=== PATIENT | female | born 1980 ===

== ENCOUNTER 2021-02-12 21:54 | Emergency (ER) | payer MEDICAID, SELFPAY ==
--- NOTE | ~2021-02-12 | XR_ITS ---
EXAMINATION: XR CHEST CLINICAL INFORMATION: Upper respiratory symptoms COMPARISON: 04/05/2009 TECHNIQUE: Frontal view of the chest was obtained. FINDINGS: No significant abnormality is noted involving the heart, lungs, mediastinum, bony thorax or soft tissues. XR/XR chest 1V IMPRESSION: Unremarkable examination.
[2021-02-12 22:11] VITALS: BP 146/80; PULSE 74; PULSE 88; RESP 15; TEMP 36; O2SAT 100; O2SAT 99; BMI 32.9
[2021-02-12 22:47] VITALS: O2SAT 98
--- NOTE | 2021-02-12 23:14 | ED.URI ---
HPI - URI/Sore Throat General Chief Complaint: Upper Respiratory Symptoms Stated Complaint: nausea Time Seen by Provider: 02/12/21 23:08 Source: patient Mode of arrival: ambulatory Limitations: no limitations History of Present Illness HPI Narrative: This is a 40 years old female presented to the emergency department complaining of cough congestion runny nose. She states that she has been running a fever as well MD elicited complaint: fever and cough Onset (ago): day(s) (3 Days) Consistency: constant Severity: moderate Description of mucous: clear Exacerbating factors: nothing Relieving factors: nothing Associated symptoms: denies other symptoms Related Data Previous Rx's Medication Instructions Recorded amoxicillin 500 mg tablet 500 mg PO Q8H #30 tab 02/12/21 fluticasone propionate 50 1 spray INTRANASAL DAILY #16 g 02/12/21 mcg/actuation nasal spray,suspension (Flonase Allergy Relief) hydrocortisone 1 % topical cream 1 appl TOPICAL BID PRN #144 ea 02/12/21 packet Allergies Allergy/AdvReac Type Severity Reaction Status Date / Time No Known Allergies Allergy Unverified 02/18/20 15:26 Review of Systems Review of Systems: Yes all other systems are reviewed and are negative Constitutional: Constitutional: Reports no additional constitutional complaints ENT: Reports system reviewed and no additional complaints, except as documented Cardiovascular: Cardiovascular: Reports no additional cardiovascular complaints Respiratory: Respiratory: Reports chest congestion and Reports cough PMFSH Past Medical History Medical History No known health problems Surgical History No history of previous surgery Social History Social History Alcohol intake: never Patient Tobacco Use Status: Never used Tobacco Use of substances other than those prescribed or required for medical reasons: No Advance Directives: No Advance Directives Information Provided: Yes Patient : No Physical Exam Vital Signs: Vital Signs: Last Vital Signs Temp 96.8 F 02/12/21 22:11 Pulse 74 02/12/21 22:11 Resp 15 02/12/21 22:11 BP 146/80 H 02/12/21 22:11 Pulse Ox 98 02/12/21 22:47 Body Mass Index 32.9 Const: General: cooperative and comfortable Orientation/consciousness: oriented to person, oriented to place, oriented to time and patient oriented x3 HENMT: Head: Yes normal to inspection, Yes No palpable skull fracture present and Yes normocephalic General nose exam: Normal external nose present Mouth: Normal oral and palatal mucosa present Neck: Neck: Yes normal visual inspection, Yes full ROM and Yes no lymphadenopathy Chest: Chest palpation & inspection: normal inspection of the chest and normal palpation of entire chest wall Resp: Effort & Inspection: normal respiratory effort and able to speak in complete sentences Auscultation: rhonchi Cardio: Jugular venous distension: no JVD Rate: regular rate Rhythm: regular rhythm GI: Inspection: Yes normal to inspection Palpation (GI): Soft to palpation, not firm, nontender and no guarding Skin: General skin exam: no rashes or lesions noted, elasticity normal and turgor normal Rashes: no rashes Neuro: General: oriented to person, oriented to place, oriented to time, patient oriented x3, gait normal and tone normal Cranial nerves: Yes CN's II-XII intact bilaterally and Yes Bilaterally intact EOM present Cognition (Neuro): normal cognition Course Reevaluation(s) Reevaluation #1: Patient is not toxic appearing she is afebrile chest x-rays negative ago this negative okay to discharge home MDM - URI/Sore Throat Lab Data Labs: Lab Results 02/12/21 02/12/21 Range/Units 23:00 23:22 Urine Color STRAW Urine Appearance CLEAR Urine pH 6.0 (5.0-8.0) Ur Specific [place] <= 1.005 (1.005-1.025) Urine Protein NEG (NEG-TRACE) MG/DL Urine Glucose (UA) NEG (NEG) MG/DL Urine Ketones NEG (NEG) MG/DL Urine Blood 2+ H (NEG) Urine Nitrite NEG (NEG) Ur Leukocyte Esterase NEG (NEG) Urine RBC 1-4 (0) /HPF Urine WBC 0 (0-4) /HPF Ur Squamous Epith Cells 1+ /LPF Urine Bacteria NONE /LPF COVID-19 ([facility]ANY) Negative (Negative) COVID-19 Clin Com See Note Imaging Data Chest x-ray: Radiologist's impression: EXAMINATION: XR CHEST CLINICAL INFORMATION: Upper respiratory symptoms COMPARISON: 04/05/2009 TECHNIQUE: Frontal view of the chest was obtained. FINDINGS: No significant abnormality is noted involving the heart, lungs, mediastinum, bony thorax or soft tissues. XR/XR chest 1V IMPRESSION: Unremarkable examination. ? Dictated By: CORETTA SALAZAR MD Signed By: <Electronically signed by CORETTA SALAZAR MD in OV> 02/12/21 6044 Discharge Plan Discharge Clinical Impression: Sinusitis, Upper respiratory infection Patient Disposition: Home, Self-Care Instructions: Sinusitis (ED) Prescriptions: New amoxicillin 500 mg tablet 500 mg PO Q8H Qty: 30 RF: 0 fluticasone propionate [Flonase Allergy Relief] 50 mcg/actuation spray,suspension 1 spray intranasal DAILY Qty: 16 RF: 0 hydrocortisone 1 % cream in packet 1 appl topical BID PRN (Reason: rash) Qty: 144 RF: 0
[2021-02-12 23:25] LABS: COVID-19 Test Negative (Negative); IDNOW Serial# 9DD0AD1C
[2021-02-12 23:28] LABS: Appearance Urine CLEAR; Color Urine STRAW; Glucose Urine UA NEG (NEG); Leukocyte Esterase Urine NEG (NEG); Nitrite Urine NEG (NEG); Specific Gravity - Urine <= 1.005 (1.005-1.025); Urine Blood 2+ (NEG); Urine Ketones NEG (NEG); Urine Protein NEG (NEG-TRACE)
[2021-02-12 23:34] LABS: Squamous Epithelial Cell Urine 1+ /LPF; WBC Urine 0 /HPF (0-4)
[2021-02-13] MEDS: Amoxicillin 500 MG CAPSULE PO (00:11)
== END 2021-02-13 00:20 | disposition home or self-care (01) ==
PROVIDERS: Emergency Provider Emergency Medicine
DX: J32.9 Chronic sinusitis, unspecified (principal); J06.9 Acute upper respiratory infection, unspecified; R50.9 Fever, unspecified; R05 Cough; Z20.822 Contact with and (suspected) exposure to COVID-19; Z79.899 Other long term (current) drug therapy
CPT/HCPCS: 36415; 71045; 81001; 87635; 99284

== ENCOUNTER 2021-02-13 10:31 | Emergency (ER) | payer MEDICAID, SELFPAY ==
--- NOTE | ~2021-02-13 | CT_ITS ---
EXAMINATION: CT ABDOMEN AND PELVIS WITHOUT CONTRAST CLINICAL INFORMATION: Left flank pain COMPARISON: None TECHNIQUE: Multidetector volumetric imaging was performed from the superior aspect of the liver through the pubic symphysis. Sagittal and coronal reformatted images were obtained on the technologist's workstation. This CT examination was performed using dose optimization techniques as appropriate, variously including the following: *Automated exposure control *Adjustment of mA and/or kV according to patient size (this includes techniques or standardized protocols for targeted exams where dose is matched to indication/reason for exam; i.e. extremities or head) *Use of iterative reconstruction technique DLP: 682 mGy-cm FINDINGS: LUNG BASES: The lung bases are clear. Heart size is normal. LIVER, GALLBLADDER, AND BILIARY TREE: There is a 6 mm hypodensity in segment 4A on axial image 24/3. No additional lesions seen. No intrahepatic ductal dilatation. There is small radiopaque gallstones without wall thickening. PANCREAS: Unremarkable. SPLEEN: Unremarkable. ADRENAL GLANDS: Unremarkable. KIDNEYS AND URETERS: The kidneys are normal in size, shape, and attenuation. No hydronephrosis, hydroureter, or calculi seen. No perinephric stranding. BLADDER: Unremarkable. GASTROINTESTINAL TRACT: There is scattered stool and gas seen throughout the colon without distention. The small bowel loops are normal caliber. Appendix is not visualized well. ABDOMINAL WALL: No significant hernia is appreciated. LYMPH NODES: Normal. VASCULAR: Unremarkable. PELVIC VISCERA: Unremarkable. OSSEOUS STRUCTURES: There is no lytic or sclerotic process seen. CT/CT abdomen pelvis wo con IMPRESSION: Cholelithiasis without wall thickening. 6 mm hypodense lesion in segment 4A, too small to correctly characterize. Mild constipation. No radiopaque urolith or hydroureteronephrosis.
[2021-02-13 10:55] VITALS: BP 119/60; PULSE 75; RESP 16; TEMP 36.9; O2SAT 99; BMI 29.2
--- NOTE | 2021-02-13 11:00 | ED.ABDPAIN ---
HPI - Abdominal Pain General Chief Complaint: Nausea/Vomiting/Diarrhea Stated Complaint: ABD PAIN,DIZZINESS Time Seen by Provider: 02/13/21 10:59 Source: patient Mode of arrival: ambulatory Limitations: no limitations History of Present Illness MD elicited complaint: abdominal pain Pertinent past history: none Onset (ago): day(s) (2) Pain Consistency: constant Location: LUQ Severity: moderate Quality: stabbing Radiation: L flank Migration to: no migration Exacerbating factors: movement Relieving factors: nothing Context: other (just seen yesterday for sinusitis - amoxicillin Rx) Associated symptoms: dysuria and other (vaginal discharge, subj fever/chills vomiting) Treatments prior to arrival: other (amoxicillin) Related Data Previous Rx's Medication Instructions Recorded amoxicillin 500 mg tablet 500 mg PO Q8H #30 tab 02/12/21 fluticasone propionate 50 1 spray INTRANASAL DAILY #16 g 02/12/21 mcg/actuation nasal spray,suspension (Flonase Allergy Relief) hydrocortisone 1 % topical cream 1 appl TOPICAL BID PRN #144 ea 02/12/21 packet ondansetron 4 mg disintegrating 4 mg PO Q8H PRN #20 tab 02/13/21 tablet Allergies Allergy/AdvReac Type Severity Reaction Status Date / Time No Known Allergies Allergy Unverified 02/18/20 15:26 Review of Systems Review of Systems Constitutional : No Weight loss, pos Fever, posChills, No Fatigue, No Malaise ENT/Mouth : No sore throat, pos Rhinorrhea Eyes: No Eye Pain, No Swelling, No Redness Cardiovascular : No Chest Pain, No SOB, No Dyspnea on Exertion, No Orthopnea, No Edema, No Palpitations Respiratory : No Cough, No Sputum, No Wheezing Gastrointestinal : pos Nausea, posVomiting, No Diarrhea, No Constipation, pos abdominal Pain, No Hematochezia, No Melena Genitourinary : pos Dysuria, No Urinary Frequency, No Hematuria, pos vaginal discharge Musculoskeletal : No joint pain, No Myalgias, No Joint Swelling Skin : No Skin Lesions, No rash Neuro : No Weakness, No Numbness, No Dizziness, No Headache Psych : No Anxiety/Panic, No Depression Heme/Lymph: No Bruising, No Bleeding,No Lymphadenopathy Endocrine : No Polyuria, No Polydipsia All other systems reviewed and are negative Physical Exam Vital Signs: Vital Signs: Last Vital Signs Temp 97.9 F 02/13/21 12:00 Pulse 67 02/13/21 12:00 Resp 15 02/13/21 12:00 BP 130/70 02/13/21 12:00 Pulse Ox 100 02/13/21 12:00 Body Mass Index 29.2 Appearance: Alert. Oriented X3. No acute distress. Eyes: Pupils equal, round and reactive to light. ENT: Pharynx normal. Neck: Normal inspection. Neck supple. CVS: Normal heart rate and rhythm. Pulses normal. Respiratory: No respiratory distress. Breath sounds normal. Abdomen: Soft and nontender. no obvious response to pain on exam Back: mild L CVA ttp Skin: Skin warm and dry. Normal skin color. Normal skin turgor. Extremities: No lower extremity edema. No calf ttp Neuro: Oriented X 3. No motor deficit. No sensory deficit. Course Course Course Narrative: negative workup stable for DC will refer her to PCP MDM - Abdominal Pain MDM Narrative Medical decision making narrative: 40 yo female otherwise healthy here with multiple complaints - 1. L flank pain and dysuria ?vaginal discharge - will obtain UA, swabs for STI, CT scan for renal colic. Also c/o ?ulcer - abdominal pain ordered, her exam is very benign, possibly UTI with stone she does not appear as a clinical pyleonephritis. Dispo per results and workup. Lab Data Result diagrams: 02/13/21 11:51 02/13/21 11:51 Labs: Lab Results 02/13/21 02/13/21 02/13/21 Range/Units 11:51 11:51 12:25 WBC 12.5 H (4.8-10.8) X10*3/uL RBC 4.68 (4.20-5.50) X10*6/uL Hgb 12.5 (12.0-16.0) g/dl Hct 37.5 (37-47) % MCV 80.1 (80-98) fL MCH 26.7 L (27.0-33.0) pg MCHC 33.3 (31.0-35.0) g/dl RDW 12.8 (11.0-16.0) % Plt Count 298 (160-400) X10*3/uL MPV 10.6 (9.4-12.3) fL Immature Gran % (Auto) 0.3 (0.0-0.4) % Neut % (Auto) 70.1 (45-73) % Lymph % (Auto) 21.2 (20-40) % [place] % (Auto) 6.2 (2-11) % Eos % (Auto) 1.7 (0-4) % Baso % (Auto) 0.5 (0-2) % Lymph # (Auto) 2.7 (1.2-4.9) X10*3/uL [place] # (Auto) 0.8 (0.1-1.2) X10*3/uL Eos # (Auto) 0.2 (0.0-0.4) X10*3/uL Baso # (Auto) 0.1 (0.0-0.2) X10*3/uL Abs Immat Gran (auto) 0.04 H (0.00-0.03) X10*3/uL Absolute Neuts (auto) 8.8 H (2.0-8.3) X10*3/uL Absolute Nucleated RBC 0.000 (0.0-0.012) X10*3/uL Nucleated RBC % (auto) 0.0 (0.0-0.2) /100WBC Sodium 136 (135-145) mmol/L Potassium 3.7 (3.3-5.1) mmol/L Chloride 107 (96-108) mmol/L Carbon Dioxide 20 L (22-29) mmol/L Anion Gap 13 (12-20) BUN 12 (9-16) mg/dL Creatinine 0.90 (0.5-1.4) mg/dL Estim Creat Clear Calc 77.4 Estimated GFR > 60 Random Glucose 97 (60-115) mg/dL Calcium 9.1 (8.4-10.2) mg/dL Magnesium 1.8 (1.6-2.6) mg/dL Total Bilirubin 0.4 (0.0-1.0) mg/dL Direct Bilirubin < 0.2 (0.0-0.5) mg/dL AST 15 (5-31) U/L ALT 12 (0-31) U/L Alkaline Phosphatase 58 (39-117) U/L Total Protein 7.2 (6.5-8.0) g/dL Albumin 4.2 (3.5-5.0) g/dL Lipase 37 (8-78) U/L Urine Color STRAW Urine Appearance CLEAR Urine pH 6.0 (5.0-8.0) Ur Specific [place] 1.010 (1.005-1.025) Urine Protein NEG (NEG-TRACE) MG/DL Urine Glucose (UA) NEG (NEG) MG/DL Urine Ketones NEG (NEG) MG/DL Urine Blood 3+ H (NEG) Urine Nitrite NEG (NEG) Ur Leukocyte Esterase NEG (NEG) Urine RBC 10-14 H (0) /HPF Urine WBC 0 (0-4) /HPF Ur Squamous Epith Cells TRACE /LPF Urine Bacteria NONE /LPF Urine Test (NEGATIVE) 02/13/21 Range/Units 12:25 WBC (4.8-10.8) X10*3/uL RBC (4.20-5.50) X10*6/uL Hgb (12.0-16.0) g/dl Hct (37-47) % MCV (80-98) fL MCH (27.0-33.0) pg MCHC (31.0-35.0) g/dl RDW (11.0-16.0) % Plt Count (160-400) X10*3/uL MPV (9.4-12.3) fL Immature Gran % (Auto) (0.0-0.4) % Neut % (Auto) (45-73) % Lymph % (Auto) (20-40) % [place] % (Auto) (2-11) % Eos % (Auto) (0-4) % Baso % (Auto) (0-2) % Lymph # (Auto) (1.2-4.9) X10*3/uL [place] # (Auto) (0.1-1.2) X10*3/uL Eos # (Auto) (0.0-0.4) X10*3/uL Baso # (Auto) (0.0-0.2) X10*3/uL Abs Immat Gran (auto) (0.00-0.03) X10*3/uL Absolute Neuts (auto) (2.0-8.3) X10*3/uL Absolute Nucleated RBC (0.0-0.012) X10*3/uL Nucleated RBC % (auto) (0.0-0.2) /100WBC Sodium (135-145) mmol/L Potassium (3.3-5.1) mmol/L Chloride (96-108) mmol/L Carbon Dioxide (22-29) mmol/L Anion Gap (12-20) BUN (9-16) mg/dL Creatinine (0.5-1.4) mg/dL Estim Creat Clear Calc Estimated GFR Random Glucose (60-115) mg/dL Calcium (8.4-10.2) mg/dL Magnesium (1.6-2.6) mg/dL Total Bilirubin (0.0-1.0) mg/dL Direct Bilirubin (0.0-0.5) mg/dL AST (5-31) U/L ALT (0-31) U/L Alkaline Phosphatase (39-117) U/L Total Protein (6.5-8.0) g/dL Albumin (3.5-5.0) g/dL Lipase (8-78) U/L Urine Color Urine Appearance Urine pH (5.0-8.0) Ur Specific [place] (1.005-1.025) Urine Protein (NEG-TRACE) MG/DL Urine Glucose (UA) (NEG) MG/DL Urine Ketones (NEG) MG/DL Urine Blood (NEG) Urine Nitrite (NEG) Ur Leukocyte Esterase (NEG) Urine RBC (0) /HPF Urine WBC (0-4) /HPF Ur Squamous Epith Cells /LPF Urine Bacteria /LPF Urine Test NEGATIVE (NEGATIVE) Discharge Plan Discharge Clinical Impression: Gallstones Abdominal pain Qualifiers: Abdominal location: left upper quadrant Qualified Code(s): R10.12 - Left upper quadrant pain Patient Disposition: Home, Self-Care Instructions: Gallstones (ED), Abdominal Pain (ED) Additional Instructions: return to ED for any worsening symptoms or concerns there are no acute findings on CT scan in your left upper abdomen your STD panel will results in 2 days if positive we will call you please call and find a primary care doctor Prescriptions: New ondansetron 4 mg tablet,disintegrating 4 mg PO Q8H PRN (Reason: nausea and vomiting) Qty: 20 RF: 0 No Action amoxicillin 500 mg tablet 500 mg PO Q8H Qty: 30 RF: 0 fluticasone propionate [Flonase Allergy Relief] 50 mcg/actuation spray,suspension 1 spray intranasal DAILY Qty: 16 RF: 0 hydrocortisone 1 % cream in packet 1 appl topical BID PRN (Reason: rash) Qty: 144 RF: 0 Stand Alone Forms: Work/School Release [facility] Past Medical History Medical History No known health problems Surgical History No history of previous surgery Social History Social History Alcohol intake: never Patient Tobacco Use Status: Never used Tobacco Advance Directives: No Advance Directives Information Provided: No Patient : No
[2021-02-13 11:55] LABS: MANUAL DIFF FLAG NO
[2021-02-13 11:58] LABS: Basophils Absolute Auto 0.1 X10*3/uL (0.0-0.2); Basophils Percent Auto 0.5 % (0-2); Eosinophils Absolute Auto 0.2 X10*3/uL (0.0-0.4); Eosinophils Percent Auto 1.7 % (0-4); Hematocrit 37.5 % (37-47); Hemoglobin 12.5 g/dl (12.0-16.0); Imm Gran Abs Auto 0.04 X10*3/uL (0.00-0.03); Imm Gran Pct Auto 0.3 % (0.0-0.4); Lymphocytes Absolute Auto 2.7 X10*3/uL (1.2-4.9); Lymphocytes Percent Auto 21.2 % (20-40); Mean Corpuscular HGB Conc 33.3 g/dl (31.0-35.0); Mean Corpuscular Hemoglobin 26.7 pg (27.0-33.0); Mean Corpuscular Volume 80.1 fL (80-98); Mean Platelet Volume 10.6 fL (9.4-12.3); Monocytes Absolute Auto 0.8 X10*3/uL (0.1-1.2); Monocytes Percent Auto 6.2 % (2-11); Neutrophils Absolute Auto 8.8 X10*3/uL (2.0-8.3); Neutrophils Percent Auto 70.1 % (45-73); Platelet Count 298 X10*3/uL (160-400); Red Blood Count 4.68 X10*6/uL (4.20-5.50); Red Cell Distribution Width 12.8 % (11.0-16.0); White Blood Count 12.5 X10*3/uL (4.8-10.8)
[2021-02-13 12:00] VITALS: BP 130/70; PULSE 67; RESP 15; TEMP 36.6; O2SAT 100
[2021-02-13 12:14] LABS: Alanine Aminotransferase 12 U/L (0-31); Albumin Level 4.2 g/dL (3.5-5.0); Alkaline Phosphatase 58 U/L (39-117); Anion Gap 13 (12-20); Aspartate Amino Transferase 15 U/L (5-31); Bilirubin Direct < 0.2 mg/dL (0.0-0.5); Bilirubin Total 0.4 mg/dL (0.0-1.0); Blood Urea Nitrogen 12 mg/dL (9-16); Calcium 9.1 mg/dL (8.4-10.2); Carbon Dioxide 20 mmol/L (22-29); Chloride 107 mmol/L (96-108); Creatinine Clr Calc Pharmacy 77.4; Estimated Glomerular Filt Rate > 60; Glucose Random 97 mg/dL (60-115); Lipase 37 U/L (8-78); Magnesium 1.8 mg/dL (1.6-2.6); Potassium 3.7 mmol/L (3.3-5.1); Sodium 136 mmol/L (135-145); Total Protein 7.2 g/dL (6.5-8.0)
[2021-02-13 12:36] LABS: Appearance Urine CLEAR; Color Urine STRAW; Glucose Urine UA NEG (NEG); Leukocyte Esterase Urine NEG (NEG); Nitrite Urine NEG (NEG); UACC Culture Trigger NO; Urine Blood 3+ (NEG); Urine Ketones NEG (NEG); Urine Protein NEG (NEG-TRACE)
[2021-02-13 12:39] LABS: UPreg QC Valid YES; Urine Pregnancy NEGATIVE (NEGATIVE)
[2021-02-13 12:47] LABS: Squamous Epithelial Cell Urine TRACE /LPF; WBC Urine 0 /HPF (0-4)
[2021-02-13 14:35] LABS: CT PCR NOT DETECTED (Not Detect.); NG PCR NOT DETECTED (Not Detect.)
== END 2021-02-13 13:57 | disposition home or self-care (01) ==
PROVIDERS: Emergency Provider Emergency Medicine
DX: R10.12 Left upper quadrant pain (principal); R30.0 Dysuria; R42 Dizziness and giddiness; N89.8 Other specified noninflammatory disorders of vagina; Z79.899 Other long term (current) drug therapy
CPT/HCPCS: 36415; 74176; 80048; 80076; 81001; 81025; 83690; 83735; 85025; 87491; 87591; 99283; 99284

== ENCOUNTER 2021-03-17 16:09 | Emergency (ER) | payer MEDICAID, SELFPAY ==
--- NOTE | ~2021-03-17 | XR_ITS ---
EXAMINATION: XR CHEST CLINICAL INFORMATION: Cough. COMPARISON: Most recent chest radiograph dated 02/12/2021. TECHNIQUE: Frontal view of the chest was obtained. FINDINGS: Hypoinflation of the lungs. Minimal left basilar atelectasis. No pleural effusion or pneumothorax. Stable cardiomediastinal silhouette. XR/XR chest 1V IMPRESSION: Hypoinflation of the lungs with minimal left basilar atelectasis.
--- NOTE | 2021-03-17 16:16 | ED_ITS ---
HPI - URI/Sore Throat General Chief Complaint: Upper Respiratory Symptoms Stated Complaint: cough x2 weeks Time Seen by Provider: 03/17/21 16:14 Source: patient and EMS Mode of arrival: EMS Limitations: no limitations History of Present Illness MD elicited complaint: cough and other (body aches) Pertinent past history: other (states she hasn't felt well in months) Onset (ago): week(s) (2) Consistency: progressively worsening Severity: moderate Able to tolerate fluids by mouth: Yes Exacerbating factors: other (movement) Relieving factors: nothing Context: other (dx with gallstones in February) Associated symptoms: fever, chills, myalgias, headache, cough, nausea and vomiting Treatments prior to arrival: none Related Data Previous Rx's Medication Instructions Recorded amoxicillin 500 mg tablet 500 mg PO Q8H #30 tab 02/12/21 fluticasone propionate 50 1 spray INTRANASAL DAILY #16 g 02/12/21 mcg/actuation nasal spray,suspension (Flonase Allergy Relief) hydrocortisone 1 % topical cream 1 appl TOPICAL BID PRN #144 ea 02/12/21 packet ondansetron 4 mg disintegrating 4 mg PO Q8H PRN #20 tab 02/13/21 tablet ondansetron 4 mg disintegrating 4 mg PO Q8H PRN #20 tab 03/17/21 tablet Allergies Allergy/AdvReac Type Severity Reaction Status Date / Time No Known Allergies Allergy Unverified 02/18/20 15:26 Review of Systems 2 Review of Systems: Constitutional : No Weight loss, No Fever, pos Chills, pos Fatigue, pos Malaise ENT/Mouth : No sore throat, No Rhinorrhea Eyes: No Eye Pain, No Swelling, No Redness Cardiovascular : No Chest Pain, No SOB, No Dyspnea on Exertion, No Orthopnea, No Edema, No Palpitations Respiratory : pos Cough, No Sputum, No Wheezing Gastrointestinal : pos Nausea, pos Vomiting, No Diarrhea, No Constipation, No abdominal Pain, No Hematochezia, No Melena Genitourinary : No Dysuria, No Urinary Frequency, No Hematuria, Musculoskeletal : No joint pain, No Myalgias, No Joint Swelling Skin : No Skin Lesions, No rash Neuro : pos Weakness, No Numbness, No Dizziness, No Headache Psych : No Anxiety/Panic, No Depression Heme/Lymph: No Bruising, No Bleeding,No Lymphadenopathy Endocrine : No Polyuria, No Polydipsia All other systems reviewed and are negative [facility] Past Medical History Attestation statement: The following information was validated with the patient. Medical History No known health problems Surgical History No history of previous surgery Social History Social History Alcohol intake: never Patient Tobacco Use Status: Never used Tobacco Advance Directives: No Advance Directives Information Provided: Yes Patient : No Physical Exam Vital Signs: Vital Signs: Last Vital Signs Temp 99.9 F 03/17/21 16:17 Pulse 90 03/17/21 16:17 Resp 16 03/17/21 16:17 BP 116/67 03/17/21 16:17 Pulse Ox 97 03/17/21 16:17 Body Mass Index 28.7 Appearance: Alert. Oriented X3. No acute distress. Eyes: Pupils equal, round and reactive to light. ENT: Pharynx normal. Neck: Normal inspection. Neck supple. CVS: Normal heart rate and rhythm. Pulses normal. Respiratory: No respiratory distress. Breath sounds normal. Abdomen: Soft and nontender. Skin: Skin warm and dry. pale skin color. Normal skin turgor. Extremities: No lower extremity edema. No calf ttp Neuro: Oriented X 3. No motor deficit. No sensory deficit. Course Course Course Narrative: no hypoxia, no pneumonia symptoms really started 2 days ago with overall feeling worse and cough - can be DC home home, given expectant course MDM - URI/Sore Throat MDM Narrative Medical decision making narrative: 41 yo female with viral like illness here with multiple complaints one of which is sick for months - at this time she c/o cough. Will obtain labs, cultures, CXR for pneumonia, lyme test, IVF, COVID/RSV test. Dispo per results and findings. Lab Data Result diagrams: 03/17/21 18:34 03/17/21 18:34 Labs: Lab Results 03/17/21 03/17/21 03/17/21 Range/Units 18:34 18:34 18:40 WBC 5.0 (4.8-10.8) X10*3/uL RBC 4.61 (4.20-5.50) X10*6/uL Hgb 12.6 (12.0-16.0) g/dl Hct 36.7 L (37-47) % MCV 79.6 L (80-98) fL MCH 27.3 (27.0-33.0) pg MCHC 34.3 (31.0-35.0) g/dl RDW 13.0 (11.0-16.0) % Plt Count 189 D (160-400) X10*3/uL MPV 11.5 (9.4-12.3) fL Immature Gran % (Auto) 0.2 (0.0-0.4) % Neut % (Auto) 76.5 H (45-73) % Lymph % (Auto) 17.7 L (20-40) % [place] % (Auto) 5.6 (2-11) % Eos % (Auto) 0.0 (0-4) % Baso % (Auto) 0.0 (0-2) % Lymph # (Auto) 0.9 L (1.2-4.9) X10*3/uL [place] # (Auto) 0.3 (0.1-1.2) X10*3/uL Eos # (Auto) 0.0 (0.0-0.4) X10*3/uL Baso # (Auto) 0.0 (0.0-0.2) X10*3/uL Abs Immat Gran (auto) 0.01 (0.00-0.03) X10*3/uL Absolute Neuts (auto) 3.9 (2.0-8.3) X10*3/uL Absolute Nucleated RBC 0.000 (0.0-0.012) X10*3/uL Nucleated RBC % (auto) 0.0 (0.0-0.2) /100WBC Lactic Acid 1.1 (0.5-2.0) mmol/L Coronavirus (PCR) POSITIVE A (Negative) Influenza Type A (PCR) NEGATIVE (Negative) Influenza Type B (PCR) NEGATIVE (Negative) RSV RNA Qual (PCR) NEGATIVE (Negative) Discharge Plan Discharge Clinical Impression: COVID-19 Patient Disposition: Home, Self-Care Instructions: COVID-19 (Coronavirus Disease 2019) (ED) Additional Instructions: return to ED for any worsening symptoms or concerns if you are so short of breath you cannot walk to the bathroom that is not normal Prescriptions: New ondansetron 4 mg tablet,disintegrating 4 mg PO Q8H PRN (Reason: nausea and vomiting) Qty: 20 RF: 0 No Action amoxicillin 500 mg tablet 500 mg PO Q8H Qty: 30 RF: 0 fluticasone propionate [Flonase Allergy Relief] 50 mcg/actuation spray,suspension 1 spray intranasal DAILY Qty: 16 RF: 0 hydrocortisone 1 % cream in packet 1 appl topical BID PRN (Reason: rash) Qty: 144 RF: 0 ondansetron 4 mg tablet,disintegrating 4 mg PO Q8H PRN (Reason: nausea and vomiting) Qty: 20 RF: 0 Stand Alone Forms: Work/School Release
[2021-03-17 16:17] VITALS: BP 116/67; BP 118/82; PULSE 90; PULSE 99; RESP 16; TEMP 37.7; O2SAT 97; BMI 28.7
[2021-03-17 18:41] LABS: MANUAL DIFF FLAG NO
[2021-03-17 18:47] LABS: Hematocrit 36.7 % (37-47); Hemoglobin 12.6 g/dl (12.0-16.0); Imm Gran Abs Auto 0.01 X10*3/uL (0.00-0.03); Imm Gran Pct Auto 0.2 % (0.0-0.4); Lymphocytes Absolute Auto 0.9 X10*3/uL (1.2-4.9); Lymphocytes Percent Auto 17.7 % (20-40); Mean Corpuscular HGB Conc 34.3 g/dl (31.0-35.0); Mean Corpuscular Hemoglobin 27.3 pg (27.0-33.0); Mean Corpuscular Volume 79.6 fL (80-98); Mean Platelet Volume 11.5 fL (9.4-12.3); Monocytes Absolute Auto 0.3 X10*3/uL (0.1-1.2); Monocytes Percent Auto 5.6 % (2-11); Neutrophils Absolute Auto 3.9 X10*3/uL (2.0-8.3); Neutrophils Percent Auto 76.5 % (45-73); Platelet Count 189 X10*3/uL (160-400); Red Blood Count 4.61 X10*6/uL (4.20-5.50)
[2021-03-17] MEDS: Ketorolac Tromethamine 15 MG/ML VIAL 30 MG IVPUSH (18:48)
[2021-03-17] MEDS: ondansetron HCL 4 MG/2 ML VIAL IVPUSH (18:49)
[2021-03-17] MEDS: cefTRIAXone sodium 1 GM in 0.9 % Sodium Chloride 50 ML IV (18:49)
[2021-03-17] MEDS: 0.9 % Sodium Chloride 1,000 ML 999 ML IVCONT (18:50)
[2021-03-17 18:53] LABS: Lactic Acid 1.1 mmol/L (0.5-2.0)
[2021-03-17 19:25] LABS: Influenza A PCR NEGATIVE (Negative); Influenza B PCR NEGATIVE (Negative); Resp Syncy Virus RNA Qual PCR NEGATIVE (Negative); SARS COV2 PCR INHOUSE POSITIVE (Negative)
[2021-03-17 20:05] LABS: Alanine Aminotransferase 13 U/L (0-31); Albumin Level 3.7 g/dL (3.5-5.0); Alkaline Phosphatase 41 U/L (39-117); Anion Gap 10 (12-20); Aspartate Amino Transferase 18 U/L (5-31); Bilirubin Direct 0.2 mg/dL (0.0-0.5); Bilirubin Total 0.5 mg/dL (0.0-1.0); Blood Urea Nitrogen 10 mg/dL (9-16); Calcium 7.8 mg/dL (8.4-10.2); Carbon Dioxide 24 mmol/L (22-29); Chloride 108 mmol/L (96-108); Creatinine Clr Calc Pharmacy 83.6; Estimated Glomerular Filt Rate > 60; Glucose Random 94 mg/dL (60-115); Lipase 43 U/L (8-78); Magnesium 1.7 mg/dL (1.6-2.6); Potassium 3.2 mmol/L (3.3-5.1); Sodium 139 mmol/L (135-145); Total Protein 6.1 g/dL (6.5-8.0)
[2021-03-20 15:46] LABS: Lyme Abs Screen <0.90 index
== END 2021-03-17 20:13 | disposition home or self-care (01) ==
PROVIDERS: Emergency Provider Emergency Medicine; PCP Internal Medicine
DX: U07.1 COVID-19 (principal); R05.9 Cough, unspecified; M79.10 Myalgia, unspecified site; R51.9 Headache, unspecified; R50.9 Fever, unspecified; Z79.899 Other long term (current) drug therapy
CPT/HCPCS: 0241U; 36415; 71045; 80048; 80076; 83605; 83690; 83735; 85025; 86617; 86618; 87040; 96361; 96365; 96375; 99284; J0696; J1885; J2405

== ENCOUNTER 2021-09-07 08:38 | Outpatient (REF) | payer MEDICAID, SELFPAY ==
--- NOTE | ~2021-09-07 | CT_ITS ---
EXAMINATION: CT SINUS WITHOUT CONTRAST CLINICAL INFORMATION: Chronic rhinitis and headaches. COMPARISON: There are no prior studies available comparison. TECHNIQUE: Noncontrast axial CT scan of the paranasal sinuses was obtained. [place] protocol utilized. Coronal and sagittal reformatted images were generated at the technologist workstation. This CT examination was performed using dose optimization techniques as appropriate, variously including the following: *Automated exposure control *Adjustment of mA and/or kV according to patient size (this includes techniques or standardized protocols for targeted exams where dose is matched to indication/reason for exam; i.e. extremities or head) *Use of iterative reconstruction technique DLP: 125 mGy-cm. FINDINGS: FRONTAL SINUSES AND DRAINAGE PATHWAYS: The frontal sinuses are well developed bilaterally. They are well-aerated with patent frontal sinus drainage pathways. MAXILLARY SINUSES AND DRAINAGE PATHWAYS: The maxillary sinuses are well-developed bilaterally. There is a small retention cyst in the inferior left maxillary sinus medially. The ostiomeatal complexes are patent bilaterally. ETHMOID SINUSES: The ethmoid sinuses are well-developed and appear clear bilaterally. SPHENOID SINUSES AND DRAINAGE PATHWAYS: The sphenoid sinuses are well-aerated bilaterally. They are clear with patent sphenoethmoidal recesses. NASAL CAVITY AND NASAL SEPTUM: The nasal septum is slightly deviated to the left inferiorly and anteriorly. There is a small bony nasal septal spur in the region. There are no large nasal cavity masses or polyps. ADDITIONAL RELEVANT FINDINGS: The lamina papyracea are intact. The carotid canals are normally covered by bone. The ethmoid roofs are slightly asymmetric, higher on the left. No periapical disease is seen. The TMJs and orbits are normal. The visualized mastoid air cells and the middle ear cavity are clear. There are no acute intracranial findings. CT/CT sinus wo con IMPRESSION: 1. There is no significant active sinus disease. The mastoid air cells and middle ear cavities are well-aerated. 2. The ostiomeatal complexes are patent bilaterally.
== END 2021-09-07 08:39 | disposition home or self-care (01) ==
LOC: HO.CT 08:38
PROVIDERS: PCP Internal Medicine; Visit Provider Emergency Medicine
DX: R51.9 Headache, unspecified (principal); J31.0 Chronic rhinitis
CPT/HCPCS: 70486

== ENCOUNTER 2021-09-18 22:16 | Emergency (ER) | payer MEDICAID, SELFPAY ==
--- NOTE | ~2021-09-18 | CT_ITS ---
EXAMINATION: CT ABDOMEN AND PELVIS WITHOUT CONTRAST CLINICAL INFORMATION: Left flank pain COMPARISON: 02/13/2021 TECHNIQUE: Multidetector volumetric imaging was performed from the superior aspect of the liver through the pubic symphysis. Sagittal and coronal reformatted images were obtained on the technologist's workstation. This CT examination was performed using dose optimization techniques as appropriate, variously including the following: *Automated exposure control *Adjustment of mA and/or kV according to patient size (this includes techniques or standardized protocols for targeted exams where dose is matched to indication/reason for exam; i.e. extremities or head) *Use of iterative reconstruction technique DLP: 575 mGy-cm FINDINGS: LUNG BASES: The visualized lung bases are unremarkable. LIVER, GALLBLADDER, AND BILIARY TREE: The liver is normal in size, shape, and attenuation. No focal hepatic lesion or biliary ductal dilatation is present. Normally distended gallbladder with layering high attenuation favoring small stones. No wall thickening or adjacent inflammation. PANCREAS: Unremarkable. SPLEEN: Unremarkable. ADRENAL GLANDS: Unremarkable. KIDNEYS AND URETERS: The kidneys are normal in size, shape, and attenuation. No hydronephrosis, hydroureter, or calculi seen. No perinephric stranding. BLADDER: Unremarkable. GASTROINTESTINAL TRACT: The stomach is unremarkable. Normal caliber small bowel. No obstruction. Normal appendix. No colonic wall thickening or inflammatory change. No free air or free fluid. ABDOMINAL WALL: No significant hernia is appreciated. LYMPH NODES: Normal. VASCULAR: Unremarkable. PELVIC VISCERA: Heterogeneous uterus with lobulations consistent with multiple fibroids. There is what appears to be fluid possibly in the cervical canal. This is distended. This is increased from the previous CT. OSSEOUS STRUCTURES: No acute or suspicious osseous abnormality. Mild degenerative changes in the spine. CT/CT abdomen pelvis wo con IMPRESSION: No acute finding in the abdomen or pelvis. No hydronephrosis or nephrolithiasis. No inflammatory change. Suspect multiple uterine fibroids. This is similar to prior. Appearance of increased fluid in the cervical canal. This could be correlated with ultrasound. Fleischner guidelines were followed.
[2021-09-18 22:57] VITALS: BP 145/80; PULSE 75; RESP 17; TEMP 37.2; O2SAT 98; BMI 32.2
[2021-09-18 23:52] VITALS: BP 122/50; PULSE 73; RESP 12; TEMP 36.8; O2SAT 98
--- NOTE | 2021-09-18 23:57 | ED_ITS ---
HPI - Abdominal Pain General Chief Complaint: Abdominal Pain Stated Complaint: L side stomach & back pain Time Seen by Provider: 09/18/21 23:56 Source: patient Mode of arrival: ambulatory Limitations: no limitations History of Present Illness HPI narrative: Patient complaining of painLeft flank left upper abdomen for last 2 weeks off and on increases on deep inspiration slightly nauseated and vomited few times. No fever no chills patient had similar pain few years ago workup was negative except for gallstones. Patient denies any pain in the right upper quadrant does not feel hungry because of nausea no fever or chills Related Data Previous Rx's Medication Instructions Recorded amoxicillin 500 mg tablet 500 mg PO Q8H #30 tab 02/12/21 fluticasone propionate 50 1 spray INTRANASAL DAILY #16 g 02/12/21 mcg/actuation nasal spray,suspension (Flonase Allergy Relief) hydrocortisone 1 % topical cream 1 appl TOPICAL BID PRN #144 ea 02/12/21 packet ondansetron 4 mg disintegrating 4 mg PO Q8H PRN #20 tab 02/13/21 tablet ondansetron 4 mg disintegrating 4 mg PO Q8H PRN #20 tab 03/17/21 tablet omeprazole 40 mg capsule,delayed 40 mg PO DAILY #30 cap 09/19/21 release sucralfate 1 gram tablet 1 g PO BID #60 tab 09/19/21 Allergies Allergy/AdvReac Type Severity Reaction Status Date / Time No Known Allergies Allergy Verified 09/18/21 22:57 Review of Systems Review of Systems Yes all other systems are reviewed and are negative [facility] Past Medical History Medical History No known health problems Surgical History No history of previous surgery Social History Social History Alcohol intake: never Patient Tobacco Use Status: Never used Tobacco Advance Directives: No Patient : No Physical Exam ED Vital Signs: Vital Signs - 24 hr 09/18/21 22:57 09/18/21 23:52 Temperature 98.9 F 98.2 F Pulse Rate 75 73 Respiratory Rate 17 12 Blood Pressure 145/80 H 122/50 L Pulse Oximetry 98 98 BMI result Body Mass Index 32.2 Appearance: Alert. Oriented X3. No acute distress. Eyes: No pallor/ icterus ENT: Pharynx normal. Oral Mucosa moist Neck: Normal inspection. Neck supple. CVS: Normal heart rate and rhythm. Pulses normal. Respiratory: No respiratory distress. Equal air entry bilateral, no wheezing/rales/rhonchi Abdomen: Soft mild tenderness left upper quadrant and left flank area no rebound tenderness or guarding Bowel sounds are present, no mass palpable, Skin: Skin warm and dry. Normal skin color. Normal skin turgor. Extremities: No lower extremity edema. No calf tenderness Neuro: Oriented X 3. MDM - Abdominal Pain MDM Narrative Medical decision making narrative: Patient with chronic microscopic hematuria with recurrent pain in the left side previous CT scan was also negative and today also does not look like patient has any kidney stone. Will discharge patient home advised to follow up with business trainer Medical Records Attestation: I reviewed the patient's medical records. Lab Data Attestation: I reviewed the patient's lab results. Result diagrams: 09/19/21 00:06 09/19/21 00:06 Labs: Lab Results 09/18/21 09/18/21 09/19/21 Range/Units 23:59 23:59 00:06 WBC 12.2 H (4.8-10.8) X10*3/uL RBC 4.77 (4.20-5.50) X10*6/uL Hgb 12.8 (12.0-16.0) g/dl Hct 38.3 (37.0-47.0) % MCV 80.3 (80.0-98.0) fL MCH 26.8 L (27.0-33.0) pg MCHC 33.4 (31.0-35.0) g/dl RDW 13.3 (11.0-16.0) % Plt Count 291 (160-400) X10*3/uL MPV 9.7 (9.4-12.3) fL Immature Gran % (Auto) 0.2 (0.0-0.4) % Neut % (Auto) 71.8 (45-73) % Lymph % (Auto) 21.0 (20-40) % [place] % (Auto) 5.0 (2-11) % Eos % (Auto) 1.5 (0-4) % Baso % (Auto) 0.5 (0-2) % Lymph # (Auto) 2.6 (1.2-4.9) X10*3/uL [place] # (Auto) 0.6 (0.1-1.2) X10*3/uL Eos # (Auto) 0.2 (0.0-0.4) X10*3/uL Baso # (Auto) 0.1 (0.0-0.2) X10*3/uL Abs Immat Gran (auto) 0.03 (0.00-0.03) X10*3/uL Absolute Neuts (auto) 8.7 H (2.0-8.3) x10*3/uL Absolute Nucleated RBC 0.000 (0.0-0.012) X10*3/uL Nucleated RBC % (auto) 0.0 (0.0-0.2) /100WBC Sodium (135-145) mmol/L Potassium (3.3-5.1) mmol/L Chloride (96-108) mmol/L Carbon Dioxide (22-29) mmol/L Anion Gap (12-20) BUN (9-16) mg/dL Creatinine (0.5-1.4) mg/dL Estim Creat Clear Calc Estimated GFR Random Glucose (60-115) mg/dL Calcium (8.4-10.2) mg/dL Total Bilirubin (0.0-1.0) mg/dL AST (5-31) U/L ALT (0-31) U/L Alkaline Phosphatase (39-117) U/L Total Protein (6.5-8.0) g/dL Albumin (3.5-5.0) g/dL Lipase (8-78) U/L Urine Color YELLOW Urine Appearance CLEAR Urine pH 6.0 (5.0-8.0) Ur Specific [place] 1.020 (1.005-1.025) Urine Protein NEG (NEG-TRACE) MG/DL Urine Glucose (UA) NEG (NEG) MG/DL Urine Ketones NEG (NEG) MG/DL Urine Blood 3+ H (NEG) Urine Nitrite NEG (NEG) Ur Leukocyte Esterase NEG (NEG) Urine RBC 0-2 (0) /HPF Urine WBC 0-2 (0-4) /HPF Ur Squamous Epith Cells TRACE /LPF Urine Bacteria NONE /LPF Urine Test NEGATIVE (NEGATIVE) 09/19/21 Range/Units 00:06 WBC (4.8-10.8) X10*3/uL RBC (4.20-5.50) X10*6/uL Hgb (12.0-16.0) g/dl Hct (37.0-47.0) % MCV (80.0-98.0) fL MCH (27.0-33.0) pg MCHC (31.0-35.0) g/dl RDW (11.0-16.0) % Plt Count (160-400) X10*3/uL MPV (9.4-12.3) fL Immature Gran % (Auto) (0.0-0.4) % Neut % (Auto) (45-73) % Lymph % (Auto) (20-40) % [place] % (Auto) (2-11) % Eos % (Auto) (0-4) % Baso % (Auto) (0-2) % Lymph # (Auto) (1.2-4.9) X10*3/uL [place] # (Auto) (0.1-1.2) X10*3/uL Eos # (Auto) (0.0-0.4) X10*3/uL Baso # (Auto) (0.0-0.2) X10*3/uL Abs Immat Gran (auto) (0.00-0.03) X10*3/uL Absolute Neuts (auto) (2.0-8.3) x10*3/uL Absolute Nucleated RBC (0.0-0.012) X10*3/uL Nucleated RBC % (auto) (0.0-0.2) /100WBC Sodium 137 (135-145) mmol/L Potassium 4.3 D (3.3-5.1) mmol/L Chloride 102 (96-108) mmol/L Carbon Dioxide 23 (22-29) mmol/L Anion Gap 16 (12-20) BUN 12 (9-16) mg/dL Creatinine 0.81 (0.5-1.4) mg/dL Estim Creat Clear Calc 89.4 Estimated GFR > 60 Random Glucose 86 (60-115) mg/dL Calcium 10.0 D (8.4-10.2) mg/dL Total Bilirubin 0.5 (0.0-1.0) mg/dL AST 23 (5-31) U/L ALT 18 (0-31) U/L Alkaline Phosphatase 64 D (39-117) U/L Total Protein 7.8 D (6.5-8.0) g/dL Albumin 4.5 D (3.5-5.0) g/dL Lipase 40 (8-78) U/L Urine Color Urine Appearance Urine pH (5.0-8.0) Ur Specific [place] (1.005-1.025) Urine Protein (NEG-TRACE) MG/DL Urine Glucose (UA) (NEG) MG/DL Urine Ketones (NEG) MG/DL Urine Blood (NEG) Urine Nitrite (NEG) Ur Leukocyte Esterase (NEG) Urine RBC (0) /HPF Urine WBC (0-4) /HPF Ur Squamous Epith Cells /LPF Urine Bacteria /LPF Urine Test (NEGATIVE) Discharge Plan Discharge Clinical Impression: Abdominal pain Patient Disposition: Home, Self-Care Instructions: Abdominal Pain (ED) Additional Instructions: Follow-up business trainer/PCP for further workup Pain medicine as advised Take your Prilosec and sucralfate as prescribed Prescriptions: New omeprazole 40 mg capsule,delayed release(DR/EC) 40 mg PO DAILY Qty: 30 0RF sucralfate 1 gram tablet 1 g PO BID Qty: 60 0RF No Action amoxicillin 500 mg tablet 500 mg PO Q8H Qty: 30 0RF fluticasone propionate [Flonase Allergy Relief] 50 mcg/actuation spray,suspension 1 spray intranasal DAILY Qty: 16 0RF Rx Instructions: administer into each nostril hydrocortisone 1 % cream in packet 1 appl topical BID PRN (Reason: rash) Qty: 144 0RF ondansetron 4 mg tablet,disintegrating 4 mg PO Q8H PRN (Reason: nausea and vomiting) Qty: 20 0RF ondansetron 4 mg tablet,disintegrating 4 mg PO Q8H PRN (Reason: nausea and vomiting) Qty: 20 0RF
[2021-09-19 00:09] LABS: Basophils Absolute Auto 0.1 X10*3/uL (0.0-0.2); Basophils Percent Auto 0.5 % (0-2); Eosinophils Absolute Auto 0.2 X10*3/uL (0.0-0.4); Eosinophils Percent Auto 1.5 % (0-4); Hematocrit 38.3 % (37.0-47.0); Hemoglobin 12.8 g/dl (12.0-16.0); Imm Gran Abs Auto 0.03 X10*3/uL (0.00-0.03); Imm Gran Pct Auto 0.2 % (0.0-0.4); Lymphocytes Absolute Auto 2.6 X10*3/uL (1.2-4.9); MANUAL DIFF FLAG NO; Mean Corpuscular HGB Conc 33.4 g/dl (31.0-35.0); Mean Corpuscular Hemoglobin 26.8 pg (27.0-33.0); Mean Corpuscular Volume 80.3 fL (80.0-98.0); Mean Platelet Volume 9.7 fL (9.4-12.3); Monocytes Absolute Auto 0.6 X10*3/uL (0.1-1.2); Neutrophils Absolute Auto 8.7 x10*3/uL (2.0-8.3); Neutrophils Percent Auto 71.8 % (45-73); Platelet Count 291 X10*3/uL (160-400); Red Blood Count 4.77 X10*6/uL (4.20-5.50); Red Cell Distribution Width 13.3 % (11.0-16.0); White Blood Count 12.2 X10*3/uL (4.8-10.8)
[2021-09-19 00:11] LABS: Appearance Urine CLEAR; Color Urine YELLOW; Glucose Urine UA NEG (NEG); Leukocyte Esterase Urine NEG (NEG); Nitrite Urine NEG (NEG); UACC Culture Trigger NO; Urine Blood 3+ (NEG); Urine Ketones NEG (NEG); Urine Protein NEG (NEG-TRACE)
[2021-09-19 00:14] LABS: UPreg QC Valid YES; Urine Pregnancy NEGATIVE (NEGATIVE)
[2021-09-19 00:25] LABS: RBC Urine 0-2 /HPF (0); Squamous Epithelial Cell Urine TRACE /LPF; WBC Urine 0-2 /HPF (0-4)
[2021-09-19 00:35] LABS: Alanine Aminotransferase 18 U/L (0-31); Albumin Level 4.5 g/dL (3.5-5.0); Alkaline Phosphatase 64 U/L (39-117); Anion Gap 16 (12-20); Aspartate Amino Transferase 23 U/L (5-31); Bilirubin Total 0.5 mg/dL (0.0-1.0); Blood Urea Nitrogen 12 mg/dL (9-16); Carbon Dioxide 23 mmol/L (22-29); Chloride 102 mmol/L (96-108); Creatinine Clr Calc Pharmacy 89.4; Estimated Glomerular Filt Rate > 60; Glucose Random 86 mg/dL (60-115); Lipase 40 U/L (8-78); Potassium 4.3 mmol/L (3.3-5.1); Sodium 137 mmol/L (135-145); Total Protein 7.8 g/dL (6.5-8.0)
[2021-09-19] MEDS: Ketorolac Tromethamine 30 MG/ML VIAL IVPUSH (00:36)
[2021-09-19] MEDS: 0.9 % Sodium Chloride 1,000 ML 999 ML IV (00:36)
== END 2021-09-19 01:44 | disposition home or self-care (01) ==
PROVIDERS: Emergency Provider Internal Medicine; PCP Internal Medicine
DX: R10.9 Unspecified abdominal pain (principal); R31.29 Other microscopic hematuria
CPT/HCPCS: 36415; 74176; 80053; 81001; 81025; 83690; 85025; 96361; 96374; 99283; 99284; J1885

== ENCOUNTER → 2021-11-22 14:49 | Outpatient (BNVA) | payer MEDICAID, SELFPAY | PROVIDERS: PCP Internal Medicine; Visit Provider Nurse Practitioner Family | DX: K21.9 Gastro-esophageal reflux disease without esophagitis (principal); K58.1 Irritable bowel syndrome with constipation; K59.04 Chronic idiopathic constipation | CPT/HCPCS: 99202 ==

== ENCOUNTER 2021-11-29 14:52 | Outpatient (REF) | payer MEDICAID, SELFPAY ==
[2021-11-29 16:21] LABS: TSH reflex Free T4 1.06 uIU/mL (0.32-4.0)
[2021-11-29 16:32] LABS: Folate 14.4 ng/mL (> or = 4.0); Vitamin B12 284 pg/mL (200-900)
[2021-12-01 13:23] LABS: Transglutaminase Ab IgG <1.0 U/mL; Transglutaminase IgA <1.0 U/mL
[2021-12-04 15:46] LABS: Vitamin D 25-OH, D2 5 ng/mL; Vitamin D 25-OH, D3 20 ng/mL; Vitamin D 25-OH, Total 25 ng/mL (30-100)
== END 2021-11-29 14:53 | disposition home or self-care (01) ==
LOC: HO.LAB 14:52
PROVIDERS: PCP Internal Medicine; Visit Provider Nurse Practitioner Family
DX: R10.9 Unspecified abdominal pain (principal); R19.7 Diarrhea, unspecified; E55.9 Vitamin D deficiency, unspecified
CPT/HCPCS: 36415; 82306; 82607; 82746; 84443; 86364

== ENCOUNTER 2021-12-06 17:39 | Outpatient (REF) | payer MEDICAID, SELFPAY | END 2021-12-06 17:40 | disposition home or self-care (01) | LOC: HO.LNP 17:39 | PROVIDERS: Visit Provider Nurse Practitioner Family | DX: K21.9 Gastro-esophageal reflux disease without esophagitis (principal) | CPT/HCPCS: 87338 ==

== ENCOUNTER 2021-12-28 09:01 | Emergency (ER) | payer MEDICAID, SELFPAY ==
--- NOTE | ~2021-12-28 | XR_ITS ---
EXAMINATION: XR ANKLE, RIGHT CLINICAL INFORMATION: Right ankle pain and swelling COMPARISON: None TECHNIQUE: AP, lateral, and mortise views of the right ankle. FINDINGS: No acute visible fracture or dislocation. Ankle mortise is symmetric. Tiny plantar calcaneal heel spur. Joint spaces and alignment are maintained. No large ankle joint effusion. Soft tissue swelling overlying the lateral malleolus. XR/XR ankle RT 2V IMPRESSION: 1. No acute visible fracture or dislocation. 2. Soft tissue swelling overlying the lateral malleolus.
[2021-12-28 09:20] VITALS: BP 136/70; PULSE 79; RESP 16; TEMP 37.1; O2SAT 97; BMI 27.4
--- NOTE | 2021-12-28 10:08 | ED.LOWEXIN ---
HPI - Extremity Injury (Lower) General Chief Complaint: Extremity Injury, Lower Stated Complaint: r ankle inj Time Seen by Provider: 12/28/21 09:57 Source: patient Mode of arrival: ambulatory Limitations: no limitations History of Present Illness HPI Narrative: 41-year-old female presenting to the ED with complaints of right ankle pain/swelling able to partially bear weight due to pain since yesterday after she was outside in her parents yd and she tripped on something and twisted her ankle she is unsure which way and then fell onto her buttocks. Denies head injury loss of consciousness. Reports that she became very pale and felt like she was going to pass out from the pain although she did not pass out. Denies being on any blood thinners. Denies any neck injury/back injury/paresthesias/any other extremity injury or any deformities or weakness or any other symptoms complaints or concerns at this time. MD complaint: ankle injury and fall Onset (ago): day(s) (yesterday) Type of Injury: other (twist injury unsure which way ) Place: street/outdoors Severity: moderate Relieving factors: immobilization and rest Exacerbating factors: weight bearing, movement and palpation Context: other (twist then fall injury ) Associated symptoms: swelling and able to partially bear weight Other symptoms: none Related Data Previous Rx's Medication Instructions Recorded amoxicillin 500 mg tablet 500 mg PO Q8H #30 tabs 02/12/21 fluticasone propionate 50 1 spray intranasal DAILY #16 grams 02/12/21 mcg/actuation nasal spray,suspension (Flonase Allergy Relief) hydrocortisone 1 % topical cream 1 appl topical BID PRN rash #144 ea 02/12/21 packet ondansetron 4 mg disintegrating 4 mg PO Q8H PRN nausea and 02/13/21 tablet vomiting #20 tabs ondansetron 4 mg disintegrating 4 mg PO Q8H PRN nausea and 03/17/21 tablet vomiting #20 tabs methylcellulose (laxative) 500 mg 500 mg PO DAILY #90 tabs 11/22/21 tablet (Citrucel) sennosides 8.6 mg tablet (Natural 8.6 mg PO BEDTIME constipation #90 11/22/21 Senna Laxative) tabs sucralfate 1 gram tablet 1 g PO BEDTIME #90 tabs 11/22/21 cholecalciferol (vitamin D3) 50 50 mcg PO DAILY #90 caps 12/20/21 mcg (2,000 unit) capsule ibuprofen 800 mg tablet 800 mg PO Q8H PRN pain #14 tabs 12/28/21 Allergies Allergy/AdvReac Type Severity Reaction Status Date / Time No Known Allergies Allergy Verified 11/22/21 15:03 Review of Systems Review of Systems: Constitutional : No Weight loss, No Fever, No Chills, No Night Sweats, No Fatigue, No Malaise ENT/Mouth : No Hearing loss, No Ear Pain, No Nasal Congestion, No Sinus Pain, No Hoarseness, No sore throat, No Rhinorrhea, No Swallowing Difficulty Eyes: No Eye Pain, No Swelling, No Redness, No Foreign Body, No Discharge, No Vision Changes Cardiovascular : No Chest Pain, No SOB, No Dyspnea on Exertion, No Orthopnea, No Edema, No Palpitations Respiratory : No Cough, No Sputum, No Wheezing, No Smoke Exposure, No Dyspnea Gastrointestinal : No Nausea, No Vomiting, No Diarrhea, No Constipation, No abdominal Pain, No Hematochezia, No Melena Genitourinary : no irregular bleeding, No Dysuria, No Urinary Frequency, No Hematuria, No Urinary Incontinence, No Urgency, No Flank Pain, No Urinary Flow Changes, No Hesitancy Musculoskeletal : + right ankle joint pain/swelling, No Myalgias Skin : No Skin Lesions, No rash Neuro : No Weakness, No Numbness, No Paresthesias, No Loss of Consciousness, No Dizziness, No Headache Psych : No Anxiety/Panic, No Depression, No SI/HI/AH/VH, No Social Issues, Heme/Lymph: No Bruising, No Bleeding,No Lymphadenopathy Endocrine : No Polyuria, No Polydipsia, No Temperature Intolerance Yes all other systems are reviewed and are negative [facility] Past Medical History Attestation statement: The following information was validated with the patient. Source: old records reviewed and nursing notes reviewed Medical History No known health problems Surgical History No history of previous surgery Social History Social History Alcohol intake: never Patient Tobacco Use Status: Never used Tobacco Advance Directives: No Advance Directives Information Provided: No Physical Exam Vital Signs: Vital Signs: Last Vital Signs Temp 98.7 F 12/28/21 09:20 Pulse 79 12/28/21 09:20 Resp 16 12/28/21 09:20 BP 136/70 12/28/21 09:20 Pulse Ox 97 12/28/21 09:20 O2 Del Method 12/28/21 09:20 BMI result Body Mass Index 27.4 vital signs have been reviewed as normal and appeared to be correct. Blood pressure normal Heart rate normal. Respiration rate normal. Temperature normal. Oxygen saturation normal. Appearance: Alert. Oriented X3. No acute distress. Head: Normal external exam. Normocephalic. Atraumatic. Eyes: PERRLA. EOMI. Conjunctiva and sclera normal. Eyelids normal. ENT: Pharynx normal. Uvula midline. Moist mucous membranes. Neck: Normal inspection. Neck supple. FROM. CVS: Normal heart rate and rhythm. Respiratory: No respiratory distress. Painless inspiration. Skin: Skin warm and dry. Normal skin color. Normal skin turgor. No rashes/lesions/lacerations noted. Extremities: Patient with moderate tenderness to palpation/ecchymosis to the right lateral malleolus with soft tissue swelling. No obvious ligamentous or tendon injury noted. Achilles tendon is intact. Negative constant test. No 5th metatarsal tenderness noted. No foot tenderness noted. No knee tenderness noted. Otherwise all other extremities exhibit normal range of motion nontender. Neuro: Oriented X 3. No motor deficit. No sensory deficit. Reflexes normal. Normal steady gait. No focal neuro deficits noted. Vascular: + radial pulses/+ 2 distal pedal pulses/+2 dorsalis pedis b/l. Normal cap refill. No cyanosis noted to upper extremity nails and lower extremity toes nails. Course Course Course Narrative: X-ray negative for any acute processes only soft tissue swelling. Will place an [place] wrap with crutches and treat symptomatic and instructions return if any new or worsening symptoms follow-up with PCP and if symptoms persist for longer than 2-3 weeks and follow-up orthopedics. Patient understands agrees with this plan. MDM - Extremity Injury (Lower) Medical Records Attestation: I reviewed the patient's medical records. Imaging Data Right ankle x-ray: Attestation: I personally reviewed and interpreted this imaging study as follows: Radiologist's impression: FINDINGS: No acute visible fracture or dislocation. Ankle mortise is symmetric. Tiny plantar calcaneal heel spur. Joint spaces and alignment are maintained. No large ankle joint effusion. Soft tissue swelling overlying the lateral malleolus. XR/XR ankle RT 2V IMPRESSION: 1.? No acute visible fracture or dislocation. 2.? Soft tissue swelling overlying the lateral malleolus. Procedures Orthopedic Splinting/Casting Injury #1: Side: right Lower Extremity Immobilizer: Aldair wrap Other Orthopedic Equipment: crutches Discharge Plan Discharge Clinical Impression: Ankle sprain and strain Patient Disposition: Home, Self-Care Instructions: Ankle Sprain (ED), Crutch Instructions (ED), How to Use an Elastic Bandage (ED) Prescriptions: New ibuprofen 800 mg tablet 800 mg PO Q8H PRN (Reason: pain) Qty: 14 0RF No Action cholecalciferol (vitamin D3) 50 mcg (2,000 unit) capsule 50 mcg PO DAILY Qty: 90 3RF amoxicillin 500 mg tablet 500 mg PO Q8H Qty: 30 0RF fluticasone propionate [Flonase Allergy Relief] 50 mcg/actuation spray,suspension 1 spray intranasal DAILY Qty: 16 0RF Rx Instructions: administer into each nostril hydrocortisone 1 % cream in packet 1 appl topical BID PRN (Reason: rash) Qty: 144 0RF ondansetron 4 mg tablet,disintegrating 4 mg PO Q8H PRN (Reason: nausea and vomiting) Qty: 20 0RF ondansetron 4 mg tablet,disintegrating 4 mg PO Q8H PRN (Reason: nausea and vomiting) Qty: 20 0RF Citrucel 500 mg tablet 500 mg PO DAILY Qty: 90 2RF Rx Instructions: take it with full glass of water sennosides [Natural Senna Laxative] 8.6 mg tablet 8.6 mg PO BEDTIME Qty: 90 3RF sucralfate 1 gram tablet 1 g PO BEDTIME Qty: 90 1RF Referrals: Victor Hugo Lopez MD [Primary Care Provider] - 3 days Stand Alone Forms: Work/School Release
[2021-12-28] MEDS: Ondansetron ODT 4 MG TAB.RAPDIS TRANSLINGU (10:36)
== END 2021-12-28 10:55 | disposition home or self-care (01) ==
PROVIDERS: Emergency Provider Student in an Organized Health Care Education/Training Program; PCP Internal Medicine
DX: S93.401A Sprain of unspecified ligament of right ankle, initial encounter (principal); W01.0XXA Fall on same level from slipping, tripping and stumbling without subsequent striking against object, initial encounter; Y93.9 Activity, unspecified; Y92.9 Unspecified place or not applicable; Y99.9 Unspecified external cause status; Z79.899 Other long term (current) drug therapy
CPT/HCPCS: 29515; 73600; 99282; 99283

== ENCOUNTER 2022-05-09 10:41 | Emergency (ER) | payer MEDICAID, SELFPAY ==
--- NOTE | ~2022-05-09 | CT_ITS ---
EXAMINATION: CT ABDOMEN AND PELVIS WITHOUT CONTRAST CLINICAL INFORMATION: Left-sided flank pain COMPARISON: 09/19/2021 TECHNIQUE: Multidetector volumetric imaging was performed from the superior aspect of the liver through the pubic symphysis. Sagittal and coronal reformatted images were obtained on the technologist's workstation. This CT examination was performed using dose optimization techniques as appropriate, variously including the following: *Automated exposure control *Adjustment of mA and/or kV according to patient size (this includes techniques or standardized protocols for targeted exams where dose is matched to indication/reason for exam; i.e. extremities or head) *Use of iterative reconstruction technique DLP: 554 mGy-cm FINDINGS: LUNG BASES: The visualized lung bases are unremarkable. LIVER, GALLBLADDER, AND BILIARY TREE: The liver is normal in size, shape, and attenuation. No focal hepatic lesion or biliary ductal dilatation is present. Small gallstones within the gallbladder. No change. PANCREAS: Unremarkable. SPLEEN: Unremarkable. ADRENAL GLANDS: Unremarkable. KIDNEYS AND URETERS: No right or left nephrolithiasis or hydronephrosis or perinephric collection. No evidence for calcification in course of the ureters. BLADDER: Unremarkable. GASTROINTESTINAL TRACT: Moderate stool burden. No right or left lower quadrant inflammatory change or bowel obstruction. Appendix not clearly identified. ABDOMINAL WALL: No significant hernia is appreciated. LYMPH NODES: Normal. VASCULAR: Unremarkable. PELVIC VISCERA: Enlarged lobular fibroid uterus again observed. If further evaluated with pelvic ultrasound. No change. No ascites deep in the pelvis. OSSEOUS STRUCTURES: Unremarkable. CT/CT abdomen pelvis wo IV con IMPRESSION: No nephrolithiasis or hydronephrosis.
[2022-05-09 12:23] VITALS: BP 122/79; PULSE 71; RESP 18; TEMP 36.8; O2SAT 98; BMI 30.7
--- NOTE | 2022-05-09 12:23 | ED.ABDPAIN ---
HPI - Abdominal Pain General Chief Complaint: Abdominal Pain Stated Complaint: LUQ Pain Radiating To Back Related Data Previous Rx's Medication Instructions Recorded amoxicillin 500 mg tablet 500 mg PO Q8H #30 tabs 02/12/21 fluticasone propionate 50 1 spray intranasal DAILY #16 grams 02/12/21 mcg/actuation nasal spray,suspension (Flonase Allergy Relief) hydrocortisone 1 % topical cream 1 appl topical BID PRN rash #144 ea 02/12/21 packet ondansetron 4 mg disintegrating 4 mg PO Q8H PRN nausea and 02/13/21 tablet vomiting #20 tabs ondansetron 4 mg disintegrating 4 mg PO Q8H PRN nausea and 03/17/21 tablet vomiting #20 tabs methylcellulose (laxative) 500 mg 500 mg PO DAILY #90 tabs 11/22/21 tablet (Citrucel) sennosides 8.6 mg tablet (Natural 8.6 mg PO BEDTIME constipation #90 11/22/21 Senna Laxative) tabs sucralfate 1 gram tablet 1 g PO BEDTIME #90 tabs 11/22/21 cholecalciferol (vitamin D3) 50 50 mcg PO DAILY #90 caps 12/20/21 mcg (2,000 unit) capsule ibuprofen 800 mg tablet 800 mg PO Q8H PRN pain #14 tabs 12/28/21 Allergies Allergy/AdvReac Type Severity Reaction Status Date / Time No Known Allergies Allergy Verified 05/09/22 12:23 [facility] Past Medical History Medical History No known health problems Surgical History No history of previous surgery Social History Social History Alcohol intake: never Patient Tobacco Use Status: Never used Tobacco Advance Directives: No Advance Directives Information Provided: No Physical Exam ED Vital Signs: Vital Signs - 24 hr 05/09/22 12:23 Temperature 98.2 F Pulse Rate 71 Respiratory Rate 18 Blood Pressure 122/79 Pulse Oximetry 98 Oxygen Delivery Method Room Air BMI result Body Mass Index 30.7 Course Course Course Narrative: rme patient is a 42-year-old female presents today with having abdominal pain in the left side radiating to the flank area. Positive nausea, vomiting. Positive history of kidney stone. Patient seen in the emergency department approximately [address] scan at that time. No cough no congestion or upper respiratory symptoms. No change in bowel movement. No pain on urination. No history of abdominal surgery. No history of diverticulitis. Patient is status post tubal ligation many years ago does not think she is . Discharge Plan Discharge Clinical Impression: Abdominal pain Patient Disposition: Elopement Prescriptions: No Action cholecalciferol (vitamin D3) 50 mcg (2,000 unit) capsule 50 mcg PO DAILY Qty: 90 3RF amoxicillin 500 mg tablet 500 mg PO Q8H Qty: 30 0RF fluticasone propionate [Flonase Allergy Relief] 50 mcg/actuation spray,suspension 1 spray intranasal DAILY Qty: 16 0RF Rx Instructions: administer into each nostril hydrocortisone 1 % cream in packet 1 appl topical BID PRN (Reason: rash) Qty: 144 0RF ondansetron 4 mg tablet,disintegrating 4 mg PO Q8H PRN (Reason: nausea and vomiting) Qty: 20 0RF ibuprofen 800 mg tablet 800 mg PO Q8H PRN (Reason: pain) Qty: 14 0RF ondansetron 4 mg tablet,disintegrating 4 mg PO Q8H PRN (Reason: nausea and vomiting) Qty: 20 0RF Citrucel 500 mg tablet 500 mg PO DAILY Qty: 90 2RF Rx Instructions: take it with full glass of water sennosides [Natural Senna Laxative] 8.6 mg tablet 8.6 mg PO BEDTIME Qty: 90 3RF sucralfate 1 gram tablet 1 g PO BEDTIME Qty: 90 1RF Discharge Date/Time: 05/09/22 21:01
--- OUTSIDE RECORDS SUMMARY | 2022-05-09 14:11 | XMS_ITS | Continuity of Care Document ---
:1980 Author Organization [facility] Address [address] [place] [address]- Care Team Providers Name Role Phone Not on Staff, PCP Primary Care Physician Unavailable Encounter [facility] [place]s): 12/27/21 - 12/27/21 [facility] [address] [place] [id number] Discharge Disposition: A-D/C Walkout Attending Physician: Not on Staff, Attending MD Admitting Physician: Not on Staff, Admitting MD Referring Physician: Not on Staff, Referring MD Allergies, Adverse Reactions, Alerts No Known Medication Allergies Medications acetaminophen 325 mg oral tablet 975 mg, By Mouth, Every 6 hours, PRN, Temperature Greater than 100.5, Refills 0, Maintenance, Pain ,Moderate, 03/30/21 14:31:00 EDT, Partial fill upon patient request if the prescription is for a schedule II opioid drug. Start Date: 03/30/21 Status: OrderedhydrOXYzine pamoate 25 mg oral capsule 1 capsule = 25 mg, By Mouth, 2 times a day, PRN Anxiety, # 10 capsule, 0 Refills, Soft Stop, 03/30/21 14:38:00 EDT, Capsule, [facility], Partial fill upon patient request if the prescription is for a schedule II opioid drug., 158, cm, 10... Start Date: 03/30/21 Stop Date: 04/04/21 Status: OrderedPriLOSEC OTC 20 mg oral delayed release tablet 1 tablet = 20 mg, By Mouth, 2 times a day, # 60 tablet, 0 Refills, Maintenance, 03/22/21 22:54:00 EDT, EC Tablet, Partial fill upon patient request if the prescription is for a schedule II opioid drug. Start Date: 03/22/21 Status: Ordered
--- OUTSIDE RECORDS SUMMARY | 2022-05-09 14:11 | XMS_ITS | Continuity of Care Document ---
:1980 Author Organization [facility] Address [address] [place] [address]- Care Team Providers Name Role Phone Not on Staff, PCP Primary Care Physician Unavailable Encounter [facility] [place] Date(s): 05/04/21 - 06/09/21 [facility] [address] [place] [id number] Attending Physician: Allegra Hood MD Admitting Physician: Allegra Hood MD Referring Physician: Marko Machuca MD Allergies, Adverse Reactions, Alerts No Known [...] Refills, Soft Stop, 03/30/21 14:38:00 EDT, Capsule, [facility], Partial fill upon patient request [...]
--- OUTSIDE RECORDS SUMMARY | 2022-05-09 14:11 | XMS_ITS | Continuity of Care Document ---
:1980 Author Organization [facility] Address [address] [place] [id number]- Care Team Providers Name Role Phone Dana Porter MD, Victor Hugo Primary Care Physician Encounter [facility] [place] Date(s): 03/22/21 - 03/30/[address] [address]- Encounter Diagnosis Pneumonia due to 2019 novel coronavirus (Final) - 03/22/21 Discharge Disposition: A-Transfer VNA/Home Health Attending Physician: Kasie Mac MD Admitting Physician: Page Khoury DO Referring Physician: Not on Staff, Referring MD Allergies, Adverse Reactions, Alerts No Known Medication Allergies Medications acetaminophen 325 mg oral tablet 975 mg, By Mouth, Every 6 hours, PRN, Temperature Greater than 100.5, Refills 0, Maintenance, Pain ,Moderate, 03/30/21 14:31:00 EDT, Partial fill upon patient request if the prescription is for a schedule II opioid drug. Start Date: 03/30/21 Status: Ordereddexamethasone 6 mg oral tablet 1 tablet = 6 mg, By Mouth, Daily, for 2 days, # 2 tablet, 0 Refills, Acute 04/02/21 9:00:00 EDT, 03/31/21 9:00:00 EDT, [facility], Partial fill upon patient request if the prescription isfor a schedule II opioid drug., 158, cm, 03/29/21... Start Date: 03/31/21 Stop Date: 04/02/21 Status: Ordereddextromethorphan-guaifenesin 10 mg-100 mg/5 mL oral liquid 10 mL, By Mouth, Every 4 hours, PRN Cough, for 5 days, # 240 mL, 0 Refills, Acute 04/04/21 14:38:00 EDT, 03/30/21 14:38:00 EDT, Syrup, [facility], Partial fill upon patient request if theprescription is for a schedule II opioid drug., 1... Start Date: 03/30/21 Stop Date: 04/04/21 Status: OrderedhydrOXYzine pamoate 25 mg oral capsule 1 capsule = 25 mg, By Mouth, 2 times a day, PRN Anxiety, # 10 capsule, 0 Refills, Soft Stop, 03/30/21 14:38:00 EDT, Capsule, [facility], Partial fill upon patient [...] opioid drug. Start Date: 03/22/21 Status: Ordered Results Radiology Reports Exam Date Time Procedure Performing Provider Status 03/22/21 7:34 AM Chest Portable Eric , Maegan; Auth (Verified) Notes:(Chest Portable) Reason For Exam: CoughRESULT: Chest Portable Chest Portable Hx of Present Illness: pt reporting increased, cough, nausea, unable to sleep covid + at [place], denies v d, sob; Reason: Cough; Clinical Question(s): Pneumonia; Special Instructions: This is a protocol film and radiologist should call any findings to the Charge Nurse or appropriate provider COMPARISON: Chest radiograph from 10/22/2019 FINDINGS: LINES AND TUBES: None. LUNGS AND PLEURA: Low lung volumes. Perihilar and medial bibasilar opacities with opacity in the peripheral right midlung. Normal pulmonary vascularity. No pleural effusion. No pneumothorax. HEART, MEDIASTINUM AND AKIRA: Heart is normal in size. Normal upper mediastinal and hilar contour. BONES AND SOFT TISSUES: No acute abnormality. Splenomegaly measuring at least 16.8 cm. IMPRESSION: Perihilar/medial basilar airspace opacities with small focal opacity in the right midlung could reflect atypical pneumonia with superimposed atelectasis from low lung volumes. Splenomegaly. WSN: [id number] Ordering Physician: Jb Quintero Dictated By: Demond Jimenez MD Dictated Date/Time: 03/22/21 7:57 am Reviewed By: Demond Jimenez MD Signed By: Demond Jimenez MD Signed Date/Time: 03/22/21 7:57 am Transcribed By: NAVIN Transcribed Date/Time: 03/22/21 7:54 am Vital Signs Most recent to oldest 1 2 3 [Reference Range]: Height 158 cm 158 cm 158 cm (03/29/21 2:33 PM) (03/29/21 8:17 AM) (03/28/21 4:48 PM) Weight 75.4 kg (03/22/21 10:59 PM) Oxygen Saturation [94-100 94 % 96 % 95 % %] (03/30/21 8:00 AM) (03/29/21 7:00 PM) (03/29/21 2:33 PM) Pulse Rate [55-90 bpm] 73 bpm 78 bpm 76 bpm (03/30/21 8:00 AM) (03/29/21 7:00 PM) (03/29/21 2:33 PM) Body Mass Index 30.2 [18.5-24.99] *>HHI* (03/22/21 10:59 PM) Blood Pressure 106/64 mm Hg 108/62 mm Hg 104/60 mm Hg [90-138/55-84 mm Hg] (03/30/21 8:00 AM) (03/29/21 7:00 PM) (03/04 12/21 2:33 PM) Respiratory Rate [16-30 20 br/min 18 br/min 18 br/mi n br/min] (03/30/21 8:00 AM) (03/29/21 7:00 PM) (03/29/21 2:33 PM) Temperature [96.8-100.4 98.0 DegF 98.6 DegF 98.4 Deg F DegF] (03/30/21 8:00 AM) (03/29/21 7:00 PM) (03/29/21 2:33 PM) Liters per Minute 2 L/min 3 L/min 3 L/min (03/30/21 8:00 AM) (03/29/21 7:00 PM) (03/29/21 2:33 PM) Mode of Delivery (Oxygen) Nasal cannula Nasal cannula Nasal cannula (03/30/21 8:00 AM) (03/29/21 7:00 PM) (03/29/21 2:00 PM) Blood pressure sites Arm, left Arm, right Arm, right (03/30/21 8:00 AM) (03/29/21 7:00 PM) (03/29/21 2:33 PM) Temperature Route Oral Oral Oral (03/30/21 8:00 AM) (03/29/21 7:00 PM) (03/29/21 2:33 PM) Dry Weight 75.4 kg (03/22/21 10:59 PM) Social History Social History Type Response Sex Female
--- OUTSIDE RECORDS SUMMARY | 2022-05-09 14:11 | XMS_ITS | Continuity of Care Document ---
:1980 Author Organization [facility] Address [address] [place] [address]- Care Team Providers Name Role Phone Not on Staff, PCP Primary Care Physician Unavailable [place] [facility] [place](s): 04/17/21 - 05/20/[address] [address] Attending Physician: Allegra Hood MD Admitting Physician: Allegra Hood MD Referring Physician: Sven MENDIETA, Marko Allergies, Adverse Reactions, Alerts No Known Medication [...] Refills, Soft Stop, 03/30/21 14:38:00 EDT, Capsule, [facility], Partial fill upon patient [...]
--- OUTSIDE RECORDS SUMMARY | 2022-05-09 14:11 | XMS_ITS | Continuity of Care Document ---
:1980 Author Organization [facility] Address [address] [place] [address]- Care Team Providers Name Role Phone Not on Staff, PCP Primary Care Physician Unavailable Encounter [facility] [place] Date(s): 03/30/21 - 04/29/21 [facility] [address] [place] [address] Attending Physician: Not on Staff, Attending MD [...] Soft Stop, 03/30/21 14:38:00 EDT, Capsule, [facility], Partial fill upon patient [...]
--- OUTSIDE RECORDS SUMMARY | 2022-05-09 14:11 | XMS_ITS | Continuity of Care Document ---
:1980 Author Organization [facility] Address [address] [place] [address]- Care Team Providers Name Role Phone Not on Staff, PCP Primary Care Physician Unavailable Encounter [facility] Date(s): 10/21/19 - 10/22/[address] [address]- [facility] Encounter Diagnosis GERD (gastroesophageal reflux disease) (Final) - 10/22/19 Discharge Disposition: A-D/C Home Attending Physician: Krunal Resendez MD Admitting Physician: Krunal Resendez MD Referring Physician: Not on Staff, Referring MD Allergies, Adverse Reactions, Alerts No Known Medication Allergies Results Radiology Reports Exam Date Time Procedure Performing Provider Status 10/22/19 3:11 AM Chest Portable Delmy Leigh; Claudine (Verified) Notes:(Chest Portable) Reason For Exam: Shortness of BreathRESULT: Chest Portable Chest Portable 2:53 AM. Indication: Shortness of breath and chest tightness. COMPARISON: None. FINDINGS: LINES AND TUBES: None. LUNGS AND PLEURA: Clear lungs. Normal pulmonary vascularity. No pleural effusion. No pneumothorax. HEART, MEDIASTINUM AND AKIRA: Heart is normal in size. Normal mediastinal and hilar contour. BONES AND SOFT TISSUES: No acute abnormality. IMPRESSION: No acute abnormality. I have personally reviewed the images and I agree with this report. WSN: [id number] Ordering Physician: Benji Cr Dictated By: Steffanie Robins MD Dictated Date/Time: 10/22/19 7:22 am Reviewed By: Gigi Bedolla MD Signed By: Gigi Bedolla MD Signed Date/Time: 10/22/19 7:27 am Transcribed By: NAVIN Transcribed Date/Time: 10/22/19 3:53 am Vital Signs Most recent to oldest [Reference Range]: 1 2 Weight 74.7 kg 74.7 kg (10/22/19 12:12 AM) (10/21/19 11:43 PM) Oxygen Saturation [94-100 %] 100 % 98 % (10/22/19 2:55 AM) (10/21/19 11:43 PM) Pulse Rate [55-90 bpm] 79 bpm 81 bpm (10/22/19 2:55 AM) (10/21/19 11:43 PM) Blood Pressure [90-138/55-84 mm Hg] 125/68 mm Hg 132/ 86 mm Hg (10/22/19 2:55 AM) (10/21/19 11:43 PM) Respiratory Rate [16-30 br/min] 18 br/min 16 br/mi n (10/22/19 2:55 AM) (10/21/19 11:43 PM) Temperature [96.8-100.4 DegF] 98 DegF 98.4 DegF (10/22/19 2:55 AM) (10/21/19 11:43 PM) Mode of Delivery (Oxygen) Room air Room air (10/22/19 2:55 AM) (10/21/19 11:43 PM) Blood pressure sites Arm, left Arm, left (10/22/19 2:55 AM) (10/21/19 11:43 PM) Temperature Route Oral Oral (10/22/19 2:55 AM) (10/21/19 11:43 PM) Dry Weight 74.7 kg 74.7 kg (10/22/19 12:12 AM) (10/21/19 11:43 PM) Weight Obtained Via Standing scale (10/21/19 11:43 PM) Social History Social History Type Response Sex Female
--- OUTSIDE RECORDS SUMMARY | 2022-05-09 14:11 | XMS_ITS | Continuity of Care Document ---
:1980 Author Organization [facility] Address [address] [place] [address]- Care Team Providers Name Role Phone Not on Staff, PCP Primary Care Physician Unavailable Encounter 03/31/21 - 05/03/21 [facility] [address] [place] [address]- Discharge Disposition: [facility] Allergies, Adverse Reactions, Alerts No Known Medication [...] Refills, Soft Stop, 03/30/21 14:38:00 EDT, Capsule, [facility], Partial fill upon patient [...]
--- OUTSIDE RECORDS SUMMARY | 2022-05-09 14:11 | XMS_ITS | Continuity of Care Document ---
:1980 Author Organization [facility] Address [address] [place] [address]- Care Team Providers Name Role Phone Not on Staff, PCP Primary Care Physician Unavailable Encounter [facility] [place] Date(s): 04/12/21 - 05/18/[address] [address] Attending Physician: Telly Funez MD Admitting Physician: Telly Funez MD Referring Physician: Marko Machuca MD Allergies, [...] Refills, Soft Stop, 03/30/21 14:38:00 EDT, Capsule, [facility], Partial fill upon patient [...]
[2022-05-09 14:18] LABS: MANUAL DIFF FLAG NO
[2022-05-09 14:20] LABS: Basophils Absolute Auto 0.1 X10*3/uL (0.0-0.2); Basophils Percent Auto 0.5 % (0-2); Eosinophils Absolute Auto 0.1 X10*3/uL (0.0-0.4); Eosinophils Percent Auto 1.4 % (0-4); Hematocrit 39.8 % (37.0-47.0); Hemoglobin 13.1 g/dl (12.0-16.0); Imm Gran Abs Auto 0.03 X10*3/uL (0.00-0.03); Imm Gran Pct Auto 0.3 % (0.0-0.4); Lymphocytes Percent Auto 21.1 % (20-40); Mean Corpuscular HGB Conc 32.9 g/dl (31.0-35.0); Mean Corpuscular Hemoglobin 26.8 pg (27.0-33.0); Mean Corpuscular Volume 81.4 fL (80.0-98.0); Mean Platelet Volume 10.1 fL (9.4-12.3); Monocytes Absolute Auto 0.4 X10*3/uL (0.1-1.2); Monocytes Percent Auto 4.6 % (2-11); Neutrophils Absolute Auto 6.8 x10*3/uL (2.0-8.3); Neutrophils Percent Auto 72.1 % (45-73); Platelet Count 325 X10*3/uL (160-400); Red Blood Count 4.89 X10*6/uL (4.20-5.50); Red Cell Distribution Width 13.5 % (11.0-16.0); White Blood Count 9.5 X10*3/uL (4.8-10.8)
[2022-05-09 14:27] LABS: UPreg QC Valid YES
[2022-05-09 14:29] LABS: Urine Pregnancy NEGATIVE (NEGATIVE)
[2022-05-09 14:39] LABS: Alanine Aminotransferase 11 U/L (0-31); Albumin Level 4.5 g/dL (3.5-5.0); Alkaline Phosphatase 62 U/L (39-117); Aspartate Amino Transferase 17 U/L (5-31); Bilirubin Direct < 0.2 mg/dL (0.0-0.5); Bilirubin Total 0.2 mg/dL (0.0-1.0); Blood Urea Nitrogen 12 mg/dL (9-16); Calcium 9.5 mg/dL (8.4-10.2); Creatinine Clr Calc Pharmacy 75.3; Estimated Glomerular Filt Rate > 60; Glucose Random 107 mg/dL (60-115); Lipase 36 U/L (8-78); Total Protein 7.1 g/dL (6.5-8.0)
[2022-05-09 14:48] LABS: Anion Gap 13 (12-20); Carbon Dioxide 26 mmol/L (22-29); Chloride 103 mmol/L (96-108); Sodium 138 mmol/L (135-145)
== END 2022-05-09 21:01 | disposition left against medical advice (07) ==
PROVIDERS: Emergency Medicine Emergency Medical Services; Emergency Provider Emergency Medicine; PCP Internal Medicine
DX: R10.12 Left upper quadrant pain (principal); M54.50 Low back pain, unspecified; Z79.899 Other long term (current) drug therapy
CPT/HCPCS: 36415; 74176; 80048; 80076; 81025; 83690; 85025; 99282; 99284

== ENCOUNTER 2022-05-10 22:50 | Emergency (ER) | payer MEDICAID, SELFPAY ==
--- NOTE | 2022-05-10 | ECG_ITS ---
Test Reason : abdominal pain Blood Pressure : / mmHG Vent. Rate : 074 BPM Atrial Rate : 074 BPM P-R Int : 148 ms QRS Dur : 074 ms QT Int : 370 ms P-R-T Axes : 030 000 009 degrees QTc Int : 410 ms Normal sinus rhythm Cannot rule out Anterior infarct , age undetermined Abnormal ECG When compared with ECG of 09-MAR-2008 11:56, No significant change was found Referred By: Generic ED Physician Electronically Signed By:KATHY HINKLE MD
[2022-05-10 23:19] VITALS: BP 153/82; PULSE 78; RESP 16; TEMP 36.2; O2SAT 97; BMI 30.5
[2022-05-10 23:48] LABS: MANUAL DIFF FLAG NO
[2022-05-10 23:53] LABS: Basophils Absolute Auto 0.1 X10*3/uL (0.0-0.2); Basophils Percent Auto 0.5 % (0-2); Eosinophils Absolute Auto 0.2 X10*3/uL (0.0-0.4); Eosinophils Percent Auto 1.4 % (0-4); Hematocrit 36.6 % (37.0-47.0); Hemoglobin 12.2 g/dl (12.0-16.0); Imm Gran Abs Auto 0.03 X10*3/uL (0.00-0.03); Imm Gran Pct Auto 0.3 % (0.0-0.4); Lymphocytes Absolute Auto 2.9 X10*3/uL (1.2-4.9); Lymphocytes Percent Auto 27.1 % (20-40); Mean Corpuscular HGB Conc 33.3 g/dl (31.0-35.0); Mean Platelet Volume 10.2 fL (9.4-12.3); Monocytes Absolute Auto 0.7 X10*3/uL (0.1-1.2); Neutrophils Absolute Auto 6.7 x10*3/uL (2.0-8.3); Neutrophils Percent Auto 63.7 % (45-73); Platelet Count 288 X10*3/uL (160-400); Red Blood Count 4.52 X10*6/uL (4.20-5.50); Red Cell Distribution Width 13.5 % (11.0-16.0); White Blood Count 10.5 X10*3/uL (4.8-10.8)
[2022-05-11 00:09] LABS: Alanine Aminotransferase 11 U/L (0-31); Albumin Level 4.3 g/dL (3.5-5.0); Alkaline Phosphatase 63 U/L (39-117); Anion Gap 12 (12-20); Aspartate Amino Transferase 15 U/L (5-31); Bilirubin Total 0.2 mg/dL (0.0-1.0); Blood Urea Nitrogen 15 mg/dL (9-16); Calcium 9.4 mg/dL (8.4-10.2); Carbon Dioxide 25 mmol/L (22-29); Chloride 105 mmol/L (96-108); Creatinine Clr Calc Pharmacy 80.2; Estimated Glomerular Filt Rate > 60; Glucose Random 84 mg/dL (60-115); Lipase 39 U/L (8-78); Potassium 3.9 mmol/L (3.3-5.1); Sodium 138 mmol/L (135-145); Total Protein 6.8 g/dL (6.5-8.0)
[2022-05-11 00:15] LABS: Troponin-I High Sensitivity < 3.5 ng/L (<3.5-17.0)
[2022-05-11 03:13] VITALS: BP 116/69; PULSE 66; RESP 17; TEMP 37.3; O2SAT 98
--- NOTE | 2022-05-11 04:44 | ED.ABDPAIN ---
HPI - Abdominal Pain General Chief Complaint: Abdominal Pain Stated Complaint: Back/Abdominal Pain was seen on Wednesday 05/09 Time Seen by Provider: 05/11/22 04:44 Source: patient Mode of arrival: ambulatory Limitations: no limitations History of Present Illness HPI narrative: Patient's history of IBS complaining of diffuse abdominal pain for last few days was seen here last week CT scan was negative except for the stool burden Related Data Previous Rx's Medication Instructions Recorded amoxicillin 500 mg tablet 500 mg PO Q8H #30 tabs 02/12/21 fluticasone propionate 50 1 spray intranasal DAILY #16 grams 02/12/21 mcg/actuation nasal spray,suspension (Flonase Allergy Relief) hydrocortisone 1 % topical cream 1 appl topical BID PRN rash #144 ea 02/12/21 packet ondansetron 4 mg disintegrating 4 mg PO Q8H PRN nausea and 02/13/21 tablet vomiting #20 tabs ondansetron 4 mg disintegrating 4 mg PO Q8H PRN nausea and 03/17/21 tablet vomiting #20 tabs methylcellulose (laxative) 500 mg 500 mg PO DAILY #90 tabs 11/22/21 tablet (Citrucel) sennosides 8.6 mg tablet (Natural 8.6 mg PO BEDTIME constipation #90 11/22/21 Senna Laxative) tabs sucralfate 1 gram tablet 1 g PO BEDTIME #90 tabs 11/22/21 cholecalciferol (vitamin D3) 50 50 mcg PO DAILY #90 caps 12/20/21 mcg (2,000 unit) capsule ibuprofen 800 mg tablet 800 mg PO Q8H PRN pain #14 tabs 12/28/21 lorazepam 1 mg tablet (Ativan) 1 mg PO BEDTIME PRN sleep #10 tabs 05/11/22 Allergies Allergy/AdvReac Type Severity Reaction Status Date / Time No Known Allergies Allergy Verified 05/10/22 23:21 Review of Systems Review of Systems Yes all other systems are reviewed and are negative PMFSH Past Medical History Medical History No known health problems Surgical History No history of previous surgery Social History Social History Alcohol intake: never Patient Tobacco Use Status: Never used Tobacco Advance Directives: No Advance Directives Information Provided: Yes Physical Exam ED Vital Signs: Vital Signs - 24 hr 05/10/22 23:19 05/11/22 03:13 05/11/22 05:01 Temperature 97.2 F 99.1 F 98.5 F Pulse Rate 78 66 62 Respiratory Rate 16 17 17 Blood Pressure 153/82 H 116/69 106/66 Pulse Oximetry 97 98 98 Oxygen Delivery Method Room Air Room Air Room Air BMI result Body Mass Index 30.5 Appearance: Alert. Oriented X3. No acute distress. Eyes: PERRLA, No Nystagmus ENT: Pharynx normal. Oral Mucosa moist Neck: Normal inspection. Neck supple. CVS: Normal heart rate and rhythm. Pulses normal. Respiratory: No respiratory distress. Equal air entry bilateral, no wheezing/rales/rhonchi Abdomen: Soft , diffuse tenderness no rebound tenderness or guarding Bowel sounds are present, no mass palpable, no CVA tenderness Skin: Skin warm and dry. Normal skin color. Normal skin turgor. Extremities: No lower extremity edema. No calf tenderness Neuro: Oriented X 3. No motor deficit. No sensory deficit.No cerebellar signs , cranial nerves II-XII intact Medical Decision Making Medical Decision Making MDM Narrative: Patient with IBS with diffuse abdominal pain with constipation last bowel movement was 2 days ago will discharge patient home on milk of magnesium and advised to follow with blow torch operator Lab Attestation: I reviewed the patient's lab results. Medications Administered Discontinued Medications Generic Name Dose Route Start Last Admin Trade Name Freq PRN Reason Stop Dose Admin Bisacodyl 10 mg 05/11/22 04:49 05/11/22 05:28 Bisacodyl 5 Mg Tablet.Dr PO 05/11/22 04:50 10 mg ONCE ONE Administration Magnesium Hydroxide 30 ml 05/11/22 04:49 05/11/22 05:28 Milk Of Magnesia 30 Ml Oral.Susp PO 05/11/22 04:50 30 ml ONCE ONE Administration Discharge Plan Discharge Clinical Impression: Irritable bowel syndrome, Constipation Patient Disposition: Home, Self-Care Instructions: Irritable Bowel Syndrome (ED), Constipation (ED) Additional Instructions: Drink plenty of fluids Take your stool softener as prescribed by blow torch operator Yehuda for anxiety and relaxation Prescriptions: New lorazepam [Ativan] 1 mg tablet 1 mg PO BEDTIME PRN (Reason: sleep) Qty: 10 0RF No Action cholecalciferol (vitamin D3) 50 mcg (2,000 unit) capsule 50 mcg PO DAILY Qty: 90 3RF amoxicillin 500 mg tablet 500 mg PO Q8H Qty: 30 0RF fluticasone propionate [Flonase Allergy Relief] 50 mcg/actuation spray,suspension 1 spray intranasal DAILY Qty: 16 0RF Rx Instructions: administer into each nostril hydrocortisone 1 % cream in packet 1 appl topical BID PRN (Reason: rash) Qty: 144 0RF ondansetron 4 mg tablet,disintegrating 4 mg PO Q8H PRN (Reason: nausea and vomiting) Qty: 20 0RF ibuprofen 800 mg tablet 800 mg PO Q8H PRN (Reason: pain) Qty: 14 0RF ondansetron 4 mg tablet,disintegrating 4 mg PO Q8H PRN (Reason: nausea and vomiting) Qty: 20 0RF Citrucel 500 mg tablet 500 mg PO DAILY Qty: 90 2RF Rx Instructions: take it with full glass of water sennosides [Natural Senna Laxative] 8.6 mg tablet 8.6 mg PO BEDTIME Qty: 90 3RF sucralfate 1 gram tablet 1 g PO BEDTIME Qty: 90 1RF Stand Alone Forms: Work/School Release Interventions: ED Discharge Assessment Last Done: 05/11/22 05:31 Discharge Date/Time: 05/11/22 05:32
[2022-05-11 05:01] VITALS: BP 106/66; PULSE 62; RESP 17; TEMP 36.9; O2SAT 98
[2022-05-11 05:01] LABS: Appearance Urine Clear; Color Urine Yellow; Glucose Urine UA Negative (Negative); Leukocyte Esterase Urine Negative (Negative); Nitrite Urine Negative (Negative); PH 6.5 (5.0-9.0); UMIC TRIGGER UACC YES; Urine Blood Moderate (2+) (Negative); Urine Ketones Negative (Negative); Urine Protein Negative (Neg-Trace)
[2022-05-11 05:02] LABS: UPreg QC Valid YES; Urine Pregnancy NEGATIVE (NEGATIVE)
[2022-05-11 05:06] LABS: Bacteria Urine None Seen (None Seen); Hyaline Casts Urine 0-2 /LPF (0-2); Squamous Epithelial Cell Urine 0-2 /HPF (0-2); WBC Urine 0-5 /HPF (0-5)
[2022-05-11] MEDS: bisacodyL 5 MG TABLET.DR 10 MG PO (05:28)
[2022-05-11] MEDS: Milk of Magnesia 30 ML ORAL.SUSP PO (05:28)
== END 2022-05-11 05:32 | disposition home or self-care (01) ==
PROVIDERS: Emergency Provider Internal Medicine; PCP Internal Medicine
DX: K58.9 Irritable bowel syndrome, unspecified (principal); K59.00 Constipation, unspecified; R10.9 Unspecified abdominal pain; M54.50 Low back pain, unspecified; Z79.899 Other long term (current) drug therapy
CPT/HCPCS: 36415; 80053; 81001; 81003; 81025; 83690; 84484; 85025; 93005; 99283

== ENCOUNTER → 2022-06-26 10:40 | Outpatient (BNVA) | payer MEDICAID, SELFPAY | PROVIDERS: PCP Internal Medicine; Referring Provider Internal Medicine; Visit Provider Nurse Practitioner Family | DX: K21.9 Gastro-esophageal reflux disease without esophagitis (principal); K58.1 Irritable bowel syndrome with constipation; K59.04 Chronic idiopathic constipation | CPT/HCPCS: 99212 ==

== ENCOUNTER 2022-08-17 10:50 | Outpatient (REF) | payer MEDICAID, SELFPAY ==
--- NOTE | ~2022-08-17 | US_ITS ---
EXAMINATION: US PELVIS CLINICAL INFORMATION: Abnormal uterine bleeding COMPARISON: CT of May 09, 2022 and pelvic ultrasound of January 12, 2013 TECHNIQUE: Ultrasound of the pelvis is performed using both transabdominal and transvaginal transducers along with Doppler. Transvaginal imaging is performed due to inadequate visualization transabdominally. FINDINGS: Uterus: The uterus is anteverted and measures 12.9 x 7.7 x 8.1 cm. The double wall endometrial thickness is 0.6 mm. There is echogenic material within the endometrial/endocervical canal consistent with clot. There is a large 8.0 x 7.3 x 6.8 cm fibroid within the fundus which is seen to be submucosal as well as exophytic and subserosal. Adnexa: Both ovaries are visualized. There is normal color flow to the adnexa. There is no ovarian torsion. There is a small amount of fluid within the cul-de-sac. Right ovary measures 4.0 x 2.6 x 2.6 cm. Volume of 14.2 mL. No abnormal right adnexal findings. Left ovary measures 3.4 x 1.5 x 2.5 cm. 6.7 mL volume. No abnormal left adnexal findings. US/US pelvic and transvaginal IMPRESSION: Large uterine fibroid which is both submucosal and subserosal. Echogenic material within the endometrial/endocervical canal consistent with thrombus.
== END 2022-08-17 10:51 | disposition home or self-care (01) ==
LOC: HO.US 10:50
PROVIDERS: PCP Internal Medicine; Visit Provider Family Medicine
DX: N93.9 Abnormal uterine and vaginal bleeding, unspecified (principal)
CPT/HCPCS: 76830; 76856

== ENCOUNTER 2023-01-10 10:21 | Outpatient (AMB) | payer MEDICAID, SELFPAY ==
--- NOTE | 2023-01-10 10:32 | MHC.OFFVIS ---
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 Intake Note: Pt c/o: menses for all of December 07 bleeding , no cycle this month states had tubal in 2003 Cornetist Required: No Allergies No Known Allergies Allergy (Verified 01/10/23 10:34) Medication List - Last Reconciled 01/10/23 by Carey Torres CNM cholecalciferol (vitamin D3) 50 mcg PO DAILY docusate sodium 100 mg PO BEDTIME fluticasone propionate 50 mcg/actuation (Flonase Allergy Relief) 1 spray intranasal DAILY hydrocortisone 1% 1 appl topical BID PRN methylcellulose (laxative) (Citrucel) 500 mg PO DAILY pantoprazole 20 mg PO Q OTHER DAY sennosides (Natural Senna Laxative) 8.6 mg PO BEDTIME simethicone 125 mg PO BID-QID PRN sucralfate 1 g PO BEDTIME Is last menstrual period known: Yes Last menstrual period: 12/04/22 (menses all month ) 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 Her history is somewhat scattered she bled the entire month of December. She says it has been heavy like that and irregular for at least the last year she 1st denied being sexually active and then clarified it was because she was not having sex every day so she did not feel that having sex with her friend less often was sexually active. She would like to be tested for STIs although she says she is always getting tested at the [facility]. At the end of the visit it developed that she has already had a pelvic ultrasound and ultrasound was found in the record and she indeed has a large fibroid. The last Pap in our record is from many years ago and it was ASCUS. She says she has not had a mammogram and she needs 1. She says she has lots of stomach problems and she has been seeing Radha here in the hospital and is taking lots of medications for it she also is troubled by various breakouts of lesions on her arms and buttocks that bother her . She says her weight goes up and down. She says her bleeding been crazy ever since COVID that is what she relates it to she did not mention the fibroid. [facility] Medical History (Updated 01/10/23 @ 11:51 by Carey Torres CNM) Chronic idiopathic constipation COVID-19 Gastroesophageal reflux disease Irritable bowel syndrome No known health problems Surgical History (Updated 01/10/23 @ 11:51 by Carey Torres CNM) Hx of section Hx of tubal ligation Social History (Reviewed 01/10/23 @ 10:35 by Alpa Raymundo [facility]) Alcohol intake: never Patient Tobacco Use Status: Never used Tobacco Female Reproductive History Menstrual Date of last menstrual period: 12/04/22 (menses all month 7-31) Date of last pap smear: 09/10/12 (ASCUS) History of abnormal pap smear: Yes Physical Exam Vital Signs: Last Vital Signs BP 122/70 01/10/23 10:33 BMI result Body Mass Index 31.0 Const General: healthy appearing, comfortable, no acute distress, well developed and alert Nutritional Appearance: average body habitus Orientation/consciousness: patient oriented x3 Limitations: no limitations HEENT Head: Yes normocephalic Neck Neck: Yes normal visual inspection Chest Chest palpation & inspection: normal inspection of the chest Breast/axilla inspection: normal inspection of the breasts and normal inspection of the axillae Breast/axilla palpation: normal palpation of the breasts and normal palpation of the axillae Resp Effort & Inspection: normal respiratory effort GI Inspection: Yes normal to inspection, No Abdominal wall edema and No distended Palpation (GI): Soft to palpation and nontender Other: Speculum exam was within normal limits though there is a thin whitish yellowish discharge for which we will send testing. Cervix is nulliparous with nabothian cyst and clear mucus at the os. Her uterus is markedly enlarged to about a 12 week size firm and anteverted. Fair tone with Kegel. General: Yes bladder normal to palpation External Female Exam: normal external appearance and normal appearance of the urethra Speculum Exam - Vagina: normal appearance of the vagina, normal palpation and normal vaginal discharge Speculum Exam - Cervix: normal appearance of the cervix, normal palpation, Abnormal cervical discharge present, Nabothian cyst present, Nulliparous cervix present and nontender Bimanual exam- vagina & uterus: normal bimanual exam, normal palpation, bladder normal to palpation, consistency normal, normal palpation, uterine mobility normal, uterine shape normal, No Cervical tenderness present, non-tender, no cervical motion tenderness and enlarged Bimanual Exam- Adnexa, other: normal adnexae, no masses, normal and No adnexal tenderness Neuro General: patient oriented x3 Results Reviewed Results Reviewed: [address] [address] Ultrasound Report Signed Patient: Jessa Kwon MR#: [id number] : 1980 Acct:[id number] Age/Sex: 42 / F ADM Date: 08/17/22 Loc: .US Attending Dr: Celine Gorman MD Ordering Physician: Celine Gorman MD Date of Service: 08/17/22 Procedure(s): US pelvic and transvaginal Accession Number(s): [id number] cc: Celine Gorman MD~ EXAMINATION:? US PELVIS CLINICAL INFORMATION:? Abnormal uterine bleeding COMPARISON: CT of May 09, 2022 and pelvic ultrasound of January 12, 2013 TECHNIQUE: Ultrasound of the pelvis is performed using both transabdominal and transvaginal transducers along with Doppler. Transvaginal imaging is performed due to inadequate visualization transabdominally. FINDINGS: Uterus: The uterus is anteverted and measures 12.9 x 7.7 x 8.1 cm. The double wall endometrial thickness is 0.6 mm. There is echogenic material within the endometrial/endocervical canal consistent with clot. There is a large 8.0 x 7.3 x 6.8 cm fibroid within the fundus which is seen to be submucosal as well as exophytic and subserosal. Adnexa: Both ovaries are visualized. There is normal color flow to the adnexa. There is no ovarian torsion.? There is a small amount of fluid within the cul-de-sac. Right ovary measures 4.0 x 2.6 x 2.6 cm. Volume of 14.2 mL. No abnormal right adnexal findings. Left ovary measures 3.4 x 1.5 x 2.5 cm. 6.7 mL volume. No abnormal left adnexal findings. US/US pelvic and transvaginal IMPRESSION: Large uterine fibroid which is both submucosal and subserosal. ? Echogenic material within the endometrial/endocervical canal consistent with thrombus. Dictated By: Edi Lott MD Signed By: <Electronically signed by Edi Lott MD in OV> 08/17/22 1524 DD/ 1119 TD/TT:? Licensed Optician: CARLOS Assessment & Plan Assessment & Plan (1) Menorrhagia: Code(s): N92.0 - Excessive and frequent menstruation with regular cycle (2) Fibroid uterus: Code(s): D25.9 - Leiomyoma of uterus, unspecified (3) Cervical cancer screening: Code(s): Z12.4 - Encounter for screening for malignant neoplasm of cervix (4) Breast cancer screening: Code(s): Z12.39 - Encounter for other screening for malignant neoplasm of breast (5) Hx of section: Comment: 2000 2003 Code(s): Z98.891 - History of uterine scar from previous surgery (6) Hx of tubal ligation: Comment: 2003 Code(s): Z98.51 - Tubal ligation status (7) Screen for sexually transmitted diseases: Code(s): Z11.3 - Encounter for screening for infections with a predominantly sexual mode of transmission Plan Patient is here is a new patient for heavy irregular bleeding. Her history is somewhat scattered she bled the entire month of December. She says it has been heavy like that and irregular for at least the last year she 1st denied being sexually active and then clarified it was because she was not having sex every day so she did not feel that having sex with her friend less often was sexually active. She would like to be tested for STIs although she says she is always getting tested at the [facility]. At the end of the visit it developed that she has already had a pelvic ultrasound and ultrasound was found in the record and she indeed has a large fibroid. The last Pap in our record is from many years ago and it was ASCUS. She says she has not had a mammogram and she needs 1. She says she has lots of stomach problems and she has been seeing Radha here in the hospital and is taking lots of medications for it she also is troubled by various breakouts of lesions on her arms and buttocks that bother her . She says her weight goes up and down. She says her bleeding been crazy ever since COVID that is what she relates it to she did not mention the fibroid. I will order some blood work and a follow-up ultrasound as well and she will be referred to Dr. Munoz as clearly it is a large fibroid. Orders: Orders US pelvic and transvaginal Today D25.9 - Leiomyoma of uterus, unspecified, N92.0 - Excessive and frequent menstruation with regular cycle Thyroid Stimulating Hormone Today D25.9 - Leiomyoma of uterus, unspecified Complete Blood Count no Diff Today D25.9 - Leiomyoma of uterus, unspecified MM tomosynthesis screening BI Today D25.9 - Leiomyoma of uterus, unspecified, N92.0 - Excessive and frequent menstruation with regular cycle Hepatitis B Surface Antigen Today Z11.3 - Encounter for screening for infections with a predominantly sexual mode of transmission Hepatitis C Antibody Today Z11.3 - Encounter for screening for infections with a predominantly sexual mode of transmission HIV Ab/Ag Today Z11.3 - Encounter for screening for infections with a predominantly sexual mode of transmission Syphilis Screen Today Z11.3 - Encounter for screening for infections with a predominantly sexual mode of transmission Bacterial Vaginosis Panel Today Z11.3 - Encounter for screening for infections with a predominantly sexual mode of transmission CT NG by PCR Today Z12.4 - Encounter for screening for malignant neoplasm of cervix Pap Smear Today Z12.4 - Encounter for screening for malignant neoplasm of cervix Coding Level of Care Code New Pt Level 3 (04278) Diagnoses Menorrhagia N92.0 Fibroid uterus D25.9 Cervical cancer screening Z12.4 Breast cancer screening Z12.39 Hx of section Z98.891 Hx of tubal ligation Z98.51 Screen for sexually transmitted diseases Z11.3
[2023-01-10 10:33] VITALS: BP 122/70; BMI 31.0
== END 2023-01-10 12:08 | disposition home or self-care (01) ==
LOC: HO.HWS 10:21
PROVIDERS: PCP Internal Medicine; Visit Provider Advanced Practice Midwife
DX: N92.0 Excessive and frequent menstruation with regular cycle (principal); D25.9 Leiomyoma of uterus, unspecified; Z12.4 Encounter for screening for malignant neoplasm of cervix; Z12.39 Encounter for other screening for malignant neoplasm of breast; Z98.891 History of uterine scar from previous surgery; Z98.51 Tubal ligation status; Z11.3 Encounter for screening for infections with a predominantly sexual mode of transmission
CPT/HCPCS: 99203

== ENCOUNTER 2023-01-10 10:21 | Outpatient (REF) | payer MEDICAID, SELFPAY ==
[2023-01-15 05:09] LABS: HPV mRNA E6/E7 rflx Not Detected (Not Detected)
== END 2023-01-10 10:22 | disposition home or self-care (01) ==
LOC: HO.LNP 10:21
PROVIDERS: PCP Internal Medicine; Visit Provider Advanced Practice Midwife
DX: Z12.4 Encounter for screening for malignant neoplasm of cervix (principal); Z11.51 Encounter for screening for human papillomavirus (HPV); N92.0 Excessive and frequent menstruation with regular cycle; D25.9 Leiomyoma of uterus, unspecified
CPT/HCPCS: 87624; 88142; 99203

== ENCOUNTER 2023-01-10 12:24 | Outpatient (REF) | payer MEDICAID, SELFPAY ==
[2023-01-10 16:25] LABS: Hematocrit 38.5 % (37.0-47.0); Hemoglobin 12.5 g/dl (12.0-16.0); Mean Corpuscular HGB Conc 32.5 g/dl (31.0-35.0); Mean Corpuscular Hemoglobin 27.1 pg (27.0-33.0); Mean Corpuscular Volume 83.3 fL (80.0-98.0); Mean Platelet Volume 11.8 fL (9.4-12.3); Platelet Count 260 X10*3/uL (160-400); Red Blood Count 4.62 X10*6/uL (4.20-5.50); Red Cell Distribution Width 12.7 % (11.0-16.0); White Blood Count 9.4 X10*3/uL (4.8-10.8)
[2023-01-10 16:58] LABS: Thyroid Stimulating Hormone 3.11 uIU/mL (0.32-4.0)
[2023-01-11 02:59] LABS: Syphilis Screen Nonreactive (Nonreactive)
[2023-01-11 03:12] LABS: HBsAGNum1 0.37 S/CO (0.00-0.99); HIV AB/AG Nonreactive (Nonreactive); HIV Num 1 0.05 S/CO (0.00-0.99); Hepatitis B Surface Antigen Negative (Negative); ~Hepatitis C Antibody Nonreactive (Nonreactive)
[2023-01-11 05:11] LABS: CT PCR NOT DETECTED (Not Detect.); NG PCR NOT DETECTED (Not Detect.)
[2023-01-11 11:46] LABS: BV Int Neg Control Negative (Negative); BV Int Pos Control Positive (Positive)
== END 2023-01-10 12:25 | disposition home or self-care (01) ==
LOC: HO.LAB 12:24
PROVIDERS: Visit Provider Advanced Practice Midwife
DX: Z12.4 Encounter for screening for malignant neoplasm of cervix (principal); Z11.3 Encounter for screening for infections with a predominantly sexual mode of transmission; Z11.4 Encounter for screening for human immunodeficiency virus [HIV]; D25.9 Leiomyoma of uterus, unspecified
CPT/HCPCS: 0353U; 36415; 84443; 85027; 86780; 86803; 87340; 87389; 87480; 87510; 87660

== ENCOUNTER 2023-01-21 15:15 | Outpatient (AMB) | payer MEDICAID, SELFPAY ==
[2023-01-21 15:32] VITALS: BP 118/68; BMI 30.9
--- NOTE | 2023-01-21 15:32 | A.OFFVIS_ITS ---
Intake Vital Signs 01/21/23 15:32 Height 5 ft 2 in Weight 169 lb BMI 30.9 BP 118/68 Intake Visit Reasons: Fibroids/Carey Acosta Yoga Instructor Required: No Information Interpreted: non-clinical & clinical Clerical Receptionist: Clerical Receptionist Present (Janna) Allergies No Known Allergies Allergy (Verified 01/21/23 15:32) Is last menstrual period known: Yes Last menstrual period: 01/16/23 Post menopausal: No HPI HPI Comments History of Present Illness Details The patient is presenting for follow-up to discuss the results of her abnormal uterine bleeding workup and options of treatment. The following workup was done.: H&H= 12.5/38.5 TSH, GC and chlamydia were negative. Endometrial biopsy pathology showed no evidence of hyperplasia and/or malignancy. Co testing was done still pending Mammogram schduled for 02/08 Pelvic ultrasound done in 08/23 showed the following: Uterus: The uterus is anteverted and measures 12.9 x 7.7 x 8.1 cm. The double wall endometrial thickness is 0.6 mm. There is echogenic material within the endometrial/endocervical canal consistent with clot. There is a large 8.0 x 7.3 x 6.8 cm fibroid within the fundus which is seen to be submucosal as well as exophytic and subserosal. Adnexa: Both ovaries are visualized. There is normal color flow to the adnexa. There is no ovarian torsion. There is a small amount of fluid within the cul-de-sac. Right ovary measures 4.0 x 2.6 x 2.6 cm. Volume of 14.2 mL. No abnormal right adnexal findings. Left ovary measures 3.4 x 1.5 x 2.5 cm. 6.7 mL volume. No abnormal left adnexal findings. Repeat Ultrasound scheduled in few days [facility] Medical History Chronic idiopathic constipation COVID-19 Gastroesophageal reflux disease Irritable bowel syndrome No known health problems Surgical History Hx of section Hx of tubal ligation Social History Alcohol intake: never Patient Tobacco Use Status: Never used Tobacco Female Reproductive History Menstrual Date of last menstrual period: 01/16/23 control method: permanent sterilization Date of last pap smear: 01/01/23 (pending) Review of Systems Const All systems reviewed & are unremarkable except as noted in HPI and below Reports as per HPI and Reports no additional complaints GI Reports no additional complaints Reports no additional complaints Physical Exam Vital Signs: Last Vital Signs BP 118/68 01/21/23 15:32 BMI result Body Mass Index 30.9 Assessment & Plan Assessment & Plan (1) Abnormal uterine bleeding: Comment: Large myoma Code(s): N93.9 - Abnormal uterine and vaginal bleeding, unspecified Plan: Co testing done, report still pending, GC and chlamydia taken and were negative, CBC, TSH done an within no, and pelvic ultrasound done and showed 8 cm myoma. Discussed with the patient the different causes of abnormal bleeding including thyroid disorders, uterine and ovarian pathology, endometrial hyperplasia, carcinoma and other potential causes. Discussed with the patient the work up done including endometrial biopsy to r/o endometrial pathology. Discussed with the patient the findings on pelvic ultrasound & the risk of myosarcoma; discussed with the patient the options of treatment including expectant management versus hysterectomy; the pros and cons, risks benefits of each approach were discussed with the patient including the fact that in cases of myosarcoma, surgical treatment can lead to early diagnosis and positively affects the prognosis; Instructed the patient to schedule an appointment for an endometrial biopsy in 2 weeks. Will check pathology results, ultrasound results and discuss different options of treatment. All questions answered, the patient verbalized understanding Coding Level of Care Code Est Pt Level 3 (94178) Diagnoses Abnormal uterine bleeding N93.9
== END 2023-01-21 15:52 | disposition home or self-care (01) ==
LOC: HO.HWS 15:15
PROVIDERS: PCP Internal Medicine; Visit Provider Obstetrics & Gynecology
DX: N93.9 Abnormal uterine and vaginal bleeding, unspecified (principal)
CPT/HCPCS: 99213

== ENCOUNTER → 2023-01-21 15:15 | Outpatient (BNVA) | payer MEDICAID, SELFPAY | PROVIDERS: PCP Internal Medicine; Visit Provider Obstetrics & Gynecology | DX: N93.9 Abnormal uterine and vaginal bleeding, unspecified (principal); D25.9 Leiomyoma of uterus, unspecified | CPT/HCPCS: 99212 ==

== ENCOUNTER 2023-01-23 10:36 | Outpatient (REF) | payer MEDICAID, SELFPAY ==
--- NOTE | ~2023-01-23 | US_ITS ---
EXAMINATION: US PELVIS CLINICAL INFORMATION: Excessive and frequent menses; the last menstrual period was on 08/16/2022. COMPARISON: Pelvic ultrasound dated 08/17/2022 TECHNIQUE: Ultrasound of the pelvis is performed using both transabdominal and transvaginal transducers along with Doppler. Transvaginal imaging is performed due to inadequate visualization transabdominally. FINDINGS: The uterus is of normal size and echogenicity measuring 12.8 x 9.8 x 9.6 cm. The endometrial stripe is not seen due to uterine fibroid disease. A Nabothian cyst is seen within the cervix. There is a small amount of complex fluid within the endocervical canal, possibly blood products. FIBROIDS: There are 2 fibroids seen. 1. Location: Upper rightward body, subserosal. Size: 1.1 x 1.2 x 1.1 cm. Prior: Not seen. Fibroid characteristics: Heterogeneous echotexture. 2. Location: Fundus, myometrial. Size: 8.8 x 3.6 x 7.8 cm. Prior: 8.0 x 7.3 x 6.8 cm. Fibroid characteristics: Heterogeneous echotexture. Both ovaries are of normal size and echogenicity. The right ovary measures 3.4 x 1.6 x 2.2 cm for a volume of 2.9 mL. The left ovary measures 3.6 x 2.8 x 2.9 cm for a volume of 15.3 mL. There is no pelvic free fluid. US/US pelvic and transvaginal IMPRESSION: 1. There are uterine fibroids, as detailed. 2. A Nabothian cyst is seen within the cervix. 3. A small amount of complex fluid is noted within the endocervical canal, possibly blood products.
== END 2023-01-23 10:37 | disposition home or self-care (01) ==
LOC: HO.US 10:36
PROVIDERS: PCP Internal Medicine; Visit Provider Advanced Practice Midwife
DX: N92.0 Excessive and frequent menstruation with regular cycle (principal); D25.9 Leiomyoma of uterus, unspecified
CPT/HCPCS: 76830; 76856

== ENCOUNTER 2023-01-29 10:31 | Outpatient (AMB) | payer MEDICAID, SELFPAY ==
[2023-01-29 10:54] VITALS: BP 138/79; PULSE 73; BMI 30.4
--- NOTE | 2023-01-29 10:54 | MHC.OFFVIS ---
Intake Vital Signs 01/29/23 10:54 Height 5 ft 2 in Weight 166 lb 3.657 oz BMI 30.4 BP 138/79 Blood Pressure Location Lt brachial Position Sitting Pulse 73 Intake Visit Reasons: 3 month follow up r/s from 10/03 Intake Note: Jessa presents in office as a est.patient for 3month f/u for [facility]. PT CC: pt reports having no concerns pt denies any other GI Issues Senior Network Architect Required: No Accompanied by: Self / Same As Patient Allergies No Known Allergies Allergy (Verified 01/29/23 10:55) HPI 3 month follow up r/s from 10/03 HPI Details LAST VISIT: GERD (gastroesophageal reflux disease) Continue pantoprazole every other day. Patient can continue sucralfate at bedtime. Discussed with patient avoiding dietary triggers. Stressed the importance of staying upright from minimal 3 hours after meals. IBS (irritable bowel syndrome) Postprandial abdominal bloating related stool most likely the food that she eats as well as constipation. Patient will try to follow low FODMAP diet to avoid bloating. Will send script for simethicone Chronic idiopathic constipation Will add Colace, continue Senokot. Patient sees results with Senokot, however she does not feel like she empties her bowels completely. I will see patient in 3 months, sooner on as needed basis. Patient is agreeable to this plan and verbalizes understanding of instructions. She was given the opportunity to ask questions and all questions answered. ? Thank you for allowing me to participate in her care Plan Medications New pantoprazole 20 mg PO Q OTHER DAY 60 tabs 2RF docusate sodium 100 mg PO BEDTIME 90 caps 3RF K59.00 simethicone 125 mg PO BID-QID PRN 120 caps 3RF abdominal distention Refilled sennosides (Natural Senna Laxative) 8.6 mg PO BEDTIME 90 tabs 3RF constipation K59.00 sucralfate 1 g PO BEDTIME 90 tabs 1RF K21.9 TODAY'S VISIT Patient is here today for follow-up. Patient reports that she has been feeling better. Reports that she is moving her bowels daily without any issues. Patient reports less bloating. Denies dyspepsia, dysphagia or odynophagia. Patient states that she is using pantoprazole every other day. Still uses sucralfate at bedtime on as needed basis. Patient is taking Senokot and Colace to help her move her bowels. Patient denies melena, hematochezia, unintentional weight loss or ribbon like stools. Patient states that she is trying to walk every day at least couple times a day. Last 6 lb since last visit. [facility] Medical History Chronic idiopathic constipation COVID-19 Gastroesophageal reflux disease Irritable bowel syndrome No known health problems Surgical History Hx of section Hx of tubal ligation Social History Alcohol intake: never Patient Tobacco Use Status: Never used Tobacco Review of Systems Const Denies weight gain and Denies weight loss ENT Reports no additional complaints, Denies dysphagia and Denies odynophagia Card Reports no additional complaints Resp Reports no additional complaints GI Denies abdominal pain, Denies belching, Denies melena, Denies bloating, Denies change in bowel habits, Denies dysphagia, Denies excessive flatus, Denies dyspepsia, Denies heartburn, Denies diarrhea, Denies loose stools, Denies nausea, Denies odynophagia and Denies vomiting Reports no additional complaints Musc Reports no additional complaints Neuro Reports no additional complaints Psych Reports no additional complaints Endo Reports no additional complaints Physical Exam Vital Signs: Last Vital Signs Pulse 73 01/29/23 10:54 BP 138/79 01/29/23 10:54 BMI result Body Mass Index 30.4 Const General: healthy appearing, no acute distress and well developed Nutritional Appearance: obese Orientation/consciousness: patient oriented x3 HEENT Head: Yes normal to inspection, Yes normocephalic and Yes atraumatic Face and sinus: Yes normal facial exam Mouth: Normal oral and palatal mucosa present Throat: Yes posterior oropharynx normal, Yes tonsils normal and Yes uvula midline Eyes General: appearance normal, both eyes and all related structures Neck Neck: Yes normal visual inspection, Yes full ROM and Yes trachea midline Thyroid: Thyroid normal Resp Effort & Inspection: normal respiratory effort, able to speak in complete sentences, no tracheal deviation and symmetric chest movement Auscultation: clear to auscultation bilaterally Cardio Rate: regular rate Heart sounds: S1 normal heart sound present and S2 normal heart sound present GI Inspection: Yes normal to inspection, No distended and Yes obesity Palpation (GI): Soft to palpation, not firm, nontender and No hepatosplenomegaly present Auscultation: normal bowel sounds General: Yes no CVA tenderness Back/Spine/Pelvis Back: no CVA tenderness Skin General skin exam: elasticity normal, turgor normal and dry skin Neuro General: patient oriented x3 Psych Appearance: grossly normal Mental Status: mental status grossly normal Speech and movement: Normal speech and movement present Assessment & Plan Assessment & Plan (1) Gastroesophageal reflux disease: Code(s): K21.9 - Gastro-esophageal reflux disease without esophagitis Qualifiers: Esophagitis presence: esophagitis presence not specified Qualified Code(s): K21.9 - Gastro-esophageal reflux disease without esophagitis Plan: Continue avoiding dietary triggers. Patient was instructed to stay upright for minimum 3 hours after meals. Continue pantoprazole every other day and sucralfate as needed (2) Irritable bowel syndrome: Code(s): K58.9 - Irritable bowel syndrome without diarrhea Qualifiers: Irritable bowel syndrome type: with constipation Qualified Code(s): K58.1 - Irritable bowel syndrome with constipation Plan: Continue low FODMAP diet. (3) Chronic idiopathic constipation: Code(s): K59.04 - Chronic idiopathic constipation Plan: Continue Senokot and Colace daily. Patient was also encouraged to increase fluid intake and activity to promote better bowel motility. I will see patient in 1 year, sooner on as needed basis. Patient is agreeable to this plan and verbalizes understanding of instructions. She was given the opportunity to ask questions and all questions answered. Thank you for allowing me to participate in her care Coding Level of Care Code Est Pt Level 3 (81007) Diagnoses Gastroesophageal reflux disease K21.9 Esophagitis presence: esophagitis presence not specified Irritable bowel syndrome K58.1 Irritable bowel syndrome type: with constipation Chronic idiopathic constipation K59.04 Time Spent (min) 25 Comment 15 minutes spent with patient and additional 10 minutes spent reviewing her records
== END 2023-01-29 11:18 | disposition home or self-care (01) ==
PROVIDERS: PCP Internal Medicine; Visit Provider Nurse Practitioner Family
DX: K21.9 Gastro-esophageal reflux disease without esophagitis (principal); K58.1 Irritable bowel syndrome with constipation; K59.04 Chronic idiopathic constipation
CPT/HCPCS: 99213

== ENCOUNTER → 2023-01-29 10:31 | Outpatient (BNVA) | payer MEDICAID, SELFPAY | PROVIDERS: PCP Internal Medicine; Visit Provider Nurse Practitioner Family | DX: K21.9 Gastro-esophageal reflux disease without esophagitis (principal); K58.1 Irritable bowel syndrome with constipation; K59.04 Chronic idiopathic constipation; Z79.899 Other long term (current) drug therapy | CPT/HCPCS: 99212; 99213 ==

== ENCOUNTER 2023-02-08 14:04 | Outpatient (REF) | payer MEDICAID, SELFPAY ==
--- NOTE | ~2023-02-08 | MM_ITS ---
EXAMINATION: MM SCREENING DIGITAL BREAST TOMOSYNTHESIS, BILATERAL CLINICAL INFORMATION: Screening. Asymptomatic. COMPARISON: Mammography: This is a baseline study. TECHNIQUE: Digital breast tomosynthesis is performed in both the craniocaudal and mediolateral oblique views along with computer-aided detection (CAD). Synthesized 2D images are generated from the tomosynthesis. FINDINGS: The breasts are heterogeneously dense, which may obscure small masses (ACR BI-RADS breast composition Category c). There are no significant masses, abnormal calcifications, or other abnormalities. MM/MM tomosynthesis screening BI IMPRESSION: No mammographic evidence of malignancy. ASSESSMENT: BI-RADS BI-RADS 1 - Negative RECOMMENDATION: Routine annual mammography screening. 1 year F/U This examination should not preclude the clinical evaluation of a suspicious palpable abnormality. This patient's information was entered into a reminder system with a target due date for their next mammogram.
== END 2023-02-08 14:05 | disposition home or self-care (01) ==
LOC: HO.MAMMO 14:04
PROVIDERS: PCP Internal Medicine; Visit Provider Advanced Practice Midwife
DX: Z12.31 Encounter for screening mammogram for malignant neoplasm of breast (principal)
CPT/HCPCS: 77063; 77067

== ENCOUNTER → 2023-02-08 15:00 | Outpatient (BNV) | payer MEDICAID, SELFPAY | PROVIDERS: PCP Internal Medicine; Visit Provider Radiology Diagnostic Radiology | DX: Z12.31 Encounter for screening mammogram for malignant neoplasm of breast (principal) | CPT/HCPCS: 77063; 77067 ==

== ENCOUNTER 2023-03-25 11:15 | Outpatient (REF) | payer MEDICAID, SELFPAY ==
[2023-03-25 14:52] LABS: MANUAL DIFF FLAG NO
[2023-03-25 14:58] LABS: Basophils Absolute Auto 0.1 X10*3/uL (0.0-0.2); Basophils Percent Auto 0.8 % (0-2); Eosinophils Absolute Auto 0.2 X10*3/uL (0.0-0.4); Hematocrit 38.8 % (37.0-47.0); Hemoglobin 12.4 g/dl (12.0-16.0); Imm Gran Abs Auto 0.02 X10*3/uL (0.00-0.03); Imm Gran Pct Auto 0.3 % (0.0-0.4); Lymphocytes Absolute Auto 1.6 X10*3/uL (1.2-4.9); Lymphocytes Percent Auto 20.8 % (20-40); Mean Corpuscular Hemoglobin 26.3 pg (27.0-33.0); Mean Corpuscular Volume 82.2 fL (80.0-98.0); Mean Platelet Volume 11.7 fL (9.4-12.3); Monocytes Absolute Auto 0.4 X10*3/uL (0.1-1.2); Monocytes Percent Auto 5.2 % (2-11); Neutrophils Absolute Auto 5.6 x10*3/uL (2.0-8.3); Neutrophils Percent Auto 70.9 % (45-73); Platelet Count 287 X10*3/uL (160-400); Red Blood Count 4.72 X10*6/uL (4.20-5.50); Red Cell Distribution Width 12.8 % (11.0-16.0); White Blood Count 7.9 X10*3/uL (4.8-10.8)
[2023-03-25 15:25] LABS: Alanine Aminotransferase 13 U/L (0-31); Albumin Level 4.4 g/dL (3.5-5.0); Alkaline Phosphatase 63 U/L (39-117); Anion Gap 12 (12-20); Aspartate Amino Transferase 17 U/L (5-31); Bilirubin Direct < 0.2 mg/dL (0.0-0.5); Bilirubin Total 0.2 mg/dL (0.0-1.0); Blood Urea Nitrogen 17 mg/dL (9-16); Calcium 9.2 mg/dL (8.4-10.2); Carbon Dioxide 24 mmol/L (22-29); Chloride 108 mmol/L (96-108); Estimated Glomerular Filt Rate > 60; Glucose Fasting 92 mg/dL (60-99); Potassium 3.7 mmol/L (3.3-5.1); Sodium 140 mmol/L (135-145); Total Protein 7.5 g/dL (6.5-8.0)
[2023-03-25 15:30] LABS: TSH reflex Free T4 1.65 uIU/mL (0.32-4.0)
== END 2023-03-25 11:16 | disposition home or self-care (01) ==
LOC: HO.CHCLDS 11:15
PROVIDERS: Visit Provider Internal Medicine
DX: L29.9 Pruritus, unspecified (principal)
CPT/HCPCS: 36415; 80048; 80076; 84443; 85025

== ENCOUNTER 2023-04-24 11:51 | Outpatient (REF) | payer MEDICAID, SELFPAY | END 2023-04-24 11:52 | disposition home or self-care (01) | LOC: HO.LNP 11:51 | PROVIDERS: PCP Internal Medicine; Visit Provider Obstetrics & Gynecology | DX: N93.9 Abnormal uterine and vaginal bleeding, unspecified (principal) | CPT/HCPCS: 58100; 81025; 88305 ==

== ENCOUNTER 2023-04-24 11:51 | Outpatient (AMB) | payer MEDICAID, SELFPAY ==
--- NOTE | 2023-04-24 11:55 | MHC.OFFVIS ---
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[employer] Present (Janna Beck HERNANDEZ) Accompanied by: Self / Same As Patient Allergies No Known Allergies Allergy (Verified 04/24/23 12:00) Is last menstrual period known: Yes PFSH Medical History Chronic idiopathic constipation COVID-19 Gastroesophageal reflux disease Irritable bowel syndrome No known health problems Surgical History Hx of section Hx of tubal ligation Alcohol intake: never Patient Tobacco Use Status: Never used Tobacco Physical Exam Vital Signs: Last Vital Signs BP 118/70 04/24/23 12:00 BMI result Body Mass Index 30.2 Office Procedures Endometrial Biopsy Details: The patient was counseled regarding the indication and benefits of endometrial sampling to rule out endometrial pathology including not limited to endometrial hyperplasia or endometrial cancer and others; The alternatives (Either do nothing vs. hysteroscopy D&C) & the risks were discussed with the patient including but not limited: pain, uterine perforation, bleeding, infection, possible injury to bladder, bowel, ureter, possible need for blood transfusion with all its possible risks. The patient verbalized understanding all questions answered and signed consent. Urine test done in the office was negative The patient was placed into the dorsal lithotomy position; a speculum was inserted in the vagina. Using aseptic technique for the procedure, the cervix was cleansed with Betadine. The anterior lip of the cervix was grasped with a single tooth tenaculum. The uterus was sounded to 10 cm with a 4 mm Pipelle was used. Tissues samples were obtained and placed in formalin, in a patient labeled container and sent to the pathology department. At the end of the procedure, there was minimal bleeding noted The patient tolerated the procedure well and was discharged in good condition with the following instructions: Nothing in the vagina until the bleeding stops. No sex until the bleeding stops, to call if any of the following occurs: fever (>100.4), flu-like symptoms, abdominal pain, heavy bleeding, four smelling vaginal discharge. The patient was instructed to schedule a Follow up appointment in 2 weeks to discuss pathology results of the biopsy and treatment options. This note was generated with a voice recognition program. Some errors may have been overlooked during the review of this note. Sometimes these errors may affect the content or meaning of a given sentence. [id number] Biopsy Assessment & Plan Assessment & Plan Orders: Orders AMB Endometrial Biopsy Today N93.9 - Abnormal uterine and vaginal bleeding, unspecified Coding Level of Care Code Procedure Only CPT Codes Endometrial Biopsy - CPT: 24237-[id number] Biopsy ([id number])
[2023-04-24 12:00] VITALS: BP 118/70; BMI 30.2
== END 2023-04-24 12:21 | disposition home or self-care (01) ==
LOC: HO.HWS 11:51
PROVIDERS: PCP Internal Medicine; Visit Provider Obstetrics & Gynecology
DX: N93.9 Abnormal uterine and vaginal bleeding, unspecified (principal); Z32.02 Encounter for pregnancy test, result negative
CPT/HCPCS: 58100

== ENCOUNTER 2023-05-23 14:33 | Emergency (ER) | payer MEDICAID, SELFPAY ==
--- NOTE | ~2023-05-23 | US_ITS ---
EXAMINATION: US PELVIS CLINICAL INFORMATION: Vaginal bleeding x3 weeks with pelvic pain COMPARISON: Ultrasound pelvis 01/23/2023 and 08/17/2022. TECHNIQUE: Ultrasound of the pelvis is performed using both transabdominal and transvaginal transducers along with Doppler. Transvaginal imaging is performed due to inadequate visualization transabdominally. FINDINGS: Uterus: The uterus is anteverted, anteflexed and measures 10.4 x 11.2 x 1.7 cm. (Sagittal by AP by transverse) The double wall endometrial thickness is 5 mm. There is minimal free fluid in the endometrial canal. The uterus is smooth in contour and has normal myometrial echogenicity. There is a large fundal fibroid measuring 11.5 x 7.4 x 10.7 cm. Previously it measured 8.8 x 3.6 x 7.8 cm and prior to that 8.0 x 7.3 x 6.8 cm. The second subserosal fibroid seen previously in right body of uterus is not visualized at this time. There is complex echogenic/blood seen in the cervix. Adnexa: Both ovaries are visualized. There is normal color flow to the adnexa. There is no ovarian torsion. There is no pelvic ascites or fluid collection. Right ovary measures 3.8 x 2.7 x 3.1 cm. Volume 16.6 mL. There is anechoic cyst measuring 3.1 x 1.8 x 1.8 cm. Left ovary previously measured 3.6 x 2.8 x 2.9 cm. It is not visualized at this time. There is small amount of free fluid in the cul-de-sac. US/US pelvic and transvaginal IMPRESSION: Complex blood seen in the cervical canal consistent with history of bleeding. There is a large uterine solitary fibroid in the fundus slight increase in size. Previously described second subserosal fibroid in the body of the right uterus is not seen. Right ovarian cyst measures 3.1 cm. Left ovary is not seen.
[2023-05-23 14:37] VITALS: BP 128/84; PULSE 60; O2SAT 98
--- NOTE | 2023-05-23 14:59 | ED_ITS ---
HPI - Female Genitourinary General Chief complaint: Vaginal Bleeding Stated complaint: VAGINAL BLEED PER EMS Time Seen by Provider: 05/23/23 20:55 Source: patient Mode of arrival: ambulatory Limitations: no limitations History of Present Illness HPI Narrative: Patient comes to the emergency room complaining of 3 days of heavy vaginal bleeding. Patient states that she usually gets her periods at the beginning of the month. This time, patient continued bleeding. Patient states that over last few days, the vaginal bleeding got worse. Patient states that she has been feeling lightheaded, a bit weaker than usual. Patient states that she is known to have a large fibroid. Patient has an appointment with her OBGYN at the end of June to discuss surgery. Related Data Previous Rx's Medication Instructions Recorded fluticasone propionate 50 1 spray intranasal DAILY #16 grams 02/12/21 mcg/actuation nasal spray,suspension (Flonase Allergy Relief) hydrocortisone 1 % topical cream 1 appl topical BID PRN rash #144 ea 02/12/21 packet methylcellulose (laxative) 500 mg 500 mg PO DAILY #90 tabs 11/22/21 tablet (Citrucel) cholecalciferol (vitamin D3) 50 50 mcg PO DAILY #90 caps 12/20/21 mcg (2,000 unit) capsule docusate sodium 100 mg capsule 100 mg PO BEDTIME #90 caps 06/26/22 pantoprazole 20 mg tablet,delayed 20 mg PO Q OTHER DAY #60 tabs 06/26/22 release sennosides 8.6 mg tablet (Natural 8.6 mg PO BEDTIME constipation #90 06/26/22 Senna Laxative) tabs simethicone 125 mg capsule 125 mg PO BID-QID PRN abdominal 06/26/22 distention #120 caps sucralfate 1 gram tablet 1 g PO BEDTIME #90 tabs 06/26/22 ondansetron HCl 4 mg tablet 4 mg PO Q6H PRN nausea and 05/23/23 vomiting #14 tabs tranexamic acid 650 mg tablet 1,300 mg (2 x 650 mg) PO TID 5 05/23/23 days #30 tabs Allergies Allergy/AdvReac Type Severity Reaction Status Date / Time No Known Allergies Allergy Verified 04/24/23 12:00 Review of Systems 2 Review of Systems: Constitutional : No Weight loss, No Fever, No Chills, No Night Sweats, No Fatigue, No Malaise ENT/Mouth : No Hearing loss, No Ear Pain, No Nasal Congestion, No Sinus Pain, No Hoarseness, No sore throat, No Rhinorrhea, No Swallowing Difficulty Eyes: No Eye Pain, No Swelling, No Redness, No Foreign Body, No Discharge, No Vision Changes Cardiovascular : No Chest Pain, No SOB, No Dyspnea on Exertion, No Orthopnea, No Edema, No Palpitations Respiratory : No Cough, No Sputum, No Wheezing, No Smoke Exposure, No Dyspnea Gastrointestinal : No Nausea, No Vomiting, No Diarrhea, No Constipation, No abdominal Pain, No Hematochezia, No Melena Genitourinary : Complaining of heavy irregular vaginal bleeding, No Dysuria, No Urinary Frequency, No Hematuria, No Urinary Incontinence, No Urgency, No Flank Pain, No Urinary Flow Changes, No Hesitancy Musculoskeletal : No joint pain, No Myalgias, No Joint Swelling Skin : No Skin Lesions, No rash Neuro : No Weakness, No Numbness, No Paresthesias, No Loss of Consciousness, No Dizziness, No Headache Psych : No Anxiety/Panic, No Depression, No SI/HI/AH/VH, No Social Issues, Heme/Lymph: No Bruising, No Bleeding,No Lymphadenopathy Endocrine : No Polyuria, No Polydipsia, No Temperature Intolerance PMFSH Past Medical History Medical History Irritable bowel syndrome Chronic idiopathic constipation Gastroesophageal reflux disease COVID-19 No known health problems Surgical History Hx of section Hx of tubal ligation Social History Social History Alcohol intake: never Patient Tobacco Use Status: Never used Tobacco Advance Directives: No Advance Directives Information Provided: Yes Physical Exam 2 Vital Signs: Vital Signs: Last Vital Signs Temp 98.7 F 05/23/23 20:51 Pulse 75 05/23/23 20:51 Resp 16 05/23/23 20:51 BP 131/74 05/23/23 20:51 Pulse Ox 99 05/23/23 20:51 O2 Del Method Room Air 05/23/23 20:51 BMI result Body Mass Index 30.0 Const: Other: Appearance: Alert. Oriented X3. No acute distress. Eyes: Pupils equal, round and reactive to light. ENT: Pharynx normal. Neck: Normal inspection. Neck supple. No lymph nodes noted. No crepitus CVS: Normal heart rate and rhythm. Pulses normal. Normal S1 and S2 Respiratory: No respiratory distress. Breath sounds normal. No Wheezing. No rales Abdomen: Soft and nontender. No rigidity. No distention. : Moderate amount of blood in the vaginal vault, no clots visualized Skin: Skin warm and dry. Normal skin color. Normal skin turgor. Extremities: No lower extremity edema. No Lacerations. No Rash Neuro: Oriented X 3. No motor deficit. No sensory deficit. Moving all extremities. No slurred speech. CN 2 through 12 grossly intact Psych: calm, cooperative, normal affect Course Course Course Narrative: RME: 43yo F w/PMHx uterine fibroids c/o pelvic pain & vaginal bleeding x3 weeks. Reports 1 pad daily, dark red w/clots. also reports dizziness & lightheadedness Labs, UA, Pelvic US ordered Full HPI, ROS and PE to be performed by primary ED provider. Medications Administered Discontinued Medications Generic Name Dose Route Start Last Admin Trade Name Freq PRN Reason Stop Dose Admin Estrogens Conjugated 25 mg 05/23/23 21:38 05/23/23 22:30 Estrogens, Conjugated 25 Mg Vial IM 05/23/23 21:39 Not Given ONCE ONE Tranexamic Acid 1,000 mg/ 60 mls @ 360 mls/hr 05/23/23 22:11 05/23/23 22:30 Sodium Chloride IV 05/23/23 22:20 360 mls/hr ONCE ONE Administration Medical Decision Making Medical Decision Making [facility] Narrative: -I discussed ultrasound findings with the patient, patient has a fairly large uterine fibroid, measuring 11.5 x 7.4 x 10.7 cm -given the amount of vaginal bleeding seen on physical exam, we will go ahead and give the patient 1 dose of IM Premarin 25 mg and reassess. -I discussed with the patient her past medical history, no personal past medical history of DVTs or migraines -discussed with the patient that on discharge, we can start her on high-dose combination pills until she gets seen by her primary care physician or Ob Gyne -at this time, we do not have regulatory technician coverage -my interpretation of labs, normal hematology and hematocrit despite 3 weeks of heavy vaginal bleeding., hCG negative -vitals are stable, blood pressure 131/74, heart rate 75, respirations 16, oxygen saturation 99% on room air, temperature 98.7 F -recheck with pharmacy, we do not have p.o. Premarin, we do not have p.o. tranexamic acid. We can the IV form of tranexamic acid give p.o. -repeat H&H at 00:30 -22:42: I was informed by the patient's nurse that the patient feels better a bit nauseous but would like to be discharged home. Patient will call Dr. Munoz in the morning. Patient does not want to stay for improvement and recheck H&H and cervical exam Differential Diagnosis Differential Diagnoses: The differential diagnosis associated with the presentation includes (uterine fibroid, menorrhagia, menometrorrhagiane) Admission/Observation Consideration of admission/observation: Escalation of care including admission/observation considered (Given patient's presentation and history, patient was concerned on arrival) Lab Data MDM Lab Attestation statement: I reviewed the patient's lab results. 05/23/23 15:24 05/23/23 15:24 Labs: Lab Results 05/23/23 05/23/23 Range/Units 15:24 20:58 WBC 8.5 (4.8-10.8) X10*3/uL RBC 4.78 (4.20-5.50) X10*6/uL Hgb 12.5 (12.0-16.0) g/dl Hct 37.7 (37.0-47.0) % MCV 78.9 L (80.0-98.0) fL MCH 26.2 L (27.0-33.0) pg MCHC 33.2 (31.0-35.0) g/dl RDW 13.2 (11.0-16.0) % Plt Count 294 (160-400) X10*3/uL MPV 10.2 (9.4-12.3) fL Immature Gran % (Auto) 0.2 (0.0-0.4) % Neut % (Auto) 68.1 (45-73) % Lymph % (Auto) 18.6 L (20-40) % Yancey % (Auto) 5.3 (2-11) % Eos % (Auto) 6.9 H (0-4) % Baso % (Auto) 0.9 (0-2) % Lymph # (Auto) 1.6 (1.2-4.9) X10*3/uL [place]y # (Auto) 0.5 (0.1-1.2) X10*3/uL Eos # (Auto) 0.6 H (0.0-0.4) X10*3/uL Baso # (Auto) 0.1 (0.0-0.2) X10*3/uL Abs Immat Gran (auto) 0.02 (0.00-0.03) X10*3/uL Absolute Neuts (auto) 5.8 (2.0-8.3) x10*3/uL Absolute Nucleated RBC 0.000 (0.0-0.012) X10*3/uL Nucleated RBC % (auto) 0.0 (0.0-0.2) /100WBC PT 11.7 (11.1-13.3) SEC INR 1.0 (0.9-1.1) Sodium 139 (135-145) mmol/L Potassium 3.9 (3.3-5.1) mmol/L Chloride 107 (96-108) mmol/L Carbon Dioxide 24 (22-29) mmol/L Anion Gap 12 (12-20) BUN 14 (9-16) mg/dL Creatinine 0.98 (0.5-1.4) mg/dL Estim Creat Clear Calc 72.6 Estimated GFR > 60 Random Glucose 84 (60-115) mg/dL Calcium 9.3 (8.4-10.2) mg/dL Magnesium 2.0 (1.6-2.6) mg/dL Total Bilirubin 0.3 (0.0-1.0) mg/dL Direct Bilirubin 0.1 (0.0-0.5) mg/dL AST 28 (5-31) U/L ALT 15 (0-31) U/L Alkaline Phosphatase 62 (39-117) U/L Total Protein 7.6 (6.5-8.0) g/dL Albumin 4.4 (3.5-5.0) g/dL Lipase 39 (8-78) U/L Beta HCG, Quant < 2 mIU/mL Urine Color Yellow Urine Appearance Cloudy Urine pH 5.5 (5.0-9.0) Ur Specific [place] 1.025 (1.005-1.025) Urine Protein 30 (1+) H (Neg-Trace) mg/dL Urine Glucose (UA) Negative (Negative) mg/dL Urine Ketones Trace (Negative) mg/dL Urine Blood Large (3+) H (Negative) Urine Nitrite Negative (Negative) Ur Leukocyte Esterase Trace H (Negative) Urine RBC >20 H (0-2) /HPF Urine WBC 0-5 (0-5) /HPF Ur Squamous Epith Cells 6-10 (0-2) /HPF Urine Bacteria None Seen (None Seen) Hyaline Casts 0-2 (0-2) /LPF Urine Test NEGATIVE (NEGATIVE) Radiology Impression Discussion of test interpretation with radiology: I have reviewed the radiologist's reading. Radiologist Impression: FINDINGS: Uterus: The uterus is anteverted, anteflexed and measures 10.4 x 11.2 x 1.7 cm. (Sagittal by AP by transverse) The double wall endometrial thickness is 5 mm. There is minimal free fluid in the endometrial canal. The uterus is smooth in contour and has normal myometrial echogenicity. There is a large fundal fibroid measuring 11.5 x 7.4 x 10.7 cm. Previously it measured 8.8 x 3.6 x 7.8 cm and prior to that 8.0 x 7.3 x 6.8 cm. The second subserosal fibroid seen previously in right body of uterus is not visualized at this time. There is complex echogenic/blood seen in the cervix. Adnexa: Both ovaries are visualized. There is normal color flow to the adnexa. There is no ovarian torsion. There is no pelvic ascites or fluid collection. Right ovary measures 3.8 x 2.7 x 3.1 cm. Volume 16.6 mL. There is anechoic cyst measuring 3.1 x 1.8 x 1.8 cm. Left ovary previously measured 3.6 x 2.8 x 2.9 cm. It is not visualized at this time. There is small amount of free fluid in the cul-de-sac. US/US pelvic and transvaginal IMPRESSION: Complex blood seen in the cervical canal consistent with history of bleeding. There is a large uterine solitary fibroid in the fundus slight increase in size. Previously described second subserosal fibroid in the body of the right uterus is not seen. Right ovarian cyst measures 3.1 cm. Left ovary is not seen. Critical Care Time Critical Care Time Critical Care Time: Yes Total Critical Care Time: 60 Attestation: I have personally provided critical care time. Time includes review of lab data, radiology results, discussion with consultants, and monitoring for potential decompensation. Intervention performed as documented. Discharge Plan Discharge Clinical Impression: Fibroid, uterine, Menorrhagia Patient Disposition: Still a Patient Instructions: Dysfunctional Uterine Bleeding (ED), Menorrhagia (ED) Additional Instructions: Please follow-up with your primary care physician tomorrow. If you have any worsening or new symptoms, please return to the emergency room or call 911 Prescriptions: New tranexamic acid 650 mg tablet 1,300 mg PO TID 5 Days Qty: 30 0RF ondansetron HCl 4 mg tablet 4 mg PO Q6H PRN (Reason: nausea and vomiting) Qty: 14 0RF No Action cholecalciferol (vitamin D3) 50 mcg (2,000 unit) capsule 50 mcg PO DAILY Qty: 90 3RF fluticasone propionate [Flonase Allergy Relief] 50 mcg/actuation spray,suspension 1 spray intranasal DAILY Qty: 16 0RF Rx Instructions: administer into each nostril hydrocortisone 1 % cream in packet 1 appl topical BID PRN (Reason: rash) Qty: 144 0RF sennosides [Natural Senna Laxative] 8.6 mg tablet 8.6 mg PO BEDTIME Qty: 90 3RF pantoprazole 20 mg tablet,delayed release (DR/EC) 20 mg PO Q OTHER DAY Qty: 60 2RF sucralfate 1 gram tablet 1 g PO BEDTIME Qty: 90 1RF docusate sodium 100 mg capsule 100 mg PO BEDTIME Qty: 90 3RF simethicone 125 mg capsule 125 mg PO BID-QID PRN (Reason: abdominal distention) Qty: 120 3RF Citrucel 500 mg tablet 500 mg PO DAILY Qty: 90 2RF Rx Instructions: take it with full glass of water Referrals: Harris Munoz MD [Physician] - 05/24/23
[2023-05-23 15:00] VITALS: RESP 18; TEMP 36
[2023-05-23 15:32] LABS: MANUAL DIFF FLAG NO
[2023-05-23 15:34] LABS: Basophils Absolute Auto 0.1 X10*3/uL (0.0-0.2); Basophils Percent Auto 0.9 % (0-2); Eosinophils Absolute Auto 0.6 X10*3/uL (0.0-0.4); Eosinophils Percent Auto 6.9 % (0-4); Hematocrit 37.7 % (37.0-47.0); Hemoglobin 12.5 g/dl (12.0-16.0); Imm Gran Abs Auto 0.02 X10*3/uL (0.00-0.03); Imm Gran Pct Auto 0.2 % (0.0-0.4); Lymphocytes Absolute Auto 1.6 X10*3/uL (1.2-4.9); Lymphocytes Percent Auto 18.6 % (20-40); Mean Corpuscular HGB Conc 33.2 g/dl (31.0-35.0); Mean Corpuscular Hemoglobin 26.2 pg (27.0-33.0); Mean Corpuscular Volume 78.9 fL (80.0-98.0); Mean Platelet Volume 10.2 fL (9.4-12.3); Monocytes Absolute Auto 0.5 X10*3/uL (0.1-1.2); Monocytes Percent Auto 5.3 % (2-11); Neutrophils Absolute Auto 5.8 x10*3/uL (2.0-8.3); Neutrophils Percent Auto 68.1 % (45-73); Platelet Count 294 X10*3/uL (160-400); Red Blood Count 4.78 X10*6/uL (4.20-5.50); Red Cell Distribution Width 13.2 % (11.0-16.0); White Blood Count 8.5 X10*3/uL (4.8-10.8)
[2023-05-23 15:42] LABS: Prothrombin Time 11.7 SEC (11.1-13.3)
[2023-05-23 15:56] LABS: Alanine Aminotransferase 15 U/L (0-31); Albumin Level 4.4 g/dL (3.5-5.0); Alkaline Phosphatase 62 U/L (39-117); Anion Gap 12 (12-20); Aspartate Amino Transferase 28 U/L (5-31); Bilirubin Direct 0.1 mg/dL (0.0-0.5); Bilirubin Total 0.3 mg/dL (0.0-1.0); Blood Urea Nitrogen 14 mg/dL (9-16); Calcium 9.3 mg/dL (8.4-10.2); Carbon Dioxide 24 mmol/L (22-29); Chloride 107 mmol/L (96-108); Creatinine Clr Calc Pharmacy 72.6; Estimated Glomerular Filt Rate > 60; Glucose Random 84 mg/dL (60-115); Lipase 39 U/L (8-78); Potassium 3.9 mmol/L (3.3-5.1); Sodium 139 mmol/L (135-145); Total Protein 7.6 g/dL (6.5-8.0)
[2023-05-23 20:51] VITALS: BP 131/74; PULSE 75; RESP 16; TEMP 37.1; O2SAT 99
--- NOTE | 2023-05-23 20:59 | MHC.EDTECH ---
This pct assumed care of Pt ,vitals taken and urine sample collected and sent to lab .
[2023-05-23 21:08] LABS: Appearance Urine Cloudy; Color Urine Yellow; Glucose Urine UA Negative (Negative); Leukocyte Esterase Urine Trace (Negative); Nitrite Urine Negative (Negative); PH 5.5 (5.0-9.0); Specific Gravity - Urine 1.025 (1.005-1.025); UMIC TRIGGER UACC YES; Urine Blood Large (3+) (Negative); Urine Ketones Trace mg/dL (Negative); Urine Protein 30 (1+) mg/dL (Neg-Trace)
[2023-05-23 21:10] LABS: UPreg QC Valid YES; Urine Pregnancy NEGATIVE (NEGATIVE)
[2023-05-23 21:13] LABS: Bacteria Urine None Seen (None Seen); Hyaline Casts Urine 0-2 /LPF (0-2); RBC Urine >20 /HPF (0-2); WBC Urine 0-5 /HPF (0-5)
[2023-05-23 21:28] LABS: HCG Quantitative < 2 mIU/mL
--- NOTE | 2023-05-23 21:33 | MHC.EDTECH ---
This pct set up and finding fastener ,Provider Hill with Patient Pelvic exam .
[2023-05-23] MEDS: Tranexamic Acid 1,000 MG in 0.9 % Sodium Chloride 50 ML 360 MG IV (22:30)
[2023-05-23 22:41] VITALS: BP 148/76; PULSE 16; RESP 72; TEMP 36.6; O2SAT 98
[2023-05-23] MEDS: Ondansetron ODT 4 MG TAB.RAPDIS TRANSLINGU (22:48)
== END 2023-05-23 22:55 | disposition home or self-care (01) ==
PROVIDERS: Physician Assistant; Emergency Provider Emergency Medicine; PCP Internal Medicine
DX: D25.9 Leiomyoma of uterus, unspecified (principal); N93.9 Abnormal uterine and vaginal bleeding, unspecified; N92.0 Excessive and frequent menstruation with regular cycle; R10.2 Pelvic and perineal pain; Z79.899 Other long term (current) drug therapy
CPT/HCPCS: 36415; 76830; 76856; 80048; 80076; 81001; 81025; 83690; 83735; 84702; 85025; 85610; 96365; 99284

== ENCOUNTER 2023-07-10 10:16 | Outpatient (REF) | payer MEDICAID, SELFPAY ==
[2023-07-10 11:45] LABS: MANUAL DIFF FLAG NO
[2023-07-10 11:50] LABS: Basophils Absolute Auto 0.1 X10*3/uL (0.0-0.2); Basophils Percent Auto 0.7 % (0-2); Eosinophils Absolute Auto 0.3 X10*3/uL (0.0-0.4); Eosinophils Percent Auto 2.8 % (0-4); Hematocrit 39.6 % (37.0-47.0); Hemoglobin 12.7 g/dl (12.0-16.0); Imm Gran Abs Auto 0.06 X10*3/uL (0.00-0.03); Imm Gran Pct Auto 0.6 % (0.0-0.4); Lymphocytes Absolute Auto 2.2 X10*3/uL (1.2-4.9); Lymphocytes Percent Auto 21.4 % (20-40); Mean Corpuscular HGB Conc 32.1 g/dl (31.0-35.0); Mean Corpuscular Hemoglobin 25.3 pg (27.0-33.0); Mean Platelet Volume 10.6 fL (9.4-12.3); Monocytes Absolute Auto 0.6 X10*3/uL (0.1-1.2); Monocytes Percent Auto 6.2 % (2-11); Neutrophils Percent Auto 68.3 % (45-73); Platelet Count 357 X10*3/uL (160-400); Red Blood Count 5.01 X10*6/uL (4.20-5.50); Red Cell Distribution Width 13.8 % (11.0-16.0); White Blood Count 10.2 X10*3/uL (4.8-10.8)
[2023-07-10 13:03] LABS: Iron 28 mcg/dL (30-160); Percent Iron Saturation 8 % (15-50); Total Iron Binding Capacity 370 mcg/dL (228-428); Unsaturated Iron Binding 342 ug/dL
[2023-07-10 13:07] LABS: Vitamin D 25-OH Total 28.3 ng/mL (>30)
[2023-07-10 13:08] LABS: Folate 10.6 ng/mL (> or = 4.0); Vitamin B12 366 pg/mL (200-900)
== END 2023-07-10 10:17 | disposition home or self-care (01) ==
LOC: HO.HHCL 10:16
PROVIDERS: Visit Provider Internal Medicine
DX: E55.9 Vitamin D deficiency, unspecified (principal); N92.3 Ovulation bleeding
CPT/HCPCS: 36415; 82306; 82607; 82746; 83540; 85025

== ENCOUNTER 2023-07-17 10:48 | Outpatient (AMB) | payer MEDICAID, SELFPAY ==
--- NOTE | 2023-07-17 10:50 | MHC.OFFVIS ---
Intake Vital Signs 07/17/23 10:53 Height 5 ft 3 in Weight 167 lb 8.821 oz BMI 29.7 BP 124/82 Intake Visit Reasons: EMB follow up Allergies No Known Allergies Allergy (Verified 04/24/23 12:00) HPI HPI Comments History of Present Illness Details The patient is presenting for follow-up to discuss the results of her abnormal uterine bleeding workup and options of treatment. The following workup was done.: H&H= 12.7/39.6 TSH, hCG, GC and chlamydia were negative. Endometrial biopsy pathology showed the following: Disordered proliferative endometrium; no atypia or hyperplasia identified. Co testing was done in 01/23 was negative. Mammogram was done in 02/23 was BI-RADS 1 Pelvic ultrasound showed the following: Uterus: The uterus is anteverted, anteflexed and measures 10.4 x 11.2 x 1.7 cm. (Sagittal by AP by transverse) The double wall endometrial thickness is 5 mm. There is minimal free fluid in the endometrial canal. The uterus is smooth in contour and has normal myometrial echogenicity. There is a large fundal fibroid measuring 11.5 x 7.4 x 10.7 cm. Previously it measured 8.8 x 3.6 x 7.8 cm and prior to that 8.0 x 7.3 x 6.8 cm. The second subserosal fibroid seen previously in right body of uterus is not visualized at this time. There is complex echogenic/blood seen in the cervix. Adnexa: Both ovaries are visualized. There is normal color flow to the adnexa. There is no ovarian torsion. There is no pelvic ascites or fluid collection. Right ovary measures 3.8 x 2.7 x 3.1 cm. Volume 16.6 mL. There is anechoic cyst measuring 3.1 x 1.8 x 1.8 cm. Left ovary previously measured 3.6 x 2.8 x 2.9 cm. It is not visualized at this time. There is small amount of free fluid in the cul-de-sac PFSH Medical History Irritable bowel syndrome Chronic idiopathic constipation Gastroesophageal reflux disease COVID-19 No known health problems Surgical History Hx of section Hx of tubal ligation Social History Alcohol intake: former Patient Tobacco Use Status: Never used Tobacco Review of Systems Const All systems reviewed & are unremarkable except as noted in HPI and below Reports as per HPI and Reports no additional complaints GI Reports no additional complaints Reports no additional complaints Physical Exam Vital Signs: Last Vital Signs BP 124/82 07/17/23 10:53 BMI result Body Mass Index 29.7 Assessment & Plan Assessment & Plan (1) Abnormal uterine bleeding: Comment: Large growing myoma Code(s): N93.9 - Abnormal uterine and vaginal bleeding, unspecified Plan: Discussed with the patient the results of the ultrasound and the size of the myomas has increased in size from . Discussed with the patient risk of myosarcoma and symptoms that are caused by myomas including but not limited to pelvic pain, pressure symptoms, abnormal uterine bleeding. In addition discussed with the patient options of treatment for myomas including: Serial ultrasounds periodically to follow-up on the size of the myoma while targeting the treatment against fibroids related symptoms ( control pills, Mirena IUD, progesterone treatment, GnRH agonist/antagonist, uterine artery embolization or endometrial ablation) versus surgical treatment including hysterectomy and or myomectomy. All pros and cons, risks and benefits of all options were discussed with the patient. The patient decided to proceed with hysterectomy. Discussed with the patient the different types of hysterectomies including minimally invasive approaches. All pros, cons, r/b of each approach were discussed the patient including evidence that morbidity is less and recovery is shorter with minimally invasive approaches to hysterectomy. Discussed with the patient the lack of availability of the robot DaVinci robot and/or minimally invasive drafter commercial specialist at [facility]. Will refer the patient to [facility] for minimally invasive hysterectomy. Coding Level of Care Code Est Pt Level 3 (60417) Diagnoses Abnormal uterine bleeding N93.9
[2023-07-17 10:53] VITALS: BP 124/82; BMI 29.7
== END 2023-07-17 11:26 | disposition home or self-care (01) ==
LOC: HO.HWS 10:48
PROVIDERS: PCP Internal Medicine; Referring Provider Internal Medicine; Visit Provider Obstetrics & Gynecology
DX: N93.9 Abnormal uterine and vaginal bleeding, unspecified (principal)
CPT/HCPCS: 99213

== ENCOUNTER → 2023-07-17 10:48 | Outpatient (BNVA) | payer MEDICAID, SELFPAY | PROVIDERS: PCP Internal Medicine; Visit Provider Obstetrics & Gynecology | DX: N93.9 Abnormal uterine and vaginal bleeding, unspecified (principal) | CPT/HCPCS: 99212 ==

== ENCOUNTER 2023-11-14 11:39 | Outpatient (REF) | payer MEDICAID, SELFPAY ==
[2023-11-14 15:52] LABS: MANUAL DIFF FLAG NO
[2023-11-14 15:58] LABS: Basophils Absolute Auto 0.1 X10*3/uL (0.0-0.2); Basophils Percent Auto 0.6 % (0-2); Eosinophils Absolute Auto 0.2 X10*3/uL (0.0-0.4); Eosinophils Percent Auto 2.6 % (0-4); Hemoglobin 13.1 g/dl (12.0-16.0); Imm Gran Abs Auto 0.04 X10*3/uL (0.00-0.03); Imm Gran Pct Auto 0.4 % (0.0-0.4); Lymphocytes Absolute Auto 1.6 X10*3/uL (1.2-4.9); Lymphocytes Percent Auto 17.3 % (20-40); Mean Corpuscular HGB Conc 32.8 g/dl (31.0-35.0); Mean Corpuscular Volume 79.4 fL (80.0-98.0); Mean Platelet Volume 11.5 fL (9.4-12.3); Monocytes Absolute Auto 0.5 X10*3/uL (0.1-1.2); Monocytes Percent Auto 5.4 % (2-11); Neutrophils Absolute Auto 6.6 x10*3/uL (2.0-8.3); Neutrophils Percent Auto 73.7 % (45-73); Platelet Count 300 X10*3/uL (160-400); Red Blood Count 5.04 X10*6/uL (4.20-5.50); Red Cell Distribution Width 13.7 % (11.0-16.0); White Blood Count 8.9 X10*3/uL (4.8-10.8)
[2023-11-14 16:10] LABS: Iron 41 mcg/dL (30-160); Percent Iron Saturation 11 % (15-50); Total Iron Binding Capacity 361 mcg/dL (228-428); Unsaturated Iron Binding 320 ug/dL
== END 2023-11-14 11:40 | disposition home or self-care (01) ==
LOC: HO.HHCL 11:39
PROVIDERS: Visit Provider Internal Medicine
DX: D50.0 Iron deficiency anemia secondary to blood loss (chronic) (principal)
CPT/HCPCS: 36415; 83540; 85025

== ENCOUNTER 2024-02-04 18:34 | Emergency (ER) | payer MEDICAID, SELFPAY ==
[2024-02-04 19:10] VITALS: BP 131/73; PULSE 77; RESP 18; TEMP 36.9; O2SAT 97; BMI 31.2
[2024-02-04 21:49] VITALS: BP 144/69; PULSE 70; RESP 18; TEMP 36.4; O2SAT 100
[2024-02-04] MEDS: Lidocaine HCl 1 % 10 ML VIAL INFILTRATI (22:07)
--- NOTE | 2024-02-04 22:17 | ED_ITS ---
HPI - Wound/Laceration General Chief Complaint: Wound/Laceration Stated Complaint: Pinky lac Time Seen by Provider: 02/04/24 21:32 Source: patient Mode of arrival: ambulatory Limitations: no limitations History of Present Illness ED Provider: Dr. Plummer HPI narrative: Patient cut her 5th digit with a brand new kitchen knife Onset (ago): hour(s) Place: home Patient tetanus UTD: No Context: accidental Related Data Previous Rx's ?Medication ?Instructions ?Recorded fluticasone propionate 50 1 spray intranasal DAILY #16 grams 02/12/21 mcg/actuation nasal spray,suspension (Flonase Allergy Relief) hydrocortisone 1 % topical cream 1 appl topical BID PRN rash #144 ea 02/12/21 packet methylcellulose (laxative) 500 mg 500 mg PO DAILY #90 tabs 11/22/21 tablet (Citrucel) cholecalciferol (vitamin D3) 50 50 mcg PO DAILY #90 caps 12/20/21 mcg (2,000 unit) capsule docusate sodium 100 mg capsule 100 mg PO BEDTIME #90 caps 06/26/22 sennosides 8.6 mg tablet (Natural 8.6 mg PO BEDTIME constipation #90 06/26/22 Senna Laxative) tabs simethicone 125 mg capsule 125 mg PO BID-QID PRN abdominal 06/26/22 distention #120 caps sucralfate 1 gram tablet 1 g PO BEDTIME #90 tabs 06/26/22 ondansetron HCl 4 mg tablet 4 mg PO Q6H PRN nausea and 05/23/23 vomiting #14 tabs tranexamic acid 650 mg tablet 1,300 mg (2 x 650 mg) PO TID 5 05/23/23 days #30 tabs pantoprazole 20 mg tablet,delayed 20 mg PO Q OTHER DAY #60 tabs 07/04/23 release Allergies Allergy/AdvReac Type Severity Reaction Status Date / Time No Known Allergies Allergy Verified 02/04/24 19:12 Review of Systems Review of Systems: Yes all other systems are reviewed and are negative Neurologic: Denies Sensory deficit (Neuro) PMFSH Past Medical History Medical History Irritable bowel syndrome Chronic idiopathic constipation Gastroesophageal reflux disease COVID-19 No known health problems Surgical History Hx of section Hx of tubal ligation Social History Social History Alcohol intake: former Patient Tobacco Use Status: Never used Tobacco Advance Directives: No Advance Directives Information Provided: No Do you have a plan to hurt others: No Plan Physical Exam Vital Signs: Vital Signs: Last Vital Signs Temp 97.6 F 02/04/24 21:49 Pulse 70 02/04/24 21:49 Resp 18 02/04/24 21:49 BP 144/69 H 02/04/24 21:49 Pulse Ox 100 02/04/24 21:49 O2 Del Method Room Air 02/04/24 21:49 BMI result Body Mass Index 31.2 Const: General: healthy appearing Nutritional Appearance: average body habitus Orientation/consciousness: oriented to person and patient oriented x3 Limitations: no limitations HEENT: Head: Yes normal to inspection Ears: external ears normal General nose exam: Normal external nose present Mouth: Normal oral and palatal mucosa present and oropharynx normal Throat: Yes posterior oropharynx normal Eyes: General: appearance normal, both eyes and all related structures Neck: Other: supple Neck: Yes normal visual inspection Chest: Chest palpation & inspection: normal inspection of the chest Resp: Auscultation: clear to auscultation bilaterally Cardio: Jugular venous distension: no JVD Rate: regular rate Rhythm: regular rhythm Heart sounds: S1 normal heart sound present and S2 normal heart sound present GI: Inspection: Yes normal to inspection Palpation (GI): Soft to palpation, nontender and No hepatosplenomegaly present Auscultation: normal bowel sounds : General: Yes no CVA tenderness Back/Spine/Pelvis: Back: no CVA tenderness Skin: General skin exam: no rashes or lesions noted Neuro: General: oriented to person and patient oriented x3 Cranial nerves: Yes CN's II-XII intact bilaterally Motor exam (neuro): 5/5 motor strength present throughout Sensory Exam: No Sensory deficit (Neuro) Extrem: Other: 5th digit palmar surface proximal lacera tion 5mm, able to flex and extend sensation intact Psych: Appearance: grossly normal Course Reevaluation(s) Reevaluation #1: Patient prepped and draped in sterile fashion, 1% lidocaine used for anesthesia, digital block performed, wound irrigated under pressure with saline, closed with 5-0 nylon x 6. Patient tolerated procedure well. Time: 22:22 Medications Administered Discontinued Medications Generic Name Dose Route Start Last Admin Trade Name Freq PRN Reason Stop Dose Admin Lidocaine HCl 10 ml 02/04/24 21:47 02/04/24 22:07 Lidocaine Hcl 1 % 10 Ml Vial INFILTRATI 02/04/24 21:48 10 ml ONCE ONE Administration Medical Decision Making Differential Diagnosis Differential Diagnoses: The differential diagnosis associated with the presentation includes (finger lacerationa) Independent Historian Clinical information obtained from an independent historian. History obtained from or confirmed by: Friend Prescription Management I considered prescription management with: Antibiotic (no contamination so no need for abx) Discharge Plan Discharge Clinical Impression: Laceration Patient Disposition: Home, Self-Care Instructions: Care For Your Stitches (ED) Additional Instructions: suture removal 10 days, apply bacitracin once a day Prescriptions: No Action cholecalciferol (vitamin D3) 50 mcg (2,000 unit) capsule 50 mcg PO DAILY Qty: 90 3RF pantoprazole 20 mg tablet,delayed release (DR/EC) 20 mg PO Q OTHER DAY Qty: 60 2RF fluticasone propionate [Flonase Allergy Relief] 50 mcg/actuation spray,suspension 1 spray intranasal DAILY Qty: 16 0RF Rx Instructions: administer into each nostril hydrocortisone 1 % cream in packet 1 appl topical BID PRN (Reason: rash) Qty: 144 0RF tranexamic acid 650 mg tablet 1,300 mg PO TID 5 Days Qty: 30 0RF ondansetron HCl 4 mg tablet 4 mg PO Q6H PRN (Reason: nausea and vomiting) Qty: 14 0RF sennosides [Natural Senna Laxative] 8.6 mg tablet 8.6 mg PO BEDTIME Qty: 90 3RF sucralfate 1 gram tablet 1 g PO BEDTIME Qty: 90 1RF docusate sodium 100 mg capsule 100 mg PO BEDTIME Qty: 90 3RF simethicone 125 mg capsule 125 mg PO BID-QID PRN (Reason: abdominal distention) Qty: 120 3RF Citrucel 500 mg tablet 500 mg PO DAILY Qty: 90 2RF Rx Instructions: take it with full glass of water Referrals: Victor Hugo Lopez MD [Primary Care Provider] - 10 days Print Language: Cape Verdean
[2024-02-04] MEDS: Bacitracin Oint 0.9 GM PACKET 1 APPL TOPICAL (22:26)
[2024-02-04] MEDS: Diphth,Pertus(ACell),Tet Adult 0.5 ML SYRINGE IM (22:31)
[2024-02-04 22:34] VITALS: BP 144/69; PULSE 70; RESP 18; TEMP 36.4; O2SAT 100
== END 2024-02-04 22:35 | disposition home or self-care (01) ==
PROVIDERS: Emergency Provider Emergency Medicine; PCP Internal Medicine
DX: S61.216A Laceration without foreign body of right little finger without damage to nail, initial encounter (principal); M79.641 Pain in right hand; W26.0XXA Contact with knife, initial encounter; Y93.89 Activity, other specified; Y92.098 Other place in other non-institutional residence as the place of occurrence of the external cause; Y99.8 Other external cause status; Z79.899 Other long term (current) drug therapy; Z23 Encounter for immunization
CPT/HCPCS: 12001; 90471; 90715; 99282; 99284

== ENCOUNTER 2024-02-14 18:23 | Emergency (ER) | payer MEDICAID, SELFPAY ==
[2024-02-14 18:29] VITALS: BP 118/66; PULSE 73; RESP 20; TEMP 36.1; O2SAT 97; BMI 36.6
--- NOTE | 2024-02-14 18:29 | ED_ITS ---
HPI - General Adult General Chief complaint: Recheck/Abnormal Lab/Rx Stated complaint: suture removal Time Seen by Provider: 02/14/24 18:29 Source: patient Mode of arrival: ambulatory Limitations: no limitations History of Present Illness ED Provider: PAULY BOX PA-C HPI narrative: 43 year old female presents to the ED requesting suture removal. Reports 6 sutures were placed to her left 5th digit after accidentally cutting her finger with a new kitchen knife. She states the laceration has been healing well. No concerns at this time. Related Data Previous Rx's ?Medication ?Instructions ?Recorded fluticasone propionate 50 1 spray intranasal DAILY #16 grams 02/12/21 mcg/actuation nasal spray,suspension (Flonase Allergy Relief) hydrocortisone 1 % topical cream 1 appl topical BID PRN rash #144 ea 02/12/21 packet methylcellulose (laxative) 500 mg 500 mg PO DAILY #90 tabs 11/22/21 tablet (Citrucel) cholecalciferol (vitamin D3) 50 50 mcg PO DAILY #90 caps 12/20/21 mcg (2,000 unit) capsule docusate sodium 100 mg capsule 100 mg PO BEDTIME #90 caps 06/26/22 sennosides 8.6 mg tablet (Natural 8.6 mg PO BEDTIME constipation #90 06/26/22 Senna Laxative) tabs simethicone 125 mg capsule 125 mg PO BID-QID PRN abdominal 06/26/22 distention #120 caps sucralfate 1 gram tablet 1 g PO BEDTIME #90 tabs 06/26/22 ondansetron HCl 4 mg tablet 4 mg PO Q6H PRN nausea and 05/23/23 vomiting #14 tabs tranexamic acid 650 mg tablet 1,300 mg (2 x 650 mg) PO TID 5 05/23/23 days #30 tabs pantoprazole 20 mg tablet,delayed 20 mg PO Q OTHER DAY #60 tabs 07/04/23 release Allergies Allergy/AdvReac Type Severity Reaction Status Date / Time No Known Allergies Allergy Verified 02/14/24 18:30 Review of Systems Review of Systems: Yes all other systems are reviewed and are negative PMFSH Past Medical History Attestation statement: The following information was validated with the patient. Source: old records reviewed and nursing notes reviewed Medical History Irritable bowel syndrome Chronic idiopathic constipation Gastroesophageal reflux disease COVID-19 No known health problems Surgical History Hx of section Hx of tubal ligation Social History Social History Alcohol intake: former Patient Tobacco Use Status: Never used Tobacco Advance Directives: No Advance Directives Information Provided: No Do you have a plan to hurt others: No Plan Physical Exam ED Vital Signs: Vital Signs - 24 hr 02/14/24 18:29 02/14/24 18:50 Temperature 96.9 F 96.9 F Pulse Rate 73 73 Respiratory Rate 20 20 Blood Pressure 118/66 118/66 Pulse Oximetry 97 97 Oxygen Delivery Method Room Air Room Air BMI result Body Mass Index 36.6 Vital signs stable. Afebrile. General: Well appearing, in no acute distress. Skin: Warm, dry, intact. well healing scar noted to palmar aspect of left fifth digit with [address] no dehiscence, discharge. No surrounding erythema. Head: Normocephalic, atraumatic. Cardiac: Chest wall symmetric. RRR. No MRG. Lungs: Normal respiratory effort without accessory muscle use. CTA bilaterally. No rales, rhonchi, or wheezes.? Neuro: AOx3. Normal speech. Ambulating with steady gait. Psych: Appropriate mood and affect. Responds appropriately to questions. Course Course Course Narrative: 1835 -- 6 sutures removed from left pinky. Patient tolerated well. No bleeding. No dehiscence. No discharge. Patient has remained stable throughout ED visit today. Discussed worrisome signs and symptoms and when to return to the ED. All questions answered at this time. Patient is agreeable with disposition and stable for discharge. Medical Decision Making Medical Decision Making MDM Narrative: 43 year old female presents to the ED requesting suture removal. Vital signs stable. Afebrile. There is a well healing scar noted to palmar aspect of left fifth digit with [address] no dehiscence, discharge. No surrounding erythema. Differential diagnosis includes healing laceration. No concern for infection at this time. Plan for suture removal and disposition. Differential Diagnosis Differential Diagnoses: The differential diagnosis associated with the presentation includes as above. Admission/Observation Not indicated Critical Care Time Critical Care Time Critical Care Time: No Discharge Plan Discharge Clinical Impression: Encounter for removal of sutures Patient Disposition: Home, Self-Care Instructions: Stitches Removal (ED) Additional Instructions: You have been evaluated in the Emergency Department today for suture removal.? Your sutures were removed and your wound is healing well.? You can wash the area freely now. Keep your wound out of the sunlight for six months to reduce the appearance of scarring. You should cover your scar or use high SPF sunscreen protection. Please follow up with your primary care provider at your next scheduled appointment. Return to the ER immediately signs of infection to your wounds such as worsening pain, worsening redness/swelling, discharge/pus from your wounds, or for any other concerning symptoms. Prescriptions: No Action cholecalciferol (vitamin D3) 50 mcg (2,000 unit) capsule 50 mcg PO DAILY Qty: 90 3RF pantoprazole 20 mg tablet,delayed release (DR/EC) 20 mg PO Q OTHER DAY Qty: 60 2RF fluticasone propionate [Flonase Allergy Relief] 50 mcg/actuation spray,suspension 1 spray intranasal DAILY Qty: 16 0RF Rx Instructions: administer into each nostril hydrocortisone 1 % cream in packet 1 appl topical BID PRN (Reason: rash) Qty: 144 0RF tranexamic acid 650 mg tablet 1,300 mg PO TID 5 Days Qty: 30 0RF ondansetron HCl 4 mg tablet 4 mg PO Q6H PRN (Reason: nausea and vomiting) Qty: 14 0RF sennosides [Natural Senna Laxative] 8.6 mg tablet 8.6 mg PO BEDTIME Qty: 90 3RF sucralfate 1 gram tablet 1 g PO BEDTIME Qty: 90 1RF docusate sodium 100 mg capsule 100 mg PO BEDTIME Qty: 90 3RF simethicone 125 mg capsule 125 mg PO BID-QID PRN (Reason: abdominal distention) Qty: 120 3RF Citrucel 500 mg tablet 500 mg PO DAILY Qty: 90 2RF Rx Instructions: take it with full glass of water Interventions: ED Discharge Assessment Last Done: 02/14/24 18:50 Discharge Date/Time: 02/14/24 18:50 Print Language: Luxembourger
[2024-02-14 18:50] VITALS: BP 118/66; PULSE 73; RESP 20; TEMP 36.1; O2SAT 97
== END 2024-02-14 18:50 | disposition home or self-care (01) ==
PROVIDERS: Emergency Provider Emergency Medicine Emergency Medical Services
DX: Z48.02 Encounter for removal of sutures (principal)
CPT/HCPCS: 99282

== ENCOUNTER 2024-04-07 09:44 | Outpatient (AMB) | payer MEDICAID, SELFPAY ==
--- NOTE | 2024-04-07 09:46 | A.OFFVIS_ITS ---
Vital Signs 04/07/24 09:52 Height 5 ft 2 in Weight 176 lb 5.917 oz BMI 32.3 BP 132/74 Blood Pressure Location Rt brachial Position Sitting Pulse 74 Pulse Source Pulse Oximeter Pulse Oximetry (%) 97 Oxygen Delivery Method Room Air Intake Visit Reasons: 1 year follow up Intake Note: Relevant Flags or Indicators ? Requires E Commerce Marketing Manager? Alexander Germain presents in office today for a scheduled 1 year FUV. CC; No recent labs, diagnostics, or med orders placed. ? Relevant GI Sx as reported per pt? Nausea ? Reflux ? Fecal abnormalities o?? Constipation - BM ~ 2-3 days ? Abdominal Pain * LUQ Pain, chronic in nature. ? Early satiety ? Bloating ? Hx of any recent surgeries? None Docusate, citrucel, pantoprazole, zofran, and senna refills needed. Allergies No Known Allergies Allergy (Verified 04/15/24 10:51) HPI HPI 1 year follow up: Details: LAST VISIT: Gastroesophageal reflux disease Continue avoiding dietary triggers. Patient was instructed to stay upright for minimum 3 hours after meals. Continue pantoprazole every other day and sucralfate as needed Irritable bowel syndrome Continue low FODMAP diet. Chronic idiopathic constipation Continue Senokot and Colace daily. Patient was also encouraged to increase fluid intake and activity to promote better bowel motility. I will see patient in 1 year, sooner on as needed basis. Patient is agreeable to this plan and verbalizes understanding of instructions. She was given the opportunity to ask questions and all questions answered. TODAY'S VISIT: Patient is here today for follow-up. Last seen 1 year ago. Patient reports that she was doing well, however 2 months ago or so patient ran out of pantoprazole and senna. Patient reports that symptoms started developing shortly after she stopped. Patient reports epigastric pain postprandially and acid reflux no matter what she eats. Patient also reports that she always had trouble moving her bowels and now that she has no Senokot she is constipated. Sometimes no bowel movement for 4-5 days. Patient denies any nausea or vomiting. Reports abdominal bloating postprandially specially towards the end of the day. Patient denies melena, hematochezia, unintentional weight loss or ribbon like stools. Reports dyspepsia without dysphagia or odynophagia. [facility] Medical History Irritable bowel syndrome Chronic idiopathic constipation Gastroesophageal reflux disease COVID-19 No known health problems Surgical History H/O: myomectomy (~12/2023) Hx of section Hx of tubal ligation Social History (Updated 04/15/24 @ 11:01 by Gus Ashton [facility]) Alcohol intake: former Patient Tobacco Use Status: Never used Tobacco Current occupational status: unemployed Current occupation: rt handed Review of Systems Const Denies weight gain and Denies weight loss ENT Reports no additional complaints, Denies dysphagia and Denies odynophagia Card Reports no additional complaints Resp Reports no additional complaints GI Reports abdominal pain (LUQ), Denies belching, Denies melena, Reports bloating, Denies change in bowel habits, Reports constipation, Denies dysphagia, Denies excessive flatus, Denies dyspepsia, Reports heartburn, Denies diarrhea, Denies loose stools, Denies nausea, Denies odynophagia and Denies vomiting Reports no additional complaints Musc Reports no additional complaints Neuro Reports no additional complaints Psych Reports no additional complaints Endo Reports no additional complaints Physical Exam Vital Signs: Last Vital Signs Pulse 74 04/07/24 09:52 BP 132/74 04/07/24 09:52 Pulse Ox 97 04/07/24 09:52 Oxygen Delivery Method Room Air 04/07/24 09:52 BMI result Body Mass Index 32.3 Const General: healthy appearing and no acute distress Nutritional Appearance: obese Orientation/consciousness: patient oriented x3 Resp Effort & Inspection: normal respiratory effort, able to speak in complete sentences, no tracheal deviation and symmetric chest movement Auscultation: clear to auscultation bilaterally Cardio Rate: regular rate Heart sounds: S1 normal heart sound present and S2 normal heart sound present GI Inspection: Yes normal to inspection, No distended and Yes obesity Palpation (GI): Soft to palpation, not firm, nontender and No hepatosplenomegaly present Auscultation: normal bowel sounds General: Yes no CVA tenderness Back/Spine/Pelvis Back: no CVA tenderness Skin General skin exam: elasticity normal, turgor normal and dry skin Neuro General: patient oriented x3 Psych Appearance: grossly normal Mental Status: mental status grossly normal Assessment & Plan Assessment & Plan (1) Gastroesophageal reflux disease: Code(s): K21.9 - Gastro-esophageal reflux disease without esophagitis Category: Medical Qualifiers: Esophagitis presence: esophagitis presence not specified Qualified Code(s): K21.9 - Gastro-esophageal reflux disease without esophagitis (2) Irritable bowel syndrome: Code(s): K58.9 - Irritable bowel syndrome, unspecified Category: Medical Qualifiers: Irritable bowel syndrome type: with constipation Qualified Code(s): K58.1 - Irritable bowel syndrome with constipation (3) Chronic idiopathic constipation: Code(s): K59.04 - Chronic idiopathic constipation Category: Medical (4) Postprandial abdominal bloating: Code(s): R14.0 - Abdominal distension (gaseous) (5) Postprandial epigastric pain: Code(s): R10.13 - Epigastric pain Plan Patient was doing better for while, however she ran out of her PPI. Patient will start taking pantoprazole every morning half an hour before breakfast. Continue to avoiding dietary triggers in late night snacking. Staying upright for minimum 3 hours after meals discussed with patient. Patient reports bloating unable to have a bowel movements sometimes postprandial loose stools, however patient is constipated for the most part. Take 2 senna every evening. Increase fluid intake and activity to promote better bowel motility. Patient will return to the office in 3 months for follow-up, patient will call us if she will have any GI concerning symptoms. She is agreeable to current plan of care and verbalizes understanding of instructions. She was given the opportunity to ask questions and all questions answered. Thank you for allowing me to participate in her care Medications: Changed From pantoprazole 20 mg PO Q OTHER DAY 60 tabs 2RF To pantoprazole 20 mg PO QAM 90 tabs 2RF From sennosides 8.6 mg PO BEDTIME 90 tabs 3RF constipation K59.00 - Constipation, unspecified To sennosides (Natural Senna Laxative) 17.2 mg (2 x 8.6 mg) PO BEDTIME 180 tabs 3RF constipation K59.00 - Constipation, unspecified Discontinued simethicone Discontinued Reason: Doctor's Order 125 mg PO BID-QID PRN 120 caps 3RF abdominal distention sucralfate Discontinued Reason: Doctor's Order 1 g PO BEDTIME 90 tabs 1RF K21.9 - Gastro-esophageal reflux disease without esophagitis Coding Level of Care Code Est Pt Level 3 (28210) Diagnoses Gastroesophageal reflux disease, unspecified whether esophagitis present K21.9 Esophagitis presence: esophagitis presence not specified Irritable bowel syndrome with constipation K58.1 Irritable bowel syndrome type: with constipation Chronic idiopathic constipation K59.04 Postprandial abdominal bloating R14.0 Postprandial epigastric pain R10.13 Time Spent (min) 30 Comment 20 minutes spent with patient and additional 10 minutes spent reviewing her records
[2024-04-07 09:52] VITALS: BP 132/74; PULSE 74; O2SAT 97; BMI 32.3
== END 2024-04-07 10:25 | disposition home or self-care (01) ==
LOC: HO.HGI 09:45
PROVIDERS: PCP Internal Medicine; Visit Provider Nurse Practitioner Family
DX: K21.9 Gastro-esophageal reflux disease without esophagitis (principal); K58.1 Irritable bowel syndrome with constipation; K59.04 Chronic idiopathic constipation; R14.0 Abdominal distension (gaseous); R10.13 Epigastric pain
CPT/HCPCS: 99213

== ENCOUNTER → 2024-04-07 09:44 | Outpatient (BNVA) | payer SELFPAY | PROVIDERS: PCP Internal Medicine; Visit Provider Nurse Practitioner Family | DX: K21.9 Gastro-esophageal reflux disease without esophagitis (principal); K58.1 Irritable bowel syndrome with constipation; K59.04 Chronic idiopathic constipation; R14.0 Abdominal distension (gaseous); R10.13 Epigastric pain; Z79.899 Other long term (current) drug therapy | CPT/HCPCS: 99212 ==

== ENCOUNTER 2024-04-15 10:49 | Outpatient (AMB) | payer MEDICAID, SELFPAY ==
--- NOTE | 2024-04-15 10:50 | A.OFFVIS_ITS ---
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 Patient states she first noticed it a year ago, however it has increased in size since then. She states it is painful. Reports right hand numbness and tingling that makes it painful to squeeze. Denies finger locking. Denies prior injuries or surgeries to the right hand. Patient states PCP believes she has carpal tunnel but no EMG has been done. 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 She feels like it is getting bigger, and it is very bothersome and painful when she grasps objects. She also is having trouble with numbness and tingling in both of her hands that wakes her up almost every night and also occurs with daytime activities. [facility] Medical History Irritable bowel syndrome Chronic idiopathic constipation Gastroesophageal reflux disease COVID-19 No known health problems Surgical History H/O: myomectomy (~12/2023) Hx of section Hx of tubal ligation Social History (Updated 04/15/24 @ 11:01 by Gus Ashton Tracey) Alcohol intake: former Patient Tobacco Use Status: Never used Tobacco Current occupational status: unemployed Current occupation: rt handed Physical Exam Vital Signs: BMI result Body Mass Index 32.2 Const General: cooperative, healthy appearing and no acute distress Orientation/consciousness: oriented to person and oriented to place HEENT Head: Yes normocephalic and Yes atraumatic Eyes EOM: EOMs intact bilaterally Resp Effort & Inspection: normal respiratory effort and able to speak in complete sentences Cardio Jugular venous distension: no JVD Skin General skin exam: turgor normal Rashes: no rashes Neuro General: oriented to person and oriented to place Extrem Other: Evaluation of right Upper Extremity: Neuro: Median, ulnar, radial nerves motor and sensory intact. No intrinsic or thenar wasting Vascular: Cap refill brisk. ROM: Can bring fingers closed to a fist and back out to full or nearly full extension. No locking or catching Can oppose thumb to all fingertips Skin: No lacerations or abrasions. General: No eccymosis. No erythema or evidence of infection. She has an approximately 8-10 mm diameter spherical mass in the volar ulnar aspect of the right index finger just distal to the palmar digital crease. She can make a fist and extend all of her digits. There is no locking or catching There are no overlying skin changes Radiographs: None Psych Appearance: grossly normal Affect: normal affect Attitude: cooperative Office Procedures AMB Fracture Care Details: No fracture, aspiration of ganglion Fracture Billing Code: Fracture Billing Code Assessment & Plan Assessment & Plan (1) Retinacular ganglion, volar (VRG): Code(s): M67.40 - Ganglion, unspecified site Category: Medical (2) Numbness and tingling in both hands: Code(s): R20.0 - Anesthesia of skin; R20.2 - Paresthesia of skin Category: Medical Plan Assessment and plan: 1. 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 2. Numbness and tingling in both hands Intermittent but daily, every night I educated the patient about these conditions I have ordered a nerve conduction study, and she will follow up after that study We discussed operative and non operative treatment options for the volar reti nacular ganglion. She would like to try an aspiration to try and avoid surgery. Aspiration: After obtaining consent, I sterilely prepped the area over the right index finger volar retinacular ganglion. I then injected subcutaneously with a small amount 1% lidocaine. I then passed the needle into the ganglion and aspirated some clear viscous fluid consistent with a ganglion. Some remaining viscous fluid was then pushed out of the ganglion. We pushed out a fair amount of clear viscous fluid. The mass was no longer palpable. The patient tolerated this well and with no complications. If there is a recurrence of this retinacular cyst, the patient knows to contact us to discuss possible excisional biopsy. She is happy with the current plan. Orders: Orders NE nerve conduction velocity Today R20.0 - Anesthesia of skin, R20.2 - Paresthesia of skin Coding Level of Care Code New Pt Level 4 (13428) Diagnoses Retinacular ganglion, volar (VRG) M67.40 Numbness and tingling in both hands R20.0; R20.2 CPT Codes Fracture Care - Fracture Billing Code: Fracture Billing Code ([id number])
[2024-04-15 10:51] VITALS: BMI 32.2
== END 2024-04-15 11:49 | disposition home or self-care (01) ==
PROVIDERS: Visit Provider Orthopaedic Surgery
DX: M67.441 Ganglion, right hand (principal); R20.0 Anesthesia of skin; R20.2 Paresthesia of skin
CPT/HCPCS: 20612; 99203

== ENCOUNTER → 2024-04-15 10:49 | Outpatient (BNVA) | payer MEDICAID, SELFPAY | PROVIDERS: Visit Provider Orthopaedic Surgery | DX: M67.40 Ganglion, unspecified site (principal); R20.0 Anesthesia of skin; R20.2 Paresthesia of skin | CPT/HCPCS: 20612; 99202; J2003 ==

== ENCOUNTER 2024-06-12 13:14 | Outpatient (REF) | payer MEDICAID, SELFPAY ==
--- NOTE | 2024-06-12 13:17 | EMG_ITS ---
Chief complaint: Bilateral hand numbness Reason for referral: Evaluate for Carpal Tunnel Syndrome Referred by: Dr. Thompson Procedure done: Upper extremity NCS/EMG Precautions and/or limitations: None The limb temperature was monitored continuously and remained between 32-36 degrees C during the performance of the NCS. Nerve Conduction Studies Anti Sensory Summary Table ?Stim Site NR Onset (ms) Norm Onset (ms) Peak (ms) Norm Peak (ms) O-P Amp (?V) Norm O-P Amp Site1 Site2 Delta-0 (ms) Dist (cm) Andrés (m/s) Norm Andrés (m/s) Left Median Anti Sensory (2nd Digit) Wrist ? 2.8 3.4 <3.6 69.6 >10 Wrist 2nd Digit 2.8 14.0 50 Right Median Anti Sensory (2nd Digit) Wrist ? 2.5 3.4 <3.6 50.4 >10 Wrist 2nd Digit 2.5 14.0 56 Left Ulnar Anti Sensory (5th Digit) Wrist ? 2.4 3.1 <3.7 46.6 >15.0 Wrist 5th Digit 2.4 14.0 58 Right Ulnar Anti Sensory (5th Digit) Wrist ? 2.3 3.0 <3.7 42.5 >15.0 Wrist 5th Digit 2.3 14.0 61 Motor Summary Table ?Stim Site NR Onset (ms) Norm Onset (ms) O-P Amp (mV) Norm O-P Amp iAmp (mV) Amp (1st) (%) Site1 Site2 Delta-0 (ms) Dist (cm) Andrés (m/s) Norm Andrés (m/s) Left Median Motor (Abd Poll Brev) Wrist ? 3.4 <3.9 13.0 >4.5 15.2 100.0 Elbow Wrist 3.4 17.5 51 >45 Elbow ? 6.8 10.5 12.3 80.8 Right Median Motor (Abd Poll Brev) Wrist ? 3.3 <3.9 13.7 >4.5 16.1 100.0 Elbow Wrist 3.6 19.0 53 >45 Elbow ? 6.9 13.2 15.8 96.4 Left Ulnar Motor (Abd Dig Minimi) Wrist ? 2.4 <3.0 11.3 >5 13.0 100.0 B Elbow Wrist 3.0 17.0 57 >45 B Elbow ? 5.4 10.7 12.4 94.7 A Elbow B Elbow 1.3 10.0 77 >45 A Elbow ? 6.7 10.7 12.5 94.7 Right Ulnar Motor (Abd Dig Minimi) Wrist ? 2.5 <3.0 11.6 >5 13.6 100.0 B Elbow Wrist 3.0 18.0 60 >45 B Elbow ? 5.5 11.0 13.2 94.8 A Elbow B Elbow 1.1 10.0 91 >45 A Elbow ? 6.6 10.9 13.2 94.0 Comparison Summary Table ?Stim Site NR Peak (ms) Norm Peak (ms) P-T Amp (?V) Site1 Site2 Delta-P (ms) Norm Delta (ms) Right Median/Radial Dig I Comparison (Digit 1 - 10cm) Median ? 2.8 <2.9 49.0 Median Radial 0.4 Radial ? 2.4 <2.8 33.3 EMG ?Side Muscle Nerve Root Ins Act Fibs Psw Amp Dur Poly Recrt Int Pat Comment Right 1stDorInt Ulnar C8-T1 Nml Nml Nml Nml Nml 0 Nml Complete Right FlexCarRad Median C6-7 Nml Nml Nml Nml Nml 0 Nml Complete Right Biceps Musculocut C5-6 Nml Nml Nml Nml Nml 0 Nml Complete Right Triceps Radial C6-7-8 Nml Nml Nml Nml Nml 0 Nml Complete Right Deltoid Axillary C5-6 Nml Nml Nml Nml Nml 0 Nml Complete Left 1stDorInt Ulnar C8-T1 Nml Nml Nml Nml Nml 0 Nml Complete Left FlexCarRad Median C6-7 Nml Nml Nml Nml Nml 0 Nml Complete Left Biceps Musculocut C5-6 Nml Nml Nml Nml Nml 0 Nml Complete Left Triceps Radial C6-7-8 Nml Nml Nml Nml Nml 0 Nml Complete Left Deltoid Axillary C5-6 Nml Nml Nml Nml Nml 0 Nml Complete FINDINGS: All motor and sensory nerves tested showed normal latencies, amplitudes and conduction velocities. Concentric needle EMG was performed in selected muscles of the upper extremity. Study did not reveal signs of electric abnormalities as shown in the table above. IMPRESSION: 1. This is a normal study. 2. There is no electrodiagnostic evidence for median neuropathy, ulnar neuropathy, brachial plexopathy, or cervical radiculopathy. Thank you for your kind referral. Priscilla Ahn MD, RACHELLE Board Certified, [place] Board of Physical Medicine and Rehabilitation (ABPMR) Board Certified, [place] Board of Electrodiagnostic Medicine (ABEM) CODIN [phone] x 2 MTDD
== END 2024-06-12 13:15 | disposition home or self-care (01) ==
LOC: HO.NEURO 13:14
PROVIDERS: PCP Internal Medicine; Visit Provider Orthopaedic Surgery
DX: R20.0 Anesthesia of skin (principal); R20.2 Paresthesia of skin
CPT/HCPCS: 95886; 95911

== ENCOUNTER → 2024-06-12 13:17 | Outpatient (BNV) | payer MEDICAID, SELFPAY | PROVIDERS: PCP Internal Medicine; Visit Provider Physical Medicine & Rehabilitation | DX: R20.0 Anesthesia of skin (principal); R20.2 Paresthesia of skin | CPT/HCPCS: 95886; 95911 ==

== ENCOUNTER 2024-07-28 10:51 | Outpatient (AMB) | payer MEDICAID, SELFPAY ==
--- NOTE | 2024-07-28 10:56 | A.OFFVIS_ITS ---
Vital Signs 07/28/24 11:05 Height 5 ft 2 in Weight 176 lb 5.917 oz BMI 32.3 BP 116/66 Blood Pressure Location Rt brachial Position Sitting Pulse 78 Pulse Source Pulse Oximeter Pulse Oximetry (%) 96 Oxygen Delivery Method Room Air Intake Visit Reasons: f/u Intake Note: ESTABLISHED PATIENT for GERD, CIC mgmt Chief Complaint; C/O chronic sx involving LUQ pain w/ L Flank pain which seems to be correlated to BM and constipation. Pt reports having pain relief upon having adequate BM (~ 3 days). Pt also reports having persistent reflux and is trying to be very cautious with diet changes. Pt denies any additional concerns at this time. Market Consultant Required: No Accompanied by: Self / Same As Patient Allergies No Known Allergies Allergy (Verified 08/12/24 14:48) HPI HPI f/u: Details: LAST VISIT: Gastroesophageal reflux disease Irritable bowel syndrome Chronic idiopathic constipation Postprandial abdominal bloating Postprandial epigastric pain Plan Patient was doing better for while, however she ran out of her PPI. Patient will start taking pantoprazole every morning half an hour before breakfast. Continue to avoiding dietary triggers in late night snacking. Staying upright for minimum 3 hours after meals discussed with patient. Patient reports bloating unable to have a bowel movements sometimes postprandial loose stools, however patient is constipated for the most part. Take 2 senna every evening. Increase fluid intake and activity to promote better bowel motility. Patient will return to the office in 3 months for follow-up, patient will call us if she will have any GI concerning symptoms. She is agreeable to current plan of care and verbalizes understanding of instructions. She was given the opportunity to ask questions and all questions answered. ? Thank you for allowing me to participate in her care Medications Changed Changed From pantoprazole 20 mg PO Q OTHER DAY 60 tabs 2RF Changed To pantoprazole 20 mg PO QAM 90 tabs 2RF Changed From sennosides 8.6 mg PO BEDTIME 90 tabs 3RF constipation K59.00 Changed To sennosides (Natural Senna Laxative) 17.2 mg (2 x 8.6 mg) PO BEDTIME 180 tabs 3RF constipation K59.00 Discontinued simethicone Discontinued Reason: Doctor's Order 125 mg PO BID-QID PRN 120 caps 3RF abdominal distention sucralfate Discontinued Reason: Doctor's Order 1 g PO BEDTIME 90 tabs 1RF K21.9 TODAY'S VISIT Patient is here today for follow-up. Patient reports acid reflux controlled for the most part with pantoprazole. Patient is trying to avoid dietary triggers and is eating healthier. Patient reports that she is drinking more water now. Patient is taking Senokot and sometimes she has a bowel movement and sometimes she has to wake couple days before going to the bathroom. Reports left upper quadrant pain that radiates to her back, however pain is relieved after she was a bowel movement. Patient reports that occasionally when she is under stress she will also have abdominal pain in the same area. Patient feels like some of her pain is related to stress. Patient denies any melena, hematochezia, unintentional weight loss or ribbon like stools. Denies any dyspepsia, dysphagia or odynophagia. Patient is aware that she is due to go for colonoscopy in March. [facility] Medical History Irritable bowel syndrome Chronic idiopathic constipation Gastroesophageal reflux disease COVID-19 No known health problems Surgical History H/O: myomectomy (~12/2023) Hx of section Hx of tubal ligation Social History Alcohol intake: former Patient Tobacco Use Status: Never used Tobacco Current occupational status: unemployed Current occupation: rt handed Review of Systems Const Denies weight gain and Denies weight loss ENT Reports no additional complaints, Denies dysphagia and Denies odynophagia Card Reports no additional complaints Resp Reports no additional complaints GI Reports abdominal pain (LUQ), Denies belching, Denies melena, Reports bloating, Denies change in bowel habits, Reports constipation, Denies dysphagia, Denies excessive flatus, Denies dyspepsia, Reports heartburn (Occasional, improved on pantoprazole), Denies diarrhea, Denies loose stools, Denies nausea, Denies odynophagia and Denies vomiting Reports no additional complaints Musc Reports no additional complaints Neuro Reports no additional complaints Psych Reports no additional complaints Endo Reports no additional complaints Physical Exam Vital Signs: Last Vital Signs Pulse 78 07/28/24 11:05 BP 116/66 07/28/24 11:05 Pulse Ox 96 07/28/24 11:05 Oxygen Delivery Method Room Air 07/28/24 11:05 BMI result Body Mass Index 32.3 Const General: healthy appearing and no acute distress Nutritional Appearance: obese Orientation/consciousness: patient oriented x3 Resp Effort & Inspection: normal respiratory effort, able to speak in complete sentences, no tracheal deviation and symmetric chest movement Auscultation: clear to auscultation bilaterally Cardio Rate: regular rate Heart sounds: S1 normal heart sound present and S2 normal heart sound present GI Inspection: Yes normal to inspection, No distended and Yes obesity Palpation (GI): Soft to palpation, not firm, nontender and No hepatosplenomegaly present Auscultation: normal bowel sounds General: Yes no CVA tenderness Back/Spine/Pelvis Back: no CVA tenderness Skin General skin exam: elasticity normal, turgor normal and dry skin Neuro General: patient oriented x3 Psych Appearance: grossly normal Mental Status: mental status grossly normal Assessment & Plan Assessment & Plan (1) Gastroesophageal reflux disease: Code(s): K21.9 - Gastro-esophageal reflux disease without esophagitis Category: Medical Qualifiers: Esophagitis presence: esophagitis presence not specified Qualified Code(s): K21.9 - Gastro-esophageal reflux disease without esophagitis (2) Irritable bowel syndrome: Code(s): K58.9 - Irritable bowel syndrome, unspecified Category: Medical Qualifiers: Irritable bowel syndrome type: with constipation Qualified Code(s): K58.1 - Irritable bowel syndrome with constipation (3) Chronic idiopathic constipation: Code(s): K59.04 - Chronic idiopathic constipation Category: Medical (4) Postprandial abdominal bloating: Code(s): R14.0 - Abdominal distension (gaseous) (5) Postprandial epigastric pain: Code(s): R10.13 - Epigastric pain Plan Continue pantoprazole daily. Avoid dietary triggers and late night snacking. Staying for minimum 3 hours after meals discussed with patient. Continue dri nking water, increase activity to promote better bowel motility. Patient will try to switch to Dulcolax 2 tablets every evening instead of senna. She will call our office if this will not be effective. We might have to switch patient to Linzess if both are not effective. Patient will return in 3 months. We will discuss going for colonoscopy. Patient is due to go in March. Patient will also be sent for upper endoscopy. Information sheets on what to expect before and during the procedure given to patient. She is agreeable to current plan of care and verbalizes understanding of instructions. She was given the opportunity to ask questions and all questions answered. Thank you for allowing me to participate in her care. Medications: New bisacodyl (Dulcolax (bisacodyl)) 10 mg (2 x 5 mg) PO BEDTIME 180 tabs 4RF Coding Level of Care Code Est Pt Level 4 (87816) Diagnoses Gastroesophageal reflux disease, unspecified whether esophagitis present K21.9 Esophagitis presence: esophagitis presence not specified Irritable bowel syndrome with constipation K58.1 Irritable bowel syndrome type: with constipation Chronic idiopathic constipation K59.04 Postprandial abdominal bloating R14.0 Postprandial epigastric pain R10.13 Time Spent (min) 35 Comment 25 minutes spent with patient and additional 10 minutes spent reviewing her record
[2024-07-28 11:05] VITALS: BP 116/66; PULSE 78; O2SAT 96; BMI 32.3
--- OUTSIDE RECORDS SUMMARY | 2024-07-28 13:06 | XMS_ITS | Encounter Summary ---
Author Organization [employer] Address [address] [place] [address] Care Team Providers Care Special Shopper Name Role Phone Victor Hugo Lopez MD Primary Care Prov ider Encounter Details Date Type Department Care Team ([facility] st Contact Info) Description 03/28/2023 Orders Only [facility] MED & PEDS [address] [place], [place] [phone] Nimo Cosby MD [address] [place] [address] Pruritus (Primary Dx) Social History Tobacco Use Types Packs/Day Years Used Date Smoking Tobacco: Never Passive Smoke Exposure: Never Smokeless Tobacco: Never Alcohol Use Standard Drinks/Week Comments Not Asked 0 (1 standard drink = 0.6 oz pur e alcohol) Depression Answer Date Recorded Patient Health Questionnaire-9 Score 0 06/05/2022 Housing Stability Answer Date Recorded What is your housing situation today? I have michelle tran 03/18/[address] you li ve. Do you have problems with any of the following? None of the above 03/18/2023 Food Insecurity Answer Date Recorded Within the past 12 months, y ou worried that your food would run out before you got money to buy more: Never True 03/18/2023 Within the past 12 months,th e food you bought just didn't last and you didn't have enough money to get more: Never True Transportation Answer Date Recorded In the past 12 months, has l ack of transportation kept you from medical appts, meetings, work or from getting things needed for daily living? No 03/18/2023 Utilities Answer Date Recorded In the past 12 months, has t he electric, gas, oil or water company threatened to shut off services in your home? No 03/18/2023 Depression Answer Date Recorded Patient Health Questionnaire-2 Score 0 06/05/2022 Comments No Sex and Gender Information Value Date Recorded Sex Assigned at Female 04/02/2022 10:18 AM EDT Legal Sex Female 10:18 AM EDT Gender Identity Female 04/02/2022 10:18 AM EDT Sexual Orientation Bisexual 04/02/2022 10 :18 AM EDT documented as of this encounter Plan of Treatment Upcoming Encounters Date Type Department Care Team (Late st Contact Info) Description 08/18/2024 1:00 PM EDT Office Visit [facility] MED & PEDS [address] [place] [address] Victor Hugo Lopez MD [address] [place] [address] documented as of this encounter Visit Diagnoses Diagnosis Pruritus- Primary Unspecified pruritic disorder documented in this encounter Additional Health Concerns Assessment Noted Time PHQ-9 Depression Total Score: 0 06/05/19 23 11:43 AM EST documented as of this encounter Care Teams Special Shopper Relationship Specialty Start Date End Date Victor Hugo Lopez MD [address] [place] [address] PCP - General Internal Medicine 09/25/19 documented as of this encounter
--- OUTSIDE RECORDS SUMMARY | 2024-07-28 13:06 | XMS_ITS | Encounter Summary ---
Author Organization [employer] Address [address] [place] [address] [address] [place] [address] Care Team Providers Care Medical Instrument Cable Fabricator Name Role Phone Victor Hugo Lopez MD Primary Care Prov ider Reason for Visit * Reason Comments Med Refill Encounter Details Date Type Department Care Team ([facility] Contact Info) Description 01/14/[address] [facility] MED & PEDS [address] [place], [place] [phone] Victor Hugo Lopez MD [address] [place] [address] Social History Tobacco Use Types Packs/Day Years Used Date Smoking Tobacco: Never Passive Smoke Exposure: Never Smokeless Tobacco: Never Alcohol Use Standard Drinks/Week Comments Not Asked 0 (1 standard drink = 0.6 oz pur e alcohol) Depression Answer Date Recorded Patient Health Questionnaire-9 Score 0 06/05/2022 Depression Answer Date Recorded Patient Health Questionnaire-2 Score 0 06/05/2022 Comments No Sex and Gender Information Value Date Recorded Sex Assigned at Female 04/02/2022 10:18 AM EDT Legal Sex Female 10:18 AM EDT Gender Identity Female 04/02/2022 10:18 AM EDT Sexual Orientation Bisexual 04/02/2022 10 :18 AM EDT documented as of this encounter Plan of Treatment Upcoming Encounters Date Type Department Care Team ([facility] Contact Info) Description 08/18/2024 1:00 PM EDT Office Visit [facility] MED & PEDS [address] [place] [address] Victor Hugo Lopez MD [address] [place] [address] documented as of this encounter Visit Diagnoses Not on filedocumented in this encounter Additional Health Concerns Assessment Noted Time PHQ-9 Depression Total Score: 0 06/05/19 23 11:43 AM EST documented as of this encounter Care Teams Medical Instrument Cable Fabricator Relationship Specialty Start Date End Date CortezVictor Hugo Daley MD [address] [place] [address] PCP - General Internal Medicine 09/25/19 documented as of this encounter
--- OUTSIDE RECORDS SUMMARY | 2024-07-28 13:06 | XMS_ITS | Encounter Summary ---
Author Organization [employer] Address [address] [place] [address] [address] [place] [address] Care Team Providers Care Fruit Grower Name Role Phone Victor Hugo Lopez MD Primary Care Prov ider Reason for Visit * Reason Onset Date Comments Triage 08/16/2022 Encounter Details Date Type Department Care Team ([facility] st Contact Info) Description 08/16/2022 Telephone [facility] MED & PEDS [address] [place], [place] [phone] Victor Hugo Lopez MD [address] [place] [address] Triage Social History Tobacco Use Types Packs/Day Years Used Date Smoking Tobacco: Never Passive Smoke Exposure: Never Smokeless Tobacco: Never Depression Answer Date Recorded Patient Health Questionnaire-9 Score 0 06/05/2022 Depression Answer Date Recorded Patient Health Questionnaire-2 Score 0 06/05/2022 Comments Unknown Sex and Gender Information Value Date Recorded Sex Assigned at Female 04/02/2022 10:18 AM EDT Legal Sex Female 10:18 AM EDT Gender Identity Female 04/02/2022 10:18 AM EDT Sexual Orientation Bisexual 04/02/2022 10 :18 AM EDT COVID-19 Exposure Response Date Recorded In the last 10 days, have yo u been in contact with someone who was confirmed or suspected to have Coronavirus/COVID-19? No / Unsure 08/02/2022 3:08 PM EST documented as of this encounter Miscellaneous Notes * Telephone Encounter - Susy Jo RN - 08/16/2022 3:46 PM EDT Triage call Pt reports vaginal bleeding , dark red with clots. Pt just finished period last week. [place] [facility] [place] but, is asking for an excuse for being out of work today. Advised to be seen in [facility] but, not enough time. Advised Pt to ask for excuse from provider tomorrow and Ptagreed to try that. Protocol Used: No Protocol Available (Adult) Protocol-Based Disposition: Home Care Positive Triage Question: * Patient's symptoms are safe to treat at home per nursing judgment * All higher-acuity triage questions were negative Care Advice Discussed: * Reasons To Call Back - New symptoms develop - You become worse * Telephone Encounter - Blanca Handy - 08/16/2022 3:24 PM EDT Symptom: Vaginal Bleeding - Not Outcome: Talk to a nurse or provider within 15 minutes Reason: Heavy bleeding The caller accepted this outcome Please contact pt at [phone] documented in this encounter Plan of Treatment Upcoming Encounters Date Type Department Care Team (Late st Contact Info) Description 08/18/2024 1:00 PM EDT Office Visit [facility] MED & PEDS [address] [place] [address] Victor Hugo Lopez MD [address] [place] [address] documented as of this encounter Visit Diagnoses Not on filedocumented in this encounter Additional Health Concerns Assessment Noted Time PHQ-9 Depression Total Score: 0 06/05/19 23 11:43 AM EST documented as of this encounter Care Teams Fruit Grower Relationship Specialty Start Date End Date Victor Hugo Lopez MD [address] [place] [address] PCP - General Internal Medicine 09/25/19 documented as of this encounter
--- OUTSIDE RECORDS SUMMARY | 2024-07-28 13:06 | XMS_ITS | Encounter Summary ---
Author Organization [employer] Address [address] [facility] 7 [place] [address] Care Team Providers Care Reports Developer Name Role Phone Victor Hugo Lopez MD Primary Care Prov ider Reason for Visit * Reason Onset Date Comments Nurse Triage 01/06/2024 Encounter Details Date Type Department Care Team ([facility] st Contact Info) Description 01/06/2024 Telephone [facility] [address] [place] [address] Victor Hugo Lopez MD [address] [place] [address] Nurse Triage Social History Tobacco Use Types Packs/Day [...] AM EDT documented as of this encounter Miscellaneous Notes * Telephone Encounter - Susy Jo RN - 01/06/2024 12:44 PM EDT Triage suleiman Pt reports constipation. Pt reports passed medium stool , very hard consistency, at 200am this morning. Pt is asking for something to help this. Pt is given home care advice. Pt only drinks 2 glasses water per day. Pt is advised to increase liquids, 6-8 glasses per day, juices, decaf tea. Pt likes prunes and prune juice and advised to have this today. Pt is advised to increase fiber in diet, oats, whole grains. Pt is advised to obtain OTC Milk of magnesia and take 30cc before bed tonight . Pt agrees with this home care advised and disposition and will call back if needed. Protocol Used: Constipation (Adult) Protocol-Based Disposition: Home Care Positive Triage Question: * Mild constipation * All higher-acuity triage questions were negative Care Advice Discussed: * Reassurance and Education - Constipation * General Constipation Instructions * High Fiber Diet * Drink Adequate Liquids * Get Into a Rhythm * Reasons To Call Back * Step 2 - Use an Osmotic Laxative if Needed * Telephone Encounter - Alethea Silva - 01/06/2024 12:24 PM EDT Symptom: Constipation Outcome: Schedule an urgent appointment (within 1 hour) or talk to a nurse or provider soon Reason: Constant stomach pain The caller accepted this outcome Pt is requesting Miralax documented in this encounter Plan of Treatment Upcoming Encounters Date Type Department Care Team (Late st Contact Info) Description 08/18/2024 1:00 PM EDT Office Visit [facility] [address] [place] [address] Victor Hugo Lopez MD [address] [place] [address] documented as of this encounter Visit Diagnoses Not on filedocumented in this encounter Additional Health Concerns Assessment Noted Time PHQ-9 Depression Total Score: 0 06/05/19 23 11:43 AM EST documented as of this encounter Care Teams Reports Developer Relationship Specialty Start Date End Date Victor Hugo Lopez MD [address] [place] [address] PCP - General Internal Medicine 09/25/19 documented as of this encounter
--- OUTSIDE RECORDS SUMMARY | 2024-07-28 13:06 | XMS_ITS | Clinical Summary ---
Author Organization [employer] Address [address] [facility] 7[address] [place] [address] Care Team Providers Care University Relations Director Name Role Phone Victor Hugo Lopez MD Primary Care Prov ider Allergies No known active allergies Medications Benzoyl Peroxide 10 % cream Apply topically at bed time. 2 Active Benzoyl Peroxide (BenzEFoam) 5.3 % foam Apply topically at bed time. 2 Active benzoyl peroxide (Benzac AC) 10 % external wash Apply topically at bed time. 2 Active diclofenac (Cataflam) 50 MG tablet Take 1 tablet by mouth in the morning and 1 tablet in the evening. 2 Active ibuprofen 400 MG tablet Take 1 tablet by mouth in the morning and 1 tablet at noon and 1 tablet in the evening and 1 tablet before bedtime. 2 Active pantoprazole (ProtoNix) 20 MG EC tablet Take 1 tablet by mouth every 48 hours. 2 Active Blood Pressure Monitoring (Omron 3 Series BP Monitor) device USE EVERY DAY TO CHECK BLOOD PRESSURE 2 Active LORazepam (Ativan) 1 MG tablet TAKE 1 TABLET BY MOUTH AT BEDTIME NEEDED FOR SLEEP 2 Active [employer] Soluble Fiber Therapy 500 MG tablet TAKE 1 TABLET BY MOUTH EVERY DAY WITH A FULL GLASS OF WATER 2 Active Senna-Time 8.6 MG tablet TAKE 1 TABLET BY MOUTH EVERY DAY AT BEDTIME FOR CONSTIPATION 2 Active sucralfate (Carafate) 1 g tablet TAKE 1 TABLET BY MOUTH EVERYDAY AT BEDTIME 2 Active acetaminophen (Tylenol) 500 MG tablet Take 2 tablets (1,000 mg) by mouth every 6 (six) hours if needed for mild pain. 40 tablet 3 Active lidocaine (Lidoderm) 5 % patch TAKE 1 PATCH BY TOPICAL ROUTE EVERY 24 HOURS NEEDED FOR PAIN 30 patch 1 3 Active cholecalciferol 25 MCG (1000 UT) tablet Take 1 tablet (25 mcg) by mouth in the morning. 90 tablet 1 4 Active albuterol (ProAir HFA) 108 (90 Base) MCG/ACT inhaler Inhale 2 puffs every 4 (four) hours. 18 g 3 4 Active ferrous gluconate (Fergon) 324 (38 Fe) MG tabletIndicatio ns:Low ferritin level TAKE 1 TABLET (324 MG) BY MOUTH WITH BREAKFAST. 90 tablet 1 4 Active triamcinolone (Kenalog) 0.1 % creamIndication s:Pruritus APPLY TO AFFECTED AREA TWICE A DAY 80 g 3 4 Active Azelastine HCl 137 MCG/SPRAY solutionIndicat ions:Chronic rhinitis USE 2 SPRAYS INTO EACH NOSTRIL TWICE A DAY 30 mL 2 4 Active hydrOXYzine pamoate (Vistaril) 25 MG capsuleIndicati ons:Pruritus TAKE 1 CAPSULE BY MOUTH EVERY 8 HOURS IF NEEDED FOR ITCHING 90 capsule 3 4 Active Active Problems Problem Noted Date Diagnosed Date Iron deficiency anemia 07/10/2023 Assessment & Plan (01/02/2024 10:14 AM EDT): Patient underwent surgery for uterine fibroids, last labs showed iron def anemia, told to continue oral iron replacement, will follow up in 2 months Assessment & Plan (07/10/2023 7:53 AM EST): On oral replacement, will order new iron/cbc test for guidance of therapy, patient following ob-services engineer for mentrual bleeding Acute left ankle pain 01/03/2023 Assessment & Plan (01/03/2023 2:15 PM EDT): Twisted it about 1 week ago, she has mild presistant pain, will provide ibuprofen, apply ice and rest joint Menorrhagia with irregular cycle 08/21/2022 Assessment & Plan (10/01/2022 5:39 PM EDT): Symptoms improved, reviewed u/s results, has not followed with ob-services engineer, will task MATIAS, refers has not received a notification Assessment & Plan (08/21/2022 5:51 PM EDT): Pateint refers that for the past 2-3 months she has been having profuse episode of vaginal bleeding, with clots, will place ob-services engineer referal Chronic rhinitis 08/21/2022 Chronic left-sided low back pain without sciatic a 08/21/2022 Assessment & Plan (01/03/2023 2:16 PM EDT): Will order cyclobenzaprine, rest, ice encouraged, call back if worsening Assessment & Plan (08/21/2022 5:52 PM EDT): Will provide muscle relaxant, told to apply cold pads, rest, in case of worsening might consider in the future PT Dizziness 08/02/2022 Assessment & Plan (08/02/2022 5:06 PM EST): Unknown etiology, does have pale conjunctiva and AUB, will check labs. Normal orthostatic vitals. Benign gross neuro exam. Will schedule f/u with PCP. Labs sent and holter monitoring. Acute vaginitis 08/02/2022 Intermenstrual bleeding 08/02/2022 Assessment & Plan (08/02/2022 5:07 PM EST): More then 3 year hx of AUB, labs sent and order, pelvic US ordered. Likely will need EMBx, schedule f/up PCP Elevated blood pressure reading 07/06/2022 Assessment & Plan (10/29/2023 11:34 AM EDT): Has remained stable no need to start medications, continue low sodium diet and exercise as tolerated, keep bp log Assessment & Plan (07/10/2023 7:52 AM EST): Controlled, continue bp monitoring target <140/90, reinforced low sodium diet and exercise as tolerated, Assessment & Plan (07/06/2022 3:52 PM EST): Reading have maintained below 140/90, reinforced low sodium diet and exercise as tolerated, follow up in 3 months Gastroesophageal reflux disease without esophagi tis 07/06/2022 Assessment & Plan (07/06/2022 3:53 PM EST): On PPI therapy, follow up with GI, no warning signs, lifestyle modification reinforced Encounters Date Type Department Care Team Description 04/28/2024 Refill [facility] [address] [place], [place] [id number] Victor Hugo Lopez MD Pruritus from Last 3 Months Immunizations Name Administration Dates Next Due Moderna Covid-19 Vaccine 12+ 11/21/2021,05/24/20 21,04/26/2021 Pfizer Covid-19 Vaccine 12+ 04/11/2023 Social History Tobacco Use Types Packs/Day Years Used Date Smoking Tobacco: Never Passive Smoke Exposure: Never Smokeless Tobacco: Never Tobacco Cessation:Counseling Given: Not Answered Alcohol Use Standard Drinks/Week Comments Not Asked [...] Orientation Bisexual 04/02/2022 10 :18 AM EDT Last Filed Vital Signs Vital Sign Reading Time Taken Comments Blood Pressure 147/83 02/21/2024 1:52 PM EDT Pulse 72 02/21/2024 1:52 PM EDT Temperature 36.9 ??C (98.5 ??F) 02/21/2024 1:52 PM ED T Respiratory Rate 17 02/21/2024 1:52 PM EDT Oxygen Saturation 96% 02/21/2024 1:52 PM EDT Inhaled Oxygen Concentration - - Weight 78 kg (172 lb) 02/21/2024 1:52 PM EDT Height 157.5 cm (5' 2 ) 02/21/2024 1:52 PM EDT Body Mass Index 31.46 02/21/2024 1:52 PM EDT Plan of Treatment Upcoming Encounters Date Type Department Care Team (Late st Contact Info) Description 08/18/2024 1:00 PM EDT Office Visit [facility] [address] [place] [address] Victor Hugo Lopez MD [address] [place] [address] Health Maintenance Due Date Last Done Comments Alcohol/Substance Use Screening 1992 Family Planning (PISQ) 1995 Hepatitis B Vaccines (1 of 3 - 19+ 3-dose series) 1999 Depression Screening 06/05/2023 06/05/2022, 06/05/19 23 SDOH Screening 08/22/2023 08/21/2022 COVID-19 Vaccine ( season) 2024 04/11/2023, 11/21/2021, 05/24/2021, Additional history exists Influenza Vaccine (#1) 2024 Mammogram 02/08/2025 02/08/2023 Tobacco Screening 02/20/2025 02/21/2024 Pap Smear 01/10/2026 01/10/2023, 11/2 02/2021, 09/10/2012 Lipid Panel 04/21/2026 04/21/2021 Cervical Cancer Screening 05/01/2026 HPV/Cotest 05/01/2026 05/01/2021 Zoster Vaccines (1 of 2) 2030 DTaP/Tdap/Td Vaccines (2 - Td or Tdap) 02/03/2034 02/04/2024 RSV Patients and Patients Aged 60 years or older (1 - 1-dose 75+ series) 2055 HIV Screening Completed 03/08/2021, 11/10/2019 Hepatitis C Screening Completed 03/08/2021 HIB Vaccines Aged Out No longer eligi ble based on patient's age to complete this topic HPV Vaccines Aged Out No longer eligi ble based on patient's age to complete this topic Hepatitis A Vaccines Aged Out No long er eligible based on patient's age to complete this topic IPV Vaccines Aged Out No longer eligi ble based on patient's age to complete this topic Meningococcal Vaccine Aged Out No sharon radha eligible based on patient's age to complete this topic Pneumococcal Vaccine: Pediatrics (0 to 5 Years) and At-Risk Patients (6 to 49) Years) Aged Out No longer eligible based on patient's age to complete this topic RSV under 20 months Aged Out No longe r eligible based on patient's age to complete this topic Rotavirus Vaccines Aged Out No longer eligible based on patient's age to complete this topic Procedures Procedure Name Priority Date/Time Associated Diagnosis Comments BI MAMMOGRAM SCREENING TOMOSYNTHESIS BILATERAL Routine 02/08/2023 2:30 PM EDT PAP SMEAR Routine 01/10/2023 12:17 PM EDT THINPREP IMAGING PAP AND HPV MRNA E6/E7 WITH REFLEX TO HPV 16,18/45 Routine 05/01/2021 9:30 AM EST LIPID PANEL, STANDARD Routine 04/21/2021 10:47 AM EST ZZZ HISTORICAL HEPATITIS C AB W/REFL TO HCV RNA, QN, PCR Routine 03/08/2021 9:23 AM EDT HIV 1/2 ANTIGEN/ANTIBODY, FOURTH GENERATION W/RFL Routine 03/08/2021 9:23 AM EDT from Last 3 Months or Most Recently Relevant to Health Maintenance Results * BI Mammogram Screening Tomosynthesis Bilateral (02/08/2023 2:30 PM EDT) Anatomical Region Laterality Modality Breast Bilateral Mammography 02/08/2023 2:30 PM EDT Narrative 02/25/2023 9:33 PM EDT ? [facility] ? [address] ?[place] [address] ? Mammography Report ? Signed ? Patient: Doyle,Jessa L ?MR#: [id number] ?? 60 ? : 1980 ?Acct:[id number] ? Age/Sex: 42 / F ?ADM Date: 02/08/23 ? Loc: HO.MAMMO ? Attending Dr: Carey Torres CNM ? Ordering Physician: Carey Torres CNM ?Results: 1Negati ?? ve ? Date of Service: 02/08/23 ?Follow Up: 1 Year From Orig ?? inal Mammogram ? Procedure(s): MM tomosynthesis screening BI ?? Accession Number(s): [id number] ? cc: Victor Hugo Lopez MD; Carey Torres CNM ? EXAMINATION: ?? MM SCREENING DIGITAL BREAST TOMOSYNTHESIS, BILATERAL ? CLINICAL INFORMATION: ? Screening. Asymptomatic. ? COMPARISON: ?? Mammography: This is a baseline study. ? TECHNIQUE: ?? Digital breast tomosynthesis is performed in both the craniocaudal and ?? mediolateral oblique views along with computer-aided detection (CAD). ?? Synthesized 2D images are generated from the tomosynthesis. ? FINDINGS: ?? The breasts are heterogeneously dense, which may obscure small masses ?? (ACR BI-RADS breast composition Category c). ? There are no significant masses, abnormal calcifications, or other ?? abnormalities. ? MM/MM tomosynthesis screening BI ?? IMPRESSION: ?? No mammographic evidence of malignancy. ? ASSESSMENT: ? BI-RADS BI-RADS 1 - Negative ? RECOMMENDATION: ?? Routine annual mammography screening. ? 1 year F/U ? This examination should not preclude the clinical evaluation of a ?? suspicious palpable abnormality. ? This patient's information was entered into a reminder system with a ?? target due date for their next mammogram. ? Dictated By: ?Carmen Trent MD ? Signed By: ?<Electronically signed by Carmen Trent MD in OV> ? 02/25/23 2129 ? DD/ 1430 ? TD/TT: ? Hospitality Associate: ? Procedure Note Arias, Image - 02/26/2023 [facility] [address] [place] [address] Dr. [place], [place] [address] Mammography Report Signed Patient: Jessa Kwon LMR#: [id number] 60 : 1980Acct:[id number] Age/Sex: 42 / FADM Date: 02/08/23 Loc: MOE Attending Dr: Carey Torres CNM Ordering Physician: Carey Torres: 1Negati ve Date of Service: 02/08/23Follow Up: 1 Year From Orig inal Mammogram Procedure(s): MM tomosynthesis screening BI Accession Number(s): [id number] cc: Victor Hugo Lopez MD; Carey TorresM EXAMINATION: MM SCREENING DIGITAL BREAST TOMOSYNTHESIS, BILATERAL CLINICAL INFORMATION: Screening. Asymptomatic. COMPARISON: Mammography: This is a baseline study. TECHNIQUE: Digital breast tomosynthesis is performed in both the craniocaudal and mediolateral oblique views along with computer-aided detection (CAD). Synthesized 2D images are generated from the tomosynthesis. FINDINGS: The breasts are heterogeneously dense, which may obscure small masses (ACR BI-RADS breast composition Category c). There are no significant masses, abnormal calcifications, or other abnormalities. MM/MM tomosynthesis screening BI IMPRESSION: No mammographic evidence of malignancy. ASSESSMENT: BI-RADS BI-RADS 1 - Negative RECOMMENDATION: Routine annual mammography screening. 1 year F/U This examination should not preclude the clinical evaluation of a suspicious palpable abnormality. This patient's information was entered into a reminder system with a target due date for their next mammogram. Dictated By: Carmen Trent MD Signed By: <Electronically signed by Carmen Trent MD in OV> 02/25/232128 DD/ 1430 TD/TT: Hospitality Associate: [facility] External Provider IMG BI PROCEDURES Edited Result - Final * Pap Smear (01/10/2023 12:17 PM EDT) 01/10/2023 12:1 7 PM EDT 01/11/2023 9:30 AM EDT [facility] - 01/29/2023 9:53 AM EDT ----- ------- Name: [place]Jessa Rina ? Age/Sex: 42/F ? : 1980 Unit#: [id number] ?? Attend Dr: Carey Torres CNM ?Re01/10/23 ?Status: DEP REF ? Location: HO.LNP ?Disch: ? ----- ------- SPEC : [id number] ?RECD: 01/11/23 ? STATUS: ??SOUT ? REQ NUM: [id number] ? KAMLESH: 01/10/23-1216 ? SUBM DR: Carey Torres CNM ? ENTERED: ??01/11/23 ?SP TYPE: Pap Smr ?OTHR DR: Victor Hugo Lopez MD ORDERED: ??Pap Smear, PAP path review ? Interpretation ?? General Category: ? Negative for intraepithelial lesion/malignancy. ?? Adequacy: ? Endocervical component present. ?? Interpretation: ? Inflammation with associated cellular changes. ? HPV mRNA E6/E7: ?Not detected ? This assay detects E6/E7 viral messenger RNA (mRNA) from 14 high-risk HPV types (16, 18, ?? 31, 33, 35, 39, 45, 51, 52, 56, 58, 59, 66, 68) ?? HPV testing performed by [facility], [place], [place]. ??See reference laboratory ?? portion of the EMR for entire report. ?Clinical Information LMP:12/31/22 Previous PAP test:04/30/17, Unknown findings ? Material Received ?? ThinPrep-Cervical Copies To: ?? Victor Hugo Lopez MD ?? [address] ?? [place] [address] ?? [phone] ?? Carey Torres CNM ?? [address] [place] [address] [address] ?? [place] [address] ?? [phone] ----- ------- Signed (signature on file) Griselda Justice MD 01/29/23 0953 ? ----- ------- ? END OF REPORT ? [facility] External Provider LAB CYT OLOGY ORDERABLES Final Result Performing Organization Address City/State/[facility] Co de Phone Number [facility] [address] [place] [address] [phone] * THINPREP TIS PAP AND HPV mRNA E6/E7 REFLEX HPV 16,18/45 (05/01/2021 9:30 AM EST) Clinical Information: None given [facility] COMMENT SEE COMMENT [facility] Comment: EXPLANATORY NOTE: ? The Pap is a screening test for cervical cancer. It is ?? not a diagnostic test and is subject to false negative ?? and false positive results. It is most reliable when a ?? satisfactory sample, regularly obtained, is submitted ?? with relevant clinical findings and history, and when ?? the Pap result is evaluated along with historic and ?? current clinical information. ?? COMMENT: SEE COMMENT [facility] Comment: This case could not be evaluated with computer assisted technology. The slide was manually screened according to routine procedures. Medical Stenographer: SEE COMMENT [facility] Comment: MSM, CT(ASCP) CT screening location: [address] ??[id number] HPV nRNA E6/E7 Not Detected Not Detected [facility] Comment: Methodology: Meal Temperer-Mediated Amplification This assay detects E6/E7 viral messenger RNA (mRNA) from 14 high-risk HPV types (16,18,31,33,35,39,45,51,52,56,58,59,66,68). ? The analytical performance characteristics of this assay have been determined by [facility]. The modifications have not been cleared or approved by the FDA. This assay has been validated pursuant to the CLIA regulations and is used for clinical purposes. ?? For additional information, please refer to http://education.[employer]TapClicks/faq/VLM264s4 (This link if provided for information/ educational purposes only.) Interpretation/Re sult: Negative for intraepithelial lesion or malignancy. [facility] LMP: 112,421 [facility] Prev. BX: NONE GIVEN [facility] Prev. PAP: NONE GIVEN [facility] SOURCE: None given [facility] Statement Of Adequacy: SEE COMMENT [facility] Comment: Satisfactory for evaluation. Endocervical/transformation zone component present. 05/01/2021 9:30 AM EST us [facility] PATH[facility] ORDERABLES Final Result [facility] [address] * (ABNORMAL) LIPID PANEL, STANDARD (04/21/2021 10:47 AM EST) Chol/HDLC Ratio 5.0(H) <5.0 (calc) [facility] Cholesterol, Total 189 <200 mg/dL [facility] HDL Cholesterol 38(L) > OR = 50 mg/dL [facility] LDL Cholesterol 122(H) mg/dL (calc) [facility] Comment: Reference range: <100 ?? Desirable range <100 mg/dL for primary prevention; ?? <70 mg/dL for patients with CHD or diabetic patients ?? with > or = 2 CHD risk factors. ?? LDL-C is now calculated using the Vasyl ?? calculation, which is a validated novel method providing ?? better accuracy than the Friedewald equation in the ?? estimation of LDL-C. ?? Sanya PEREZ et al. LUKASZ. 2013;310(19): 0640-9256 ?? (http://education.[employer]/faq/XPY621) Non-HDL Cholesterol 151(H) <130 mg/dL (calc) [facility] Comment: For patients with diabetes plus 1 major ASCVD risk ?? factor, treating to a non-HDL-C goal of <100 mg/dL ?? (LDL-C of <70 mg/dL) is considered a therapeutic ?? option. Triglycerides 177(H) <150 mg/dL [facility] 04/21/2021 10:4 7 AM EST Victor Hugo Porter MD LAB BLOOD ORDERABL ES Final Result Performing Organization Address [facility] Co de Phone Number [facility] [address] * HEPATITIS C AB W/REFL TO HCV RNA, QN, PCR (03/08/2021 9:23 AM EDT) HEPATITIS C ANTIBODY NON-REACT VANDA NON-REACT VANDA [facility] INDEX 0.01 <1.00 [facility] Comment: ?? HCV antibody was non-reactive. There is no laboratory ?? evidence of HCV infection. ?? In most cases, no further action is required. However, if recent HCV exposure is suspected, a test for HCV RNA (test code 05098) is suggested. ?? For additional information please refer to http://Tugg.[employer]/faq/MMR94g6 (This link is being provided for informational/ educational purposes only.) ?? 03/08/2021 9:23 AM EDT Celine Gorman MD HISTORICAL/NON ORDERABLE LABS Final Result Performing Organization Address [facility] Phone Number [facility] [address] * HIV 1/2 ANTIGEN/ANTIBODY,FOURTH GENERATION W/RFL (03/08/2021 9:23 AM EDT) HIV-1/2 ANTIGEN AND ANTIBODIES, 4TH GENERATION W/ REFLEX NON-REACT VANDA NON-REACT VANDA [facility] Comment: HIV-1 antigen and HIV-1/HIV-2 antibodies were not detected. There is no laboratory evidence of HIV infection. ?? PLEASE NOTE: This information has been disclosed to you from records whose confidentiality may be protected by state law. ??If your state requires such protection, then the state law prohibits you from making any further disclosure of the information without the specific written consent of the person to whom it pertains, or as otherwise permitted by law. A general authorization for the release of medical or other information is NOT sufficient for this purpose. ? For additional information please refer to http://education.[employer]TapClicks/faq/EME257 (This link is being provided for informational/ educational purposes only.) ? The performance of this assay has not been clinically validated in patients less than 2 years old. ?? 03/08/2021 9:23 AM EDT us Celine Gorman MD LAB BLOOD ORDERABLES Final Re sult [facility] [address] from Last 3 Months or Most Recently Relevant to Health Maintenance Insurance [facility] C3 Care Teams University Relations Director Relationship Specialty Start Date End Date Victor Hugo Lopez MD [address] [place] [phone] PCP - General Internal Medicine 09/25/19
--- OUTSIDE RECORDS SUMMARY | 2024-07-28 13:06 | XMS_ITS | Encounter Summary ---
Author Organization [employer] Address [address] [facility] 7t [place] [address] Care Team Providers Care Per Assessment Nurse Name Role Phone Victor Hugo Lopez MD Primary Care Prov ider Encounter Details Date Type Department Care Team ([facility] Contact Info) Description 03/18/2023 Telephone [facility] CHC MED & PEDS [address] [place], [place] [phone] Victor Hugo Lopez MD [address] [place] [address] Social History Tobacco Use Types Packs/Day Years [...] encounter Miscellaneous Notes * Telephone Encounter - Tiana Little - 03/19/2023 4:10 PM EDT PT-1 submitted for patient. They will receive a letter of approval or denial in the mail. * Telephone Encounter - Alethea Silva - 03/18/2023 11:24 AM EDT Tc from pt stating received letter with approval on PT1 for the wrong location. Pt stated PT1 is approved for [facility] on [address] instead of [facility] on [address] Pt is requesting PT1 to be corrected. documented in this encounter Plan of Treatment Upcoming Encounters Date Type Department Care Team (Late st Contact Info) Description 08/18/2024 1:00 PM EDT Office Visit [facility] MED & PEDS [address] [place] [address] Victor Hugo Lopez MD [address] [place] [address] documented as of this encounter Visit Diagnoses Not on filedocumented in this encounter Additional Health Concerns Assessment Noted Time PHQ-9 Depression Total Score: 0 06/05/19 23 11:43 AM EST documented as of this encounter Care Teams Per Assessment Nurse Relationship Specialty Start Date End Date Victor Hugo Lopez MD [address] [place] [address] PCP - General Internal Medicine 09/25/19 documented as of this encounter
--- OUTSIDE RECORDS SUMMARY | 2024-07-28 13:06 | XMS_ITS | Encounter Summary ---
Author Organization [employer] Address [address] [facility] 7 [place] [address] Care Team Providers Care Patroller Name Role Phone Victor Hugo Lopez MD Primary Care Prov ider Reason for Visit * Reason Onset Date Comments Nurse Triage 01/03/2024 Encounter Details Date Type Department Care Team ([facility] st Contact Info) Description 01/03/2024 Telephone [facility] MEDICINE [address] [place] [address] Victor Hugo Lopez MD [address] [place] [address] Nurse Triage Social History Tobacco Use Types [...] encounter Miscellaneous Notes * Telephone Encounter - Ludivina Frausto RN - 01/03/2024 12:22 PM EDT Called pt. Back. Pt. States that ever since she got out of her Hysterectomy surgery x 4 days ago she developed conjunctivitis in her eyes. Pt had sx starting x 2 days ago. Pt wakes up in am with crusty eyes and has to use warm water compress to clear away the crusty drainage to open eyes. Pt. States that she has drainage throughout the day in both eyes. It first started in right eye and now it has spread to left. Pt. Looking for antibiotic eye drops for Conjunctivitis. Whites of eyes red on andoff with the drainage. No fever and no other sx. Protocol Used: Eye - Pus or Discharge (Adult) Protocol-Based Disposition: Callback or Video Visit by PCP Today Video visit not offered Positive Triage Question: * Eye with yellow or green discharge or eyelashes stick together, but NO standing order to call in antibiotic eye drops (Exception: [place]; continue triage.) * All higher-acuity triage questions were negative Care Advice Discussed: * Reassurance and Education - Small Amount of Mucus or Pus * Eyelid Cleaning * Reassurance and Education - Probable Bacterial Conjunctivitis * Eyelid Cleansing * Note to Triager - Prescription Option - Antibiotic Eye Drops per Protocol - [place] * Telephone Encounter - Hima Zavaleta - 01/03/2024 12:14 PM EDT Symptoms: Eye - Pus or Discharge, Eye Redness Without Pus or Discharge Outcome: Schedule an urgent appointment (within 1 hour) or talk to a nurse or provider soon Reason: Nonstop tears or blinking The caller accepted this outcome documented in this encounter Plan of Treatment Upcoming Encounters Date Type Department Care Team ([facility] st Contact Info) Description 08/18/2024 1:00 PM EDT Office Visit [facility] MED & PEDS [address] [place] [address] Victor Hugo Lopez MD [address] [place] [address] documented as of this encounter Visit Diagnoses Not on filedocumented in this encounter Additional Health Concerns Assessment Noted Time PHQ-9 Depression Total Score: 0 06/05/19 23 11:43 AM EST documented as of this encounter Care Teams Patroller Relationship Specialty Start Date End Date Victor Hugo Lopez MD [address] [place] [address] PCP - General Internal Medicine 09/25/19 documented as of this encounter
--- OUTSIDE RECORDS SUMMARY | 2024-07-28 13:06 | XMS_ITS | Encounter Summary ---
Author Organization [employer] Address [address] [facility] 7 [place] [address] Care Team Providers Care Federal Aid Coordinator Name Role Phone Victor Hugo Lopez MD Primary Care Prov ider Reason for Visit * Reason Onset Date Comments ER Follow-up 05/24/2023 Encounter Details Date Type Department Care Team ([facility] Contact Info) Description 05/24/2023 Telephone [facility] MED & PEDS [address] [place], [place] [phone] Victor Hugo Lopez MD [address] [place] [address] ER Follow-up Social History Tobacco Use Types Packs/Day Years [...] encounter Miscellaneous Notes * Telephone Encounter - Gema Dawn RN - 05/28/2023 2:05 PM EST TC placed to patient to follow up on ED visit to [facility] on 05/23/23. Patient reports that meds were prescribed to stop vaginal bleeding, and they have been working. Patient reports that she is not currently experiencing continuing symptoms of vaginal bleeding or abdominal pain and is still taking tranexemic acid as prescribed in ED. Offered same day care appointment in [facility] tomorrow 05/29/23 or televisit with PCP tomorrow 05/29/23 or f/u with Salina Gutierrez next 06/04/22. Patient opted for f/u with Salina Gutierrez next Saturday06/04/22. Advised to be in touch with us, go to walk-in, or go to EDif symptoms recur or new symptoms develop. Notes from [facility] ED visit in chart. Routing to PCP, so he is aware. * Telephone Encounter - Latasha Carlton - 05/24/2023 1:51 PM EST Patient calling to report ED visit on : Date: 05/23 Hospital: [facility] Seen for: vaginal bleeding Patient advised will forward to team nurse for follow up Please contact pt at [phone] documented in this encounter Plan of Treatment Upcoming Encounters Date Type Department Care Team (Late st Contact Info) Description 08/18/2024 1:00 PM EDT Office Visit [facility] CHC MED & PEDS [address] [place] [address] Victor Hugo Lopez MD [address] [place] [address] documented as of this encounter Visit Diagnoses Not on filedocumented in this encounter Additional Health Concerns Assessment Noted Time PHQ-9 Depression Total Score: 0 06/05/19 23 11:43 AM EST documented as of this encounter Care Teams Federal Aid Coordinator Relationship Specialty Start Date End Date Victor Hugo Lopez MD [address] [place] [address] PCP - General Internal Medicine 09/25/19 documented as of this encounter
== END 2024-07-28 11:37 | disposition home or self-care (01) ==
PROVIDERS: PCP Internal Medicine; Visit Provider Nurse Practitioner Family
DX: K21.9 Gastro-esophageal reflux disease without esophagitis (principal); K58.1 Irritable bowel syndrome with constipation; K59.04 Chronic idiopathic constipation; R14.0 Abdominal distension (gaseous); R10.13 Epigastric pain
CPT/HCPCS: 99214

== ENCOUNTER → 2024-07-28 10:51 | Outpatient (BNVA) | payer MEDICAID, SELFPAY | PROVIDERS: PCP Internal Medicine; Visit Provider Nurse Practitioner Family | DX: K21.9 Gastro-esophageal reflux disease without esophagitis (principal); K58.1 Irritable bowel syndrome with constipation; K59.04 Chronic idiopathic constipation; R14.0 Abdominal distension (gaseous); R10.13 Epigastric pain | CPT/HCPCS: 99212 ==

== ENCOUNTER 2024-08-12 14:36 | Outpatient (AMB) | payer MEDICAID, SELFPAY ==
[2024-08-12 14:48] VITALS: BMI 32.2
--- NOTE | 2024-08-12 14:48 | MHC.OFFVIS ---
Vital Signs 08/12/24 14:48 Height 5 ft 2 in Weight 176 lb BMI 32.2 Intake Visit Reasons: OV-B/L hand EMG review EMG-done 06/27/24 Intake Note: Jessa 44 yr old right hand dominant female presents today for her EMG review. Last visit patient also has a aspiration of her mass in the volar ulnar aspect of the right index finger, states the mass has returned and would like to discuss surgery. IMPRESSION: 1. This is a normal study. 2. There is no electrodiagnostic evidence for median neuropathy, ulnar neuropathy, brachial plexopathy, or cervical radiculopathy. Allergies No Known Allergies Allergy (Verified 08/12/24 14:48) HPI HPI OV-B/L hand EMG review EMG-done 06/27/24: Details: Jessa is a 44 year old right hand dominant woman who returns for a NCS review. She has a Hx of a right index finger volar ulnar cyst aspiration, done on 04/15/24. She says this mass is returning and she would like to discuss surgery. She is currently out of work and spends her days caring for her dad. She says she is planning to become a [employer] in the future to take care of him. [facility] Medical History Irritable bowel syndrome Chronic idiopathic constipation Gastroesophageal reflux disease COVID-19 No known health problems Surgical History H/O: myomectomy (~12/2023) Hx of section Hx of tubal ligation Social History Alcohol intake: former Patient Tobacco Use Status: Never used Tobacco Current occupational status: unemployed Current occupation: rt handed Review of Systems Const All systems reviewed & are unremarkable except as noted in HPI and below Physical Exam Vital Signs: BMI result Body Mass Index 32.2 Const General: no acute distress and alert Orientation/consciousness: patient oriented x3 Neuro General: patient oriented x3 Extrem Other: Evaluation of Upper Extremity: The patient is alert, oriented, and in no acute distress Neuro: Median, Ulnar, Radial nerves motor and sensory intact and sensation is normal to the tips of all digits Vascular: Cap refill brisk ROM: She can make a fist and extend all of her digits. There is no locking or catching There are no overlying skin changes She has an ~8-10mm diameter spherical mass in the volar ulnar aspect of the right index finger just distal to the palmar digital crease. Nerve Conduction Study: IMPRESSION: 1. This is a normal study. 2. There is no electrodiagnostic evidence for median neuropathy, ulnar neuropathy, brachial plexopathy, or cervical radiculopathy. Priscilla Ahn MD, RACHELLE 06/12/24 Psych Appearance: grossly normal Affect: normal affect Attitude: cooperative Assessment & Plan Assessment & Plan (1) Retinacular ganglion, volar (VRG): Code(s): M67.40 - Ganglion, unspecified site Category: Medical (2) Numbness and tingling in both hands: Code(s): R20.0 - Anesthesia of skin; R20.2 - Paresthesia of skin Category: Medical Plan Assessment and plan: 1. 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 These risks include, but are not limited to risk of damage to blood vessels, nerves, tendons, infection, recurrence, incomplete relief of preoperative symptoms, persistent pain, possible need for further surgery and the risks associated with regional blocks and anesthesia. The plan is to take the patient to the operating room sometime in the next few weeks for the following procedures: 1. Right index finger excision of mass, under general All of the preoperative paperwork including the consent was reviewed today. All the patient's questions were answered. The patient understands that they will be contacted by our sales associate cashier soon to schedule this procedure She denies Diabetes, blood thinners, heart, lung, kidney issues She has asthma and says this is controlled 2. Numbness and tingling in both hands NCS from 06/12/24 was normal & unremarkable No complaints today Scribed for Etelvina Thompson MD by Jonathan Banuelos lpn medical assistant, on 08/12/24 at [ ], EST. Coding Level of Care Code Est Pt Level 4 (25926) Diagnoses Retinacular ganglion, volar (VRG) M67.40 Numbness and tingling in both hands R20.0; R20.2
--- OUTSIDE RECORDS SUMMARY | 2024-08-12 17:15 | XMS_ITS | Encounter Summary ---
Author Organization [employer] Address [address] [facility] 7 [place] [address] Care Team Providers Care Medical Center Manager Name Role Phone Victor Hugo Lopez MD Primary Care Prov ider Reason for Visit * Reason Onset Date Comments ER Follow-up 05/24/2023 Encounter Details Date Type Department Care Team ([facility] Contact Info) Description 05/24/2023 Telephone [facility] MED & PEDS [address] [place], [place] [phone] Victor Hugo Lopez MD [address] [place] [address] ER Follow-up Social History Tobacco Use Types [...] to follow up on ED visit to [facility] on 05/23/23. Patient reports that meds were prescribed to stop vaginal bleeding, and they have been working. Patient reports that she is not currently experiencing continuing symptoms of vaginal bleeding or abdominal pain and is still taking tranexemic acid as prescribed in ED. Offered same day care appointment in [facility] tomorrow 05/29/23 or televisit with PCP tomorrow 05/29/23 or f/u with Salina Gutierrez next 06/04/22. Patient opted for f/u with Salina Gutierrez next Saturday06/04/22. Advised to be in touch with us, go to walk-in, or go to EDif symptoms recur or new symptoms develop. Notes from [facility] ED visit in chart. Routing to PCP, so he is aware. * Telephone Encounter - Latasha Carlton - 05/24/2023 1:51 PM EST Patient calling to report ED visit on : Date: 05/23 Hospital: [facility] Seen for: vaginal bleeding Patient advised will forward to team nurse for follow up Please contact pt at [phone] documented in this encounter Plan of Treatment Upcoming Encounters Date Type Department Care Team (Late st Contact Info) Description 08/18/2024 1:00 PM EDT Office Visit [facility] CHC MED & PEDS [address] [place] [address] Victor Hugo Lopez MD [address] [place] [address] documented as of this encounter Visit Diagnoses Not on filedocumented in this encounter Additional Health Concerns Assessment Noted Time PHQ-9 Depression Total Score: 0 06/05/19 23 11:43 AM EST documented as of this encounter Care Teams Medical Center Manager Relationship Specialty Start Date End Date Victor Hugo Lopez MD [address] [place] [address] PCP - General Internal Medicine 09/25/19 documented as of this encounter
--- OUTSIDE RECORDS SUMMARY | 2024-08-12 17:15 | XMS_ITS | Encounter Summary ---
Author Organization [employer] Address [address] [facility] 7 [place] [address] Care Team Providers Care Extras Casting Director Name Role Phone Victor Hugo Lopez MD Primary Care Prov ider Reason for Visit * Reason Onset Date Comments Nurse Triage 01/03/2024 Encounter Details Date Type Department Care Team ([facility] st Contact Info) Description 01/03/2024 Telephone [facility] MEDICINE [address] [place] [address] Victor Hugo Lopez MD [address] [place] [address] Nurse Triage Social History Tobacco Use Types Packs/Day Years Used Date Smoking Tobacco: Never Passive Smoke Exposure: Never Smokeless Tobacco: Never Alcohol Use Standard Drinks/Week Comments Not Asked 0 (1 standard drink = 0.6 oz pur e alcohol) Depression Answer Date Recorded Patient Health Questionnaire-9 Score 0 06/05/2022 Housing Stability Answer Date Recorded What is your housing situation today? I have michelle tarn 03/18/[address] you li [...] - Antibiotic Eye Drops per Protocol - [place] * Telephone Encounter - Hima Zavaleta [...] Upcoming Encounters Date Type Department Care Team ([facility] st Contact Info) Description 08/18/2024 1:00 PM EDT Office Visit [facility] MED & PEDS [address] [place] [address] Victor Hugo Lopez MD [address] [place] [address] documented as of this encounter Visit Diagnoses Not on filedocumented in this encounter Additional Health Concerns Assessment Noted Time PHQ-9 Depression Total Score: 0 06/05/19 23 11:43 AM EST documented as of this encounter Care Teams Extras Casting Director Relationship Specialty Start Date End Date Victor Hugo Lopez MD [address] [place] [address] PCP - General Internal Medicine 09/25/19 documented as of this encounter
--- OUTSIDE RECORDS SUMMARY | 2024-08-12 17:15 | XMS_ITS | Encounter Summary ---
Author Organization [employer] Address [address] [facility] 7t [place] [address] Care Team Providers Care Medical Dosimetrist Name Role Phone Victor Hugo Lopez MD Primary Care Prov ider Encounter Details Date Type Department Care Team ([facility] Contact Info) Description 03/18/2023 Telephone [facility] CHC MED & PEDS [address] [place], [place] [phone] Victor Hugo Lopez MD [address] [place] [address] Social History Tobacco Use Types Packs/Day Years [...] location. Pt stated PT1 is approved for [facility] on [address] instead of [facility] on [address] Pt is requesting PT1 to be corrected. documented in this encounter Plan of Treatment Upcoming Encounters Date Type Department Care Team (Late st Contact Info) Description 08/18/2024 1:00 PM EDT Office Visit [facility] MED & PEDS [address] [place] [address] Victor Hugo Lopez MD [address] [place] [address] documented as of this encounter Visit Diagnoses Not on filedocumented in this encounter Additional Health Concerns Assessment Noted Time PHQ-9 Depression Total Score: 0 06/05/19 23 11:43 AM EST documented as of this encounter Care Teams Medical Dosimetrist Relationship Specialty Start Date End Date Victor Hugo Lopez MD [address] [place] [address] PCP - General Internal Medicine 09/25/19 documented as of this encounter
--- OUTSIDE RECORDS SUMMARY | 2024-08-12 17:15 | XMS_ITS | Encounter Summary ---
Author Organization [employer] Address [address] [facility] 7t [place] [address] Care Team Providers Care Beam Department Supervisor Name Role Phone Victor Hugo Lopez MD Primary Care Prov ider Encounter Details Date Type Department Care Team ([facility] st Contact Info) Description 03/28/2023 Orders Only [facility] CHC MED & PEDS [address] [place], [place] [phone] Nimo Cosby MD [address] [place] [address] Pruritus (Primary Dx) Social History Tobacco Use [...] 08/18/2024 1:00 PM EDT Office Visit [facility] MED & PEDS [address] [place] [address] Victor Hugo Lopez MD [address] [place] [address] documented as of this encounter Visit Diagnoses Diagnosis Pruritus- Primary Unspecified pruritic disorder documented in this encounter Additional Health Concerns Assessment Noted Time PHQ-9 Depression Total Score: 0 06/05/19 23 11:43 AM EST documented as of this encounter Care Teams Beam Department Supervisor Relationship Specialty Start Date End Date Victor Hugo Lopez MD [address] [place] [address] PCP - General Internal Medicine 09/25/19 documented as of this encounter
--- OUTSIDE RECORDS SUMMARY | 2024-08-12 17:15 | XMS_ITS | Clinical Summary ---
Author Organization [employer] Address [address] [facility] 7t [place] [address] Care Team Providers Care Deputy Attorney General Name Role Phone Victor Hugo Lopez MD [...] test for guidance of therapy, patient following ob-furniture sales consultant for mentrual bleeding Acute left ankle pain 01/03/2023 Assessment & Plan (01/03/2023 2:15 PM EDT): Twisted it about 1 week ago, she has mild presistant pain, will provide ibuprofen, apply ice and rest joint Menorrhagia with irregular cycle 08/21/2022 Assessment & Plan (10/01/2022 5:39 PM EDT): Symptoms improved, reviewed u/s results, has not followed with ob-furniture sales consultant, will task MATIAS, refers has not received a notification Assessment & Plan (08/21/2022 5:51 PM EDT): Pateint refers that for the past 2-3 months she has been having profuse episode of vaginal bleeding, with clots, will place ob-furniture sales consultant referal Chronic rhinitis 08/21/2022 Chronic left-sided low [...] GI, no warning signs, lifestyle modification reinforced Immunizations Name Administration Dates Next Due Moderna Covid-19 Vaccine 11/21/2021,05/24/20,04/26/2021 Pfizer Covid-19 Vaccine 04/11/2023 Social History Tobacco Use Types Packs/Day [...] Description 08/18/2024 1:00 PM EDT Office Visit [facility] MED & PEDS [address] [place] [address] Victor Hugo Lopez MD [address] [place] [address] Health Maintenance Due Date Last Done Comments Alcohol/Substance Use Screening 1992 Family Planning (PISQ) 1995 Hepatitis B Vaccines (1 of 3 - 19+ 3-dose series) 1999 Depression Screening 06/05/2023 06/05/2022, 06/05/19 23 SDOH Screening 08/22/2023 08/21/2022 COVID-19 Vaccine ( season) 2024 04/11/2023, 11/21/2021, 05/24/2021, Additional history exists Influenza Vaccine (#1) 2024 Mammogram 02/08/2025 02/08/2023 Tobacco Screening 02/20/2025 02/21/2024 Pap Smear 01/10/2026 01/10/2023, 04/04, 09/10/2012 Lipid Panel 04/21/2026 04/21/2021 Cervical Cancer [...] EDT Narrative 02/25/2023 9:33 PM EDT ? [facility] ? [address] ?[place] [address] ? Mammography Report ? Signed ? Patient: Jessa Kwon ?MR#: [id number] ?? 60 ? : 1980 ?Acct:[id number] ? Age/Sex: 42 / F ?ADM Date: 02/08/23 ? Loc: HO.MAMMO ? Attending Dr: Carey Torres CNM ? Ordering Physician: Carey Torres CNM ?Results: 1Negati ?? ve ? Date of Service: 02/08/23 ?Follow Up: 1 Year From Orig ?? inal Mammogram ? Procedure(s): MM tomosynthesis screening BI ?? Accession Number(s): [id number] ? cc: Victor Hugo Lopez MD; Carey [...] by Carmen Trent MD in OV> ? 02/25/239 ? DD/ 1430 ? TD/TT: ? Medical Technicians: ? Procedure Note Arias, Image - 02/26/2023 [facility] [address] [place] [address] Mammography Report Signed Patient: Jessa Kwon LMR#: [id number] 60 : 1980Acct:[id number] Age/Sex: 42 / FADM Date: 02/08/23 Loc: MOE Attending Dr: Carey Torres CNM Ordering Physician: Carey Torresesults: 1Negati ve Date of Service: 02/08/23Follow Up: 1 Year From Orig inal Mammogram Procedure(s): tomosynthesis screening BI Accession Number(s): [id number] cc: Victor Hugo Lopez MD; Carey Torres CNM EXAMINATION: MM SCREENING DIGITAL BREAST TOMOSYNTHESIS, BILATERAL [...] MD in OV> 02/25/232128 DD/ 1430 TD/TT: Medical Technicians: [facility] External Provider IMG BI PROCEDURES Edited Result - Final * Pap Smear (01/10/2023 12:17 PM EDT) 01/10/2023 12:1 7 PM EDT 01/11/2023 9:30 AM EDT [facility] - 01/29/2023 9:53 AM EDT ----- ------- Name: Jessa Kwon ? Age/Sex: 42/F ? : 1980 Unit#: [id number] ?? Attend Dr: NewvilleCarey fagan CNM ?Re01/10/23 ?Status: DEP REF ? Location: HO.LNP ?Disch: ? ----- ------- SPEC : [id number] ?RECD: 01/11/23 ? STATUS: ??SOUT ? REQ NUM: [id number] ? KAMLESH: 01/10/23-1216 ? SUBM DR: MelissaCarey CNM ? ENTERED: ??01/11/23-1121 ?SP TYPE: Pap Smr ?OTHR DR: Victor [...] 66, 68) ?? HPV testing performed by [facility], [place], [place]. ??See reference laboratory ?? portion of the EMR for entire report. ?Clinical Information LMP:12/31/22 Previous PAP test:04/30/17, Unknown findings ? Material Received ?? ThinPrep-Cervical Copies To: ?? Victor Hugo Lopez MD ?? [address] ?? [place] [address] ?? [phone] ?? Carey Torres CNM ?? [address] [facility] ?? [place] [address] ?? [phone] ----- ------- Signed (signature on file) Griselda Justice MD 01/29/23 0953 ? ----- ------- ? END OF REPORT ? [facility] External Provider LAB CYT OLOGY ORDERABLES Final Result [facility] [address] [place] [address] [phone] * THINPREP TIS PAP AND HPV mRNA E6/E7 REFLEX HPV 16,18/45 (05/01/2021 9:30 AM EST) Clinical Information: None given [facility] COMMENT SEE COMMENT [facility] ON [...] was manually screened according to routine procedures. Mixing Machine Attendant: SEE COMMENT [facility] Comment: MSM, CT(ASCP) CT screening location: [address] ??[address] HPV nRNA E6/E7 Not Detected Not Detected [facility] [employer] Comment: Methodology: Applied Psychology Teacher-Mediated Amplification This assay detects E6/E7 viral messenger RNA (mRNA) from 14 high-risk HPV types (16,18,31,33,35,39,45,51,52,56,58,59,66,68). ? The analytical performance characteristics of this assay have been determined by [facility]. The modifications have not been cleared or approved by the FDA. This assay has been validated pursuant to the CLIA regulations and is used for clinical purposes. ?? For additional information, please refer to http://education.[employer]/faq/PVM990s6 (This link if provided for information/ educational purposes only.) Interpretation/Re sult: Negative for intraepithelial lesion or malignancy. [facility] LMP: [id number] [facility] Prev. BX: NONE GIVEN [facility] Prev. PAP: NONE GIVEN [facility] ON LAB SYSTEM SOURCE: None given [facility] Statement Of Adequacy: SEE COMMENT [facility] Comment: Satisfactory for evaluation. Endocervical/transformation zone component present. 05/01/2021 9:30 AM EST Mercy Gutierrez CNM LAB PATHOLOGY ORDERABLES Final Result Performing Organization Address City/[facility]/ZIP Co de Phone Number [facility] [address] * (ABNORMAL) LIPID PANEL, STANDARD (04/21/2021 [...] ?? LDL-C is now calculated using the Sanya-Turcios ?? calculation, which is a validated novel method providing ?? better accuracy than the Friedewald equation in the ?? estimation of LDL-C. ?? Sanya PEREZ et al. LUKASZ. 2013;310(19): 5635-8901 ?? (http://education.Unemployment-Extension.Org.MoVoxx/faq/MXV637) Non-HDL Cholesterol 151(H) <130 mg/dL (calc) [facility]OUND[facility] [...] ORDERABL ES Final Result Performing Organization Address City/[facility]/ZIP Co de Phone Number [facility] [address] [place] [address], * HEPATITIS C AB W/REFL TO HCV RNA, QN, PCR (03/08/2021 9:23 AM EDT) HEPATITIS C ANTIBODY NON-REACT VANDA NON-REACT VANDA [facility] INDEX 0.01 <1.00 [facility] Comment: ?? HCV antibody was non-reactive. There is no laboratory ?? evidence of HCV infection. ?? In most cases, no further action is required. However, if recent HCV exposure is suspected, a test for HCV RNA (test code 16760) is suggested. ?? For additional information please refer to http://Keypr.[employer]/faq/YUP73b5 (This link is being provided for informational/ educational purposes only.) ?? 03/08/2021 9:23 AM EDT Celine Gorman MD HISTORICAL/NON ORDERABLE LABS Final Result [facility] [address] [place] [address], * HIV 1/2 ANTIGEN/ANTIBODY,FOURTH GENERATION W/RFL (03/08/2021 9:23 AM EDT) Pathologist [facility] HIV-1/2 ANTIGEN AND ANTIBODIES, 4TH GENERATION W/ REFLEX NON-REACT VANDA NON-REACT VANDA [facility] Comment: HIV-1 antigen and HIV-1/HIV-2 [...] ? For additional information please refer to http://Keypr.[employer]/faq/SOV186 (This link is being provided for informational/ educational purposes only.) ? The performance of this assay has not been clinically validated in patients less than 2 years old. ?? 03/08/2021 9:23 AM EDT us Celine Gorman MD LAB BLOOD ORDERABLES Final Re sult [facility] [address] from Last 3 Months or Most Recently Relevant to Health Maintenance Insurance [facility] C3 Care Teams Deputy Attorney General Relationship Specialty Start Date End Date Victor Hugo Lopez MD [address] [place] [phone] PCP - General Internal Medicine 09/25/19
--- OUTSIDE RECORDS SUMMARY | 2024-08-12 17:15 | XMS_ITS | Encounter Summary ---
Author Organization [employer] Address [address] [facility] 7 [place] [address] Care Team Providers Care Health Aide Name Role Phone Victor Hugo Lopez MD Primary Care Prov ider Reason for Visit * Reason Onset Date Comments Nurse Triage 01/06/2024 Encounter Details Date Type Department Care Team ([facility] st Contact Info) Description 01/06/2024 Telephone [facility] [address] [place] [address] Victor Hugo Lopez MD [address] [place] [address] Nurse Triage Social History Tobacco Use Types [...] Description 08/18/2024 1:00 PM EDT Office Visit [facility] MED & PEDS [address] [place] [address] Victor Hugo Lopez MD [address] [place] [address] documented as of this encounter Visit Diagnoses Not on filedocumented in this encounter Additional Health Concerns Assessment Noted Time PHQ-9 Depression Total Score: 0 06/05/19 23 11:43 AM EST documented as of this encounter Care Teams Health Aide Relationship Specialty Start Date End Date Victor Hugo Lopez MD [address] [place] [address] PCP - General Internal Medicine 09/25/19 documented as of this encounter
--- OUTSIDE RECORDS SUMMARY | 2024-08-12 17:15 | XMS_ITS | Encounter Summary ---
Author Organization [employer] Address [address] [place] [address] 7 [place] [address] Care Team Providers Care Strategic Procurement Manager Name Role Phone Victor Hugo Lopez MD Primary Care Prov ider Reason for Visit * Reason Onset Date Comments Triage 08/16/2022 Encounter Details Date Type Department Care Team ([facility] st Contact Info) Description 08/16/2022 Telephone [facility] CHC MED & PEDS [address] [place], [place] [phone] Victor Hugo Lopez MD [address] [place] [address] Triage Social History Tobacco Use Types Packs/Day [...] encounter Miscellaneous Notes * Telephone Encounter - Suys Jo RN - 08/16/2022 3:46 PM EDT Triage call Pt reports vaginal bleeding , dark red with clots. Pt just finished period last week. Pt has a pelvic exam at [facility] tomorrow but, is asking for an excuse for being out of work today. Advised to be seen in [facility] but, not enough time. Advised Pt to [...] become worse * Telephone Encounter - Blanca Hadny - 08/16/2022 3:24 PM EDT Symptom: Vaginal Bleeding - Not Outcome: Talk to a nurse or provider within 15 minutes Reason: Heavy bleeding The caller accepted this outcome Please contact pt at [phone] documented in this encounter Plan of Treatment Upcoming Encounters Date Type Department Care Team (Late st Contact Info) Description 08/18/2024 1:00 PM EDT Office Visit [facility] MED & PEDS [address] [place] [address] Victor Hugo Lopez MD [address] [place] [address] documented as of this encounter Visit Diagnoses Not on filedocumented in this encounter Additional Health Concerns Assessment Noted Time PHQ-9 Depression Total Score: 0 06/05/19 23 11:43 AM EST documented as of this encounter Care Teams Strategic Procurement Manager Relationship Specialty Start Date End Date Victor Hugo Lopez MD [address] [place] [address] PCP - General Internal Medicine 09/25/19 documented as of this encounter
--- OUTSIDE RECORDS SUMMARY | 2024-08-12 17:15 | XMS_ITS | Encounter Summary ---
Author Organization [employer] Address [address] [place] [address] 7 [place] [address] Care Team Providers Care Curtain Cutter Hand Name Role Phone Victor Hugo Lopez MD Primary Care Prov ider Reason for Visit * Reason Comments Med Refill Encounter Details Date Type Department Care Team ([facility] Contact Info) Description 01/14/2023 Refill [facility] CHC MED & PEDS [address] [place], [place] [phone] Victor Hugo Lopez MD [address] [place] [address] Social History Tobacco Use Types Packs/Day Years [...] Upcoming Encounters Date Type Department Care Team ([facility] Contact Info) Description 08/18/2024 1:00 PM EDT Office Visit [facility] CHC MED & PEDS [address] [place] [address] Victor Hugo Lopez MD [address] [place] [address] documented as of this encounter Visit Diagnoses Not on filedocumented in this encounter Additional Health Concerns Assessment Noted Time PHQ-9 Depression Total Score: 0 06/05/19 23 11:43 AM EST documented as of this encounter Care Teams Curtain Cutter Hand Relationship Specialty Start Date End Date CortezVictor Hugo Daley MD [address] [place] [address] PCP - General Internal Medicine 09/25/19 documented as of this encounter
== END 2024-08-12 15:41 | disposition home or self-care (01) ==
LOC: HO.HOS 14:37
PROVIDERS: PCP Internal Medicine; Visit Provider Orthopaedic Surgery
DX: M67.40 Ganglion, unspecified site (principal); R20.0 Anesthesia of skin; R20.2 Paresthesia of skin
CPT/HCPCS: 99214

== ENCOUNTER → 2024-08-12 14:36 | Outpatient (BNVA) | payer MEDICAID, SELFPAY | PROVIDERS: PCP Internal Medicine; Visit Provider Orthopaedic Surgery | DX: M67.40 Ganglion, unspecified site (principal); R20.0 Anesthesia of skin; R20.2 Paresthesia of skin | CPT/HCPCS: 99212 ==

== ENCOUNTER 2024-08-18 13:18 | Outpatient (REF) | payer MEDICAID, SELFPAY ==
[2024-08-18 14:15] LABS: MANUAL DIFF FLAG NO
[2024-08-18 14:27] LABS: Basophils Absolute Auto 0.1 X10*3/uL (0.0-0.2); Basophils Percent Auto 0.7 % (0-2); Eosinophils Absolute Auto 0.2 X10*3/uL (0.0-0.4); Eosinophils Percent Auto 2.2 % (0-4); Hematocrit 39.6 % (37.0-47.0); Hemoglobin 13.2 g/dl (12.0-16.0); Imm Gran Abs Auto 0.03 X10*3/uL (0.00-0.03); Imm Gran Pct Auto 0.3 % (0.0-0.4); Lymphocytes Absolute Auto 1.6 X10*3/uL (1.2-4.9); Lymphocytes Percent Auto 17.9 % (20-40); Mean Corpuscular HGB Conc 33.3 g/dl (31.0-35.0); Mean Corpuscular Hemoglobin 27.3 pg (27.0-33.0); Mean Corpuscular Volume 81.8 fL (80.0-98.0); Mean Platelet Volume 10.9 fL (9.4-12.3); Monocytes Absolute Auto 0.4 X10*3/uL (0.1-1.2); Monocytes Percent Auto 4.9 % (2-11); Neutrophils Absolute Auto 6.7 x10*3/uL (2.0-8.3); Platelet Count 287 X10*3/uL (160-400); Red Blood Count 4.84 X10*6/uL (4.20-5.50); Red Cell Distribution Width 12.7 % (11.0-16.0); White Blood Count 9.1 X10*3/uL (4.8-10.8)
[2024-08-18 15:08] LABS: Alanine Aminotransferase 34 U/L (0-31); Albumin Level 4.3 g/dL (3.5-5.0); Alkaline Phosphatase 65 U/L (39-117); Anion Gap 13 (12-20); Aspartate Amino Transferase 22 U/L (5-31); Bilirubin Total 0.2 mg/dL (0.0-1.0); Blood Urea Nitrogen 10 mg/dL (9-16); Carbon Dioxide 26 mmol/L (22-29); Chloride 108 mmol/L (96-108); Cholesterol 163 mg/dL (<200); Estimated Glomerular Filt Rate > 60; Glucose Random 89 mg/dL (60-115); HDL Cholesterol 34 mg/dL (>40); Iron 64 mcg/dL (30-160); LDL Cholesterol Calculated 58 mg/dL (<100); Percent Iron Saturation 21 % (15-50); Sodium 143 mmol/L (135-145); Total Iron Binding Capacity 310 mcg/dL (228-428); Total Protein 7.8 g/dL (6.5-8.0); Triglycerides 358 mg/dL (<150); Unsaturated Iron Binding 246 ug/dL
[2024-08-18 15:16] LABS: TSH reflex Free T4 1.82 uIU/mL (0.32-4.0); Vitamin D 25-OH Total 22.5 ng/mL (>30)
[2024-08-18 15:30] LABS: Folate 6.6 ng/mL (> or = 4.0); Vitamin B12 290 pg/mL (200-900)
[2024-08-21 06:22] LABS: TS Negative Control Passed; TS Panel A 0; TS Panel B 0; TS Positive Control Passed; TSpotTB Negative (Negative)
== END 2024-08-18 13:19 | disposition home or self-care (01) ==
LOC: HO.CHCLDS 13:18
PROVIDERS: Visit Provider Internal Medicine
DX: Z11.1 Encounter for screening for respiratory tuberculosis (principal); R03.0 Elevated blood-pressure reading, without diagnosis of hypertension
CPT/HCPCS: 36415; 80053; 80061; 82306; 82607; 82746; 83540; 84443; 85025; 86481

== ENCOUNTER 2024-10-13 13:36 | Outpatient (AMB) | payer MEDICAID, SELFPAY ==
[2024-10-13 14:05] VITALS: BMI 32.2
--- NOTE | 2024-10-13 14:05 | A.OFFVIS_ITS ---
Vital Signs 10/13/24 14:05 Height 5 ft 2 in Weight 176 lb BMI 32.2 Intake Visit Reasons: Preop RT IF mass exc/ulnar asp P1 base 10/19/24 AR Intake Note: Jessa is a 44 year old female who presents today for a preoperative right IF mass exc/ulnar aspiration P1 base on 10/19/[address] Thompson. Allergies No Known Allergies Allergy (Verified 10/13/24 14:18) HPI HPI Preop RT IF mass exc/ulnar asp P1 base 10/19/24 AR: Details: Jessa is a 44 year old female who presents today for a preoperative right IF mass exc/ulnar aspiration P1 base on 10/19/[address] Thompson[address] [facility] Medical History Irritable bowel syndrome Chronic idiopathic constipation Gastroesophageal reflux disease COVID-19 No known health problems Surgical History H/O: myomectomy (~12/2023) Hx of section Hx of tubal ligation Social History Alcohol intake: former Patient Tobacco Use Status: Never used Tobacco Current occupational status: unemployed Current occupation: rt handed Review of Systems Const All systems reviewed & are unremarkable except as noted in HPI and below Physical Exam Vital Signs: BMI result Body Mass Index 32.2 Const General: no acute distress and alert Orientation/consciousness: patient oriented x3 Neuro General: patient oriented x3 Extrem Other: Evaluation of Upper Extremity: The patient is alert, oriented, and in no acute distress Neuro: Median, Ulnar, Radial nerves motor and sensory intact and sensation is normal to the tips of all digits Vascular: Cap refill brisk ROM: She can make a fist and extend all of her digits. There is no locking or catching There are no overlying skin changes She has an ~8-10mm diameter spherical mass in the volar ulnar aspect of the right index finger just distal to the palmar digital crease. Nerve Conduction Study: IMPRESSION: 1. This is a normal study. 2. There is no electrodiagnostic evidence for median neuropathy, ulnar neuropathy, brachial plexopathy, or cervical radiculopathy. Priscilla Ahn MD, RACHELLE 06/12/24 Psych Appearance: grossly normal Affect: normal affect Attitude: cooperative Assessment & Plan Assessment & Plan (1) Retinacular ganglion, volar (VRG): Code(s): M67.40 - Ganglion, unspecified site Category: Medical (2) Numbness and tingling in both hands: Code(s): R20.0 - Anesthesia of skin; R20.2 - Paresthesia of skin Category: Medical Plan Assessment and plan: 1. 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 These risks include, but are not limited to risk of damage to blood vessels, nerves, tendons, infection, recurrence, incomplete relief of preoperative symptoms, persistent pain, possible need for further surgery and the risks associated with regional blocks and anesthesia. The plan is to take the patient to the operating room sometime in the next few weeks for the following procedures: 1. Right index finger excision of mass, under general All of the preoperative paperwork including the consent was reviewed today. All the patient's questions were answered. The patient understands that they will be contacted by our rehabilitation aide/scheduler soon to schedule this procedure She denies Diabetes, blood thinners, heart, lung, kidney issues She has asthma and says this is controlled Coding Level of Care Code Est Pt Level 4 (40427) Diagnoses Retinacular ganglion, volar (VRG) M67.40 Numbness and tingling in both hands R20.0; R20.2
== END 2024-10-13 14:33 | disposition home or self-care (01) ==
LOC: HO.HOS 13:37
PROVIDERS: PCP Internal Medicine
DX: M67.40 Ganglion, unspecified site (principal); R20.0 Anesthesia of skin; R20.2 Paresthesia of skin
CPT/HCPCS: 99024

== ENCOUNTER → 2024-10-13 13:36 | Outpatient (BNVA) | payer MEDICAID, SELFPAY | PROVIDERS: PCP Internal Medicine ==

== ENCOUNTER → 2024-10-19 09:06 | Day surgery (SDC) | payer MEDICAID, SELFPAY ==
[2024-10-15 11:54] VITALS: BMI 32.2
--- NOTE | 2024-10-15 14:28 | P.CONAN_ITS ---
HPI - Anesthesia Eval Consult details Narrative: 44yo F for Right Index Finger Mass Excision Ulnar P1 Base PMFSH Active Problems Active Problems: All Active Problems Numbness and tingling in both hands (Acute) Retinacular ganglion, volar (VRG) (Acute) Abnormal uterine bleeding (Acute) Screen for sexually transmitted diseases (Acute) Breast cancer screening (Acute) Cervical cancer screening (Acute) Fibroid uterus (Acute) Menorrhagia (Acute) Hx of section (Acute) Hx of tubal ligation (Acute) Past Medical History Medical History (Updated 10/15/24 @ 11:53 by Zehra Scott RN) Irritable bowel syndrome Chronic idiopathic constipation Gastroesophageal reflux disease COVID-19 Surgical History Surgical History H/O: myomectomy (~12/2023) Hx of section Hx of tubal ligation Social History Social History Alcohol intake: former Patient Tobacco Use Status: Never used Tobacco Current occupational status: unemployed Current occupation: rt [employer] Allergies Allergy/AdvReac Type Severity Reaction Status Date / Time No Known Allergies Allergy Verified 10/13/24 14:18 Home Medications ?Medication ?Instructions ?Recorded ?Confirmed ?Last Taken ?Type azelastine 137 mcg (0.1 %) nasal 2 spray intranasal BID 04/07/24 10/15/24 Unknow n History spray hydroxyzine pamoate 25 mg capsule 25 mg PO Q8H PRN itch 04/07/24 10/15/24 Unknown History magnesium oxide 400 mg (241.3 mg 400 mg PO DAILY 04/07/24 10/15/24 Unknown History magnesium) tablet riboflavin (vitamin B2) 400 mg 400 mg PO DAILY 04/07/24 10/15/24 Unknown History tablet triamcinolone acetonide 0.1 % 1 appl topical BID 04/07/24 10/15/24 Unknown Hist ory topical cream cholecalciferol (vitamin D3) 50 25 mcg PO DAILY 07/28/24 10/15/24 Unknown History mcg (2,000 unit) capsule albuterol sulfate 90 mcg/actuation 2 puff inhalation Q4H PRN 10/13/24 10/15/24 Unknown History aerosol inhaler (Ventolin HFA) Shortness Of Breath Or Wheezing Exam Height,Weight and Vital Signs: Height 5 ft 2 in Weight 79.832 kg Assessment and Plan Assessment Anesthesia Assessment: Chart Reviewed
== END ==
PROVIDERS: PCP Internal Medicine; Visit Provider Orthopaedic Surgery
DX: M67.40 Ganglion, unspecified site (principal); Z53.20 Procedure and treatment not carried out because of patient's decision for unspecified reasons

== ENCOUNTER 2024-11-11 10:57 | Outpatient (REF) | payer MEDICAID, SELFPAY ==
--- OUTSIDE RECORDS SUMMARY | 2024-11-11 12:31 | XMS_ITS | Encounter Summary ---
Author Organization [email or web address] Address [address] [facility] 7 [place] [address] Care Team Providers Care Aquatics Specialist Name Role Phone Victor Hugo Lopez MD Primary Care Prov ider Reason for Visit * Reason Onset Date Comments Nurse Triage 01/03/2024 Encounter Details Date Type Department Care Team ([facility] st Contact Info) Description 01/03/2024 Telephone [facility] MEDICINE [address] [place] [address] Victor Hugo Lopez MD [address] [place] [address] Nurse Triage Social History Tobacco Use Types [...] - Antibiotic Eye Drops per Protocol - [place] * Telephone Encounter - Hima Zavaleta [...] [facility] Contact Info) Description 11/17/2024 11:15 AM EDT Office Visit [facility] MED & PEDS [address] [place] [address] Nimo Cosby MD [address] [place] [address] documented as of this encounter Visit Diagnoses Not on filedocumented in this encounter Additional Health Concerns Assessment Noted Time PHQ-9 Depression Total Score: 0 06/05/19 23 11:43 AM EST documented as of this encounter Care Teams Aquatics Specialist Relationship Specialty Start Date End Date Victor Hugo Lopez MD [address] [place] [address] PCP - General Internal Medicine 09/25/19 documented as of this encounter
[2024-11-11 14:26] LABS: MANUAL DIFF FLAG NO
[2024-11-11 14:32] LABS: Basophils Absolute Auto 0.1 X10*3/uL (0.0-0.2); Basophils Percent Auto 0.6 % (0-2); Eosinophils Absolute Auto 0.2 X10*3/uL (0.0-0.4); Eosinophils Percent Auto 1.5 % (0-4); Hematocrit 41.3 % (37.0-47.0); Hemoglobin 13.6 g/dl (12.0-16.0); Imm Gran Abs Auto 0.07 X10*3/uL (0.00-0.03); Imm Gran Pct Auto 0.7 % (0.0-0.4); Lymphocytes Percent Auto 19.7 % (20-40); Mean Corpuscular HGB Conc 32.9 g/dl (31.0-35.0); Mean Corpuscular Volume 82.1 fL (80.0-98.0); Mean Platelet Volume 11.1 fL (9.4-12.3); Monocytes Absolute Auto 0.5 X10*3/uL (0.1-1.2); Monocytes Percent Auto 5.4 % (2-11); Neutrophils Absolute Auto 7.2 x10*3/uL (2.0-8.3); Neutrophils Percent Auto 72.1 % (45-73); Platelet Count 294 X10*3/uL (160-400); Red Blood Count 5.03 X10*6/uL (4.20-5.50); Red Cell Distribution Width 12.7 % (11.0-16.0)
[2024-11-11 14:58] LABS: Cholesterol 194 mg/dL (<200); HDL Cholesterol 30 mg/dL (>40); Iron 83 mcg/dL (30-160); LDL Cholesterol Calculated 109 mg/dL (<100); Percent Iron Saturation 26 % (15-50); Total Iron Binding Capacity 322 mcg/dL (228-428); Triglycerides 278 mg/dL (<150); Unsaturated Iron Binding 239 ug/dL
[2024-11-11 15:07] LABS: Vitamin D 25-OH Total 39.1 ng/mL (>30)
== END 2024-11-11 10:58 | disposition home or self-care (01) ==
LOC: HO.CHCLDS 10:57
PROVIDERS: Visit Provider Internal Medicine
DX: D50.0 Iron deficiency anemia secondary to blood loss (chronic) (principal); E78.2 Mixed hyperlipidemia; E55.9 Vitamin D deficiency, unspecified
CPT/HCPCS: 36415; 80061; 82306; 83540; 85025

== ENCOUNTER 2024-11-19 05:48 | Day surgery (SDC) | payer MEDICAID, SELFPAY ==
--- OUTSIDE RECORDS SUMMARY | 2024-10-20 13:12 | XMS_ITS | Encounter Summary ---
Author Organization [employer] Address [address] [facility] 7 [place] [address] Care Team Providers Care Mainspring Reverse Winder Name Role Phone Victor Hugo Lopez MD Primary Care Prov ider Reason for Visit * Reason Onset Date Comments ER Follow-up 05/24/2023 Encounter Details Date Type Department Care Team ([facility] st Contact Info) Description 05/24/2023 Telephone [facility] MED & PEDS [address] [place], [place] [phone] Victor Hugo Lopez MD [address] [place] [address] ER Follow-up Social History Tobacco Use Types [...] to follow up on ED visit [place] [facility] [place]. Patient reports that meds were prescribed to stop vaginal bleeding, and they have been working. Patient reports that she is not currently experiencing continuing symptoms of vaginal bleeding or abdominal pain and is still taking tranexemic acid as prescribed in ED. Offered same day care appointment in [facility] tomorrow 05/29/23 or televisit with PCP tomorrow 05/29/23 or f/u with Salina Gutierrez next 06/04/22. Patient opted for f/u with Salina Gutierrez next Saturday06/04/22. Advised to be in touch with us, go to walk-in, or go to EDif symptoms recur or new symptoms develop. Notes from [facility] [place] visit in chart. Routing to PCP, so he is aware. * Telephone Encounter - Latasha Carlton - 05/24/2023 1:51 PM EST Patient calling to report ED visit on : Date: 05/23 Hospital: [facility] Seen for: vaginal bleeding Patient advised will forward to team nurse for follow up Please contact pt at [phone] documented in this encounter Plan of Treatment Upcoming Encounters Date Type Department Care Team (Late st Contact Info) Description 11/11/2024 10:30 AM EDT Office Visit [facility] MED & PEDS [address] [place] [address] Victor Hugo Lopez MD [address] [place] [address] 11/17/2024 11:15 AM EDT Office Visit [facility] MED & PEDS [address] [place] [address] Nimo Cosby MD [address] [place] [address] documented as of this encounter Visit Diagnoses Not on filedocumented in this encounter Additional Health Concerns Assessment Noted Time PHQ-9 Depression Total Score: 0 06/05/19 23 11:43 AM EST documented as of this encounter Care Teams Mainspring Reverse Winder Relationship Specialty Start Date End Date Victor Hugo Lopez MD [address] [place] [id number] PCP - General Internal Medicine 09/25/19 documented as of this encounter
--- OUTSIDE RECORDS SUMMARY | 2024-10-20 13:12 | XMS_ITS | Encounter Summary ---
Author Organization [employer] Address [address] [facility] 7t [place] [address] Care Team Providers Care Thread Roller Name Role Phone Victor Hugo Lopez MD Primary Care Prov ider Encounter Details Date Type Department Care Team ([facility] Contact Info) Description 03/18/2023 Telephone [facility] CHC MED & PEDS [address] [place], [place] [phone] Victor Hugo Lopez MD [address] [place] [address] Social History Tobacco Use Types Packs/Day Years [...] location. Pt stated PT1 is approved for [facility] on [address] [facility] instead of [facility] on [address] . Pt is requesting PT1 to be corrected. documented in this encounter Plan of Treatment Upcoming Encounters Date Type Department Care Team (Late st Contact Info) Description 11/11/2024 10:30 AM EDT Office Visit [facility] MED & PEDS [address] [place] [address] Victor Hugo Lopez MD [address] [place] [address] 11/17/2024 11:15 AM EDT Office Visit [facility] MED & PEDS [address] [place] [address] Nimo Cosby MD [address] [place] [address] documented as of this encounter Visit Diagnoses Not on filedocumented in this encounter Additional Health Concerns Assessment Noted Time PHQ-9 Depression Total Score: 0 06/05/19 23 11:43 AM EST documented as of this encounter Care Teams Thread Roller Relationship Specialty Start Date End Date Victor Hugo Lopez MD [address] [place] [address] PCP - General Internal Medicine 09/25/19 documented as of this encounter
--- OUTSIDE RECORDS SUMMARY | 2024-10-20 13:12 | XMS_ITS | Clinical Summary ---
Author Organization [employer] Address [address] [facility] [address] [place] [address] Care Team Providers Care Tuckpointer Name Role Phone Victor Hugo Lopez MD Primary Care Prov ider Allergies No known active allergies Medications benzoyl peroxide (Benzac AC) 10 % external [...] FOR PAIN 30 patch 1 3 Active albuterol (ProAir HFA) 108 (90 Base) [...] A DAY 80 g 3 4 Active hydrOXYzine pamoate (Vistaril) 25 MG capsuleIndicati ons:Pruritus TAKE 1 CAPSULE BY MOUTH EVERY 8 HOURS IF NEEDED FOR ITCHING 90 capsule 3 4 Active Azelastine HCl 137 MCG/SPRAY solutionIndicat ions:Chronic rhinitis USE 2 SPRAYS INTO EACH NOSTRIL TWICE A DAY 30 mL 2 5 Active cholecalciferol (Vitamin D-3) 25 MCG (1000 UT) tablet Take 1 tablet (25 mcg) by mouth Once per day. 90 tablet 1 5 Active Active Problems Problem Noted Date Diagnosed Date Vitamin D deficiency 09/07/2024 Assessment & Plan (09/07/2024 3:10 PM EDT): Encouraged to start taking vitamin d, will repeat blood test in 3 months Elevated triglycerides with high cholesterol 12/2024 Assessment & Plan (09/07/2024 3:12 PM EDT): Encouraged low cholesterol, increase physical activity, follow up in 3-4 months Iron deficiency anemia 07/10/2023 Assessment & Plan (08/18/2024 1:14 PM EDT): New labs ordered, encouraged healthy diet, follow up in 4-6 months Assessment & Plan (01/02/2024 10:14 AM EDT): Patient underwent surgery for uterine fibroids, last labs showed iron def anemia, told to continue oral iron replacement, will follow up in 2 months Assessment & Plan (07/10/2023 7:53 AM EST): On oral replacement, will order new iron/cbc test for guidance of therapy, patient following ob-frozen pie maker for mentrual bleeding Acute left ankle pain 01/03/2023 Assessment & Plan (01/03/2023 2:15 PM EDT): Twisted it about 1 week ago, she has mild presistant pain, will provide ibuprofen, apply ice and rest joint Menorrhagia with irregular cycle 08/21/2022 Assessment & Plan (10/01/2022 5:39 PM EDT): Symptoms improved, reviewed u/s results, has not followed with ob-frozen pie maker, will task MATIAS, refers has not received a notification Assessment & Plan (08/21/2022 5:51 PM EDT): Pateint refers that for the past 2-3 months she has been having profuse episode of vaginal bleeding, with clots, will place ob-frozen pie maker referal Chronic rhinitis 08/21/2022 Assessment & Plan (08/18/2024 1:14 PM EDT): Continue azelastine, follow up as needed Chronic left-sided low back pain without sciatic [...] without esophagi tis 07/06/2022 Assessment & Plan (08/18/2024 1:13 PM EDT): Continue PPI therapy, reinforced lifestyle modifications, followed by gastroenterology Assessment & Plan (07/06/2022 3:53 PM EST): On PPI therapy, follow up with GI, no warning signs, lifestyle modification reinforced Encounters Date Type Department Care Team Description 10/16/2024 Telephone [facility] MEDICINE [address] [place] [address] Victor Hugo Lopez MD PT1 09/07/2024 1:15 PM EDT Telemedicine [facility] PEDS [address] [place], [place] [phone] Victor Hugo Lopez MD Vitamin D deficiency (Primary Dx); Elevated triglycerides with high cholesterol 09/07/2024 Travel 08/25/2024 Telephone [facility] [address] [place], [place] [phone] Victor Hugo Lopez MD Labs Only 08/19/2024 Orders Only [facility] [address] [place] [address] Victor Hugo Lopez MD 08/18/2024 1:00 PM EDT Office Visit [facility] [address] [place] [address] Victor Hugo Lopez MD Screening-pulmonary TB (Primary Dx); Elevated blood pressure reading; Chronic rhinitis; Gastroesophageal reflux disease without esophagitis; Iron deficiency anemia, unspecified iron deficiency anemia type 08/18/2024 Travel 08/17/2024 Travel 08/14/2024 Population Health Risk Score [facility] () Department [address] [place] [phone] Provider, Population Health Generic from Last 3 Months Immunizations Immunization Administration Dates Next Due Moderna Covid-19 Vaccine 12+ 11/21/2021,05/24/20,04/26/2021 Pfizer Covid-19 Vaccine + 04/11/2023 Social History Tobacco Use Types Packs/Day [...] is your housing situation today? I have michelleliliane tran 03/18/[address] you [...] Sign Reading Time Taken Comments Blood Pressure 133/73 08/18/2024 1:06 PM EDT Pulse 74 08/18/2024 1:06 PM EDT Temperature 37.1 ??C (98.7 ??F) 08/18/2024 1:06 PM E DT Respiratory Rate 16 08/18/2024 1:06 PM EDT Oxygen Saturation 96% 02/21/2024 1:52 PM EDT Inhaled Oxygen Concentration - - Weight 78 kg (172 lb) 08/18/2024 1:06 PM EDT Height 157.5 cm (5' 2 ) 08/18/2024 1:06 PM EDT Body Mass Index 31.46 08/18/2024 1:06 PM EDT Plan of Treatment Upcoming Encounters Date Type Department Care Team (Late st Contact Info) Description 11/11/2024 10:30 AM EDT Office Visit [facility] PEDS [address] [place] [phone] Victor Hugo Lopez MD [address] [place] [address] 11/17/2024 11:15 AM EDT Office Visit [facility] [address] [place] [address] Nimo Cosby MD [address] [place] [address] Health Maintenance Due Date Last Done Comments Alcohol/Substance Use Screening 1992 Family Planning (PISQ) 1995 Hepatitis B Vaccines (1 of 3 - 19+ 3-dose series) 1999 Depression Screening 06/05/2023 06/05/2022, 01/03/20 23 SDOH Screening 08/22/2023 08/21/2022 COVID-19 Vaccine ( season) 2024 04/11/2023, 11/21/2021, 05/24/2021, Additional history exists Influenza Vaccine (#1) 2024 Mammogram 02/08/2025 02/08/2023 Tobacco Screening 02/20/2025 02/21/2024 Disability Screening 08/17/2025 08/17/2024 Pap Smear 01/10/2026 01/10/2023, 11/02/2021, 09/10/2012 Cervical Cancer Screening 05/01/2026 HPV/Cotest 05/01/2026 05/01/2021 Lipid Panel 08/18/2029 08/18/2024, 04/21/2021 Zoster Vaccines (1 of 2) 2030 DTaP/Tdap/Td [...] patient's age to complete this topic Meningococcal B Vaccine Aged Out No l onger eligible based on patient's age to complete this topic Meningococcal Vaccine Aged Out No sharon rdaha eligible based on patient's age to complete [...] Procedure Name Priority Date/Time Associated Diagnosis Comments LIPID PANEL, STANDARD Routine 08/18/2024 1:21 PM EDT Elevated blood pressure reading TSH W/REFLEX TO FT4 Routine 08/18/2024 1 :21 PM EDT Elevated blood pressure reading COMPREHENSIVE METABOLIC PANEL Routine 08/18/2024 1:21 PM EDT Elevated blood pressure reading VITAMIN B12/FOLATE, SERUM PANEL Routine 08/18/2024 1:21 PM EDT Elevated blood pressure reading VITAMIN D,25-OH,TOTAL,IA Routine 08/18/2024 1:21 PM EDT Elevated blood pressure reading IRON AND TOTAL IRON BINDING CAPACITY Routine 08/18/2024 1:21 PM EDT Elevated blood pressure reading CBC WITH AUTO DIFFERENTIAL Routine 08/18/2024 1:21 PM EDT Elevated blood pressure reading T-SPOT(R).TB Routine 08/18/2024 1:21 PM EDT Screening-pulmonar y TB BI MAMMOGRAM SCREENING TOMOSYNTHESIS BILATERAL Routine 02/08/2023 2:30 PM EDT PAP SMEAR Routine 01/10/2023 12:17 PM EDT THINPREP IMAGING PAP AND HPV MRNA E6/E7 WITH REFLEX TO HPV 16,18/45 Routine 05/01/2021 9:30 AM EST [facility] HISTORICAL HEPATITIS C AB W/REFL TO HCV RNA, QN, PCR Routine 03/08/2021 9:23 AM EDT HIV 1/2 ANTIGEN/ANTIBODY, FOURTH GENERATION W/RFL Routine 03/08/2021 9:23 AM EDT from Last 3 Months or Most Recently Relevant to Health Maintenance Results * (ABNORMAL) Vitamin D, 25-Hydroxy, Total, Immunoassay (08/18/2024 1:21 PM EDT) Vitamin D 25-OH Total 22.5(L) >30 ng/mL [facility] Comment: Health Based Reference Values*< 20 ??ng/mL ??Vnkyppbkx74-47 ng/mL ??Insufficient> 30 ??ng/mL ??Sufficient*Ariel BATISTA. N Engl J Med. 2007;357:266-280There is no well-established upper level of normal vitamin Dlevels. Some laboratories use 50 ng/mL as an upper limit ofnormal. However, toxicity is patient-dependent and may occurat any level. Careful correlation with the patient'spresentation is necessary and, if there is concern forvitamin D toxicity, treatment should be consideredirrespective of the serum level.Care must be taken in interpreting Vitamin D results fromdifferent laboratories and methodologies. ??Published datademonstrated that results from patients undergoinghemodialysis may show a negative bias when tested withvarious automated 25-OH vitamin D assays when compared toLC- MS/MS.When testing samples from patients whose predominant form ofVitamin D is Vitamin D2, such as patients receiving VitaminD2 supplementation, results that are subtherapeutic shouldbe confirmed with another method such as LC-MS/MS. Blood Venous blood specimen / Unknown 08/18/2024 1:21 PM EDT 08/18/2024 2:11 PM EDT Victor Hugo Porter MD LAB BLOOD ORDERABL ES Final Result [facility] [address] [place] [phone] * Vitamin B12 (Cobalamin) and Folate Panel, Serum (08/18/2024 1:21 PM EDT) Vitamin B12 290 200 - 900 pg/mL [facility] Comment:NORMAL 200-900 PG/ML INDETERMINATE 160-199 PG/ML DEFICIENT < 160 PG/ML Folate 6.6 > or = 4.0 ng/mL [facility] Comment:Reference Values:> o r = 4.0 ng/mL< 4.0 ng/mL suggests folate deficiency Methotrexate, aminopterin and folinic acid(leucovorin) are chemotherapeutic agents whose molecularstructures are similar to folate; therefore, the Architectfolate assay cannot be used for patients using these drugs. Blood Venous blood specimen / Unknown 08/18/2024 1:21 PM EDT 08/18/2024 2:11 PM EDT Victor Hugo Porter MD LAB BLOOD ORDERABL ES Final Result [facility] [address] [place] [phone] * T-SPOT??.TB (08/18/2024 1:21 PM EDT) [facility] T Spot TB Negative Negative [facility] Comment:A negative test resu lt does not exclude the possibilityof exposure to or infection with Mycobacteriumtuberculosis (M. tuberculosis). Patients with recentexposure to TB infected individuals exhibiting anegative T-SPOT.TB result should be considered forretesting within 6 weeks or if other relevant clinicalsymptoms indicate. Results from T-SPOT.TB testing mustbe used in conjunction with each individual'sepidemiological history, current medical status,and results of other diagnostic evaluations.The T-SPOT.TB test is qualitative and results arereported as positive, borderline, or negative, giventhat the test controls perform as expected. In linewith the Centers for Disease Control and Prevention's2010 recommendation to report quantitative measurementsalongside the qualitative result, the laboratoryprovides spot counts for informational purposes only.The T-SPOT.TB test should not be interpreted as aquantitative test. TS PANEL A 0 [facility] TS PANEL B 0 [facility] Negative Control Passed [facility] Positive Control Passed [facility] Comment:For additional infor renzo, please refer tohttp://education.Optifreeze/faq/TOZ204(This link is being provided for informational/educational purposes only.)REPORT COMMENT:RECD IN CHANTILLYTHIS TEST WAS PERFORMED AT:[id number] [place] [address]PACBUNNJOSÉ MIGUEL SWENSON MD,PHD 08/18/2024 1:21 PM EDT 08/18/2024 2:11 PM EDT Victor Hugo Porter MD LAB BLOOD ORDERABL ES Final Result Performing Organization Address [facility] Co de Phone Number [facility] [address] [place] [phone] * TSH W/Reflex to FT4 (08/18/2024 1:21 PM EDT) Pathologist [facility] TSH reflex Free T4 1.82 0.32 - 4.0 uIU/mL [facility] Blood Venous blood specimen / Unknown 08/18/2024 1:21 PM EDT 08/18/2024 2:11 PM EDT Victor Hugo Porter MD LAB BLOOD ORDERABL ES Final Result Performing Organization Address [facility] Co de Phone Number [facility] [address] [place] [phone] * (ABNORMAL) CBC auto differential (08/18/2024 1:21 PM EDT) White Blood Count 9.1 4.8 - 10.8 X10*3/uL [facility] Red Blood Count 4.84 4.20 - 5.50 X10*6/uL [facility] Hemoglobin 13.2 12.0 - 16.0 g/dl [facility] Hematocrit 39.6 37.0 - 47.0 % [facility] Mean Corpuscular Volume 81.8 80.0 - 98.0 fL [facility] Mean Corpuscular Hemoglobin 27.3 27.0 - 33.0 pg [facility] Mean Corpuscular HGB Conc 33.3 31.0 - 35.0 g/dl [facility] Red Cell Distribution Width 12.7 11.0 - 16.0 % [facility] Platelet Count 287 160 - 400 X10*3/uL [facility] Mean Platelet Volume 10.9 9.4 - 12.3 fL [facility] Neutrophils Percent Auto 74.0(H) 45 - 73 % [facility] Imm Gran Pct Auto 0.3 0.0 - 0.4 % [facility] Lymphocytes Percent Auto 17.9(L) 20 - 40 % [facility] Monocytes Percent Auto 4.9 2 - 11 % [facility] Eosinophils Percent Auto 2.2 0 - 4 % [facility] Basophils Percent Auto 0.7 0 - 2 % [facility] NRBC Pct Auto 0.0 0.0 - 0.2 /100WBC [facility] Neutrophils Absolute Auto 6.7 2.0 - 8.3 x10*3/uL [facility] Imm Gran Abs Auto 0.03 0.00 - 0.03 X10*3/uL [facility] Lymphocytes Absolute Auto 1.6 1.2 - 4.9 X10*3/uL [facility] Monocytes Absolute Auto 0.4 0.1 - 1.2 X10*3/uL [facility] Eosinophils Absolute Auto 0.2 0.0 - 0.4 X10*3/uL [facility] Basophils Absolute Auto 0.1 0.0 - 0.2 X10*3/uL [facility] NRBC Abs Auto 0.000 0.0 - 0.012 X10*3/uL [facility] Blood Venous blood specimen / Unknown 08/18/2024 1:21 PM EDT 08/18/2024 2:11 PM EDT us Victor Hugo Porter MD LAB BLOOD ORDERABL ES Final Result [facility] [address] [place] [phone] * Iron And Total Iron Binding Capacity (08/18/2024 1:21 PM EDT) Iron 64 30 - 160 mcg/dL [facility] Total Iron Binding Capacity 310 228 - 428 mcg/dL [facility] Percent Iron Saturation 21 15 - 50 % [facility] Unsaturated Iron Binding 246 ug/dL [facility] Blood Venous blood specimen / Unknown 08/18/2024 1:21 PM EDT 08/18/2024 2:11 PM EDT Victor Hugo Porter MD LAB BLOOD ORDERABL ES Final Result Performing Organization Address [facility] Co de Phone Number [facility] [address] [place] [phone] * (ABNORMAL) Lipid Panel, Standard (08/18/2024 1:21 PM EDT) Triglycerides 358(H) <150 mg/dL [facility] Comment:Desirable Triglyceri de: less than 150 mg/dLBorderline High Triglyceride 150-199 mg/dLHigh Triglyceride: 200-499 mg/dLVery High Triglyceride: greater than or equal to 5OO mg/dL Cholesterol 163 <200 mg/dL [facility] Comment:Desirable Cholestero l: less than 200 mg/dLBorderline High Cholesterol: 200-239 mg/dLHigh Cholesterol: greater than 239 mg/dL LDL Cholesterol Calculated 58 <100 mg/dL [facility] Comment:Desirable LDL: less than 100 mg/dLNear Optimal/Above Optimal LDL: 110- 129 mg/dLBorderline High LDL: 130-159 mg/dLHigh LDL: 160-189 mg/dLVery High LDL: greater than or equal to 190 mg/dL HDL Cholesterol 34(L) >40 mg/dL [facility] Comment:Desirable HDL: great er than 40 mg/dL Note: This HDL assay may give artificially low results in patients with liver disease. Blood Venous blood specimen / Unknown 08/18/2024 1:21 PM EDT 08/18/2024 2:11 PM EDT Victor Hugo Porter MD LAB BLOOD ORDERABL ES Final Result Performing Organization Address [facility] Co de Phone Number [facility] [address] [place] [phone] * (ABNORMAL) Comprehensive Metabolic Panel (08/18/2024 1:21 PM EDT) Sodium 143 135 - 145 mmol/L [facility] Potassium 4.0 3.3 - 5.1 mmol/L [facility] Chloride 108 96 - 108 mmol/L [facility] Carbon Dioxide 26 22 - 29 mmol/L [facility] Anion Gap 13 12 - 20 [facility] Urea Nitrogen (BUN) 10 9 - 16 mg/dL [facility] Creatinine, Serum 0.80 0.5 - 1.4 mg/dL [facility] Estimated Glomerular Filt Rate >60 [facility] Comment:Chronic Kidney Disea se: Estimated GFR < 60 mL/min/[id number] Kidney Disease: Estimated GFR < 15 mL/min/1.73m2 Glucose 89 60 - 115 mg/dL [facility] Calcium 9.0 8.4 - 10.2 mg/dL [facility] Bilirubin, Total 0.2 0.0 - 1.0 mg/dL [facility] Aspartate Amino Transferase 22 5 - 31 U/L [facility] Alanine Aminotransferase 34(H) 0 - 31 U/L [facility] Total Protein 7.8 6.5 - 8.0 g/dL [facility] Albumin Level 4.3 3.5 - 5.0 g/dL [facility] Alkaline Phosphatase 65 39 - 117 U/L [facility] Blood Venous blood specimen / Unknown 08/18/2024 1:21 PM EDT 08/18/2024 2:11 PM EDT us Victor Hugo Porter MD LAB BLOOD ORDERABL ES Final Result [facility] [address] [place] [phone] * BI Mammogram Screening Tomosynthesis Bilateral (02/08/2023 2:30 PM EDT) Anatomical Region Laterality Modality Breast Bilateral Mammography 02/08/2023 2:30 PM EDT Narrative 02/25/2023 9:33 PM EDT ? [facility] ? [address] ?[place] [address] ? Mammography Report ? Signed ? Patient: Doyle,Jessa L ?MR#: [id number] ?? 60 ? : 1980 ?Acct:[id number] ? Age/Sex: 42 / F ?ADM Date: 02/08/23 ? Loc: HO.MAMMO ? Attending Dr: Carey Torres CNM ? Ordering Physician: Carey Torres CNM ?Results: 1Negati ?? ve ? Date of Service: 02/08/23 ?Follow Up: 1 Year From Orig ?? inal Mammogram ? Procedure(s): MM tomosynthesis screening BI ?? Accession Number(s): [id number] ? cc: Victor Hugo Lopez MD; Carey [...] by Carmen Trent MD in OV> ? 02/25/232128 ? DD/ 1430 ? TD/TT: ? Accountant Property: ? Procedure Note Radha Bianchi - 02/26/2023 [place] [facility] [address] [place] [address] Mammography Report Signed Patient: Jessa Kwon LMR#: [id number] 60 : 1980Acct:[id number] Age/Sex: 42 / FADM Date: 02/08/23 Loc: HO.MAMMO Attending Dr: Carey Torres CNM Ordering Physician: Carey Torresults: 1Negati ve Date of Service: 02/08/23Follow Up: 1 Year From Orig inal Mammogram Procedure(s): MM tomosynthesis screening BI Accession Number(s): [id number] cc: Victor Hugo Lopez MD; Carey Torres [...] MD in OV> 02/25/232128 DD/ 1430 TD/TT: Accountant Property: [facility] External Provider IMG BI PROCEDURES Edited Result - Final * Pap Smear (01/10/2023 12:17 PM EDT) 01/10/2023 12:1 7 PM EDT 01/11/2023 9:30 AM EDT [facility] - 01/29/2023 9:53 AM EDT ----- ------- Name: Jessa Kwon ? Age/Sex: 42/F ? : 1980 Unit#: [id number] ?? Attend Dr: Carey Torres CNM ?Re01/10/23 ?Status: DEP REF ? Location: HO.LNP ?Disch: ? ----- ------- SPEC : [id number] ?RECD: 01/11/23 ? STATUS: ??SOUT ? REQ NUM: [id number] ? KAMLESH: 01/10/23-1216 ? SUBM DR: Carey Torres CNM ? ENTERED: ??01/11/23 ?SP TYPE: Pap Smr ?OTHR : Victor Hugo Lopez MD ORDERED: ??Pap Smear, [...] 66, 68) ?? HPV testing performed by [facility], [place], [place]. ??See reference laboratory ?? portion of the EMR for entire report. ?Clinical Information LMP:12/31/22 Previous PAP test:04/30/17, Unknown findings ? Material Received ?? ThinPrep-Cervical Copies To: ?? Victor Hugo Lopez MD ?? [address] ?? [place] [address] ?? [phone] ?? Carey Torres [facility] ?? [address] ?? [place] [address] ?? [phone] ----- ------- Signed (signature on file) Griselda Justice MD 01/29/23 0953 ? ----- ------- ? END OF REPORT ? us [facility] External Provider LAB CYT OLOGY ORDERABLES Final Result [facility] [address] [place] [address] [phone] * THINPREP TIS PAP AND HPV mRNA E6/E7 REFLEX HPV 16,18/45 (05/01/2021 9:30 AM EST) Clinical Information: None given [facility] COMMENT SEE COMMENT [facility] [...] was manually screened according to routine procedures. Building Serviceman: SEE COMMENT [facility] Comment: MSM, CT(ASCP) CT screening location: [address] ??[address] HPV nRNA E6/E7 Not Detected Not Detected [facility] Comment: Methodology: Wood Cabinetmaker-Mediated Amplification This assay detects E6/E7 viral messenger RNA (mRNA) from 14 high-risk HPV types (16,18,31,33,35,39,45,51,52,56,58,59,66,68). ? The analytical performance characteristics of this assay have been determined by [facility]. The modifications have not been cleared or approved by the FDA. This assay has been validated pursuant to the CLIA regulations and is used for clinical purposes. ?? For additional information, please refer to http://education.Optifreeze/faq/AEI293s8 (This link if provided for information/ educational purposes only.) Interpretation/Re sult: Negative for intraepithelial lesion or malignancy. [facility] LMP: 112,421 [facility] Prev. BX: NONE GIVEN [facility] Prev. PAP: NONE GIVEN [facility] SOURCE: None given [facility] Statement Of Adequacy: SEE COMMENT [facility] Comment: Satisfactory for evaluation. Endocervical/transformation zone component present. 05/01/2021 9:30 AM EST us [facility] PATHOLOGY ORDERABLES Final Result Performing Organization Address [facility]/ZIP Co de Phone Number [facility] [address] * HEPATITIS C AB W/REFL TO HCV RNA, QN, PCR (03/08/2021 9:23 AM EDT) HEPATITIS C ANTIBODY NON-REACT VANDA NON-REACT VANDA [facility] INDEX 0.01 <1.00 [facility] Comment: ?? HCV antibody was non-reactive. There is no laboratory ?? evidence of HCV infection. ?? In most cases, no further action is required. However, if recent HCV exposure is suspected, a test for HCV RNA (test code 96095) is suggested. ?? For additional information please refer to http://VoiceBunny.Optifreeze/faq/VIO95a3 (This link is being provided for informational/ educational purposes only.) ?? 03/08/2021 9:23 AM EDT Celine Gorman MD HISTORICAL/NON ORDERABLE LABS Final Result Performing Organization Address [facility] Co de Phone Number [facility] [address] * HIV 1/2 ANTIGEN/ANTIBODY,FOURTH GENERATION W/RFL (03/08/2021 9:23 AM EDT) HIV-1/2 ANTIGEN AND ANTIBODIES, 4TH GENERATION W/ REFLEX NON-REACT VANDA NON-REACT VANDA [facility] Comment: HIV-1 antigen and HIV-1/HIV-2 [...] ? For additional information please refer to http://VoiceBunny.Optifreeze/faq/TRQ759 (This link is being provided for informational/ educational purposes only.) ? The performance of this assay has not been clinically validated in patients less than 2 years old. ?? 03/08/2021 9:23 AM EDT us Celine Gorman MD LAB BLOOD ORDERABLES Final Re sult [facility] [address] from Last 3 Months or Most Recently Relevant to Health Maintenance Insurance [facility] [employer] C3 Care Teams Tuckpointer Relationship Specialty Start Date End Date Victor Hugo Lopez MD [address] [place] [phone] PCP - General Internal Medicine 09/25/19
--- OUTSIDE RECORDS SUMMARY | 2024-10-20 13:12 | XMS_ITS | Encounter Summary ---
Author Organization [employer] Address [address] [facility] 7 [place] [address] Care Team Providers Care Tourist Adviser Name Role Phone Victor Hugo Lopez MD Primary Care Prov ider Reason for Visit * Reason Onset Date Comments PT1 10/16/2024 Encounter Details Date Type Department Care Team ([facility] st Contact Info) Description 10/16/2024 Telephone [facility] MEDICINE [address] [place] [address] Victor Hugo Lopez MD [address] [place] [id number] PT1 Social History Tobacco Use Types Packs/Day Years [...] encounter Miscellaneous Notes * Telephone Encounter - Adair Carlton - 10/16/2024 1:38 PM EDT CHW placed call to patient informing that PT1 requested by patient were submitted today. * Telephone Encounter - Nubia Betancourt - 10/16/2024 1:08 PM EDT 1 of 2 Patient calling requesting PT1 Home Address verified: Y/N: Yes Provider name or facility name: [address] [place] [address] [place] [address] - [facility] [place] Escort needed: Y/N: No Do you have a wheelchair: Y/N: No If yes- Manual or electric: N/A Visits: (2x monthly) 2 of 2 Patient calling requesting PT1 Home Address verified: Y/N: Yes Provider name or facility name: [address] [place] [address] Escort needed: Y/N: No Do you have a wheelchair: Y/N: No If yes- Manual or electric: N/A Visits: (2x monthly) documented in this encounter Plan of Treatment Upcoming Encounters Date Type Department Care Team ([facility] st Contact Info) Description 11/11/2024 10:30 AM EDT Office Visit [facility] MED & PEDS [address] [place] [address] Victor Hugo Lopez MD [address] [place] [address] 11/17/2024 11:15 AM EDT Office Visit [facility] MED & PEDS [address] [place] [address] Nimo Cosby MD [address] [place] [address] documented as of this encounter Visit Diagnoses Not on filedocumented in this encounter Additional Health Concerns Assessment Noted Time PHQ-9 Depression Total Score: 0 06/05/19 23 11:43 AM EST documented as of this encounter Care Teams Tourist Adviser Relationship Specialty Start Date End Date Victor Hugo Lopez MD [address] [place] [address] PCP - General Internal Medicine 09/25/19 documented as of this encounter
--- OUTSIDE RECORDS SUMMARY | 2024-10-20 13:12 | XMS_ITS | Encounter Summary ---
Author Organization [employer] Address [address] [place] [address] 7 [place] [address] Care Team Providers Care Electrical Prospecting Engineer Name Role Phone Victor Hugo Lopez MD Primary Care Prov ider Reason for Visit * Reason Onset Date Comments Triage 08/16/2022 Encounter Details Date Type Department Care Team ([facility] st Contact Info) Description 08/16/2022 Telephone [facility] CHC MED & PEDS [address] [place], [place] [phone] Victor Hugo Lopez MD [address] [place] [address] Triage Social History Tobacco Use Types Packs/Day [...] week. Pt [place] [facility] [place] but, is asking for an excuse for being out of work today. Advised to be seen in [facility] but, not enough time. Advised Pt to [...] accepted this outcome Please contact pt at [phone] documented in this encounter Plan of Treatment Upcoming Encounters Date Type Department Care Team (Late st Contact Info) Description 11/11/2024 10:30 AM EDT Office Visit [facility] MED & PEDS [address] [place] [address] Victor Hugo Lopez MD [address] [place] [address] 11/17/2024 11:15 AM EDT Office Visit [facility] MED & PEDS [address] [place] [address] Nimo Cosby MD [address] [place] [address] documented as of this encounter Visit Diagnoses Not on filedocumented in this encounter Additional Health Concerns Assessment Noted Time PHQ-9 Depression Total Score: 0 06/05/19 23 11:43 AM EST documented as of this encounter Care Teams Electrical Prospecting Engineer Relationship Specialty Start Date End Date CortezVictor Hugo Daley MD [address] [place] [id number] PCP - General Internal Medicine 09/25/19 documented as of this encounter
--- OUTSIDE RECORDS SUMMARY | 2024-10-20 13:12 | XMS_ITS | Encounter Summary ---
Author Organization [employer] Address [address] [facility] 7 [place] [address] Care Team Providers Care Fluid Power Mechanic Name Role Phone Victor Hugo Lopez MD Primary Care Prov ider Reason for Visit * Reason Onset Date Comments Nurse Triage 01/03/2024 Encounter Details Date Type Department Care Team ([facility] st Contact Info) Description 01/03/2024 Telephone [facility] MEDICINE [address] [place] [address] Victor Hugo Lopez MD [address] [place] [phone] Nurse Triage Social History Tobacco Use Types [...] - Antibiotic Eye Drops per Protocol - [place] * Telephone Encounter - Hima Zavaleta [...] Description 11/11/2024 10:30 AM EDT Office Visit [facility] MED & PEDS [address] [place] [address] Victor Hugo Lopez MD [address] [place] [address] 11/17/2024 11:15 AM EDT Office Visit [facility] MED & PEDS [address] [place] [address] Nimo Cosby MD [address] [place] [address] documented as of this encounter Visit Diagnoses Not on filedocumented in this encounter Additional Health Concerns Assessment Noted Time PHQ-9 Depression Total Score: 0 06/05/19 23 11:43 AM EST documented as of this encounter Care Teams Fluid Power Mechanic Relationship Specialty Start Date End Date Victor Hugo Lopez MD [address] [place] [address] PCP - General Internal Medicine 09/25/19 documented as of this encounter
--- OUTSIDE RECORDS SUMMARY | 2024-10-20 13:12 | XMS_ITS | Encounter Summary ---
Author Organization [employer] Address [address] [facility] 7t [place] [address] Care Team Providers Care Hydrological Technical Officer Name Role Phone Victor Hugo Lopez MD Primary Care Prov ider Encounter Details Date Type Department Care Team ([facility] st Contact Info) Description 03/28/2023 Orders Only [facility] CHC MED & PEDS [address] [place], [place] [phone] Nimo Cosby MD [address] [place] [address] Pruritus (Primary Dx) Social History Tobacco Use [...] Description 11/11/2024 10:30 AM EDT Office Visit [facility] MED & PEDS [address] [place] [address] Victor Hugo Lopez MD [address] [place] [address] 11/17/2024 11:15 AM EDT Office Visit [facility] MED & PEDS [address] [place] [address] Nimo Cosby MD [address] [place] [address] documented as of this encounter Visit Diagnoses Diagnosis Pruritus- Primary Unspecified pruritic disorder documented in this encounter Additional Health Concerns Assessment Noted Time PHQ-9 Depression Total Score: 0 06/05/19 23 11:43 AM EST documented as of this encounter Care Teams Hydrological Technical Officer Relationship Specialty Start Date End Date Victor Hugo Lopez MD [address] [place] [address] PCP - General Internal Medicine 09/25/19 documented as of this encounter
--- OUTSIDE RECORDS SUMMARY | 2024-10-20 13:12 | XMS_ITS | Encounter Summary ---
Author Organization [email or web address] Address [address] [facility] 7 [place] [address] Care Team Providers Care Television Cameraman Name Role Phone Victor Hugo Lopez MD Primary Care Prov ider Reason for Visit * Reason Onset Date Comments Nurse Triage 01/06/2024 Encounter Details Date Type Department Care Team ([facility] st Contact Info) Description 01/06/2024 Telephone [facility] MEDICINE [address] [place] [address] Victor Hugo Lpoez MD [address] [place] [phone] Nurse Triage Social History Tobacco Use Types [...] Description 11/11/2024 10:30 AM EDT Office Visit [facility] MED & PEDS [address] [place] [address] Victor Hugo Lopez MD [address] [place] [address] 11/17/2024 11:15 AM EDT Office Visit [facility] MED & PEDS [address] [place] [address] Nimo Cosby MD [address] [place] [address] documented as of this encounter Visit Diagnoses Not on filedocumented in this encounter Additional Health Concerns Assessment Noted Time PHQ-9 Depression Total Score: 0 06/05/19 23 11:43 AM EST documented as of this encounter Care Teams Television Cameraman Relationship Specialty Start Date End Date Victor Hugo Lopez MD [address] [place] [address] PCP - General Internal Medicine 09/25/19 documented as of this encounter
--- OUTSIDE RECORDS SUMMARY | 2024-10-20 13:12 | XMS_ITS | Encounter Summary ---
Author Organization [employer] Address [address] [place] [address] 7 [place] [address] Care Team Providers Care Special Education Classroom Aide Name Role Phone Victor Hugo Lopez MD Primary Care Prov ider Reason for Visit * Reason Comments Med Refill Encounter Details Date Type Department Care Team ([facility] Contact Info) Description 01/14/2023 Refill [facility] CHC MED & PEDS [address] [place] [address] Victor Hugo Lopez MD [address] [place] [address] Social History Tobacco Use Types Packs/Day Years [...] Upcoming Encounters Date Type Department Care Team ([facility] Contact Info) Description 11/11/2024 10:30 AM EDT Office Visit [facility] CH[facility] MED & PEDS [address] [place] [address] Victor Hugo Lopez MD [address] [place] [address] 11/17/2024 11:15 AM EDT Office [facility] MED & PEDS [address] [place] [address] Nimo Cosby MD [address] [place] [address] documented as of this encounter Visit Diagnoses Not on filedocumented in this encounter Additional Health Concerns Assessment Noted Time PHQ-9 Depression Total Score: 0 06/05/19 23 11:43 AM EST documented as of this encounter Care Teams Special Education Classroom Aide Relationship Specialty Start Date End Date Victor Hugo Lopez MD [address] [place] [address] PCP - General Internal Medicine 09/25/19 documented as of this encounter
[2024-11-17 09:00] VITALS: BMI 32.6
[2024-11-17 13:55] VITALS: BMI 32.2
--- NOTE | 2024-11-17 14:56 | HO.ANESPROP2 ---
HPI - Anesthesia Eval Consult details Narrative: 44yo F for Right Index Finger Mass Excision Ulnar P1 Base PMFSH Active Problems Active Problems: All Active Problems Numbness and tingling in both hands (Acute) Retinacular ganglion, volar (VRG) (Acute) Abnormal uterine bleeding (Acute) Screen for sexually transmitted diseases (Acute) Breast cancer screening (Acute) Cervical cancer screening (Acute) Fibroid uterus (Acute) Menorrhagia (Acute) Hx of section (Acute) Hx of tubal ligation (Acute) Past Medical History Medical History (Updated 10/15/24 @ 11:53 by Zehra Scott RN) Irritable bowel syndrome Chronic idiopathic constipation Gastroesophageal reflux disease COVID-19 Surgical History Surgical History H/O: myomectomy (~12/2023) Hx of section Hx of tubal ligation Social History Social History Alcohol intake: former Patient Tobacco Use Status: Former Tobacco user Current occupational status: unemployed Current occupation: rt [employer] Allergies Allergy/AdvReac Type Severity Reaction Status Date / Time No Known Allergies Allergy Verified 10/13/24 14:18 Home Medications ?Medication ?Instructions ?Recorded ?Confirmed ?Last Taken ?Type azelastine 137 mcg (0.1 %) nasal 2 spray intranasal BID 04/07/24 10/15/24 Unknown History spray hydroxyzine pamoate 25 mg capsule 25 mg PO Q8H PRN itch 04/07/24 10/15/24 Unknown History magnesium oxide 400 mg (241.3 mg 400 mg PO DAILY 04/07/24 10/15/24 Unknown History magnesium) tablet riboflavin (vitamin B2) 400 mg 400 mg PO DAILY 04/07/24 10/15/24 Unknown History tablet triamcinolone acetonide 0.1 % 1 appl topical BID 04/07/24 10/15/24 Unknown History topical cream cholecalciferol (vitamin D3) 50 25 mcg PO DAILY 07/28/24 10/15/24 Unknown History mcg (2,000 unit) capsule albuterol sulfate 90 mcg/actuation 2 puff inhalation Q4H PRN 10/13/24 10/15/24 Unknown History aerosol inhaler (Ventolin HFA) Shortness Of Breath Or Wheezing Exam Height,Weight and Vital Signs: Height 5 ft 2 in Weight 79.832 kg Assessment and Plan Assessment Anesthesia Assessment: Chart Reviewed
[2024-11-19] VITALS (10 sets, daily range): BP systolic 114–137; BP diastolic 58–79; PULSE 56–78; RESP 16–20; TEMP 36.2–36.4; O2SAT 95–99; BMI 32.2
[2024-11-19] MEDS: Lactated Ringers 1,000 ML 100 ML IVCONT (06:48)
--- NOTE | 2024-11-19 07:43 | MHC.SHP ---
Pre-Procedural Eval Section A - 24 Hr Update-Section A only Date of Service: 11/19/24 The patient is an INPATIENT: No Changes since office visit: No Cold of Flu in the past 2 weeks, No New Medical Problems, No Changes in Medication and No Patient answered all questions The patient has been examined within 24 hours of the surgical procedure. The History & Physical has been completed within 30 days and I have reviewed it.: Yes Section B - Complete if H&P > 30 days Chief Complaint: Ganglion, unspecified site Allergies: Allergies Allergy/AdvReac Type Severity Reaction Status Date / Time No Known Allergies Allergy Verified 10/13/24 14:18 Plan Diagnosis/Plan: Unchanged I have reviewed the history and physical and performed a pertinent physical examination on my patient. No changes have occurred unless specified. Time Spent With Patient Time: Total time managing care of this patient today ____ minutes.
--- NOTE | 2024-11-19 07:43 | W.PM.OPN ---
Operative Note Operative Note Date of Service: 11/19/24 Narrative: Operative Note Narrative: Preop diagnosis: 1. Right index finger soft tissue mass Postop diagnosis: Same Procedure: 1. Right index finger soft tissue mass excisional biopsy Surgeon: Etelvina Thompson MD Food Service Worker [facility]: [facility] Anesthesia: General Anesthesia Findings: 9 mm diameter volar retinacular ganglion attached to the volar ulnar aspect of the flexor tendon sheath. Implants: None Tourniquet time: 6 minutes EBL: 5.0 ml Specimen: Right index finger soft tissue mass sent to pathology Drains: None Complications: None Disposition: Brought to the recovery room in stable condition Plan: Follow-up in 10-14 days for wound check, suture removal and to check pathology Indications: The patient is a 44 year old woman with right index finger soft tissue mass . The risks and benefits of operative treatment, including but not limited to risk of damage to blood vessels, nerves, tendons, infection, recurrence, persistent pain or numbness, incomplete resolution of preoperative symptoms, or need for further surgery were discussed with the patient and they wished to proceed with surgery. Procedure: Once consent was obtained patient was brought back to the operating suite and placed in the operating table in a supine position. . Perioperative antibiotics and anesthesia was administered by the anesthesia team. A tourniquet was applied to the proximal aspect of the right upper extremity and the limb was prepped and draped in a standard surgical fashion. The limb was elevated exsanguinated with Esmarch bandage and the tourniquet inflated to 250 mm of mercury for a total tourniquet time of 6 minutes. I made a 2 cm oblique incision over the volar aspect of the patient's right index finger. Incision was made through the skin to the subcutaneous tissues using a 15. Blade. I then carefully dissected down to the level of the soft tissue mass. The soft tissue mass was situated at the volar ulnar base of the right index finger, deep to the ulnar neurovascular bundle. It was attached to the volar ulnar aspect of the flexor tendon sheath at about the A2 yamile level. The mass was about 9 mm in diameter and cystic in appearance, most consistent with a volar retinacular ganglion. It was detached from the flexor tendon sheath using iris scissors with care being taken to protect the neurovascular bundle which was seated more ulnarly. It was removed from the patient and placed on the back table to be sent for histopathology. No further masses were appreciated. At this point the tourniquet was deflated and hemostasis obtained with a brief period of local pressure . The wound was copiously irrigated with normal saline. The skin edges were reapproximated with 5-0 nylon suture. The wound was infiltrated with some 1% lidocaine with epinephrine for postop pain control and a sterile dressing was applied. The patient appears to have tolerated the procedure well and with no complications. All digits were well vascularized conclusion of the case.
[2024-11-19] MEDS: ceFAZolin Sodium/Dextrose,Iso 2 GM/50 ML PIGGYBACK IV (08:00)
[2024-11-19] MEDS: Acetaminophen 1,000 MG/100 ML PIGGYBACK 400 MG IV (08:10)
[2024-11-19] MEDS: ondansetron HCL 4 MG/2 ML VIAL IVPUSH (09:40)
== END 2024-11-19 11:00 | disposition home or self-care (01) ==
PROVIDERS: PCP Internal Medicine; Visit Provider Orthopaedic Surgery
PROC: (CPT 26160; principal; 2024-11-19 07:30)
DX: M67.441 Ganglion, right hand (principal); R20.0 Anesthesia of skin; R20.2 Paresthesia of skin; Z98.890 Other specified postprocedural states; K21.9 Gastro-esophageal reflux disease without esophagitis; Z56.0 Unemployment, unspecified
CPT/HCPCS: 26160; 88304; J0131; J0690; J1100; J2003; J2004; J2405; J2704; J3010

== ENCOUNTER → 2024-11-19 05:48 | Outpatient (BNV) | payer MEDICAID, SELFPAY | PROVIDERS: PCP Internal Medicine; Visit Provider Orthopaedic Surgery | DX: M67.441 Ganglion, right hand (principal) | CPT/HCPCS: 26160 ==

== ENCOUNTER 2024-11-24 08:33 | Outpatient (REF) | payer MEDICAID, SELFPAY ==
--- NOTE | ~2024-11-24 | US_ITS ---
CLINICAL HISTORY: persistent hematuria US Renal Comparison: None provided Findings: Right kidney normal size and echotexture, 12.1 cm length. Punctate nonobstructing calculus in the lower pole. Left kidney normal size and echotexture, 10.6 cm length. No collecting system dilatation of either kidney. Normal color Doppler. IMPRESSION: 1. Unremarkable kidneys as above This document has been electronically signed by: Everette Jimenez MD, PHD on 11/25/2024 01:12:48
--- OUTSIDE RECORDS SUMMARY | 2024-11-24 08:49 | XMS_ITS | Encounter Summary ---
Author Organization [employer] Address [address] [facility] 7 [place] [address] Care Team Providers Care Photogrammetric Tech Name Role Phone Victor Hugo Lopez MD Primary Care Prov ider Reason for Visit * Reason Onset Date Comments Nurse Triage 01/03/2024 Encounter Details Date Type Department Care Team ([facility] st Contact Info) Description 01/03/2024 Telephone [facility] MEDICINE [address] [place] [address] Victor Hugo Lopez MD [address] [place] [address] Nurse Triage Social History Tobacco Use Types [...] - Antibiotic Eye Drops per Protocol - [place] * Telephone Encounter - Hima Zavaleta - 01/03/2024 12:14 PM EDT Symptoms: Eye - Pus or Discharge, Eye Redness Without Pus or Discharge Outcome: Schedule an urgent appointment (within 1 hour) or talk to a nurse or provider soon Reason: Nonstop tears or blinking The caller accepted this outcome documented in this encounter Plan of Treatment Not on file documented as of this encounter Visit Diagnoses Not on filedocumented in this encounter Additional Health Concerns Assessment Noted Time PHQ-9 Depression Total Score: 0 06/05/19 23 11:43 AM EST documented as of this encounter Care Teams Photogrammetric Tech Relationship Specialty Start Date End Date Victor Hugo Lopez MD [address] [place] [address] PCP - General Internal Medicine 09/25/19 documented as of this encounter
== END 2024-11-24 08:34 | disposition home or self-care (01) ==
LOC: HO.US 08:33
PROVIDERS: PCP Internal Medicine; Visit Provider Pediatrics
DX: R31.29 Other microscopic hematuria (principal)
CPT/HCPCS: 76775

== ENCOUNTER → 2024-11-24 08:35 | Outpatient (BNV) | payer MEDICAID, SELFPAY | PROVIDERS: PCP Internal Medicine; Visit Provider General Practice | DX: N20.0 Calculus of kidney (principal) | CPT/HCPCS: 76775 ==

== ENCOUNTER 2024-12-02 10:06 | Outpatient (AMB) | payer MEDICAID, SELFPAY ==
--- NOTE | 2024-12-02 10:10 | MHC.OFFVIS ---
Vital Signs 12/02/24 10:18 Handedness Right Intake Visit Reasons: PO-Rt IF Mass Exc 11/19/24 Intake Note: Jessa is a 44 year old right hand dominant woman who presents today for a post operative visit status post right index finger soft tissue mass excisional biopsy, DOS: 11/16/24, by Dr Etelvina Thompson. Patient reports she has no pain, numbness or tingling. Reports no concerns at this time. Suture removed and steri strips applied. Allergies No Known Allergies Allergy (Verified 12/02/24 10:18) HPI HPI PO-Rt IF Mass Exc 11/19/24: Details: Jessa is a 44 year old right hand dominant woman who presents today for a post operative visit status post right index finger soft tissue mass excisional biopsy, DOS: 11/16/24, by Dr Etelvina Thompson. Patient reports she has no pain, numbness or tingling. Reports no concerns at this time. Suture removed and steri strips applied. [facility] Medical History Irritable bowel syndrome Chronic idiopathic constipation Gastroesophageal reflux disease COVID-19 Surgical History H/O: myomectomy (~12/2023) Hx of section Hx of tubal ligation Social History Alcohol intake: former Patient Tobacco Use Status: Former Tobacco user Current occupational status: unemployed Current occupation: rt handed Review of Systems Const All systems reviewed & are unremarkable except as noted in HPI and below Physical Exam Const General: no acute distress and alert Orientation/consciousness: patient oriented x3 Neuro General: patient oriented x3 Extrem Other: Evaluation of Upper Extremity: The patient is alert, oriented, and in no acute distress Neuro: Median, Ulnar, Radial nerves motor and sensory intact and sensation is normal to the tips of all digits Vascular: Cap refill brisk ROM: She can make a fist and extend all of her digits. There is no locking or catching There are no overlying skin changes Well approximated and well healing incision site noted on the volar aspect of the right index finger where there was once a mass No erythema, edema, drainage noted Psych Appearance: grossly normal Affect: normal affect Attitude: cooperative Assessment & Plan Assessment & Plan (1) Retinacular ganglion, volar (VRG): Code(s): M67.40 - Ganglion, unspecified site Category: Medical Plan 1. Status post volar retinacular ganglion cyst excision of right index finger DOS 11/19/2024 Patient appears to be recovering well postoperatively Patient is educated about the typical recovery course No further acute follow-up indicated, as the patient appears to be recovering very well Patient is amenable to this plan Follow-up as needed Coding Level of Care Code Global (83687) Diagnoses Retinacular ganglion, volar (VRG) M67.40
== END 2024-12-02 10:44 | disposition home or self-care (01) ==
LOC: HO.HOS 10:07
PROVIDERS: PCP Internal Medicine
DX: M67.40 Ganglion, unspecified site (principal)
CPT/HCPCS: 99024

== ENCOUNTER → 2024-12-02 10:06 | Outpatient (BNVA) | payer MEDICAID, SELFPAY | PROVIDERS: PCP Internal Medicine | DX: M67.441 Ganglion, right hand (principal); K58.1 Irritable bowel syndrome with constipation; K21.9 Gastro-esophageal reflux disease without esophagitis; Z87.891 Personal history of nicotine dependence | CPT/HCPCS: 99212 ==

== ENCOUNTER 2024-12-07 15:22 | Emergency (ER) | payer MEDICAID, SELFPAY ==
--- NOTE | ~2024-12-07 | CT_ITS ---
CLINICAL HISTORY: hematuria renal colic CT abdomen and pelvis without contrast Comparison: CT/SR - CT ABDOMEN PELVIS WO IV CON - 05/09/22 15:09 EST Findings: Small hiatal hernia. Cholelithiasis noted, without significant wall thickening or pericholecystic stranding. Bile ducts are unremarkable. No urolithiasis. No bowel obstruction, pneumoperitoneum, or pneumatosis. Normal appendix. Distended bladder. Trace free pelvic fluid. Multilevel Schmorl's nodes. IMPRESSION: No acute findings. Additional findings as described. This document has been electronically signed by: Avi Medina MD on 12/08/2024 02:03:09
[2024-12-07 15:42] VITALS: BP 127/62; PULSE 79; RESP 16; TEMP 37.2; O2SAT 98; BMI 29.6
--- NOTE | 2024-12-07 15:43 | ED.ABDPAIN ---
HPI - Abdominal Pain General Chief Complaint: Abdominal Pain Stated Complaint: Flank Pain/Nauseas/Vomiting Time Seen by Provider: 12/07/24 22:14 Source: patient Limitations: no limitations History of Present Illness ED Provider: Zehra Patel PA-C HPI narrative: 44 year old female with a history of IBS, constipation, dysfunctional uterine bleeding, uterine fibroids who presents emergency department for evaluation. Over the past 4 days she has been experiencing pain to the left upper quadrant of her abdomen that radiates/radiating down to back with associated nausea vomiting and diarrhea. Vomiting and diarrhea has subsided but the nausea persists and the pain is more severe. Denies recent travel, recent hospitalization, recent antibiotics, or sick contacts with similar symptoms. Denies dysuria, hematuria, history of kidney stones. No fevers. Related Data Home Medications ?Medication ?Instructions ?Recorded ?Confirmed azelastine 137 mcg (0.1 %) nasal 2 spray intranasal BID 04/07/24 10/15/24 spray hydroxyzine pamoate 25 mg capsule 25 mg PO Q8H PRN itch 04/07/24 10/15/24 magnesium oxide 400 mg (241.3 mg 400 mg PO DAILY 04/07/24 10/15/24 magnesium) tablet riboflavin (vitamin B2) 400 mg 400 mg PO DAILY 04/07/24 10/15/24 tablet triamcinolone acetonide 0.1 % 1 appl topical BID 04/07/24 10/15/24 topical cream cholecalciferol (vitamin D3) 50 25 mcg PO DAILY 07/28/24 10/15/24 mcg (2,000 unit) capsule albuterol sulfate 90 mcg/actuation 2 puff inhalation Q4H PRN 10/13/24 10/15/24 aerosol inhaler (Ventolin HFA) Shortness Of Breath Or Wheezing Previous Rx's ?Medication ?Instructions ?Recorded fluticasone propionate 50 1 spray intranasal DAILY #16 grams 02/12/21 mcg/actuation nasal spray,suspension (Flonase Allergy Relief) hydrocortisone 1 % topical cream 1 appl topical BID PRN rash #144 ea 02/12/21 packet methylcellulose (laxative) 500 mg 500 mg PO DAILY #90 tabs 11/22/21 tablet (Citrucel) docusate sodium 100 mg capsule 100 mg PO BEDTIME #90 caps 06/26/22 pantoprazole 20 mg tablet,delayed 20 mg PO QAM #90 tabs 04/07/24 release bisacodyl 5 mg tablet,delayed 10 mg (2 x 5 mg) PO BEDTIME #180 07/28/24 release (Dulcolax (bisacodyl)) tabs hydrocodone 5 mg-acetaminophen 325 1 tab PO Q6H PRN pain #5 tabs 11/19/24 mg tablet ketorolac 10 mg tablet 10 mg PO Q6H PRN pain #20 tabs 12/08/24 ondansetron HCl 4 mg tablet 4 mg PO Q8H PRN nausea and 12/08/24 vomiting #10 tabs sucralfate 100 mg/mL oral 10 ml PO QID PRN epigastric pain 12/08/24 suspension (Carafate) #400 mL Allergies Allergy/AdvReac Type Severity Reaction Status Date / Time No Known Allergies Allergy Verified 12/07/24 15:46 Review of Systems Review of Systems Yes all other systems are reviewed and are negative Constitutional: Denies fatigue and Denies fever(s) Cardiovascular: Denies chest pain and Denies dyspnea Respiratory: Denies cough and Denies dyspnea Gastrointestinal: Reports abdominal pain, Denies constipation, Reports diarrhea, Reports nausea and Reports vomiting Genitourinary: Denies hematuria and Denies dysuria Endocrine: Denies fatigue PMFSH Past Medical History Attestation statement: The following information was validated with the patient. Medical History Irritable bowel syndrome Chronic idiopathic constipation Gastroesophageal reflux disease COVID-19 Surgical History H/O: myomectomy (~12/2023) Hx of section Hx of tubal ligation Social History Social History Alcohol intake: former Patient Tobacco Use Status: Former Tobacco user Current occupational status: unemployed Current occupation: rt handed Physical Exam ED Vital Signs: Vital Signs - 24 hr 12/07/24 15:42 12/07/24 21:57 12/07/24 23:47 Temperature 98.9 F 99.1 F 98.9 F Pulse Rate 79 67 62 Respiratory Rate 16 13 11 L Blood Pressure 127/62 125/61 125/75 Pulse Oximetry 98 98 97 Oxygen Delivery Method Room Air Room Air Room Air 12/08/24 03:10 Temperature 98.4 F Pulse Rate 65 Respiratory Rate Blood Pressure 124/58 L Pulse Oximetry 99 Oxygen Delivery Method Room Air BMI result Body Mass Index 29.6 Const Other: Alert Orientation/consciousness: patient oriented x3 Resp Effort & Inspection: normal respiratory effort Cardio Other: Normal peripheral perfusion GI Other: Abdomen is soft, obese abdomen, generalized tenderness to palpation without focality, no objective guarding Back/Spine/Pelvis Other: Left CVA tenderness Skin Other: Warm dry no rash Neuro General: patient oriented x3, gait normal, no focal motor deficits and CN's II-XI intact bilaterally Psych Other: Cooperative Course Course Course Narrative: This is an RME performed by Ivis Melton CNP: Additional HPI, ROS, PE not included below will be deferred to primary provider. Patient is a 44 year old female who presents emergency department for evaluation. Over the past 4 days she has been experiencing pain to the left upper quadrant of her abdomen that radiates/radiating down to back with associated nausea vomiting and diarrhea. Vomiting and diarrhea has subsided but the nausea persists and the pain is more severe. denies symptoms Has taken OTC Tylenol without improvement. + left CVAT Plan: Serum labs, urinalysis, hCG, viral serologies Medical Decision Making Medical Decision Making MDM Narrative: 44 year old female with a history of IBS, constipation, dysfunctional uterine bleeding, uterine fibroids who presents emergency department for evaluation. Over the past 4 days she has been experiencing pain to the left upper quadrant of her abdomen that radiates/radiating down to back with associated nausea vomiting and diarrhea. Vomiting and diarrhea has subsided but the nausea persists and the pain is more severe. Denies recent travel, recent hospitalization, recent antibiotics, or sick contacts with similar symptoms. Denies dysuria, hematuria, history of kidney stones. No fevers. Problem: IBS, constipation History: Per patient I have considered the following differential diagnoses: Constipation, bowel obstruction, renal colic, pyelonephritis, , diverticulitis, traveler's diarrhea, C diff, pancreatitis , viral gastroenteritis Plan: Given left-sided symptoms I am considering diverticulitis with concurrent diarrhea, we will be obtaining a CT scan. To note she has no risk factors for traveler's diarrhea or C diff. Given left-sided symptoms also considering pancreatitis although there was no focal left upper quadrant pain. Also considering pyelonephritis versus renal colic given positive CVA tenderness on the left, although she has no related symptoms. We will obtain a urinalysis. In addition to her screening labs. Lastly, she denies constipation, she has no obstructive symptoms. This could be viral gastroenteritis, her abdominal exam is nonfocal. Although she has no sick contacts with same symptoms. I have independently reviewed the following tests: Labs: No leukocytosis left shift noted, not anemic, no electrolyte abnormality, passing blood in urine urine is not infected, not CT abdomen and pelvis:Findings: Small hiatal hernia. Cholelithiasis noted, without significant wall thickening or pericholecystic stranding. Bile ducts are unremarkable. No urolithiasis. No bowel obstruction, pneumoperitoneum, or pneumatosis. Normal appendix. Distended bladder. Trace free pelvic fluid. Multilevel Schmorl's nodes. IMPRESSION: No acute findings. Additional findings as described. Lab Data 12/07/24 16:09 12/07/24 16:09 Labs: Lab Results 12/07/24 Range/Units 16:09 WBC 10.4 (4.8-10.8) X10*3/uL RBC 4.88 (4.20-5.50) X10*6/uL Hgb 13.3 (12.0-16.0) g/dl Hct 39.2 (37.0-47.0) % MCV 80.3 (80.0-98.0) fL MCH 27.3 (27.0-33.0) pg MCHC 33.9 (31.0-35.0) g/dl RDW 13.1 (11.0-16.0) % Plt Count 298 (160-400) X10*3/uL MPV 10.4 (9.4-12.3) fL Immature Gran % (Auto) 0.3 (0.0-0.4) % Neut % (Auto) 74.3 H (45-73) % Lymph % (Auto) 18.9 L (20-40) % [place] % (Auto) 4.7 (2-11) % Eos % (Auto) 1.1 (0-4) % Baso % (Auto) 0.7 (0-2) % Lymph # (Auto) 2.0 (1.2-4.9) X10*3/uL [place] # (Auto) 0.5 (0.1-1.2) X10*3/uL Eos # (Auto) 0.1 (0.0-0.4) X10*3/uL Baso # (Auto) 0.1 (0.0-0.2) X10*3/uL Abs Immat Gran (auto) 0.03 (0.00-0.03) X10*3/uL Absolute Neuts (auto) 7.7 (2.0-8.3) x10*3/uL Absolute Nucleated RBC 0.000 (0.0-0.012) X10*3/uL Nucleated RBC % (auto) 0.0 (0.0-0.2) /100WBC Sodium 140 (135-145) mmol/L Potassium 3.6 (3.3-5.1) mmol/L Chloride 109 H (96-108) mmol/L Carbon Dioxide 22 (22-29) mmol/L Anion Gap 13 (12-20) BUN 12 (9-16) mg/dL Creatinine 0.85 (0.5-1.4) mg/dL Estim Creat Clear Calc 82.4 Estimated GFR > 60 Random Glucose 97 (60-115) mg/dL Calcium 9.1 (8.4-10.2) mg/dL Magnesium 2.0 (1.6-2.6) mg/dL Total Bilirubin 0.4 (0.0-1.0) mg/dL AST 20 (5-31) U/L ALT 17 (0-31) U/L Alkaline Phosphatase 55 (39-117) U/L Total Protein 7.6 (6.5-8.0) g/dL Albumin 4.9 (3.5-5.0) g/dL Lipase 30 (8-78) U/L Urine Color Yellow Urine Appearance Clear Urine pH 5.5 (5.0-9.0) Ur Specific [place] 1.020 (1.005-1.025) Urine Protein 30 (1+) H (Neg-Trace) mg/dL Urine Glucose (UA) Negative (Negative) mg/dL Urine Ketones Trace (Negative) mg/dL Urine Blood Large (3+) H (Negative) Urine Nitrite Negative (Negative) Ur Leukocyte Esterase Negative (Negative) Urine RBC 11-20 H (0-2) /HPF Urine WBC 0-5 (0-5) /HPF Ur Squamous Epith Cells 3-5 (0-2) /HPF Urine Bacteria None Seen (None Seen) Hyaline Casts 0-2 (0-2) /LPF Urine Test NEGATIVE (NEGATIVE) Influenza Type A (PCR) NEGATIVE (Negative) Influenza Type B (PCR) NEGATIVE (Negative) RSV RNA Qual (PCR) NEGATIVE (Negative) SARS-CoV-2 RNA (RT-PCR) NEGATIVE (Negative) Medications Administered Discontinued Medications Generic Name Dose Route Start Last Admin Trade Name Freq PRN Reason Stop Dose Admin Al Hydroxide/Mg Hydroxide 30 ml 12/07/24 23:02 12/07/24 23:15 Magnesium Hydrox/Alum Hydrox 30 Ml Oral.Susp PO 12/07/24 23:03 30 ml ONCE ONE Administration Ketorolac Tromethamine 15 mg 12/07/24 23:02 12/07/24 23:10 Ketorolac Tromethamine 15 Mg/Ml Vial IVPUSH 12/07/24 23:03 15 mg ONCE ONE Administration Lidocaine HCl 15 ml 12/07/24 23:02 12/07/24 23:15 Lidocaine Hcl Viscous 2 % 15 Ml Solution MUCOUS MEM 12/07/24 23:03 15 ml ONCE ONE Administration Ondansetron HCl 4 mg 12/07/24 23:02 12/07/24 23:11 Ondansetron Hcl 4 Mg/2 Ml Vial IVPUSH 12/07/24 23:03 4 mg ONCE ONE Administration Discharge Plan Discharge Clinical Impression: Viral gastroenteritis, Hematuria Patient Disposition: Home, Self-Care Additional Instructions: You are still found to have blood in your urine, without evidence of a urinary tract infection. The remainder of your screening labs were normal. The CT scan of your abdomen is normal as well. In regard to your nausea vomiting diarrhea, this is likely viral gastroenteritis. See home care instructions. Use the ketorolac as needed for discomfort. Take it with food. Uses Zofran as needed for nausea. Use the Carafate as needed for upper abdominal discomfort. In regard to the ongoing blood in your urine, I am providing you with a contact for Urology, call tomorrow to make an appointment. Prescriptions: New ketorolac 10 mg tablet 10 mg PO Q6H PRN (Reason: pain) Qty: 20 0RF Rx Instructions: maximum total duration of 5 days from all oral, intranasal, or parenteral formulations. Patient received an IV dose of Toradol here in the emergency room ondansetron HCl 4 mg tablet 4 mg PO Q8H PRN (Reason: nausea and vomiting) Qty: 10 0RF sucralfate [Carafate] 100 mg/mL suspension 10 ml PO QID PRN (Reason: epigastric pain) Qty: 400 0RF Rx Instructions: swish in mouth and swallow; use after food/drink No Action fluticasone propionate [Flonase Allergy Relief] 50 mcg/actuation spray,suspension 1 spray intranasal DAILY Qty: 16 0RF Rx Instructions: administer into each nostril hydrocortisone 1 % cream in packet 1 appl topical BID PRN (Reason: rash) Qty: 144 0RF hydrocodone-acetaminophen 5-325 mg tablet 1 tab PO Q6H PRN (Reason: pain) Qty: 5 0RF Rx Instructions: Partial Fill upon patient request. docusate sodium 100 mg capsule 100 mg PO BEDTIME Qty: 90 3RF Citrucel 500 mg tablet 500 mg PO DAILY Qty: 90 2RF Rx Instructions: take it with full glass of water cholecalciferol (vitamin D3) 50 mcg (2,000 unit) capsule 25 mcg PO DAILY bisacodyl [Dulcolax (bisacodyl)] 5 mg tablet,delayed release (DR/EC) 10 mg PO BEDTIME Qty: 180 4RF triamcinolone acetonide 0.1 % cream 1 appl topical BID riboflavin (vitamin B2) 400 mg tablet 400 mg PO DAILY hydroxyzine pamoate 25 mg capsule 25 mg PO Q8H PRN (Reason: itch) azelastine 137 mcg (0.1 %) spray,non-aerosol 2 spray intranasal BID magnesium oxide 400 mg (241.3 mg magnesium) tablet 400 mg PO DAILY pantoprazole 20 mg tablet,delayed release (DR/EC) 20 mg PO QAM Qty: 90 2RF albuterol sulfate [Ventolin HFA] 90 mcg/actuation HFA aerosol inhaler 2 puff inhalation Q4H PRN (Reason: Shortness Of Breath Or Wheezing) Referrals: Jame Cruz MD [Physician, Urology] Referral Note: ongoing hematuria, has had normal renal ultrasound, CT abd/pelvis without abnormality Interventions: ED Discharge Assessment Last Done: 12/08/24 03:47 Discharge Date/Time: 12/08/24 03:48 Print Language: Tajik
[2024-12-07 16:29] LABS: MANUAL DIFF FLAG NO
[2024-12-07 16:31] LABS: Hematocrit 39.2 % (37.0-47.0); Hemoglobin 13.3 g/dl (12.0-16.0); Imm Gran Abs Auto 0.03 X10*3/uL (0.00-0.03); Imm Gran Pct Auto 0.3 % (0.0-0.4); Lymphocytes Absolute Auto 2.0 X10*3/uL (1.2-4.9); Mean Corpuscular HGB Conc 33.9 g/dl (31.0-35.0); Mean Corpuscular Hemoglobin 27.3 pg (27.0-33.0); Mean Corpuscular Volume 80.3 fL (80.0-98.0); NRBC Abs Auto 0.000 X10*3/uL (0.0-0.012); NRBC Pct Auto 0.0 /100WBC (0.0-0.2); Platelet Count 298 X10*3/uL (160-400); Red Blood Count 4.88 X10*6/uL (4.20-5.50); White Blood Count 10.4 X10*3/uL (4.8-10.8)
[2024-12-07 16:32] LABS: Appearance Urine Clear; Glucose Urine UA Negative (Negative); PH 5.5 (5.0-9.0); Specific Gravity - Urine 1.020 (1.005-1.025); UMIC TRIGGER UACC YES
[2024-12-07 16:44] LABS: Alanine Aminotransferase 17 U/L (0-31); Albumin Level 4.9 g/dL (3.5-5.0); Alkaline Phosphatase 55 U/L (39-117); Anion Gap 13 (12-20); Aspartate Amino Transferase 20 U/L (5-31); Blood Urea Nitrogen 12 mg/dL (9-16); Calcium 9.1 mg/dL (8.4-10.2); Carbon Dioxide 22 mmol/L (22-29); Chloride 109 mmol/L (96-108); Creatinine Clr Calc Pharmacy 82.4; Estimated Glomerular Filt Rate > 60; Lipase 30 U/L (8-78); Magnesium 2.0 mg/dL (1.6-2.6); Potassium 3.6 mmol/L (3.3-5.1); Sodium 140 mmol/L (135-145); Total Protein 7.6 g/dL (6.5-8.0)
[2024-12-07 16:48] LABS: UPreg QC Valid YES
[2024-12-07 17:06] LABS: Resp Syncy Virus RNA Qual PCR NEGATIVE (Negative); SARS COV2 PCR INHOUSE NEGATIVE (Negative)
[2024-12-07 21:57] VITALS: BP 125/61; PULSE 67; RESP 13; TEMP 37.3; O2SAT 98
[2024-12-07] MEDS: Lidocaine HCl Viscous 2 % 15 ML SOLUTION MUCOUS MEM (23:15)
[2024-12-07] MEDS: Magnesium Hydrox/Alum Hydrox 30 ML ORAL.SUSP PO (23:15)
[2024-12-07 23:47] VITALS: BP 125/75; PULSE 62; RESP 11; TEMP 37.2; O2SAT 97
[2024-12-08 03:10] VITALS: BP 124/58; PULSE 65; TEMP 36.9; O2SAT 99
--- NOTE | 2024-12-08 03:46 | PC.NURSE ---
Reviewed discharge instructions with pt. pt verbalized understanding, no sign of distress upon discharge.
[2024-12-08 03:47] VITALS: BP 124/58; PULSE 65; RESP 20; TEMP 36.9; O2SAT 99
== END 2024-12-08 03:48 | disposition home or self-care (01) ==
PROVIDERS: Nurse Practitioner Family; Emergency Provider Emergency Medicine; PCP Internal Medicine
DX: A08.4 Viral intestinal infection, unspecified (principal); R31.9 Hematuria, unspecified; R10.2 Pelvic and perineal pain; R11.2 Nausea with vomiting, unspecified; R10.12 Left upper quadrant pain; M54.50 Low back pain, unspecified; Z79.899 Other long term (current) drug therapy; Z03.818 Encounter for observation for suspected exposure to other biological agents ruled out
CPT/HCPCS: 36415; 74176; 80053; 81001; 81025; 83690; 83735; 85025; 87637; 96374; 96375; 99284; J1885; J2405

== ENCOUNTER → 2024-12-07 23:02 | Outpatient (BNV) | payer MEDICAID, SELFPAY | PROVIDERS: Emergency Provider Emergency Medicine; PCP Internal Medicine; Visit Provider Radiology Diagnostic Radiology | DX: K80.20 Calculus of gallbladder without cholecystitis without obstruction (principal) | CPT/HCPCS: 74176 ==

== ENCOUNTER 2024-12-15 10:51 | Outpatient (REF) | payer MEDICAID, SELFPAY | END 2024-12-15 10:52 | disposition home or self-care (01) | LOC: HO.LNP 10:51 | PROVIDERS: PCP Internal Medicine; Visit Provider Nurse Practitioner Family | DX: R31.29 Other microscopic hematuria (principal); F12.90 Cannabis use, unspecified, uncomplicated | CPT/HCPCS: 81003; 88112; 99212 ==

== ENCOUNTER 2024-12-15 10:51 | Outpatient (AMB) | payer MEDICAID, SELFPAY ==
--- NOTE | 2024-12-15 11:09 | A.OFFVIS_ITS ---
Intake Visit Reasons: Hematuria Intake Note: New Patient presents for initial visit for Hematuria Urology Medications: None Blood Thinner: None Smoker: Former Smoker; socialy, ?marijuana Bookkeeper Required: No Accompanied by: Self / Same As Patient Allergies No Known Allergies Allergy (Verified 12/15/24 11:51) Medication List - Last Reconciled 12/15/24 by BRITTANI Baron albuterol sulfate 90 mcg/actuation (Ventolin HFA) 2 puffs inhalation Q4H PRN azelastine 2 sprays intranasal BID bisacodyl (Dulcolax (bisacodyl)) 10 mg (2 x 5 mg) PO BEDTIME cholecalciferol (vitamin D3) 25 mcg PO DAILY docusate sodium 100 mg PO BEDTIME fluticasone propionate 50 mcg/actuation (Flonase Allergy Relief) 1 spray intranasal DAILY hydrocodone-acetaminophen 5-325 mg 1 tab PO Q6H PRN hydrocortisone 1% 1 appl topical BID PRN hydroxyzine pamoate 25 mg PO Q8H PRN ketorolac 10 mg PO Q6H PRN magnesium oxide 400 mg PO DAILY methylcellulose (laxative) (Citrucel) 500 mg PO DAILY ondansetron HCl 4 mg PO Q8H PRN pantoprazole 20 mg PO QAM riboflavin (vitamin B2) 400 mg PO DAILY sucralfate (Carafate) 10 mL PO QID PRN triamcinolone acetonide 0.1% 1 appl topical BID HPI Comments Details: Jessa is a very pleasant 44-year-old female patient of Dr.?Betancourt Porter. She has a past medical history of irritable bowel syndrome, chronic idiopathic constipation, and GERD. She presents to the office today as a new patient for microscopic hematuria. In discussion with the patient today she reports a longstanding history of microscopic hematuria however has never undergone further workup. She does report socially smoking recreational marijuana however this is mostly infrequent. She reports over the last 2-3 months she has been having this ongoing epigastric discomfort that radiates to her back as well as mood swings. In office urinalysis results reviewed with the patient today 3+ microscopic hematuria otherwise within normal limits. It does appear patient has had a CT however without contrast 12/25 that noted small hiatal hernia, no urolithiasis. No acute findings. We did discussed potential causes of microscopic hematuria as well as further workup in risks and benefits of these interventions. We also discussed surveillance monitoring. I discussed reasons for blood in the urine may include but are not limited to kidney stones, cancer in the urinary tract, kidney stone disease or inflammatory conditions of the urinary tract. I have discussed workup to include cystoscopy evaluation. She denies urinary urgency, urinary frequency, incontinence, nocturia, hematuria, dysuria, foul smelling urine, changes to urinary stream, flank pain, fever, and or chills. She is happy with her current voiding parameters. All questions were answered. She otherwise offers no other issues or concerns at this time. [facility] Medical History Irritable bowel syndrome Chronic idiopathic constipation Gastroesophageal reflux disease COVID-19 Surgical History H/O: myomectomy (~12/2023) Hx of section Hx of tubal ligation Social History Alcohol intake: former Patient Tobacco Use Status: Former Tobacco user Current occupational status: unemployed Current occupation: rt handed Review of Systems Const All systems reviewed & are unremarkable except as noted in HPI and below Physical Exam Const General: cooperative, healthy appearing, comfortable, no acute distress, well developed, alert and awake Orientation/consciousness: patient oriented x3 Limitations: no limitations HEENT Head: Yes normal to inspection, Yes normocephalic and Yes atraumatic Ears: hearing grossly normal bilaterally Eyes General: appearance normal, both eyes and all related structures Neck Neck: Yes normal visual inspection and Yes trachea midline Chest Chest palpation & inspection: normal inspection of the chest Resp Effort & Inspection: normal respiratory effort and able to speak in complete sentences Cardio Rate: regular rate GI Inspection: Yes normal to inspection General: Yes no CVA tenderness Back/Spine/Pelvis Back: no CVA tenderness Skin General skin exam: no rashes or lesions noted Neuro General: patient oriented x3 Extrem General: Yes normal to inspection Psych Appearance: grossly normal and well kempt Mental Status: mental status grossly normal Speech and movement: Normal speech and movement present and Clear speech present Affect: normal affect Attitude: cooperative Thought process: Normal thought process present Thought content: Normal thought content present Insight: Fair insight present (Psych) Judgement: Fair judgement present (Psych) Results AMB Urinalysis, Automated UA Leukoctes 0 Elvia/uL Last Edit by Corbin Pedro [facility] on 12/15/24 11:26 UA Nitrite Last Edit by Corbin Pedro [facility] on 12/15/24 11:26 UA Urobilinogen 0.2 mg/dL Last Edit by Corbin Pedro [facility] on 12/15/24 11:2 6 UA Protein 0 mg/dL Last Edit by Corbin Pedro [facility] on 12/15/24 11:26 UA pH 6.5 Last Edit by Corbin Pedro [facility] on 12/15/24 11:26 UA Blood 200 Meir/uL Last Edit by Corbin Pedro [facility] on 12/15/24 11:26 UA Specific Gerald 1.010 Last Edit by Corbin Pedro [facility] on 12/15/24 11: 26 UA Ketone Last Edit by Corbin Pedro [facility] on 12/15/24 11:26 UA Bilirubin 0 mg/dL Last Edit by Corbin Pedro [facility] on 12/15/24 11:26 UA Glucose 0 mg/dL Last Edit by Corbin Pedro [facility] on 12/15/24 11:26 Results Reviewed Results Reviewed: Laboratory Last Values Urine pH (Auto) 6.5 12/15/24 11:24 Specific Gerald (Auto) 1.010 12/15/24 11:24 Urine Protein (Auto) 0 mg/dL 12/15/24 11:24 Glucose (UA)(Auto) 0 mg/dL 12/15/24 11:24 Urine Blood (Auto) 200 Meir/uL 12/15/24 11:24 Urine Bilirubin (Auto) 0 mg/dL 12/15/24 11:24 Urine Urobilinogen (Auto) 0.2 mg/dL 12/15/24 11:24 Leukocyte Esterase (Auto) 0 Elvia/uL 12/15/24 11:24 Assessment & Plan Assessment & Plan (1) Microscopic hematuria: Code(s): R31.29 - Other microscopic hematuria Category: Medical (2) Marijuana smoker, episodic: Code(s): F12.90 - Cannabis use, unspecified, uncomplicated Category: Medical Plan In office urinalysis results with the patient today; as noted above; will send for urine cytology. She currently denies any bothersome urinary issues. She reports be happy with current voiding parameters. We did discuss potential causes of microscopic hematuria as well as further workup to include cystoscopy versus surveillance monitoring; risks and benefits were discussed she wishes to proceed with cystoscopy for further assessment evaluation. Recent CT results were reviewed with the patient today; as noted above. All questions were answered. Follow-up next available in office cystoscopy; or sooner with any issues, concer ns, and or questions. Orders: Orders AMB Urinalysis Automated Today Z13.9 - Encounter for screening, unspecified Urine Cytology Today R31.9 - Hematuria, unspecified Patient Instructions: The patient had an opportunity to ask questions regarding the treatment plan. All questions were answered. Physical exam, labs, and imaging were discussed and reviewed in detail. As well as risks, benefits, and discussion of treatment choices. No major barriers to understanding were identified. The patient expressed understanding and agreement with the above treatment plan. The patient was made aware they should contact our office by phone for worsening of their current condition, the appearance of new symptoms, or with any questions or concerns. Compliance is encouraged with any medications and follow up testing that is ordered. It is a privilege to be allowed the opportunity to participate in? your urological care.? Again, if you have any questions or concerns If you have any questions or concerns please do not hesitate to contact me. The office is [phone]. This note is constructed using voice recognition software. While every effort has been made to ensure accuracy employment interviewer errors may have been included. Yours sincerely, BRITTANI Baron Coding Level of Care Code New Pt Level 3 (00636) Diagnoses Microscopic hematuria R31.29 Marijuana smoker, episodic F12.90
--- OUTSIDE RECORDS SUMMARY | 2024-12-15 12:12 | XMS_ITS | Encounter Summary ---
Author Organization [employer] Address [address] [place] [address] Care Team Providers Care Sole Filler Name Role Phone Victor Hugo Lopez MD Primary Care Prov ider Reason for Visit * Reason Onset Date Comments Nurse Triage 01/03/2024 Encounter Details Date Type Department Care Team ([facility] st Contact Info) Description 01/03/2024 Telephone [facility] [address] [place] [address] Victor Hugo Lopez MD [address] [place] [id number] Nurse Triage Social History Tobacco Use Types [...] - Antibiotic Eye Drops per Protocol - [place] * Telephone Encounter - [facility] [...] Upcoming Encounters Date Type Department Care Team ([facility] st Contact Info) Description 01/12/2025 11:15 AM EDT Telemedicine [facility] [address] [place] [address] Victor Hugo Lopez MD [address] [place] [address] documented as of this encounter Visit Diagnoses Not on filedocumented in this encounter Additional Health Concerns Assessment Noted Time PHQ-9 Depression Total Score: 0 06/05/19 23 11:43 AM EST documented as of this encounter Care Teams Sole Filler Relationship Specialty Start Date End Date Victor Hugo Lopez MD [address] [place] [address] PCP - General Internal Medicine 09/25/19 documented as of this encounter
== END 2024-12-15 11:50 | disposition home or self-care (01) ==
LOC: HO.HUSH 10:52
PROVIDERS: PCP Internal Medicine; Visit Provider Nurse Practitioner Family
DX: R31.29 Other microscopic hematuria (principal); F12.90 Cannabis use, unspecified, uncomplicated; Z13.9 Encounter for screening, unspecified
CPT/HCPCS: 99203

== ENCOUNTER 2024-12-25 08:07 | Outpatient (REF) | payer MEDICAID, SELFPAY ==
--- NOTE | ~2024-12-25 | MM_ITS ---
EXAMINATION: MM SCREENING DIGITAL BREAST TOMOSYNTHESIS, BILATERAL CLINICAL INFORMATION: Screening. Asymptomatic. COMPARISON: Mammography: Comparison is made with available priors TECHNIQUE: Digital breast mammography with tomosynthesis is performed in both the craniocaudal and mediolateral oblique views along with computer-aided detection (CAD). FINDINGS: There are scattered areas of fibroglandular density (ACR BI-RADS breast composition Category b). Left: There are no significant masses, abnormal calcifications, or other abnormalities. Right: Asymmetry retroareolar region middle depth on MLO view. No suspicious calcifications or other abnormal findings. MM/MM tomosynthesis screening BI IMPRESSION: Additional imaging is recommended ASSESSMENT: BI-RADS BI-RADS 0 - Incomplete: Needs additional Imaging. RECOMMENDATION: 1. Additional views of the right breast. 2. Targeted ultrasound if warranted after review of the additional views. 3. Radiology department staff will contact the patient for additional imaging. Additional Imaging required This examination should not preclude the clinical evaluation of a suspicious palpable abnormality. This patient's information was entered into a reminder system with a target due date for their next mammogram. Electronically signed by: Elisha Johnson DO 01/04/2025 09:42 AM EDT
--- OUTSIDE RECORDS SUMMARY | 2024-12-25 08:11 | XMS_ITS | Encounter Summary ---
Author Organization [employer] Address [address] [facility] 7 [place] [address] Care Team Providers Care Arch Cushion Press Operator Name Role Phone Victor Hugo Lopez MD Primary Care Prov ider Reason for Visit * Reason Onset Date Comments Nurse Triage 01/03/2024 Encounter Details Date Type Department Care Team ([facility] st Contact Info) Description 01/03/2024 Telephone [facility] MED[facility]INE [address] [place] [address] Victor Hugo Lopez MD [address] [place] [address] Nurse Triage Social History Tobacco Use Types [...] - Antibiotic Eye Drops per Protocol - [facility] * Telephone Encounter - Hima Zavaleta - [...] Care Team (Late st Contact Info) Description 01/12/2025 11:15 AM EDT Telemedicine [facility] MED & PEDS [address] [place] [address] Victor Hugo Lopez MD [address] [place] [address] documented as of this encounter Visit Diagnoses Not on filedocumented in this encounter Additional Health Concerns Assessment Noted Time PHQ-9 Depression Total Score: 0 06/05/19 23 11:43 AM EST documented as of this encounter Care Teams Arch Cushion Press Operator Relationship Specialty Start Date End Date Victor Hugo Lopez MD [address] [place] [address] PCP - General Internal Medicine 09/25/19 documented as of this encounter
== END 2024-12-25 08:08 | disposition home or self-care (01) ==
LOC: HO.MAMMO 08:07
PROVIDERS: Visit Provider Internal Medicine
DX: Z12.31 Encounter for screening mammogram for malignant neoplasm of breast (principal)
CPT/HCPCS: 77063; 77067

== ENCOUNTER → 2024-12-25 08:45 | Outpatient (BNV) | payer MEDICAID, SELFPAY | PROVIDERS: Visit Provider Internal Medicine | DX: Z12.31 Encounter for screening mammogram for malignant neoplasm of breast (principal) | CPT/HCPCS: 77063; 77067 ==

== ENCOUNTER 2024-12-30 09:27 | Outpatient (REF) | payer MEDICAID, SELFPAY ==
--- OUTSIDE RECORDS SUMMARY | 2024-12-30 10:06 | XMS_ITS | Encounter Summary ---
Author Organization [employer] Address [address] [facility] 7 [place] [address] Care Team Providers Care Parachute Manufacturing Supervisor Name Role Phone Victor Hugo Lopez MD Primary Care Prov ider Reason for Visit * Reason Onset Date Comments Nurse Triage 01/03/2024 Encounter Details Date Type Department Care Team ([facility] st Contact Info) Description 01/03/2024 Telephone [facility] MEDICINE [address] [place] [address] Victor Hugo Lopez MD [address] [place] [address] Nurse Triage Social History Tobacco Use Types [...] - Antibiotic Eye Drops per Protocol - [facility] * Telephone Encounter - Hima Zavaleta - [...] Description 01/12/2025 11:15 AM EDT Telemedicine [facility] [address] [place] [address] Victor Hugo Lopez MD [address] [place] [address] documented as of this encounter Visit Diagnoses Not on filedocumented in this encounter Additional Health Concerns Assessment Noted Time PHQ-9 Depression Total Score: 0 06/05/19 23 11:43 AM EST documented as of this encounter Care Teams Parachute Manufacturing Supervisor Relationship Specialty Start Date End Date Victor Hugo Lopez MD [address] [place] [address] PCP - General Internal Medicine 09/25/19 documented as of this encounter
== END 2024-12-30 09:28 | disposition home or self-care (01) ==
LOC: HO.HHCL 09:27
PROVIDERS: PCP Internal Medicine; Visit Provider Internal Medicine
DX: R31.21 Asymptomatic microscopic hematuria (principal)
CPT/HCPCS: 88112

== ENCOUNTER 2025-01-06 09:16 | Outpatient (AMB) | payer MEDICAID, SELFPAY ==
--- NOTE | 2025-01-06 09:17 | MHC.OFFVIS ---
Vital Signs 01/06/25 09:27 Height 5 ft 3 in Weight 170 lb BMI 30.1 BP 124/72 Blood Pressure Location Rt brachial Position Sitting Pulse 80 Pulse Source Pulse Oximeter Pulse Oximetry (%) 99 Oxygen Delivery Method Room Air Intake Visit Reasons: Discuss [place] r/s 10/20/24 Intake Note: ESTABLISHED PATIENT for GERD, CIC mgmt. Discuss colo. Chief Complaint; C.O. LUQ pain which radiates into the L Flank / Back. No additional sx or concerns at this time. Biomedical Instrument Technician Required: No Accompanied by: Self / Same As Patient Allergies No Known Allergies Allergy (Verified 12/15/24 11:51) HPI HPI Discuss [place]cott r/s 10/20/24: Details: LAST VISIT: Gastroesophageal reflux disease Irritable bowel syndrome Chronic idiopathic constipation Postprandial abdominal bloating Postprandial epigastric pain Plan Continue pantoprazole daily. Avoid dietary triggers and late night snacking. Staying for minimum 3 hours after meals discussed with patient. Continue drinking water, increase activity to promote better bowel motility. Patient will try to switch to Dulcolax 2 tablets every evening instead of senna. She will call our office if this will not be effective. We might have to switch patient to Linzess if both are not effective. Patient will return in 3 months. We will discuss going for colonoscopy. Patient is due to go in March. Patient will also be sent for upper endoscopy. Information sheets on what to expect before and during the procedure given to patient. She is agreeable to current plan of care and verbalizes understanding of instructions. She was given the opportunity to ask questions and all questions answered. ? Thank you for allowing me to participate in her care. New bisacodyl (Dulcolax (bisacodyl)) 10 mg (2 x 5 mg) PO BEDTIME 180 tabs 4RF TODAY'S VISIT: Patient is here today for follow-up and to discuss going for upper endoscopy and colonoscopy. Patient reports acid reflux is suppressed for the most part with pantoprazole. Patient is trying to avoid dietary triggers. Patient is not eating late at night. She is taking the sucralfate at bedtime and states that is also helping. Patient is taking it as needed. Patient denies melena, hematochezia, unintentional weight loss or ribbon like stools. Patient is due to go for colonoscopy in couple months. Never had colonoscopy before. Denies any family history of colorectal cancer. Denies any history of sleep apnea. Not on any anticoagulation medication. Denies any cardiac or respiratory symptoms. [facility] Medical History Irritable bowel syndrome Chronic idiopathic constipation Gastroesophageal reflux disease COVID-19 Surgical History H/O: myomectomy (~12/2023) Hx of section Hx of tubal ligation Social History Alcohol intake: former Patient Tobacco Use Status: Former Tobacco user Current occupational status: unemployed Current occupation: rt handed Review of Systems Const Denies weight gain and Denies weight loss ENT Reports no additional complaints, Denies dysphagia and Denies odynophagia Card Reports no additional complaints Resp Reports no additional complaints GI Denies abdominal pain, Denies belching, Denies melena, Reports bloating (Occasional), Denies change in bowel habits, Reports constipation, Denies dysphagia, Denies excessive flatus, Denies dyspepsia, Reports heartburn (Occasional, improved on pantoprazole), Denies diarrhea, Denies loose stools, Denies nausea, Denies odynophagia and Denies vomiting Reports no additional complaints Musc Reports no additional complaints Neuro Reports no additional complaints Psych Reports no additional complaints Endo Reports no additional complaints Physical Exam Vital Signs: Last Vital Signs Pulse 80 01/06/25 09:27 BP 124/72 01/06/25 09:27 Pulse Ox 99 01/06/25 09:27 Oxygen Delivery Method Room Air 01/06/25 09:27 BMI result Body Mass Index 30.1 Const General: healthy appearing and no acute distress Nutritional Appearance: obese Orientation/consciousness: patient oriented x3 Resp Effort & Inspection: normal respiratory effort, able to speak in complete sentences, no tracheal deviation and symmetric chest movement Auscultation: clear to auscultation bilaterally Cardio Rate: regular rate Heart sounds: S1 normal heart sound present and S2 normal heart sound present GI Inspection: Yes normal to inspection, No distended and Yes obesity Palpation (GI): Soft to palpation, not firm, nontender and No hepatosplenomegaly present Auscultation: normal bowel sounds General: Yes no CVA tenderness Back/Spine/Pelvis Back: no CVA tenderness Skin General skin exam: elasticity normal, turgor normal and dry skin Neuro General: patient oriented x3 Psych Appearance: grossly normal Mental Status: mental status grossly normal Assessment & Plan Assessment & Plan (1) Gastroesophageal reflux disease: Code(s): K21.9 - Gastro-esophageal reflux disease without esophagitis Category: Medical Qualifiers: Esophagitis presence: esophagitis presence not specified Qualified Code(s): K21.9 - Gastro-esophageal reflux disease without esophagitis (2) Irritable bowel syndrome: Code(s): K58.9 - Irritable bowel syndrome, unspecified Category: Medical Qualifiers: Irritable bowel syndrome type: with constipation Qualified Code(s): K58.1 - Irritable bowel syndrome with constipation (3) Chronic idiopathic constipation: Code(s): K59.04 - Chronic idiopathic constipation Category: Medical (4) Postprandial abdominal bloating: Code(s): R14.0 - Abdominal distension (gaseous) (5) Postprandial epigastric pain: Code(s): R10.13 - Epigastric pain (6) Screen for colon cancer: Code(s): Z12.11 - Encounter for screening for malignant neoplasm of colon Plan Patient will continue taking pantoprazole daily. Avoid dietary triggers and late night snacking. Staying upright for minimum 3 hours after meals discussed with patient. Patient will be sent for upper endoscopy to rule out gastritis, esophagitis, duodenitis, H pylori, Watts's. Patient never had colonoscopy in the past. She will be due to have a colonoscopy in March. What to expect before during and after the procedure discussed with patient. Stressed importance of good bowel prep and clear liquid diet day before procedure. She will follow-up with us after the procedure. Patient denies any history of sleep apnea. Not on any anticoagulation medication. No trouble with anesthesia in the past. Denies any family history of CRC. Denies any cardiac or respiratory symptoms Medications: New polyethylene glycol 3350 (Miralax) As directed by gastroenterology department at [facility] 238 grams PO ONCE 238 grams 0RF Z12.11 - Encounter for screening for malignant neoplasm of colon Refilled pantoprazole 20 mg PO QAM 90 tabs 2RF bisacodyl (Dulcolax (bisacodyl)) 10 mg (2 x 5 mg) PO BEDTIME 180 tabs 4RF Coding Level of Care Code Est Pt Level 3 (13329) Diagnoses Gastroesophageal reflux disease, unspecified whether esophagitis present K21.9 Esophagitis presence: esophagitis presence not specified Irritable bowel syndrome with constipation K58.1 Irritable bowel syndrome type: with constipation Chronic idiopathic constipation K59.04 Postprandial abdominal bloating R14.0 Postprandial epigastric pain R10.13 Screen for colon cancer Z12.11 Time Spent (min) 30 Comment 20 minutes spent with patient and additional 10 minutes spent reviewing her records
[2025-01-06 09:27] VITALS: BP 124/72; PULSE 80; O2SAT 99; BMI 30.1
--- OUTSIDE RECORDS SUMMARY | 2025-01-06 09:36 | XMS_ITS | Encounter Summary ---
Author Organization [employer] Address [address] [facility] 7 [place] [address] Care Team Providers Care Parking Control Officer Name Role Phone Victor Hugo Lopez MD Primary Care Prov ider Reason for Visit * Reason Onset Date Comments Nurse Triage 01/03/2024 Encounter Details Date Type Department Care Team ([facility] st Contact Info) Description 01/03/2024 Telephone [facility] MEDICINE [address] [place] [address] Victor Hugo Lopez MD [address] [place] [address] Nurse Triage Social History Tobacco Use Types [...] - Antibiotic Eye Drops per Protocol - [facility] * Telephone Encounter - Hima Zavaleta - [...] Info) Description 01/12/2025 11:15 AM EDT Telemedicine [facility] MED & PEDS [address] [place] [address] Victor Hugo Lopez MD [address] [place] [address] documented as of this encounter Visit Diagnoses Not on filedocumented in this encounter Additional Health Concerns Assessment Noted Time PHQ-9 Depression Total Score: 0 06/05/19 23 11:43 AM EST documented as of this encounter Care Teams Parking Control Officer Relationship Specialty Start Date End Date Victor Hugo Lopez MD [address] [place] [address] PCP - General Internal Medicine 09/25/19 documented as of this encounter
== END 2025-01-06 09:59 | disposition home or self-care (01) ==
LOC: HO.HGI 09:17
PROVIDERS: PCP Internal Medicine; Visit Provider Nurse Practitioner Family
DX: K21.9 Gastro-esophageal reflux disease without esophagitis (principal); K58.1 Irritable bowel syndrome with constipation; R14.0 Abdominal distension (gaseous); R10.13 Epigastric pain
CPT/HCPCS: 99213

== ENCOUNTER → 2025-01-06 09:16 | Outpatient (BNVA) | payer MEDICAID, SELFPAY | PROVIDERS: PCP Internal Medicine; Visit Provider Nurse Practitioner Family | DX: K21.9 Gastro-esophageal reflux disease without esophagitis (principal); K58.1 Irritable bowel syndrome with constipation; K59.04 Chronic idiopathic constipation; R14.0 Abdominal distension (gaseous); R10.13 Epigastric pain; Z12.11 Encounter for screening for malignant neoplasm of colon | CPT/HCPCS: 99212 ==

== ENCOUNTER → 2025-02-02 13:00 | Outpatient (BNV) | payer MEDICAID, SELFPAY | PROVIDERS: PCP Internal Medicine; Visit Provider Radiology Body Imaging | DX: R92.8 Other abnormal and inconclusive findings on diagnostic imaging of breast (principal); R92.331 Mammographic heterogeneous density, right breast | CPT/HCPCS: 76642; 77061; 77065 ==

== ENCOUNTER 2025-02-02 13:04 | Outpatient (REF) | payer MEDICAID, SELFPAY ==
--- NOTE | ~2025-02-02 | MM_ITS ---
EXAMINATION (S): 1. MM DIAGNOSTIC DIGITAL BREAST TOMOSYNTHESIS, RIGHT 2. Targeted ultrasound of the right breast CLINICAL INFORMATION: Callback from screening for right breast asymmetry in the retroareolar region middle depth on the MLO view. COMPARISON: December 25, 2024 and February 08, 2023 TECHNIQUE: Digital breast tomosynthesis is performed in full-field MLO along with computer-aided detection (CAD). Synthesized 2D images are generated from the tomosynthesis. Spot compression tomosynthesis images were also obtained. FINDINGS: BREAST COMPOSITION: The breasts are heterogeneously dense, which may obscure small masses (ACR BI-RADS breast composition Category c). RIGHT BREAST: Previously suggested asymmetry in the retroareolar region middle depth partially effaces on today's images. Local parenchyma is similar to prior study in 2022. Findings most likely represented overlapping fibroglandular breast tissue. Targeted ultrasound of the right breast was performed at the location of the mammographic finding. The survey was performed at in the subareolar region including the central breast, covering from the nipple out to 5 cm radius. MM/MM tomosynthesis added views R IMPRESSION: RIGHT BREAST: Negative, no mammographic evidence of malignancy. Normal interval follow-up is recommended in 12 months. ASSESSMENT: BI-RADS 1 - Negative RECOMMENDATION: 1 year F/U Results were provided to the patient at time of visit by the technologist. This patient's information was entered into a reminder system with a target due date for their next mammogram. Electronically signed by: Nehal Abraham MD 02/02/2025 06:17 PM EDT
--- OUTSIDE RECORDS SUMMARY | 2025-02-02 14:24 | XMS_ITS | Encounter Summary ---
Author Organization [employer] Address [address] [facility] 7 [place] [address] Care Team Providers Care Field Technical Support Consultant Name Role Phone Victor Hugo Lopez MD Primary Care Prov ider Reason for Visit * Reason Onset Date Comments pt1 12/09/2024 Encounter Details Date Type Department Care Team ([facility] st Contact Info) Description 12/09/2024 Telephone [facility] PEDS [address] [place], [place] [phone] Victor Hugo Lopez MD [address] [place], [place] [phone] pt1 Social History Tobacco Use Types Packs/Day Years Used Date Smoking Tobacco: Never Passive Smoke Exposure: Never Smokeless Tobacco: Never Alcohol Use Standard Drinks/Week Comments Not Asked 0 (1 standard drink = 0.6 oz pur e alcohol) Depression Answer Date Recorded Patient Health Questionnaire-9 Score 0 11/11/2024 Patient Health Questionnaire-9 Score 0 11/11/2024 Last PHQ-9: Questionnaire Data Not on file 0 11/11/2024 Housing Stability Answer Date Recorded What is your housing situation today? I have michelle tran 11/11/[address] you li ve. Do you have problems with any of the following? None of the above 11/11/2024 Food Insecurity Answer Date Recorded Within the past 12 months, y ou worried that your food would run out before you got money to buy more: Never True 11/11/2024 Within the past 12 months,th e food you bought just didn't last and you didn't have enough money to get more: Never True 04/2025 Transportation Answer Date Recorded In the past 12 months, has l ack of transportation kept you from medical appts, meetings, work or from getting things needed for daily living? No 11/11/2024 Utilities Answer Date Recorded In the past 12 months, has t he electric, gas, oil or water company threatened to shut off services in your home? No 11/11/2024 Depression Answer Date Recorded Patient Health Questionnaire-2 Score 0 11/11/2024 Internet Access Answer Date Recorded Internet Access Q1 Yes 11/11/2024 Internet Access Q2 Not on file 11/11/2024 Comments No Sex and Gender Information Value Date Recorded Sex Assigned at Female 04/02/2022 10:18 AM EDT Legal Sex Female 10:18 AM EDT Gender Identity Female 04/02/2022 10:18 AM EDT Sexual Orientation Bisexual 04/02/2022 10 :18 AM EDT documented as of this encounter Miscellaneous Notes * Telephone Encounter - Deirdre Agrawal - 12/09/2024 1:51 PM EDT Patient calling requesting PT1 Home Address verified: Y/N: Yes Provider name or facility name: [address] [place] [address] Dr Robert SALCEDO [id number] Escort needed: Y/N: No Do you have a wheelchair: Y/N: No If yes- Manual or electric: Visits: 2x documented in this encounter Plan of Treatment Not on file documented as of this encounter Visit Diagnoses Not on filedocumented in this encounter Additional Health Concerns Assessment Noted Time PHQ-9 Depression Total Score: 0 11/12/19 25 10:29 AM EDT documented as of this encounter Care Teams Field Technical Support Consultant Relationship Specialty Start Date End Date Victor Hugo Lopez MD [address] [place] [address] PCP - General Internal Medicine 09/25/19 documented as of this encounter
--- OUTSIDE RECORDS SUMMARY | 2025-02-02 14:24 | XMS_ITS | Encounter Summary ---
Author Organization [employer] Address [address] [facility] [address] 7t [place] [address] Care Team Providers Care Associate Director Data & Analytics Name Role Phone Victor Hugo Lopez MD Primary Care Prov ider Encounter Details Date Type Department Care Team ([facility] st Contact Info) Description 03/18/2023 Telephone [facility] MED & PEDS [address] [place], [place] [phone] Victor Hugo Lopez MD [address] [place] [address] Social History Tobacco Use Types Packs/Day Years [...] location. Pt stated PT1 is approved for [facility] on [address] instead of [place] [...] documented as of this encounter Care Teams Associate Director Data & Analytics Relationship Specialty Start Date End Date Victor Hugo Lopez MD [address] [place] [address] PCP - General Internal Medicine 09/25/19 documented as of this encounter
--- OUTSIDE RECORDS SUMMARY | 2025-02-02 14:24 | XMS_ITS | Encounter Summary ---
Author Organization [employer] Address [address] [facility] 7 [place] [address] Care Team Providers Care Ibm Bpm Architect Name Role Phone Victor Hugo Lopez MD Primary Care Prov ider Reason for Visit * Reason Onset Date Comments Appointment Request 11/11/2024 Encounter Details Date Type Department Care Team ([facility] st Contact Info) Description 11/11/2024 Telephone [facility] MEDICINE [address] [place] [address] Victor Hugo Lopez MD [address] [place] [address] Appointment Request Social History Tobacco Use Types Packs/Day Years [...] AM EDT documented as of this encounter Functional Status * Over the past 2 weeks, how often have you been bothered by any of the following problems? Question Answer Date of Assessment Author Patient Health Questionnaire-2 Score 0 11/01 10:29 AM Mercy Stringer [place] * Little interest or pleasure in doing things Answer Date of Assessment Author Not at all 11/11/2024 10:29 AM Urszula Stringer [place] * Feeling down, depressed, or hopeless Answer Date of Assessment Author Not at all 11/11/2024 10:29 AM Urszula Stringer [place] * Trouble falling or staying asleep, or sleeping too much Answer Date of Assessment Author Not at all 11/11/2024 10:29 AM Urszula Stringer [place] * Feeling tired or having little energy Answer Date of Assessment Author Not at all 11/11/2024 10:29 AM Urszula Stringer [place] * Poor appetite or overeating Answer Date of Assessment Author Not at all 11/11/2024 10:29 AM Urszula Stringer [place] * Feeling bad about yourself - or that you are a failure or have let yourself or your family down Answer Date of Assessment Author Not at all 11/11/2024 10:29 AM Urszula Stringer [place] * Trouble concentrating on things, such as reading the newspaper or watching television Answer Date of Assessment Author Not at all 11/11/2024 10:29 AM Urszula Stringer [place] * Moving or speaking so slowly that other people could have noticed? Or the opposite - being so fidgety or restless that you have been moving around a lot more than usual. Answer Date of Assessment Author Not at all 11/11/2024 10:29 AM Urszula Stringer [place] * Thoughts that you would be better off or hurting yourself in some way Answer Date of Assessment Author Not at all 11/11/2024 10:29 AM Urszula Stringer MA * Patient Health Questionnaire-9 Score Answer Date of Assessment Author 0 11/11/2024 10:29 AM Urszula Stringer [place] documented as of this encounter Miscellaneous Notes * Telephone Encounter - Nubia Betancourt - 11/20/2024 1:31 PM EDT Tc from pt requesting r/s appointment. * Telephone Encounter - Kenisha Chery - 11/11/2024 2:09 PM EDT Tc from pt requesting to reschedule appt from 11/17 documented in this encounter Plan of Treatment Not on file documented as of this encounter Visit Diagnoses Not on filedocumented in this encounter Additional Health Concerns Assessment Noted Time PHQ-9 Depression Total Score: 0 11/12/19 25 10:29 AM EDT documented as of this encounter Care Teams Ibm Bpm Architect Relationship Specialty Start Date End Date Victor Hugo Lopez MD [address] [place] [address] [place] [address] PCP - General Internal Medicine 09/25/19 documented as of this encounter
--- OUTSIDE RECORDS SUMMARY | 2025-02-02 14:24 | XMS_ITS | Encounter Summary ---
Author Organization [employer] Address [address] [facility] 7 [place] [address] Care Team Providers Care Slubber Runner Name Role Phone Victor Hugo Lopez MD Primary Care Prov ider Reason for Visit * Reason Onset Date Comments Nurse Triage 01/06/2024 Encounter Details Date Type Department Care Team ([facility] st Contact Info) Description 01/06/2024 Telephone [facility] MEDICINE [address] [place] [address] Victor Hugo Lopez MD [address] [place] [address] Nurse Triage Social History Tobacco Use Types [...] documented as of this encounter Care Teams Slubber Runner Relationship Specialty Start Date End Date Victor Hugo Lopez MD [address] [place] [id number] PCP - General Internal Medicine 09/25/19 documented as of this encounter
--- OUTSIDE RECORDS SUMMARY | 2025-02-02 14:24 | XMS_ITS | Encounter Summary ---
Author Organization [employer] Address [address] [facility] 7 [place] [address] Care Team Providers Care Business Continuity Manager Name Role Phone Victor Hugo Lopez MD Primary Care Prov ider Reason for Visit * Reason Onset Date Comments Nurse Triage 01/03/2024 Encounter Details Date Type Department Care Team ([facility] st Contact Info) Description 01/03/2024 Telephone [facility] MEDICINE [address] [place] [address] Victor Hugo Lopez MD [address] [place] [address] Nurse Triage Social History Tobacco Use Types [...] - Antibiotic Eye Drops per Protocol - [facility] * Telephone Encounter - Hima Zavaleta [...] documented as of this encounter Care Teams Business Continuity Manager Relationship Specialty Start Date End Date Victor Hugo Lopez MD [address] [place] [address] PCP - General Internal Medicine 09/25/19 documented as of this encounter
--- OUTSIDE RECORDS SUMMARY | 2025-02-02 14:24 | XMS_ITS | Clinical Summary ---
Author Organization [employer] Address [address] [facility] [address] [place] [address] Care Team Providers Care Residential Youth Counselor Name Role Phone Victor Hugo Lopze MD Primary Care Prov ider Allergies No known active allergies Medications * This document contains information received from the source organization and may not represent a complete record from that organization. benzoyl peroxide (Benzac AC) 10 % external wash Apply topically at bed time. 2 Active pantoprazole (ProtoNix) 20 MG EC tablet Take 1 tablet by mouth every 48 hours. 2 Active Blood Pressure Monitoring (Omron 3 Series BP Monitor) device USE EVERY DAY TO CHECK BLOOD PRESSURE 2 Active [employer]S Soluble Fiber Therapy 500 MG tablet TAKE 1 TABLET BY MOUTH EVERY DAY WITH A FULL GLASS OF WATER 2 Active Senna-Time 8.6 MG tablet TAKE 1 TABLET BY MOUTH EVERY DAY AT BEDTIME FOR CONSTIPATION 2 Active sucralfate (Carafate) 1 g tablet TAKE 1 TABLET BY MOUTH EVERYDAY AT BEDTIME 2 Active albuterol (ProAir HFA) 108 (90 Base) MCG/ACT inhaler Inhale 2 puffs every 4 (four) hours. 18 g 3 5 Active Azelastine HCl 137 MCG/SPRAY solutionIndicat ions:Chronic rhinitis USE 2 SPRAYS INTO EACH NOSTRIL TWICE A DAY 30 mL 2 5 Active cholecalciferol (Vitamin D-3) 25 MCG (1000 UT) tablet Take 1 tablet (25 mcg) by mouth Once per day. 90 tablet 1 5 Active hydrOXYzine pamoate (Vistaril) 25 MG capsuleIndicati ons:Pruritus TAKE 1 CAPSULE BY MOUTH EVERY 8 HOURS IF NEEDED FOR ITCHING 90 capsule 3 5 Active lidocaine (Lidoderm) 5 % patch Apply 1 patch topically Once per day. Remove & discard patch within 12 hours or as directed by MD. 30 patch 3 5 Active triamcinolone (Kenalog) 0.1 % creamIndication s:Pruritus Apply topically 2 times daily. to affected area 80 g 3 5 Active dicyclomine (Bentyl) 10 MG capsule Take 1 capsule (10 mg) by mouth 4 times daily. 120 capsule 11 5 12/11/19 26 Active Active Problems Problem Noted Date Diagnosed Date Asymptomatic microscopic hematuria 12/10/2024 Assessment & Plan (12/10/2024 1:02 PM EDT): Will order urine cytology and refer to urology, she had a ct scan and kidney u/s which shoed nephrolithiaisis Irritable bowel syndrome wit h both constipation and diarrhea 12/10/2024 Assessment & Plan (12/10/2024 1:03 PM EDT): Will start on bentyl, follow up with GI Normal physical examination 11/11/2024 Assessment & Plan (11/11/2024 12:49 PM EDT): Unremarkable, no heart murmurs, no thyroid nodules, will place blood work orders. Anxiety 11/11/2024 Assessment & Plan (01/12/2025 11:45 AM EDT): Symptoms controlled/improved with current medications, no suicidal/homicidal ideas, no changes will be made, follow up as needed Assessment & Plan (12/10/2024 1:04 PM EDT): Will refer to , no suicidal/homicidal ideas Assessment & Plan (11/11/2024 12:51 PM EDT): On hydroxyzine, no suicidal/homicidal ideas, no changes will be made Vitamin D deficiency 09/07/2024 Assessment & Plan [...] test for guidance of therapy, patient following ob-licensed acupuncturist for mentrual bleeding Acute left ankle pain 01/03/2023 Assessment & Plan (01/03/2023 2:15 PM EDT): Twisted it about 1 week ago, she has mild presistant pain, will provide ibuprofen, apply ice and rest joint Menorrhagia with irregular cycle 08/21/2022 Assessment & Plan (10/01/2022 5:39 PM EDT): Symptoms improved, reviewed u/s results, has not followed with ob-licensed acupuncturist, will task tila SALCEDO has not received a notification Assessment & Plan (08/21/2022 5:51 PM EDT): Pateint refers that for the past 2-3 months she has been having profuse episode of vaginal bleeding, with clots, will place ob-licensed acupuncturist referal Chronic rhinitis 08/21/2022 Assessment & Plan (11/11/2024 12:50 PM EDT): On cetirizine and azelastin, no changes will be made Assessment & Plan (08/18/2024 1:14 PM EDT): [...] without esophagi tis 07/06/2022 Assessment & Plan (11/11/2024 12:50 PM EDT): Followed by gastroenterology, on PPI, no changes will be made Assessment & Plan (08/18/2024 1:13 PM EDT): Continue PPI therapy, reinforced lifestyle modifications, followed by gastroenterology Assessment & Plan (07/06/2022 3:53 PM EST): On PPI therapy, follow up with GI, no warning signs, lifestyle modification reinforced Encounters * This document contains information received from the source organization and may not represent a complete record from that organization. Date Type Department Care Team Description 01/12/2025 11:15 AM EDT Telemedicine [facility] [address] [place] [address] Victor Hugo Lopez MD Anxiety (Primary Dx) 01/12/2025 Travel 12/30/2024 Orders Only [facility] [address] [place] [address] Victor Hugo Lopez MD 12/24/2024 Travel 12/17/2024 Telephone [facility] [address] [place] [phone] Victor Hugo Lopez MD Durable Medical Equipment 12/16/2024 Telephone [facility] [address] [place] [phone] Victor Hugo Lopez MD pt1 12/15/2024 Orders Only GENERIC EXTERNAL DATA DEPARTMENT Provider, Generic External Data 12/10/2024 11:30 AM EDT Office Visit [facility] [address] [place] [address] Victor Hugo Lopez MD Asymptomatic microscopic hematuria (Primary Dx); Irritable bowel syndrome with both constipation and diarrhea; Anxiety 12/10/2024 Travel 12/09/2024 Patient Outreach [facility] [address] [place] [phone] Victor Hugo Lopez MD Care Coordination (CHW outreach for SDOH PT-1 and food needs-referral completed /) 12/09/2024 Telephone [facility] [address] [place] [address] Victor Hugo Lopez MD pt1 12/07/2024 Orders Only [facility] External Provider, [facility] 12/03/2024 Telephone [facility] [address] [place] [address] Victor Hugo Lopez MD Nurse Triage 11/25/2024 Results Follow-Up [facility] [address] [place] [address] Nicole Keller RN US RENAL BI 11/18/2024 11:00 AM EDT Office Visit [facility] [address] [place] [address] Cindy Paez MD Acute cough (Primary Dx); Other microscopic hematuria; Acute left-sided low back pain without sciatica 11/18/2024 Travel 11/17/2024 Telephone [facility] [address] [place] [address] Victor Hugo Lopez MD Nurse Triage 11/12/2024 Results Follow-Up [facility] [address] [place] [address] Victor Hugo Lopez MD Vitamin D, 25-Hydroxy, Total, Immunoassay, Lipid Panel, Standard 11/12/2024 Results Follow-Up [facility] [address] [place] [address] Victor Hugo Lopez MD CBC auto differential, Iron And Total Iron Binding Capacity 11/11/2024 10:30 AM EDT Office Visit [facility] [address] [place] [address] Victor Hugo Lopez MD Encounter for screening mammogram for malignant neoplasm of breast (Primary Dx); Chronic rhinitis; Pruritus; Pruritus; Screening-pulmonary TB; Dietary counseling; Exercise counseling; Normal physical examination; Gastroesophageal reflux disease without esophagitis; Anxiety 11/11/[address] [place] [address] Victor Hugo Lopez MD Appointment Request 11/11/2024 Travel 11/02/2024 Patient Outreach [facility] [address] [place] [address] Victor Hugo Lopez MD Pre-visit Planning (Pre visit planning LVM ) from Last 3 Months Immunizations Immunization Administration Dates Next Due Moderna Covid-19 Vaccine 12+ 11/21/2021,05/24/20 21,04/26/2021 Pfizer Covid-19 Vaccine 04/11/2023 Social History Tobacco [...] housing situation today? I have michelleliliane tran 11/11/[address] you [...] Sign Reading Time Taken Comments Blood Pressure 132/76 12/10/2024 11:19 AM EDT Pulse 68 12/10/2024 11:19 AM EDT Temperature 37.1 C (98.7 F) 12/10/2024 11:19 AM EDT Respiratory Rate 20 12/10/2024 11:19 AM EDT Oxygen Saturation 98% 12/10/2024 11:19 AM EDT Inhaled Oxygen Concentration - - Weight 77.1 kg (170 lb) 12/10/2024 11:19 AM EDT Height 157.5 cm (5' 2 ) 12/10/2024 11:19 AM EDT Body Mass Index 31.09 12/10/2024 11:19 AM EDT Plan of Treatment Health Maintenance Due Date Last Done Comments Family Planning (PISQ) 1995 HPV Vaccines (1 - 3-dose series) 1995 Hepatitis B Vaccines (1 of 3 - 19+ 3-dose series) 1999 COVID-19 Vaccine ( season) 2024 04/11/2023, 11/21/2021, 05/24/2021, Additional history exists Influenza Vaccine (#1) 2025 Tobacco Screening 02/20/2025 02/21/2024 Disability Screening 08/17/2025 08/17/2024 Alcohol/Substance Use Screening 11/11/2025 11/11/2024 Depression Screening 11/11/2025 11/11/2024, 11/12/19 SDOH Screening 11/11/2025 11/11/2024 Pap Smear 01/10/2026 01/10/2023, 04/04, 09/10/2012 Cervical Cancer Screening 05/01/2026 HPV/Cotest 05/01/2026 05/01/2021 Mammogram 12/25/2026 12/25/2024, 02/08/2023 Lipid Panel 11/11/2029 11/11/2024, 08/01, 04/21/2021 Zoster Vaccines (1 of 2) 2030 [...] Years) and At-Risk Patients (6 to 49) Years Aged Out No longer eligible based on patient's age to complete this topic RSV under 20 months Aged Out No longe r eligible based on patient's age to complete this topic Rotavirus Vaccines Aged Out No longer eligible based on patient's age to complete this topic Procedures Procedure Name Priority Date/Time Associated Diagnosis Comments CYTOPATH-CELL ENHANCED Routine 12/30/2024 9:45 AM EDT BI MAMMOGRAM SCREENING TOMOSYNTHESIS BILATERAL Routine 12/25/2024 8:10 AM EDT Encounter for screening mammogram for malignant neoplasm of breast CYTOPATH-CELL ENHANCED Routine 12/15/2024 4:[address] ABDOMEN PELVIS WO CONTRAST Routine 12/08/2024 2:03 AM EDT HCG, QL, URINE Routine 12/07/2024 4:09 PM EDT URINALYSIS, COMPLETE, WITH REFLEX TO CULTURE Routine 12/07/2024 4:09 PM EDT LIPASE Routine 12/07/2024 4:09 PM EDT MAGNESIUM Routine 12/07/2024 4:09 PM EDT COMPREHENSIVE METABOLIC PANEL Routine 12/07/2024 4:09 PM EDT CBC WITH AUTO DIFFERENTIAL Routine 12/07/2024 4:09 PM EDT SARS COV2/INFLUENZA A/B AND RSV RNA QL NAAT Routine 12/07/2024 4:09 PM EDT US RENAL BI Routine 11/25/2024 1:12 AM EDT Other microscopic hematuria GROSS AND MICROSCOPIC LEVEL 3 Routine 11/19/2024 8:19 AM EDT POCT URINALYSIS DIPSTICK Routine 11/18/2024 2:16 PM EDT Other microscopic hematuria POCT INFLUENZA B (ID NOW RAPID MOLECULAR) Routine 11/18/2024 2:14 PM EDT Acute cough POCT INFLUENZA A (ID NOW RAPID MOLECULAR) Routine 11/18/2024 2:14 PM EDT Acute cough POCT RAPID COVID ANTIGEN Routine 11/18/2024 2:13 PM EDT Acute cough POCT HEMOGLOBIN Routine 11/18/2024 2:12 PM EDT Other microscopic hematuria LIPID PANEL, STANDARD Routine 11/11/2024 11:02 AM EDT Elevated triglycerides with high cholesterol VITAMIN D,25-OH,TOTAL,IA Routine 11/11/2024 11:02 AM EDT Vitamin D deficiency IRON AND TOTAL IRON BINDING CAPACITY Routine 11/11/2024 11:02 AM EDT Iron deficiency anemia due to chronic blood loss CBC WITH AUTO DIFFERENTIAL Routine 11/11/2024 11:02 AM EDT Iron deficiency anemia due to chronic blood loss PAP SMEAR Routine 01/10/2023 12:17 PM EDT [...] Recently Relevant to Health Maintenance Results * Cytopath-cell enhanced (12/30/2024 9:45 AM EDT) Only the most recent of2 resultswithin the time period is included. 12/30/2024 9:45 AM EDT 12/31/2024 10:30 AM EDT [facility] - 12/31/2024 4:55 PM EDT ----- ------- Name: Jessa Kwon Age/Sex: 44/F : 1980 Unit#: [id number] Attend Dr: Victor Hugo Lopez MD Re12/30/24 Status: DEP REF Location: HO.HHCL Disch: ----- ------- SPEC : [id number] RECD: 12/31/24 STATUS: CAROLINA ALEXANDRE NUM: [id number] KAMLESH: 12/30/24-[address] [facility] [address]: Victor Hugo Lopez MD ENTERED: 12/31/24432 SP TYPE: Cytology OTHR DR: ORDERED: Cyto-enhanced Diagnosis Urine: Negative for high-grade urothelial carcinoma. See comment. COMMENT: Cellular specimen consisting of few single urothelial cells, squamous cells, few red blood cells and few chronic inflammatory cells. Clinical History Microscopic hematuria Material Received Urine Gross Description Received is 40 cc of clear pale yellow fluid from which a ThinPrep slide is prepared. IHC S/NG Disclaimer NOTE: Unless otherwise stated, all tissue is formalin-fixed and paraffin-embedded. Some or all of the immunohistochemical tests reported herein may have been developed and their performance characteristics determined by [facility]. They have not been cleared or approved by the U.S. Food and Drug Administration (FDA). However, the FDA has determined that such clearance or approval is not necessary. This laboratory is certified under the Clinical Laboratory Improvement Amendments of 1988 (CLIA) as qualified to perform high complexity clinical laboratory testing. ----- ------- Signed (signature on file) Andrew Hill MD 12/31/24 1655 ----- ------- END OF REPORT us Victor Hugo Porter MD LAB CYTOLOGY ORDER KETTY Final Result [facility] [address] [place] [address] [phone] * BI Mammogram Screening Tomosynthesis Bilateral (12/25/2024 8:10 AM EDT) Anatomical Region Laterality Modality Breast Bilateral Mammography 12/25/2024 8:10 AM EDT Narrative 01/04/2025 9:45 AM EDT [facility] [address] [place] [address] Mammography Report Signed Patient: Jessa Kwon MR#: [id number] [birth year] : 1980 Acct:[id number] Age/Sex: 44 / F ADM Date: 12/25/24 Loc: HO.MAMMO Attending Dr: Victor Hugo Porter MD Ordering Physician: Victor Hugo Lopez MD Results: 0Incomplete: Needs Additional Imaging Evaluation Date of Service: 12/25/24 Follow Up: Additional Imagi ng Procedure(s): MM tomosynthesis screening BI Accession Number(s): [id number] cc: Victor Hugo Lopez MD EXAMINATION: MM SCREENING DIGITAL BREAST TOMOSYNTHESIS, BILATERAL CLINICAL INFORMATION: Screening. Asymptomatic. COMPARISON: Mammography: Comparison is made with available priors TECHNIQUE: Digital breast mammography with tomosynthesis is performed in both the craniocaudal and mediolateral oblique views along with computer-aided detection (CAD). FINDINGS: There are scattered areas of fibroglandular density (ACR BI-RADS breast composition Category b). Left: There are no significant masses, abnormal calcifications, or other abnormalities. Right: Asymmetry retroareolar region middle depth on MLO view. No suspicious calcifications or other abnormal findings. MM/MM tomosynthesis screening BI IMPRESSION: Additional imaging is recommended ASSESSMENT: BI-RADS BI-RADS 0 - Incomplete: Needs additional Imaging. RECOMMENDATION: 1. Additional views of the right breast. 2. Targeted ultrasound if warranted after review of the additional views. 3. Radiology department staff will contact the patient for additional imaging. Additional Imaging required This examination should not preclude the clinical evaluation of a suspicious palpable abnormality. This patient's information was entered into a reminder system with a target due date for their next mammogram. Electronically signed by: Elisha Johnson DO 01/04/2025 09:42 AM EDT RP Dictated By: Elisha Johnson DO Signed By: <Electronically signed by Elisha Johnson DO in OV> 01/04/2542 DD/ 9 TD/TT: 12/25/24 0830 Funeral Greeter: Procedure Note Donotuseinterpreter, Image - 01/04/2025 [facility] [address] [place], [place] [address] Mammography Report Signed Patient: Jessa Kwon LMR#: [id number] 60 : 1980Acct:[id number] Age/Sex: 44 / FADM Date: 12/25/24 Loc: HO.MAMMO Attending Dr: Victor Hugo Porter MD Ordering Physician: Victor Hugo Lopez MD Results: 0Incomplete: Needs Additional Imaging Evaluation Date of Service: 12/25/24Follow Up: Additional Imagi ng Procedure(s): MM tomosynthesis screening BI Accession Number(s): [id number] cc: Victor Hugo Lopez MD EXAMINATION: MM SCREENING DIGITAL BREAST TOMOSYNTHESIS, BILATERAL CLINICAL INFORMATION: Screening. Asymptomatic. COMPARISON: Mammography: Comparison is made with available priors TECHNIQUE: Digital breast mammography with tomosynthesis is performed in both the craniocaudal and mediolateral oblique views along with computer-aided detection (CAD). FINDINGS: There are scattered areas of fibroglandular density (ACR BI-RADS breast composition Category b). Left: There are no significant masses, abnormal calcifications, or other abnormalities. Right: Asymmetry retroareolar region middle depth on MLO view. No suspicious calcifications or other abnormal findings. MM/MM tomosynthesis screening BI IMPRESSION: Additional imaging is recommended ASSESSMENT: BI-RADS BI-RADS 0 - Incomplete: Needs additional Imaging. RECOMMENDATION: 1. Additional views of the right breast. 2. Targeted ultrasound if warranted after review of the additional views. 3. Radiology department staff will contact the patient for additional imaging. Additional Imaging required This examination should not preclude the clinical evaluation of a suspicious palpable abnormality. This patient's information was entered into a reminder system with a target due date for their next mammogram. Electronically signed by: Elisha Johnson DO 01/04/2025 09:42 AM EDT Dictated By: Elisha Johnson DO Signed By: <Electronically signed by Elisha Johnson DO in OV> 01/04/2542 DD/ 9 TD/TT: 12/25/24 0830 Funeral Greeter: Victor Hugo Porter MD IMG BI PROCEDURES Final Result * CT Abdomen Pelvis w/o Contrast (12/08/2024 2:03 AM EDT) Anatomical Region Laterality Modality Body, Pelvis, Abdomen Computed T omography 12/08/2024 2:03 AM EDT Narrative 12/08/2024 2:04 AM EDT [place] [address] CT Scan Report Signed Patient: Jessa Kwon MR#: [id number] [birth year] : 1980 Acct:[id number] Age/Sex: 44 / F ADM Date: 12/07/24 Loc: .ED Attending Dr: Ordering Physician: Zehra Patel Date of Service: 12/07/24 Procedure(s): CT abdomen pelvis wo IV con Accession Number(s): [id number] cc: Victor Hugo Lopez MD; Zehra Patel Report Number: [id number]: Total DLP = 588.00 mGy-cm CLINICAL HISTORY: hematuria renal colic CT abdomen and pelvis without contrast Comparison: CT/SR - CT ABDOMEN PELVIS WO IV CON - 05/09/22 15:09 EST Findings: Small hiatal hernia. Cholelithiasis noted, without significant wall thickening or pericholecystic stranding. Bile ducts are unremarkable. No urolithiasis. No bowel obstruction, pneumoperitoneum, or pneumatosis. Normal appendix. Distended bladder. Trace free pelvic fluid. Multilevel Schmorl's nodes. IMPRESSION: No acute findings. Additional findings as described. This document has been electronically signed by: Avi Medina MD on 12/08/2024 02:03:09 Dictated By: Avi Medina MD Signed By: <Electronically signed by Avi Medina MD in OV> 12/08/24 020 DD/ 2 TD/TT: 12/08/24202 Funeral Greeter: Procedure Note Donotuseinterpreter, Image - 12/08/[address] [place] [address] [address] Scan Report Signed Patient: Jessa Kwon LMR#: [id number] 60 : 1980Acct:[id number] Age/Sex: 44 / FADM Date: 12/07/24 Loc: HO.ED Attending Dr: Ordering Physician: Zehra Patel Date of Service: 12/07/24 Procedure(s): CT abdomen pelvis wo IV con Accession Number(s): [id number] cc: Victor Hugo Lopez MD; Zehra Patel Report Number: [id number]: Total DLP = 588.00 mGy-cm CLINICAL HISTORY: hematuria renal colic CT abdomen and pelvis without contrast Comparison: CT/SR - CT ABDOMEN PELVIS WO IV CON - 05/09/22 15:09 EST Findings: Small hiatal hernia. Cholelithiasis noted, without significant wall thickening or pericholecystic stranding. Bile ducts are unremarkable. No urolithiasis. No bowel obstruction, pneumoperitoneum, or pneumatosis. Normal appendix. Distended bladder. Trace free pelvic fluid. Multilevel Schmorl's nodes. IMPRESSION: No acute findings. Additional findings as described. This document has been electronically signed by: Avi Medina MD on 12/08/2024 02:03:09 Dictated By: Avi Medina MD Signed By: <Electronically signed by Avi Medina MD in OV> 12/08/24203 DD/ 2 TD/TT: 12/08/24202 Funeral Greeter: [facility] External Provider IMG CT PROCEDURES Edited Result - Final * (ABNORMAL) Urinalysis, Complete, with Reflex to Culture (12/07/2024 4:09 PM EDT) Color Urine Yellow [facility] Appearance Urine Clear [facility] PH 5.5 5.0 - 9.0 [facility] Glucose Urine UA Negative Negative mg/dL [facility] Urine Blood Large (3+)(A) Negative [facility] Specific [place] - Urine 1.020 1.005 - 1.025 [facility] Urine Protein 30 (1+)(A) Neg-Trace mg/dL [facility] Urine Ketones Trace Negative mg/dL [facility] Nitrite Urine Negative Negative [facility] Leukocyte Esterase Urine Negative Negative [facility] RBC Urine 11-20(A) 0 - 2 /HPF [facility] Urine WBC 0-5 0 - 5 /HPF [facility] Urine Squamous Epithelial Cell 3-5 0 - 2 /HPF [facility] Urine Bacteria None Seen None Seen [facility] Hyaline Casts, Urine 0-2 0 - 2 /LPF [facility] 12/07/2024 4:09 PM EDT 12/07/2024 4:47 PM EDT Narrative [facility] - 12/07/2024 5:40 PM EDT Urine, Clean Catch Generic External Data Provider LAB URINE ORDERAB LES Final Result [facility] [address] [place] [phone] * SARS-CoV-2 RNA, Influenza A/B, and RSV RNA, Ql NAAT (12/07/2024 4:09 PM EDT) Influenza A PCR NEGATIVE Negative [facility] Influenza B PCR NEGATIVE Negative [facility] Resp Syncy Virus RNA Qual PCR NEGATIVE Negative [facility] SARS COV2 PCR NEGATIVE Negative [facility] Comment:All test results mus t be correlated with clinical findings.Negative results do not preclude SARS-CoV2, influenza Avirus, influenza B virus and/or RSV infectionand should not be used as the sole basis for treatment orother patient management decisions. Negative results must becombined with clinical observations, patient history, andepidemiological information.This test has not been evaluated for monitoring treatment ofinfection.This test has been authorized by the FDA under an EmergencyUse Authorization (EUA) for use by authorized laboratories.Testing performed on the [employer] GeneXpert utilizingreal-time RT-PCR.All SARS CoV2 and positive influenza A/B results arereported to [facility]. 12/07/2024 4:09 PM EDT 12/07/2024 4:27 PM EDT us Generic External Data Provider LAB MICROBIOLOGY - GENERAL ORDERABLES Final Result [facility] [address] [place] [phone] * (ABNORMAL) CBC auto differential (12/07/2024 4:09 PM EDT) Only the most recent of2 resultswithin the time period is included. White Blood Count 10.4 4.8 - 10.8 X10*3/uL [facility] Red Blood Count 4.88 4.20 - 5.50 X10*6/uL [facility] Hemoglobin 13.3 12.0 - 16.0 g/dl [facility] Hematocrit 39.2 37.0 - 47.0 % [facility] Mean Corpuscular Volume 80.3 80.0 - 98.0 fL [facility] Mean Corpuscular Hemoglobin 27.3 27.0 - 33.0 pg [facility] Mean Corpuscular HGB Conc 33.9 31.0 - 35.0 g/dl [facility] Red Cell Distribution Width 13.1 11.0 - 16.0 % [facility] Platelet Count 298 160 - 400 X10*3/uL [facility] Mean Platelet Volume 10.4 9.4 - 12.3 fL [facility] Neutrophils Percent Auto 74.3(H) 45 - 73 % [facility] Imm Gran Pct Auto 0.3 0.0 - 0.4 % [facility] Lymphocytes Percent Auto 18.9(L) 20 - 40 % [facility] Monocytes Percent Auto 4.7 2 - 11 % [facility] Eosinophils Percent Auto 1.1 0 - 4 % [facility] Basophils Percent Auto 0.7 0 - 2 % [facility] NRBC Pct Auto 0.0 0.0 - 0.2 /100WBC [facility] Neutrophils Absolute Auto 7.7 2.0 - 8.3 x10*3/uL [facility] Imm Gran Abs Auto 0.03 0.00 - 0.03 X10*3/uL [facility] Lymphocytes Absolute Auto 2.0 1.2 - 4.9 X10*3/uL [facility] Monocytes Absolute Auto 0.5 0.1 - 1.2 X10*3/uL [facility] Eosinophils Absolute Auto 0.1 0.0 - 0.4 X10*3/uL [facility] Basophils Absolute Auto 0.1 0.0 - 0.2 X10*3/uL [facility] NRBC Abs Auto 0.000 0.0 - 0.012 X10*3/uL [facility] 12/07/2024 4:09 PM EDT 12/07/2024 4:27 PM EDT us Generic External Data Provider LAB BLOOD ORDERAB LES Final Result [facility] [address] [place] [address] [phone] * HCG, Qualitative, Urine (12/07/2024 4:09 PM EDT) Urine NEGATIVE NEGATIVE [facility] Comment:This test was develo ped to detect early . Falsenegative results may occur after the 5th - 7th week ofpregnancy when using this test method. If clinicallyindicated, consider a serum hCG. 12/07/2024 4:09 PM EDT 12/07/2024 4:27 PM EDT Generic External Data Provider LAB URINE ORDERAB LES Final Result Performing Organization Address City/[facility] Co de Phone Number [facility] [address] [place] [phone] * Magnesium (12/07/2024 4:09 PM EDT) [facility] Magnesium 2.0 1.6 - 2.6 mg/dL [facility] 12/07/2024 4:09 PM EDT 12/07/2024 4:27 PM EDT Generic External Data Provider LAB BLOOD ORDERAB LES Final Result Performing Organization Address [facility] Co de Phone Number [facility] [address] [place] [phone] * Lipase (12/07/2024 4:09 PM EDT) [facility] Lipase 30 8 - 78 U/L [facility] 12/07/2024 4:09 PM EDT 12/07/2024 4:27 PM EDT Generic External Data Provider LAB BLOOD ORDERAB LES Final Result Performing Organization Address [facility] de Phone Number [facility] [address] [place] [phone] * (ABNORMAL) Comprehensive Metabolic Panel (12/07/2024 4:09 PM EDT) [facility] Sodium 140 135 - 145 mmol/L [facility] Potassium 3.6 3.3 - 5.1 mmol/L [facility] Chloride 109(H) 96 - 108 mmol/L [facility] Carbon Dioxide 22 22 - 29 mmol/L [facility] Anion Gap 13 12 - 20 [facility] Urea Nitrogen (BUN) 12 9 - 16 mg/dL [facility] Creatinine, Serum 0.85 0.5 - 1.4 mg/dL [facility] Creatinine Clr Calc Pharmacy 82.4 [facility] Comment:Provided height and weight: 160.02 cm,75.9 kg.eGFR (calculated from the MDRD study equation) and eCrCl(calculated from the Cockcroft-Gault equation) are based ondifferent parameters and may not yield comparable results.If eCrCl result is absurd, please check patient'sheight/weight. Estimated Glomerular Filt Rate >60 [facility] Comment:Chronic Kidney Disea se: Estimated GFR < 60 mL/min/[id number] Kidney Disease: Estimated GFR < 15 mL/min/1.73m2 Glucose 97 60 - 115 mg/dL [facility] Calcium 9.1 8.4 - 10.2 mg/dL [facility] Bilirubin, Total 0.4 0.0 - 1.0 mg/dL [facility] Aspartate Amino Transferase 20 5 - 31 U/L [facility] Alanine Aminotransferase 17 0 - 31 U/L [facility] Total Protein 7.6 6.5 - 8.0 g/dL [facility] Albumin Level 4.9 3.5 - 5.0 g/dL [facility] Alkaline Phosphatase 55 39 - 117 U/L [facility] 12/07/2024 4:09 PM EDT 12/07/2024 4:27 PM EDT us Generic External Data Provider LAB BLOOD ORDERAB LES Final Result [facility] [address] [place] [address] [phone] * US RENAL BI (11/25/2024 1:12 AM EDT) Anatomical Region Laterality Modality Abdomen Ultrasound 11/25/2024 1:12 AM EDT Narrative 11/25/2024 1:15 AM EDT [address] [address] Ultrasound Report Signed Patient: Jessa Kwon MR#: [id number] 60 : 1980 Acct:[id number] Age/Sex: 44 / F ADM Date: 11/24/24 Loc: HO.US Attending Dr: Cindy Paez MD Ordering Physician: Cindy Paez MD Date of Service: 11/24/24 Procedure(s): US renal BI Accession Number(s): [id number] cc: Cindy Paez MD; Victor Hugo Lopez MD CLINICAL HISTORY: persistent hematuria US Renal Comparison: None provided Findings: Right kidney normal size and echotexture, 12.1 cm length. Punctate nonobstructing calculus in the lower pole. Left kidney normal size and echotexture, 10.6 cm length. No collecting system dilatation of either kidney. Normal color Doppler. IMPRESSION: 1. Unremarkable kidneys as above This document has been electronically signed by: Everette Jimenez MD, PHD on 11/25/2024 01:12:48 Dictated By: Everette Jimenez MD Signed By: <Electronically signed by Everette Jimenez MD in OV> 11/25/24113 DD/ 1 TD/TT: 11/25/24111 Funeral Greeter: Procedure Note Donotuseinterpreter, Image - 11/25/[address] [address] Ultrasound Report Signed Patient: Jessa Kwon LMR#: [id number] 60 : 1980Acct:[id number] Age/Sex: 44 / FADM Date: 11/24/24 Loc: HO.US Attending Dr: Cindy Paez MD Ordering Physician: Cindy Paez MD Date of Service: 11/24/24 Procedure(s): US renal BI Accession Number(s): [id number] cc: Cindy Paez MD; Victor Hugo Lopez MD CLINICAL HISTORY: persistent hematuria US Renal Comparison: None provided Findings: Right kidney normal size and echotexture, 12.1 cm length. Punctate nonobstructing calculus in the lower pole. Left kidney normal size and echotexture, 10.6 cm length. No collecting system dilatation of either kidney. Normal color Doppler. IMPRESSION: 1. Unremarkable kidneys as above This document has been electronically signed by: Everette Jimenez MD, PHD on 11/25/2024 01:12:48 Dictated By: Everette Jimenez MD Signed By: <Electronically signed by Everette Jimenez MD in OV> 11/25/24113 DD/ 1 TD/TT: 11/25/24111 Funeral Greeter: us Cindy Paez MD IMG US PROCEDURES Edited Resu lt - Final * Gross and Microscopic Level 3 (11/19/2024 8:19 AM EDT) 11/19/2024 8:19 AM EDT 11/19/2024 9:05 AM EDT [facility] - 11/20/2024 4:19 PM EDT ----- ------- Name: Jessa Kwon Age/Sex: 44/F : 1980 Unit#: [id number] Attend Dr: Etelvina Thompson MD Re11/19/24 Status: [facility] Location: [facility] Disch: ----- ------- SPEC : [id number] RECD: 11/19/24 STATUS: CAROLINA ALEXANDRE NUM: [id number] KAMLESH: 11/19/[address] [facility] [address]: Etelvina Thompson MD ENTERED: 11/19/24 SP TYPE: Surgical OTHR DR: Victor Hugo Lopez MD ORDERED: Gross Micro L3 Diagnosis Soft tissue, right index finger mass, excision: Fibromembranous tissue with myxoid and cystic degeneration, consistent with ganglion cyst. Clinical History Pre-Op Dx: Ganglion Post-Op Dx: Right index finger mass Microscopic Description Microscopic sections reviewed. Material Received Right index finger mass Gross Description Received in formalin labeled right index finger mass is an intact, smooth and shaggy, disla-white cyst measuring 0.9 cm in greatest dimension. The margins are inked and the specimen is sectioned to reveal an intact thin-walled cyst containing clear tenacious mucus. The specimen is entirely submitted in a cassette labeled A. CEDS IHC S/NG Disclaimer NOTE: Unless otherwise stated, all tissue is formalin-fixed and paraffin-embedded. Some or all of the immunohistochemical tests reported herein may have been developed and their performance characteristics determined by [facility]. They have not been cleared or approved by the U.S. Food and Drug Administration (FDA). However, the FDA has determined that such clearance or approval is not necessary. This laboratory is certified under the Clinical Laboratory Improvement Amendments of 1988 (CLIA) as qualified to perform high complexity clinical laboratory testing. Copies To: Victor Hugo Lopez MD [address] [address] CONTINUED ON NEXT PAGE ----- ------- Name: Jessa Kwon Age/Sex: 44/F : 1980 Unit#: [id number] Attend Dr: Etelvina Thompson MD Re11/19/24 Status: [facility] Location: [facility] Disch: ----- ------- SPEC : [id number] RECD: 11/19/24 STATUS: CAROLINA ALEXANDRE NUM: [id number] KAMLESH: 11/19/[address] [facility] [address]: Etelvina Thompson MD ENTERED: 11/19/24 SP TYPE: Surgical OTHR DR: Victor Hugo Lopez MD ORDERED: Gross Micro L3 Copies To: (Continued) Etelvina Thompson MD [facility] [address] [place] [address] Dr [address] [place] [address] ----- ------- Signed (signature on file) Jamia Perkins 11/20/24 1619 ----- ------- END OF REPORT Generic External Data Provider LAB CYTOLOGY SONALI BRODERICK Final Result [facility] [address] [place] [address] [phone] * (ABNORMAL) POCT urinalysis dipstick manually resulted (11/18/2024 2:16 PM EDT) Color, UA Yellow Clarity, UA Clear Glucose, UA Negative Bilirubin, UA Negative Ketones, UA Negative Spec Grav, UA 1.030 Blood, UA Positive(A) Negative, None Detected Comment:moderate pH, UA 6.0 Protein, UA Trace Urobilinogen, UA 0.2 Leukocytes, UA Negative Negative, Rare, Trace Nitrite, UA Negative Negative, None Detected Appearance, UA clear QC Media Lot # Comment:[id number] Lot# Expiration Date Comment:03/02/2025 Urine 11/18/2024 2:16 PM EDT Cindy Paez MD POINT OF CARE TEST ENTER/EDIT ORDERABLES Final Result * Influenza B (ID NOW Rapid Molecular) (11/18/2024 2:14 PM EDT) Pathologist [facility] Influenza B Negative Negative, Indeterminate [facility] QC Media Lot # [facility] Comment:[id number] Lot# Expiration Date [facility] Comment:05/02/2025 Swab 11/18/2024 2:14 PM EDT Cindy Paez MD POINT OF CARE TEST ENTER/EDIT ORDERABLES Final Result [facility] [address] [place] [address] [phone] * Influenza A (ID NOW Rapid Molecular) (11/18/2024 2:14 PM EDT) Influenza A Negative Negative, Indeterminate [facility] QC Media Lot # [facility] Comment:[id number] Lot# Expiration Date [facility] Comment:05/02/2025 Swab 11/18/2024 2:14 PM EDT us Cindy Paez MD POINT OF CARE TEST ENTER/EDIT ORDERABLES Final Result [facility] [address] [place] [address] [phone] * POCT Rapid COVID Ag (11/18/2024 2:13 PM EDT) Rapid COVID Ag Negative QC Media Lot # Comment:[id number] Lot# Expiration Date Comment:12/25/2025 Swab 11/18/2024 2:13 PM EDT Cindy Paez MD POINT OF CARE TEST ENTER/EDIT ORDERABLES Final Result * (ABNORMAL) POCT hemoglobin docked device (11/18/2024 2:12 PM EDT) Hemoglobin 11.5(A) 12.0 - 15.0 QC Media Lot # Comment:[id number] Lot# Expiration Date Comment:09/20/2025 Blood 11/18/2024 2:12 PM EDT Cindy Paez MD POINT OF CARE TEST ENTER/EDIT ORDERABLES Final Result * Vitamin D, 25-Hydroxy, Total, Immunoassay (11/11/2024 11:02 AM EDT) Vitamin D 25-OH Total 39.1 >30 ng/mL [facility] Comment: Health Based Reference Values*< 20 ng/mL Frtwdixaa85-43 ng/mL Insufficient> 30 ng/mL Sufficient*Ariel BATISTA. N Engl J Med. 2007;357:266-280There is [...] Vitamin D results fromdifferent laboratories and methodologies. Published datademonstrated that results from patients undergoinghemodialysis may show a negative bias when tested withvarious automated 25-OH vitamin D assays when compared toLC-MS/MS.When testing samples from patients whose predominant form ofVitamin D is Vitamin D2, such as patients receiving VitaminD2 supplementation, results that are subtherapeutic shouldbe confirmed with another method such as LC-MS/MS. Blood Venous blood specimen / Unknown 11/11/2024 11:02 AM EDT 11/11/2024 2:20 PM EDT Victor Hugo Porter MD LAB BLOOD ORDERABL ES Final Result Performing Organization Address [facility]/ZIP Co de Phone Number [facility] [address] [place] [phone] * Iron And Total Iron Binding Capacity (11/11/2024 11:02 AM EDT) Iron 83 30 - 160 mcg/dL [facility] Total Iron Binding Capacity 322 228 - 428 mcg/dL [facility] Percent Iron Saturation 26 15 - 50 % [facility] Unsaturated Iron Binding 239 ug/dL [facility] Blood Venous blood specimen / Unknown 11/11/2024 11:02 AM EDT 11/11/2024 2:20 PM EDT Victor Hugo Porter MD LAB BLOOD ORDERABL ES Final Result Performing Organization Address City/[facility] Co de Phone Number [facility] [address] [place] [phone] * (ABNORMAL) Lipid Panel, Standard (11/11/2024 11:02 AM EDT) Triglycerides 278(H) <150 mg/dL [facility] Comment:Desirable Triglyceri de: less than 150 mg/dLBorderline High Triglyceride 150-199 mg/dLHigh Triglyceride: 200-499 mg/dLVery High Triglyceride: greater than or equal to 5OO mg/dL Cholesterol 194 <200 mg/dL [facility] Comment:Desirable Cholestero l: less than 200 mg/dLBorderline High Cholesterol: 200-239 mg/dLHigh Cholesterol: greater than 239 mg/dL LDL Cholesterol Calculated 109(H) <100 mg/dL [facility] Comment:Desirable LDL: less than 100 mg/dLNear Optimal/Above Optimal LDL: 110- 129 mg/dLBorderline High LDL: 130-159 mg/dLHigh LDL: 160-189 mg/dLVery High LDL: greater than or equal to 190 mg/dL HDL Cholesterol 30(L) >40 mg/dL [facility] Comment:Desirable HDL: great er than 40 mg/dL Note: This HDL assay may give artificially low results in patients with liver disease. Blood Venous blood specimen / Unknown 11/11/2024 11:02 AM EDT 11/11/2024 2:20 PM EDT us Victor Hugo Porter MD LAB BLOOD ORDERABL ES Final Result [facility] [address] [place] [phone] * Pap Smear (01/10/2023 12:17 PM EDT) 01/10/2023 12:1 7 PM EDT 01/11/2023 9:30 AM EDT Narrative [facility] - 01/29/2023 9:53 AM EDT ----- ------- Name: Jessa Kwon Age/Sex: 42/F : 1980 Unit#: [id number] Attend Dr: Carey Torres [facility] Re01/10/23 Status: DEP REF Location: [facility] Disch: ----- ------- SPEC : [id number] RECD: 01/11/23 STATUS: CAROLINA ALEXANDRE NUM: [id number] KAMLESH: 01/10/23-[address] [facility] [address]: Carey Torres [facility] ENTERED: 01/11/23 SP TYPE: Pap Smr OTHR DR: Victor Hugo Lopez MD ORDERED: Pap Smear, PAP path review Interpretation General Category: Negative for intraepithelial lesion/malignancy. Adequacy: Endocervical component present. Interpretation: Inflammation with associated cellular changes. HPV mRNA E6/E7: Not detected This assay detects E6/E7 viral messenger RNA (mRNA) from 14 high-risk HPV types (16, 18, 31, 33, 35, 39, 45, 51, 52, 56, 58, 59, 66, 68) HPV testing performed by [facility], [place], [place]. See reference laboratory portion of the EMR for entire report. Clinical Information LMP:12/31/22 Previous PAP test:04/30/17, Unknown findings Material Received ThinPrep-Cervical Copies To: Victor Hugo Lopez MD [address] [place] [phone] [address] Solorzano [address] [place] [phone] ----- ------- Signed (signature on file) Griselda Justice MD 01/29/23 0953 ----- ------- END OF REPORT [facility] External Provider LAB CYT [facility] ORDERABLES Final Result [facility] [address] [place] [phone] * THINPREP TIS PAP AND HPV mRNA E6/E7 REFLEX HPV 16,18/45 (05/01/2021 9:30 AM EST) Clinical Information: None given [facility] COMMENT SEE COMMENT [facility] Comment: EXPLANATORY NOTE: The Pap is a screening test for cervical cancer. It is not a diagnostic test and is subject to false negative and false positive results. It is most reliable when a satisfactory sample, regularly obtained, is submitted with relevant clinical findings and history, and when the Pap result is evaluated along with historic and current clinical information. COMMENT: SEE COMMENT [facility] Comment: This case could not be evaluated with computer assisted technology. The slide was manually screened according to routine procedures. Sugar Cane Planter Machine Operator: SEE COMMENT [facility] Comment: MSM, CT(ASCP) CT screening location: [address] [address] HPV nRNA E6/E7 Not Detected Not Detected [facility] Comment: Methodology: Ward Secretary-Mediated Amplification This assay detects E6/E7 viral messenger RNA (mRNA) from 14 high-risk HPV types (16,18,31,33,35,39,45,51,52,56,58,59,66,68). The analytical performance characteristics of this assay have been determined by [facility]. The modifications have not been cleared or approved by the FDA. This assay has been validated pursuant to the CLIA regulations and is used for clinical purposes. For additional information, please refer to http://HALGI.[employer]/faq/HLL653t4 (This link if provided for information/ educational purposes only.) Interpretation/Re sult: Negative for intraepithelial lesion or malignancy. [facility] LMP: [id number] [facility] Prev. BX: NONE GIVEN [facility] Prev. PAP: NONE GIVEN [facility] SOURCE: None given [facility] Statement Of Adequacy: SEE COMMENT [facility] Comment: Satisfactory for evaluation. Endocervical/transformation zone component present. 05/01/2021 9:30 AM EST [facility] PATH[facility] ORDERABLES Final Result Performing Organization Address [facility] de Phone Number [facility] [address] [place] [address], * HEPATITIS C AB W/REFL TO HCV RNA, QN, PCR (03/08/2021 9:23 AM EDT) HEPATITIS C ANTIBODY NON-REACT VANDA NON-REACT VANDA [facility] INDEX 0.01 <1.00 [facility] Comment: HCV antibody was non-reactive. There is no laboratory evidence of HCV infection. In most cases, no further action is required. However, if recent HCV exposure is suspected, a test for HCV RNA (test code 63284) is suggested. For additional information please refer to http://education.[employer]/faq/FAP28f8 (This link is being provided for informational/ educational purposes only.) 03/08/2021 9:23 AM EDT us Celine Gorman MD HISTORICAL/NON ORDERABLE LABS Final Result Performing Organization Address [facility] Co de Phone Number [facility] [address] [place] [address], * HIV 1/2 ANTIGEN/ANTIBODY,FOURTH GENERATION W/RFL (03/08/2021 9:23 AM EDT) HIV-1/2 ANTIGEN AND ANTIBODIES, 4TH GENERATION W/ REFLEX NON-REACT VANDA NON-REACT VANDA [facility] Comment: HIV-1 antigen and HIV-1/HIV-2 antibodies were not detected. There is no laboratory evidence of HIV infection. PLEASE NOTE: This information has been disclosed to you from records whose confidentiality may be protected by state law. If your state requires such protection, then the state law prohibits you from making any further disclosure of the information without the specific written consent of the person to whom it pertains, or as otherwise permitted by law. A general authorization for the release of medical or other information is NOT sufficient for this purpose. For additional information please refer to http://education.[employer]/faq/OQI614 (This link is being provided for informational/ educational purposes only.) The performance of this assay has not been clinically validated in patients less than 2 years old. 03/08/2021 9:23 AM EDT us Celine Gorman MD LAB BLOOD ORDERABLES Final Re sult [facility] [address] from Last 3 Months or Most Recently Relevant to Health Maintenance Insurance [facility] C3 Care Teams Residential Youth Counselor Relationship Specialty Start Date End Date Victor Hugo Lopez MD [address] [place] [phone] PCP - General Internal Medicine 09/25/19
--- OUTSIDE RECORDS SUMMARY | 2025-02-02 14:24 | XMS_ITS | Encounter Summary ---
Author Organization [employer] Address [address] [facility] [address] [place] [address] Care Team Providers Care Meteorological Technician Name Role Phone Victor Hugo Lopez MD Primary Care Prov ider Reason for Visit * Reason Comments Med Refill Encounter Details Date Type Department Care Team ([facility] st Contact Info) Description 01/14/2023 Refill [facility] MED & PEDS [address] [place] [address] Victor Hugo Lopez MD [address] [place] [address] Social History Tobacco Use Types Packs/Day Years [...] as of this encounter Plan of Treatment Not on file documented as of this encounter Visit Diagnoses Not on filedocumented in this encounter Additional Health Concerns Assessment Noted Time PHQ-9 Depression Total Score: 0 06/05/19 23 11:43 AM EST documented as of this encounter Care Teams Meteorological Technician Relationship Specialty Start Date End Date Victor Hugo Lopez MD [address] [place] [phone] PCP - General Internal Medicine 09/25/19 documented as of this encounter
--- OUTSIDE RECORDS SUMMARY | 2025-02-02 14:24 | XMS_ITS | Encounter Summary ---
Author Organization [employer] Address [address] [facility] [address] [place] [address] Care Team Providers Care Spanish Language Lecturer Name Role Phone Victor Hugo Lopez MD Primary Care Prov ider Reason for Visit * Reason Onset Date Comments Durable Medical Equipment 12/17/2024 Encounter Details Date Type Department Care Team ([facility] st Contact Info) Description 12/17/2024 Telephone [facility] [address] [place] [address] Victor Hugo Lopez MD [address] [place] [address] Durable Medical Equipment Social History Tobacco Use Types Packs/Day Years [...] your housing situation today? I have michelle chelsea 11/11/[address] you li [...] encounter Miscellaneous Notes * Telephone Encounter - Melodie Hood LPN - 12/17/2024 10:14 AM EDT Please review pt message below and advise, if agreed please provide DX ( pain does not qualify ) TC from [facility] with [facility] requesting : Rolator Bed Rails Script to be faxed to [employer] [phone] * Telephone Encounter - Austen Lilly - 12/17/2024 10:05 AM EDT TC from [facility] with [facility] requesting : Rolator Bed Rails Script to be faxed to [employer] [phone] documented in this encounter Plan of Treatment Not on file documented as of this encounter Visit Diagnoses Not on filedocumented in this encounter Additional Health Concerns Assessment Noted Time PHQ-9 Depression Total Score: 0 11/12/19 25 10:29 AM EDT documented as of this encounter Care Teams Spanish Language Lecturer Relationship Specialty Start Date End Date Victor Hugo Lopez MD [address] [place] [phone] PCP - General Internal Medicine 09/25/19 documented as of this encounter
--- OUTSIDE RECORDS SUMMARY | 2025-02-02 14:24 | XMS_ITS | Encounter Summary ---
Author Organization [employer] Address [address] [facility] [address] [place] [address] Care Team Providers Care Furniture Repairer Name Role Phone Victor Hugo Lopez MD Primary Care Prov ider Encounter Details Date Type Department Care Team ([facility] st Contact Info) Description 03/28/2023 Orders Only [facility] CH[facility] MED & PEDS [address] [place], [place] [phone] Nimo Cosby MD [address] [place] [address] Pruritus (Primary Dx) Social History Tobacco Use [...] documented as of this encounter Care Teams Furniture Repairer Relationship Specialty Start Date End Date Victor Hugo Lopez MD [address] [place] [phone] PCP - General Internal Medicine 09/25/19 documented as of this encounter
--- OUTSIDE RECORDS SUMMARY | 2025-02-02 14:25 | XMS_ITS | Encounter Summary ---
Author Organization [employer] Address [address] [facility] 7 [place] [address] Care Team Providers Care Physician Pediatrician Name Role Phone Victor Hugo Lopez MD Primary Care Prov ider Reason for Visit * Reason Onset Date Comments Triage 08/16/2022 Encounter Details Date Type Department Care Team ([facility] st Contact Info) Description 08/16/2022 Telephone [facility] [address] [place] [address] Victor Hugo Lopez MD [address] [place] [address] Triage Social History Tobacco Use Types Packs/Day [...] week. Pt has a pelvic exam at [facility] tomorrow but, is asking for an excuse for being out of work today. Advised to be seen in [facility] but, not enough time. Advised [...] accepted this outcome Please contact pt at [phone] documented in this encounter Plan of Treatment Not on file documented as of this encounter Visit Diagnoses Not on filedocumented in this encounter Additional Health Concerns Assessment Noted Time PHQ-9 Depression Total Score: 0 06/05/19 23 11:43 AM EST documented as of this encounter Care Teams Physician Pediatrician Relationship Specialty Start Date End Date Victor Hugo Lopez MD [address] [place] [id number] PCP - General Internal Medicine 09/25/19 documented as of this encounter
--- OUTSIDE RECORDS SUMMARY | 2025-02-02 14:25 | XMS_ITS | Encounter Summary ---
Author Organization [employer] Address [address] [facility] [address] [place] [address] Care Team Providers Care Certified Medical Coding Specialist Name Role Phone Victor Hugo Lopez MD Primary Care Prov ider Reason for Visit * Reason Onset Date Comments ER Follow-up 05/24/2023 Encounter Details Date Type Department Care Team ([facility] st Contact Info) Description 05/24/[address] [facility] MED & PEDS [address] [place], [place] [phone] Victor Hugo Lopez MD [address] [place], [place] [phone] ER Follow-up Social History Tobacco Use Types [...] to follow up on ED visit to [facility] on 05/23/23. Patient reports that meds were prescribed to stop vaginal bleeding, and they have been working. Patient reports that she is not currently experiencing continuing symptoms of vaginal bleeding or abdominal pain and is still taking tranexemic acid as prescribed in ED. Offered same day care appointment in [facility] tomorrow 05/29/23 or televisit with PCP tomorrow 05/29/23 or f/u with Salina Gutierrez next 06/04/22. Patient opted for f/u with Salina Gutierrez next Saturday06/04/22. Advised to be in touch with us, go to walk-in, or go to EDif symptoms recur or new symptoms develop. Notes from [facility] ED visit in chart. Routing to PCP, so he is aware. * Telephone Encounter - Latasha Carlton - 05/24/2023 1:51 PM EST Patient calling to report ED visit on : Date: 05/23 Hospital: [facility] Seen for: vaginal bleeding Patient advised will forward to team nurse for follow up Please contact pt at [phone] documented in this encounter Plan of Treatment Not on file documented as of this encounter Visit Diagnoses Not on filedocumented in this encounter Additional Health Concerns Assessment Noted Time PHQ-9 Depression Total Score: 0 06/05/19 11:43 AM EST documented as of this encounter Care Teams Certified Medical Coding Specialist Relationship Specialty Start Date End Date Victor Hugo Lopez MD [address] [place] [id number] PCP - General Internal Medicine 09/25/19 documented as of this encounter
== END 2025-02-02 13:05 | disposition home or self-care (01) ==
LOC: HO.MAMMO 13:04
PROVIDERS: PCP Internal Medicine; Visit Provider Internal Medicine
DX: N64.89 Other specified disorders of breast (principal)
CPT/HCPCS: 76642; 77061; 77065

== ENCOUNTER 2025-04-02 14:12 | Outpatient (AMB) | payer MEDICAID, SELFPAY ==
--- NOTE | 2025-04-02 14:25 | A.OFFVIS_ITS ---
Intake Visit Reasons: CYSTO Intake Note: Patient presents today for cystoscopy Urology Medications:None Blood Thinner:None Antibiotic Allergy:None Lot #: [id number] EXP:11/10/27 Census Enumerator Required: No Accompanied by: Self / Same As Patient Allergies No Known Allergies Allergy (Verified 04/11/25 11:21) HPI Comments Details: 04/02/25-- History of Present Illness The patient is a 45-year-old female presenting with hematuria. The hematuria was detected during a routine examination and was not visible to the patient. Additionally, proteinuria was noted, prompting a referral to nephrology for further evaluation. The patient reports urinary incontinence, particularly when coughing, sneezing, or vomiting. This has been attributed to potential hormonal changes associated with menopause. The patient also experiences pruritus vulvae, which she suspects may be related to hormonal fluctuations. She has not yet discussed this symptom with her client relationship consultant, who manages her hormone therapy. Results - Cystoscopyfindings:: Bladder no suspicious lesions noted Plan 1. Hematuria - Cystoscopy performed to evaluate bladder health, which appeared normal. - Referral to nephrology for further evaluation of proteinuria. 2. Urinary Incontinence - Referral to pelvic floor physical therapy to strengthen pelvic muscles. 3. Pruritus Vulva - Patient advised to discuss symptoms with client relationship consultant 12/15/24--Jessa is a very pleasant 44-year-old female patient of Dr.?Betancourt Porter. She has a past medical history of irritable bowel syndrome, chronic idiopathic constipation, and GERD. She presents to the office today as a new patient for microscopic hematuria. In discussion with the patient today she reports a longstanding history of microscopic hematuria however has never undergone further workup. She does report socially smoking recreational marijuana however this is mostly infrequent. She reports over the last 2-3 months she has been having this ongoing epigastric discomfort that radiates to her back as well as mood swings. In office urinalysis results reviewed with the patient today 3+ microscopic hematuria otherwise within normal limits. It does appear patient has had a CT however without contrast 12/25 that noted small hiatal hernia, no urolithiasis. No acute findings. We did discussed potential causes of microscopic hematuria as well as further workup in risks and benefits of these interventions. We also discussed surveillance monitoring. I discussed reasons for blood in the urine may include but are not limited to kidney stones, cancer in the urinary tract, kidney stone disease or inflammatory conditions of the urinary tract. I have discussed workup to include cystoscopy evaluation. She denies urinary urgency, urinary frequency, incontinence, nocturia, hematuria, dysuria, foul smelling urine, changes to urinary stream, flank pain, fever, and or chills. She is happy with her current voiding parameters. All questions were answered. She otherwise offers no other issues or concerns at this time. [facility] Medical History Irritable bowel syndrome Chronic idiopathic constipation Gastroesophageal reflux disease COVID-19 Surgical History H/O: myomectomy (~12/2023) Hx of section Hx of tubal ligation Social History Alcohol intake: former Patient Tobacco Use Status: Former Tobacco user Smoked in Last 30 Days: No Use of substances other than those prescribed or required for medical reasons: No Advance Directives: No Advance Directives Information Provided: Yes Do you have a plan to hurt others: No Plan Patient : No Current occupational status: unemployed Current occupation: rt handed Office Procedures Cystoscopy Consent Discussed risk and benefit or proposed procedure with the patient. Information consent for procedure given to the patient. Discussed technical aspects, risks, benefits and alternatives in full. Addressed all of the patient's questions and concerns regarding the procedure. The patient demonstrated knowledge and understanding. They wish to proceed with this procedure. Preparation The patient was prepped in the usual manner. A infrastructure project manager was present and in the room. Genitalia was prepped with betadine solution in a sterile manner. Lidocaine Jelly 2% was placed into the urethra and 16Fr flexible Olympus cystoscope was inserted into the meatus after adequate lubrication. Procedure Time out per protocol performed. Speculum used as indicated for adequate visualization of urethra, the flexible cystoscope is passed transurethrally: The bladder was inspected in its entirety with utilization retroflexion displaying: Tumor(s): no suspicious bladder lesions visualized Trabeculation: Mucosal Erthema: Orifices: normal shape and position Urethra: normal Cystoscopy findings: WNL, no suspicious bladder lesions visualized [id number] DISPOSABLE SCOPE URO-G FLEXIBLE SCOPE Procedure code (CPT) selection complete Office Meds lidocaine HCl 2 % mucosal jelly in applicator Performing Provider: Silvia Ellis MD Performing Location: [facility] Administered by: Wolfgang Esparza LPN on 04/02/25 14:43 Dose Route Admin Location Dispensed Lot Number Expiration Date NDC Plant Pathology Teacher 10 mL intra-urethral 20 mL nitrofurantoin monohydrate/macrocrystals 100 mg capsule Performing Provider: Silvia Ellis MD Performing Location: [facility] Administered by: Wolfgang Esparza LPN on 04/02/25 14:43 Dose Route Admin Location Dispensed Lot Number Expiration Date NDC Plant Pathology Teacher 100 mg PO 1 cap phenazopyridine 200 mg tablet Performing Provider: Silvia Ellis MD Performing Location: [facility] Administered by: Wolfgang Esaprza LPN on 04/02/25 14:43 Dose Route Admin Location Dispensed Lot Number Expiration Date NDC Plant Pathology Teacher 200 mg PO 1 tab Results AMB Urinalysis, Automated UA Leukoctes 0 Elvia/uL Last Edit by Nunu Guajardo on 04/02/25 16:47 UA Nitrite Negative Last Edit by Nunu Guajardo on 04/02/25 16:47 UA Urobilinogen 0.2 mg/dL Last Edit by Nunu Guajardo on 04/02/25 16:47 UA Protein 30 mg/dL Last Edit by Nunu Guajardo on 04/02/25 16:47 UA pH 6.0 Last Edit by Nunu Guajardo on 04/02/25 16:47 UA Blood 200 Meir/uL Last Edit by Nunu Guajardo on 04/02/25 16:47 UA Specific [place] 1.015 Last Edit by Nunu Guajardo on 04/02/25 16:47 UA Ketone Negative Last Edit by Nunu Guajardo on 04/02/25 16:47 UA Bilirubin 0 mg/dL Last Edit by Nunu Guajardo on 04/02/25 16:47 UA Glucose 0 mg/dL Last Edit by Nunu Guajardo on 04/02/25 16:47 Results Reviewed Results Reviewed: Laboratory Last Values Urine pH (Auto) 6.0 04/02/25 16:00 Specific [place] (Auto) 1.015 04/02/25 16:00 Urine Protein (Auto) 30 mg/dL 04/02/25 16:00 Glucose (UA)(Auto) 0 mg/dL 04/02/25 16:00 Urine Ketones (Auto) Negative 04/02/25 16:00 Urine Blood (Auto) 200 Meir/uL 04/02/25 16:00 Urine Nitrite (Auto) Negative 04/02/25 16:00 Urine Bilirubin (Auto) 0 mg/dL 04/02/25 16:00 Urine Urobilinogen (Auto) 0.2 mg/dL 04/02/25 16:00 Leukocyte Esterase (Auto) 0 Elvia/uL 04/02/25 16:00 Date of Service: 12/07/24 CLINICAL HISTORY: hematuria renal colic CT abdomen and pelvis without contrast Comparison: CT/SR - CT ABDOMEN PELVIS WO IV CON - 05/09/22 15:09 EST Findings: Small hiatal hernia. Cholelithiasis noted, without significant wall thickening or pericholecystic stranding. Bile ducts are unremarkable. No urolithiasis. No bowel obstruction, pneumoperitoneum, or pneumatosis. Normal appendix. Distended bladder. Trace free pelvic fluid. Multilevel Schmorl's nodes. IMPRESSION: No acute findings. Additional findings as described. Assessment & Plan Assessment & Plan (1) Microscopic hematuria: Code(s): R31.29 - Other microscopic hematuria Category: Medical (2) Urinary incontinence: Code(s): R32 - Unspecified urinary incontinence Category: Medical Plan Plan 1. Hematuria - Cystoscopy performed to evaluate bladder health, which appeared normal. - Referral to nephrology for further evaluation of proteinuria. 2. Urinary Incontinence - Referral to pelvic floor physical therapy to strengthen pelvic muscles. 3. Pruritus Vulva - Patient advised to discuss symptoms with client relationship consultant Orders: Orders AMB Urinalysis Automated 04/02/25 R31.29 - Other microscopic hematuria AMB Cystoscopy 04/02/25 R31.29 - Other microscopic hematuria Patient Instructions: The patient had an opportunity to ask questions regarding treatment plan. The patient expressed understanding and agreement with the above treatment plan. The patient is aware they should contact our office by phone for worsening of their current condition or the appearance of new symptoms. Compliance is encouraged with any medications and followup testing that is ordered. It is a privilege to be allowed the opportunity to participate in the urologic care of your patient. If you have any questions or concerns regarding treatment for the above conditions please do not hesitate to contact me. The office telephone contact is [phone]. This note is constructed in part using voice recognition software. While every effort has been made to ensure accuracy art installer errors may have been included. Yours sincerely, Silvia Ellis MD Scribe Plan - Not visible on output: Patient was informed and verbally consented to the use of an ambient scribe for clinic note documentation during this visit. Coding Level of Care Code Est Pt Level 3 (10378) Diagnoses Microscopic hematuria R31.29 Urinary incontinence R32 CPT Codes Cystoscopy - CPT: [id number] ([id number])
--- OUTSIDE RECORDS SUMMARY | 2025-04-02 14:55 | XMS_ITS | Encounter Summary ---
Author Organization [employer] Address [address] [facility] [address] [place] [address] Care Team Providers Care Investigation Division Sergeant Name Role Phone Victor Hugo Lopez MD Primary Care Prov ider Encounter Details Date Type Department Care Team ([facility] st Contact Info) Description 03/18/2023 Telephone [facility] MED & PEDS [address] [place], [place] [phone] Victor Hugo Lopez MD [address] [place] [address] Social History Tobacco Use Types Packs/Day Years [...] stated PT1 is approved for [facility] on [address] instead of [facility] on [address] Pt is requesting PT1 to be corrected. documented in this encounter Plan of Treatment Upcoming Encounters Date Type Department Care Team (Late st Contact Info) Description 04/15/2025 1:30 PM EST Telemedicine [facility] MED & PEDS [address] [place] [address] Victor Hugo Lopez MD [address] [place] [address] documented as of this encounter Visit Diagnoses Not on filedocumented in this encounter Additional Health Concerns Assessment Noted Time PHQ-9 Depression Total Score: 0 06/05/19 23 11:43 AM EST documented as of this encounter Care Teams Investigation Division Sergeant Relationship Specialty Start Date End Date Victor Hugo Lopez MD [address] [place] [address] PCP - General Internal Medicine 09/25/19 documented as of this encounter
--- OUTSIDE RECORDS SUMMARY | 2025-04-02 14:55 | XMS_ITS | Encounter Summary ---
Author Organization [employer] Address [address] [facility] [address] [place] [address] Care Team Providers Care Wharfmaster Name Role Phone Victor Hugo Lopez MD Primary Care Prov ider Reason for Visit * Reason Onset Date Comments Triage 08/16/2022 Encounter Details Date Type Department Care Team ([facility] st Contact Info) Description 08/16/2022 Telephone C [facility] [address] [place] [address] Victor Hugo Lopez MD [address] [place] [address] Triage Social History Tobacco Use Types Packs/Day [...] week. Pt has a pelvic exam at [facility] tomorrow but, is asking for an excuse for being out of work today. Advised to be seen in [facility] but, not enough time. Advised [...] accepted this outcome Please contact pt at [phone] documented in this encounter Plan of Treatment Upcoming Encounters Date Type Department Care Team (Late st Contact Info) Description 04/15/2025 1:30 PM EST Telemedicine [facility] MED & PEDS [address] [place] [address] Victor Hugo Lopez MD [address] [place] [address] documented as of this encounter Visit Diagnoses Not on filedocumented in this encounter Additional Health Concerns Assessment Noted Time PHQ-9 Depression Total Score: 0 06/05/19 23 11:43 AM EST documented as of this encounter Care Teams Wharfmaster Relationship Specialty Start Date End Date Victor Hugo Lopez MD [address] [place] [address] PCP - General Internal Medicine 09/25/19 documented as of this encounter
--- OUTSIDE RECORDS SUMMARY | 2025-04-02 14:55 | XMS_ITS | Encounter Summary ---
Author Organization [employer] Address [address] [facility] 7 [place] [address] Care Team Providers Care Ems Driver Name Role Phone Victor Hugo Lopez MD Primary Care Prov ider Reason for Visit * Reason Onset Date Comments Nurse Triage 01/03/2024 Encounter Details Date Type Department Care Team ([facility] st Contact Info) Description 01/03/2024 Telephone [facility] [address] [place] [address] Victor Hugo Lopez MD [address] [place] [address] Nurse Triage Social History Tobacco Use Types [...] - Antibiotic Eye Drops per Protocol - [facility] * Telephone Encounter - Hima Zavaleta - [...] 04/15/2025 1:30 PM EST Telemedicine [facility] MED & PEDS [address] [place] [address] Victor Hugo Lopez MD [address] [place] [address] documented as of this encounter Visit Diagnoses Not on filedocumented in this encounter Additional Health Concerns Assessment Noted Time PHQ-9 Depression Total Score: 0 06/05/19 23 11:43 AM EST documented as of this encounter Care Teams Ems Driver Relationship Specialty Start Date End Date Victor Hugo Lopez MD [address] [place] [address] PCP - General Internal Medicine 09/25/19 documented as of this encounter
--- OUTSIDE RECORDS SUMMARY | 2025-04-02 14:55 | XMS_ITS | Encounter Summary ---
Author Organization [employer] Address [address] [facility] [address] [place] [address] Care Team Providers Care Sterilisation Technician Name Role Phone Victor Hugo Lopez MD Primary Care Prov ider Reason for Visit * Reason Onset Date Comments Durable Medical Equipment 12/17/2024 Encounter Details Date Type Department Care Team ([facility] st Contact Info) Description 12/17/2024 Telephone [facility] [address] [place] [address] Victor Hugo Lopez MD [address] [place] [address] Durable Medical Equipment Social History Tobacco Use [...] pain does not qualify ) TC from [facility] with [facility] requesting : Rolator Bed Rails Script to be faxed to [employer] [phone] * Telephone Encounter - Austen Lilly - 12/17/2024 10:05 AM EDT TC from [facility] with [facility] requesting : Rolator Bed Rails Script to be faxed to [employer] [phone] documented in this encounter Plan of Treatment Upcoming Encounters Date Type Department Care Team (Late st Contact Info) Description 04/15/2025 1:30 PM EST Telemedicine [facility] MED & PEDS [address] [place], [place] [phone] Victor Hugo Lopez MD [address] [place] [address] documented as of this encounter Visit Diagnoses Not on filedocumented in this encounter Additional Health Concerns Assessment Noted Time PHQ-9 Depression Total Score: 0 11/12/19 25 10:29 AM EDT documented as of this encounter Care Teams Sterilisation Technician Relationship Specialty Start Date End Date CortezVictor Hugo Daley MD [address] [place] [address] MATIAS Mao [address] PCP - General Internal Medicine 09/25/19 documented as of this encounter
--- OUTSIDE RECORDS SUMMARY | 2025-04-02 14:55 | XMS_ITS | Clinical Summary ---
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 benzoyl peroxide (Benzac AC) 10 % external wash Apply topically at bed time. 12/12/19 22 Active pantoprazole (ProtoNix) 20 MG EC tablet Take 1 tablet by mouth every 48 hours. 01/12/20 22 Active Blood Pressure Monitoring (Omron 3 Series BP Monitor) device USE EVERY DAY TO CHECK BLOOD PRESSURE 03/29/20 22 Active [facility] Soluble Fiber Therapy 500 MG tablet TAKE 1 TABLET BY MOUTH EVERY DAY WITH A FULL GLASS OF WATER 05/07/20 22 Active Senna-Time 8.6 MG tablet TAKE 1 TABLET BY MOUTH EVERY DAY AT BEDTIME FOR CONSTIPATION 05/07/20 22 Active sucralfate (Carafate) 1 g tablet TAKE 1 TABLET BY MOUTH EVERYDAY AT BEDTIME 05/07/20 22 Active albuterol (ProAir HFA) 108 (90 Base) MCG/ACT inhaler Inhale 2 puffs every 4 (four) hours. 18 g 3 11/12/19 25 Active Azelastine HCl 137 MCG/SPRAY solutionIndica tions:Chronic rhinitis USE 2 SPRAYS INTO EACH NOSTRIL TWICE A DAY 30 mL 2 11/12/19 25 Active cholecalcifero l (Vitamin D-3) 25 MCG (1000 UT) tablet Take 1 tablet (25 mcg) by mouth Once per day. 90 tablet 1 11/12/19 25 Active hydrOXYzine pamoate (Vistaril) 25 MG capsuleIndicat ions:Pruritus TAKE 1 CAPSULE BY MOUTH EVERY 8 HOURS IF NEEDED FOR ITCHING 90 capsule 3 11/12/19 25 Active triamcinolone (Kenalog) 0.1 % creamIndicatio ns:Pruritus Apply topically 2 times daily. to affected area 80 g 3 11/12/19 25 Active dicyclomine (Bentyl) 10 MG capsule Take 1 capsule (10 mg) by mouth 4 times daily. 120 capsule 11 12/11/19 25 026 Active estradiol (Estrace) 1 MG tablet Take 1 mg by mouth Once per day. Active pseudoephedrin e (Sudafed) 30 MG tablet Take 1 tablet (30 mg) by mouth every 4 (four) hours if needed for congestion for up to 10 days. 30 tablet 03/16/20 25 Active lidocaine (Lidoderm) 5 % patch APPLY 1 PATCH TOPICALLY ONCE PER DAY. REMOVE & DISCARD PATCH WITHIN 12 HOURS OR DIRECTED BY MD. 30 patch 3 03/19/20 25 Active lidocaine (Lidoderm) 5 % patch Apply 1 patch topically Once per day. Remove & discard patch within 12 hours or as directed by MD. 30 patch 3 11/12/19 25 025 Discontinued amoxicillin (Amoxil) 500 MG capsule Take 1 capsule (500 mg) by mouth 2 times daily for 5 days. 10 capsule 03/16/20 25 025 Active Problems Problem Noted Date Diagnosed Date [...] (12/10/2024 1:04 PM EDT): Will refer to [facility], no suicidal/homicidal ideas Assessment & Plan (11/11/2024 [...] test for guidance of therapy, patient following ob-journeyman patternmaker for mentrual bleeding Acute left ankle pain 01/03/2023 Assessment & Plan (01/03/2023 2:15 PM EDT): Twisted it about 1 week ago, she has mild presistant pain, will provide ibuprofen, apply ice and rest joint Menorrhagia with irregular cycle 08/21/2022 Assessment & Plan (10/01/2022 5:39 PM EDT): Symptoms improved, reviewed u/s results, has not followed with ob-journeyman patternmaker, will task MATIAS, refers has not received a notification Assessment & Plan (08/21/2022 5:51 PM EDT): Pateint refers that for the past 2-3 months she has been having profuse episode of vaginal bleeding, with clots, will place ob-journeyman patternmaker referal Chronic rhinitis 08/21/2022 Assessment & Plan [...] blood pressure reading 07/06/2022 Assessment & Plan (03/18/2025 11:32 AM EDT): Told patient to keep a blood pressure log, follow up in 1 month, keep ,low sodium diet and exercise as tolerated Assessment & Plan (10/29/2023 11:34 AM EDT): [...] Encounters Date Type Department Care Team Description 03/18/2025 9:45 AM EDT Telemedicine [facility] [address] [place] [address] Victor Hugo Lopez MD Elevated blood pressure reading (Primary Dx) 03/18/2025 Refill [facility] [address] [place] [address] Victor Hugo Lopez MD 03/17/2025 Telephone [facility] [address] [place] [address] Victor Hugo Lopez MD chart prep 03/16/2025 9:15 AM EDT Office Visit [facility] [address] [place] [address] Melanie Barry MD Acute non-recurrent frontal sinusitis (Primary Dx) 03/16/2025 Travel 03/11/2025 Telephone [facility] [address] [place] [address] Nimo Cosby MD Care Coordination 03/09/2025 Telephone [facility] [address] [place] [address] Victor Hugo Lopez MD Appointment Request 03/09/2025 Telephone [facility] [address] [place] [phone] Victor Hugo Lopez MD Nurse Triage 02/04/2025 Telephone [facility] [address] [place] [phone] Victor Hugo Lopez MD Referral 02/02/2025 Orders Only [facility] [address] [place] [address] Victor Hugo Lopez MD 01/12/2025 11:15 AM EDT Telemedicine [facility] [address] [place] [address] Victor Hugo Lopez MD Anxiety (Primary Dx) 01/12/2025 Travel from Last 3 Months Immunizations Immunization Administration [...] Sign Reading Time Taken Comments Blood Pressure 141/84 03/18/2025 11:28 AM EDT Pulse 72 03/16/2025 9:27 AM EDT Temperature 36.6 C (97.9 F) 03/16/2025 9:27 AM EDT Respiratory Rate 20 03/16/2025 9:27 AM EDT Oxygen Saturation 98% 12/10/2024 11:19 AM EDT Inhaled Oxygen Concentration - - Weight 76.4 kg (168 lb 6.4 oz) 03/16/2025 9:27 A M EDT Height 157.5 cm (5' 2 ) 03/16/2025 9:27 AM EDT Body Mass Index 30.8 03/16/2025 9:27 AM EDT Plan of Treatment Upcoming Encounters Date Type Department Care Team (Late st Contact Info) Description 04/15/2025 1:30 PM EST Telemedicine [facility] [address] [place] [address] Victor Hugo Lopez MD [address] [place] [address] Health Maintenance Due Date Last Done Comments CT Colonography 1980 Colonoscopy 1980 Colorectal Cancer Screening 1980 FIT DNA/Cologuard 1980 FIT 1980 FOBT 1980 Sigmoidoscopy 1980 Family Planning (PISQ) 1995 HPV Vaccines (1 - 3-dose series) 1995 Hepatitis B Vaccines (1 of 3 - 19+ 3-dose series) 1999 COVID-19 Vaccine ( season) 2025 04/11/2023, 11/21/2021, 05/24/2021, Additional history exists Influenza Vaccine (#1) 2025 Tobacco Screening 02/20/2025 02/21/2024 Disability Screening 08/17/2025 08/17/2024 Alcohol/Substance Use Screening 11/11/2025 11/11/2024 Depression Screening 11/11/2025 11/11/2024, 11/12/19 25 SDOH Screening 11/11/2025 11/11/2024 Pap Smear 01/10/2026 01/10/2023, 04/04, 09/10/2012 Cervical Cancer Screening 05/01/2026 HPV/Cotest 05/01/2026 05/01/2021 Mammogram 02/02/2027 02/02/2025, 12/02, 02/08/2023 Lipid Panel 11/11/2029 11/11/2024, 08/01, 04/21/2021 [...] Procedure Name Priority Date/Time Associated Diagnosis Comments POCT RAPID COVID ANTIGEN Routine 03/16/2025 9:32 AM EDT Acute non-recurrent frontal sinusitis POCT RAPID STREP A Routine 03/16/2025 9: 31 AM EDT Acute non-recurrent frontal sinusitis BI US BREAST LIMITED RIGHT Routine 02/02/2025 1:12 PM EDT BI MAMMOGRAM DIAGNOSTIC TOMOSYNTHESIS ADDED VIEW RIGHT Routine 02/02/2025 1:10 PM EDT LIPID PANEL, STANDARD Routine 11/11/2024 11:02 AM EDT Elevated triglycerides with high cholesterol PAP SMEAR Routine 01/10/2023 12:17 PM EDT [...] Recently Relevant to Health Maintenance Results * POCT Rapid Covid-19 BinaxNOW (03/16/2025 9:32 AM EDT) Pathologist [facility] Rapid COVID Ag Negative QC Media Lot # [id number] Lot# Expiration Date [id number] Swab 03/16/2025 9:32 AM EDT us Melanie Barry MD POINT OF CARE TEST ENTER/EDIT OR DERABLES Final Result * POCT Rapid Strep A OSOM (03/16/2025 9:31 AM EDT) [facility] Rapid Strep A Screen Negative Negative, None Detected QC Media Lot # [id number] Lot# Expiration Date [id number] Swab 03/16/2025 9:31 AM EDT us Melanie Barry MD POINT OF CARE TEST ENTER/EDIT OR DERABLES Edited Result - Final * BI US Breast Limited Right (02/02/2025 1:12 PM EDT) Anatomical Region Laterality Modality Breast Right Ultrasound 02/02/2025 1:12 PM EDT Narrative 02/02/2025 6:19 PM EDT [facility] [address] [place] [address] Ultrasound Report Signed Patient: Jessa Kwon MR#: [id number] 60 : 1980 Acct:[id number] Age/Sex: 44 / F ADM Date: 02/02/25 Loc: HO.MAMMO Attending Dr: Victor Hugo Porter MD Ordering Physician: Victor Hugo Lopez MD Date of Service: 02/02/25 Procedure(s): US breast RT limited mamm only Accession Number(s): [id number] cc: Victor Hugo Lopez MD Reason for Exam: RT BR AV US FOR ASYMM RETROAREOLAR EXAMINATION (S): 1. MM DIAGNOSTIC DIGITAL BREAST TOMOSYNTHESIS, RIGHT 2. Targeted ultrasound of the right breast CLINICAL INFORMATION: Callback from screening for right breast asymmetry in the retroareolar region middle depth on the MLO view. COMPARISON: December 25, 2024 and February 08, 2023 TECHNIQUE: Digital breast tomosynthesis is performed in full-field MLO along with computer-aided detection (CAD). Synthesized 2D images are generated from the tomosynthesis. Spot compression tomosynthesis images were also obtained. FINDINGS: BREAST COMPOSITION: The breasts are heterogeneously dense, which may obscure small masses (ACR BI-RADS breast composition Category c). RIGHT BREAST: Previously suggested asymmetry in the retroareolar region middle depth partially effaces on today's images. Local parenchyma is similar to prior study in 2022. Findings most likely represented overlapping fibroglandular breast tissue. Targeted ultrasound of the right breast was performed at the location of the mammographic finding. The survey was performed at in the subareolar region including the central breast, covering from the nipple out to 5 cm radius. US/US breast RT limited mamm only IMPRESSION: RIGHT BREAST: Negative, no mammographic evidence of malignancy. Normal interval follow-up is recommended in 12 months. ASSESSMENT: BI-RADS 1 - Negative RECOMMENDATION: 1 year F/U Results were provided to the patient at time of visit by the technologist. This patient's information was entered into a reminder system with a target due date for their next mammogram. Electronically signed by: Nehal Abraham MD 02/02/2025 06:17 PM EDT Dictated By: Nehal Abraham MD Signed By: <Electronically signed by Nehal Abraham MD in OV> 02/02/25 1817 DD/ 1312 TD/TT: 02/02/25 1400 Electrical Prospecting Engineer: Procedure Note Donotuseinterpreter, Image - 02/03/[facility] [address] [place] [address] Ultrasound Report Signed Patient: Jessa Kwon LMR#: [id number] 60 : 1980Acct:[id number] Age/Sex: 44 / FADM Date: 02/02/25 Loc: HO.MAMMO Attending Dr: Victor Hugo Porter MD Ordering Physician: Victor Hugo Lopez MD Date of Service: 02/02/25 Procedure(s): US breast RT limited mamm only Accession Number(s): [id number] cc: Victor Hugo Lopez MD Reason for Exam: RT BR AV US FOR ASYMM RETROAREOLAR EXAMINATION (S): 1. MM DIAGNOSTIC DIGITAL BREAST TOMOSYNTHESIS, RIGHT 2. Targeted ultrasound of the right breast CLINICAL INFORMATION: Callback from screening for right breast asymmetry in the retroareolar region middle depth on the MLO view. COMPARISON: December 25, 2024 and February 08, 2023 TECHNIQUE: Digital breast tomosynthesis is performed in full-field MLO along with computer-aided detection (CAD). Synthesized 2D images are generated from the tomosynthesis. Spot compression tomosynthesis images were also obtained. FINDINGS: BREAST COMPOSITION: The breasts are heterogeneously dense, which may obscure small masses (ACR BI-RADS breast composition Category c). RIGHT BREAST: Previously suggested asymmetry in the retroareolar region middle depth partially effaces on today's images. Local parenchyma is similar to prior study in 2022. Findings most likely represented overlapping fibroglandular breast tissue. Targeted ultrasound of the right breast was performed at the location of the mammographic finding. The survey was performed at in the subareolar region including the central breast, covering from the nipple out to 5 cm radius. US/US breast RT limited mamm only IMPRESSION: RIGHT BREAST: Negative, no mammographic evidence of malignancy. Normal interval follow-up is recommended in 12 months. ASSESSMENT: BI-RADS 1 - Negative RECOMMENDATION: 1 year F/U Results were provided to the patient at time of visit by the technologist. This patient's information was entered into a reminder system with a target due date for their next mammogram. Electronically signed by: Nehal Abraham MD 02/02/2025 06:17 PM EDT Dictated By: Nehal Abraham MD Signed By: <Electronically signed by Nehal Abraham MD in OV> 02/02/257 DD/ 1312 TD/TT: 02/02/25 1400 Electrical Prospecting Engineer: us Victor Hugo Porter MD IMG US PROCEDURES Final Result * BI Mammogram Diagnostic Tomosynthesis added right (02/02/2025 1:10 PM EDT) Anatomical Region Laterality Modality Breast Left Mammography 02/02/2025 1:10 PM EDT Narrative 02/02/2025 6:19 PM EDT [facility] [address] [place] [address] Mammography Report Signed Patient: Jessa Kwon MR#: [id number] [birth year] : 1980 Acct:[id number] Age/Sex: 44 / F ADM Date: 02/02/25 Loc: HO.MAMMO Attending Dr: Victor Hugo Porter MD Ordering Physician: Victor Hugo Lopez MD Res ults: 1Negative Date of Service: 02/02/25 Follow Up: 1 Year From Orig ina Mammogram Procedure(s): MM tomosynthesis added views R Accession Number(s): [id number] cc: Victor Hugo Lopez MD EXAMINATION (S): 1. MM DIAGNOSTIC DIGITAL BREAST TOMOSYNTHESIS, RIGHT 2. Targeted ultrasound of the right breast CLINICAL INFORMATION: Callback from screening for right breast asymmetry in the retroareolar region middle depth on the MLO view. COMPARISON: December 25, 2024 and February 08, 2023 TECHNIQUE: Digital breast tomosynthesis is performed in full-field MLO along with computer-aided detection (CAD). Synthesized 2D images are generated from the tomosynthesis. Spot compression tomosynthesis images were also obtained. FINDINGS: BREAST COMPOSITION: The breasts are heterogeneously dense, which may obscure small masses (ACR BI-RADS breast composition Category c). RIGHT BREAST: Previously suggested asymmetry in the retroareolar region middle depth partially effaces on today's images. Local parenchyma is similar to prior study in 2022. Findings most likely represented overlapping fibroglandular breast tissue. Targeted ultrasound of the right breast was performed at the location of the mammographic finding. The survey was performed at in the subareolar region including the central breast, covering from the nipple out to 5 cm radius. MM/MM tomosynthesis added views R IMPRESSION: RIGHT BREAST: Negative, no mammographic evidence of malignancy. Normal interval follow-up is recommended in 12 months. ASSESSMENT: BI-RADS 1 - Negative RECOMMENDATION: 1 year F/U Results were provided to the patient at time of visit by the technologist. This patient's information was entered into a reminder system with a target due date for their next mammogram. Electronically signed by: Nehal Abraham MD 02/02/2025 06:17 PM EDT Workstation: [employer] Dictated By: Nehal Abraham MD Signed By: <Electronically signed by Nehal Abraham MD in OV> 02/02/25 1817 DD/ 1310 TD/TT: 02/02/25 1340 Electrical Prospecting Engineer: Procedure Note Donotuseinterpreter, Image - 02/02/2025 [facility] [address] [place] [address] Mammography Report Signed Patient: Jessa Kwon LMR#: [id number] [birth year] : 1980Acct:[id number] Age/Sex: 44 / FADM Date: 02/02/25 Loc: HO.MAMMO Attending Dr: Victor Hugo Porter MD Ordering Physician: Victor Hugo Lopez ults: 1Negative Date of Service: 02/02/25Follow Up: 1 Year From Orig inal Mammogram Procedure(s): MM tomosynthesis added views R Accession Number(s): [id number] cc: Victor Hugo Lopez MD EXAMINATION (S): 1. MM DIAGNOSTIC DIGITAL BREAST TOMOSYNTHESIS, RIGHT 2. Targeted ultrasound of the right breast CLINICAL INFORMATION: Callback from screening for right breast asymmetry in the retroareolar region middle depth on the MLO view. COMPARISON: December 25, 2024 and February 08, 2023 TECHNIQUE: Digital breast tomosynthesis is performed in full-field MLO along with computer-aided detection (CAD). Synthesized 2D images are generated from the tomosynthesis. Spot compression tomosynthesis images were also obtained. FINDINGS: BREAST COMPOSITION: The breasts are heterogeneously dense, which may obscure small masses (ACR BI-RADS breast composition Category c). RIGHT BREAST: Previously suggested asymmetry in the retroareolar region middle depth partially effaces on today's images. Local parenchyma is similar to prior study in 2022. Findings most likely represented overlapping fibroglandular breast tissue. Targeted ultrasound of the right breast was performed at the location of the mammographic finding. The survey was performed at in the subareolar region including the central breast, covering from the nipple out to 5 cm radius. MM/MM tomosynthesis added views R IMPRESSION: RIGHT BREAST: Negative, no mammographic evidence of malignancy. Normal interval follow-up is recommended in 12 months. ASSESSMENT: BI-RADS 1 - Negative RECOMMENDATION: 1 year F/U Results were provided to the patient at time of visit by the technologist. This patient's information was entered into a reminder system with a target due date for their next mammogram. Electronically signed by: Nehal Abraham MD 02/02/2025 06:17 PM EDT Dictated By: Nehal Abraham MD Signed By: <Electronically signed by Nehal Abraham MD in OV> 02/02/25 1817 DD/ 1310 TD/TT: 02/02/25 1340 Electrical Prospecting Engineer: Victor Hugo Porter MD IM BI PROCEDURES Final Result * (ABNORMAL) Lipid Panel, Standard (11/11/2024 11:02 AM EDT) Triglycerides 278(H) <150 mg/dL [facility] Comment:Desirable Triglyceri de: less than 150 mg/dLBorderline High Triglyceride 150-199 mg/dLHigh Triglyceride: 200-499 mg/dLVery High Triglyceride: greater than or equal to 5OO mg/dL Cholesterol 194 <200 mg/dL [facility] Comment:Desirable Cholestero l: less than 200 mg/dLBorderline High Cholesterol: 200-239 mg/dLHigh Cholesterol: greater than 239 mg/dL LDL Cholesterol Calculated 109(H) <100 mg/dL [facility] Comment:Desirable LDL: less than 100 mg/dLNear Optimal/Above Optimal LDL: 110- 129 mg/dLBorderline High LDL: 130-159 mg/dLHigh LDL: 160-189 mg/dLVery High LDL: greater than or equal to 190 mg/dL HDL Cholesterol 30(L) >40 mg/dL [facility] Comment:Desirable HDL: great er than 40 mg/dL Note: This HDL assay may give artificially low results in patients with liver disease. Blood Venous blood specimen / Unknown 11/11/2024 11:02 AM EDT 11/11/2024 2:20 PM EDT us Victor Hugo Porter MD LAB BLOOD ORDERABL ES Final Result [facility] [address] [place] [phone] * Pap Smear (01/10/2023 12:17 PM EDT) 01/10/2023 12:1 7 PM EDT 01/11/2023 9:30 AM EDT Narrative [facility] - 01/29/2023 9:53 AM EDT ----- ------- Name: Jessa Kwon Age/Sex: 42/F : 1980 Unit#: [id number] Attend Dr: Carey Torres CNM Re01/10/23 Status: DEP REF Location: [facility] Disch: ----- ------- SPEC : [id number] RECD: 01/11/23 STATUS: CAROL[place] ALEXANDRE NUM: [id number] KAMLESH: 01/10/23-[address] [facility] [address] ENTERED: 01/11/23 SP TYPE: Pap Smr OTHR [...] 59, 66, 68) HPV testing performed by [facility], [place], [place]. See reference laboratory portion of the EMR for entire report. Clinical Information LMP:12/31/22 Previous PAP test:04/30/17, Unknown findings Material Received ThinPrep-Cervical Copies To: Victor Hugo Lopez MD [address] [place] [phone] Solorzano [address] [place] [phone] ----- ------- Signed (signature on file) Griselda Justice MD 01/29/23 0953 ----- ------- END OF REPORT [facility] External Provider LAB CYT OLOGY ORDERABLES Final Result [facility] [address] [place] [phone] * THINPREP TIS PAP AND HPV mRNA E6/E7 REFLEX HPV 16,18/45 (05/01/2021 9:30 AM EST) Clinical Information: None given [facility] COMMENT SEE COMMENT [facility] [...] was manually screened according to routine procedures. 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 The analytical performance characteristics of this assay have been determined by [facility]. The modifications have not been cleared or approved by the FDA. This assay has been validated pursuant to the CLIA regulations and is used for clinical purposes. For additional information, please refer to http://education.Partnered.Club Scene Network/faq/HZM995c1 (This link if provided for information/ educational purposes only.) Interpretation/Re sult: Negative for intraepithelial lesion or malignancy. [facility] LMP: [id number] [facility] Prev. BX: NONE GIVEN [facility] Prev. PAP: NONE GIVEN [facility] SOURCE: None given [facility] Statement Of Adequacy: SEE COMMENT [facility] Comment: Satisfactory for evaluation. Endocervical/transformation zone component present. 05/01/2021 9:30 AM EST [facility] PATHOLOGY ORDERABLES Final Result Performing Organization Address [facility] de Phone Number [facility] [address] [place] [address], * HEPATITIS C AB W/REFL TO HCV RNA, QN, PCR (03/08/2021 9:23 AM EDT) HEPATITIS C ANTIBODY NON-REACT VANDA NON-REACT VANDA [facility] INDEX 0.01 <1.00 [facility] Comment: HCV antibody was non-reactive. There is no laboratory evidence of HCV infection. In most cases, no further action is required. However, if recent HCV exposure is suspected, a test for HCV RNA (test code 12454) is suggested. For additional information please refer to http://education.Enervee/faq/FCE72a3 (This link is being provided for informational/ educational purposes only.) 03/08/2021 9:23 AM EDT Celine Gorman MD HISTORICAL/NON ORDERABLE LABS Final Result Performing Organization Address [facility] Co de Phone Number [facility] [address] [place] [address], * HIV 1/2 ANTIGEN/ANTIBODY,FOURTH GENERATION W/RFL (03/08/2021 9:23 AM EDT) HIV-1/2 ANTIGEN AND ANTIBODIES, 4TH GENERATION W/ REFLEX NON-REACT VANDA NON-REACT VANDA [facility] Comment: HIV-1 antigen and HIV-1/HIV-2 [...] purpose. For additional information please refer to http://OnRequest Images.Enervee/faq/SOI355 (This link is being provided for informational/ educational purposes only.) The performance of this assay has not been clinically validated in patients less than 2 years old. 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
--- OUTSIDE RECORDS SUMMARY | 2025-04-02 14:55 | XMS_ITS | Encounter Summary ---
Author Organization [email or web address] Address [address] [place] [address] Care Team Providers Care Educational Psychology Professor Name Role Phone Victor Hugo Lopez MD Primary Care Prov ider Encounter Details Date Type Department Care Team ([facility] st Contact Info) Description 03/28/2023 Orders Only [facility] MED & PEDS [address] [place], [place] [phone] Nimo Cosby MD [address] [place] [address] Pruritus (Primary Dx) Social History Tobacco Use [...] Info) Description 04/15/2025 1:30 PM EST Telemedicine [facility] MED & PEDS [address] [place] [address] Victor Hugo Lopez MD [address] [place] [address] documented as of this encounter Visit Diagnoses Diagnosis Pruritus- Primary Unspecified pruritic disorder documented in this encounter Additional Health Concerns Assessment Noted Time PHQ-9 Depression Total Score: 0 06/05/19 23 11:43 AM EST documented as of this encounter Care Teams Educational Psychology Professor Relationship Specialty Start Date End Date Victor Hugo Lopez MD [address] [place] [address] PCP - General Internal Medicine 09/25/19 documented as of this encounter
--- OUTSIDE RECORDS SUMMARY | 2025-04-02 14:55 | XMS_ITS | Encounter Summary ---
Author Organization [email or web address] Address [address] [facility] [address], [place] [address] Care Team Providers Care Process Machine Operator Name Role Phone Victor Hugo Lopez MD Primary Care Prov ider Reason for Visit * Reason Comments Med Refill Encounter Details Date Type Department Care Team ([facility] Contact Info) Description 01/14/2023 Refill [facility] MED & PEDS [address] [place] [address] Victor Hugo Lopez MD [address] [place] [address] Social History Tobacco Use Types Packs/Day Years [...] Upcoming Encounters Date Type Department Care Team ([facility] Contact Info) Description 04/15/2025 1:30 PM EST Telemedicine [facility] MED & PEDS [address] [place] [address] Victor Hugo Lopez MD [address] [place] [address] documented as of this encounter Visit Diagnoses Not on filedocumented in this encounter Additional Health Concerns Assessment Noted Time PHQ-9 Depression Total Score: 0 06/05/19 23 11:43 AM EST documented as of this encounter Care Teams Process Machine Operator Relationship Specialty Start Date End Date Victor Hugo Lopez MD [address] [place] [address] PCP - General Internal Medicine 09/25/19 documented as of this encounter
--- OUTSIDE RECORDS SUMMARY | 2025-04-02 14:55 | XMS_ITS | Encounter Summary ---
Author Organization [employer] Address [address] [facility] 7 [place] [address] Care Team Providers Care Board Certified Orthodontist Name Role Phone Victor Hugo Lopez MD Primary Care Prov ider Reason for Visit * Reason Onset Date Comments ER Follow-up 05/24/2023 Encounter Details Date Type Department Care Team ([facility] st Contact Info) Description 05/24/2023 Telephone [facility] [address] [place], [place] [phone] Victor Hugo Lopez MD [address] [place], [place] [phone] ER Follow-up Social History Tobacco Use Types [...] Offered same day care appointment in [facility] tomorrow 05/29/23 or televisit with PCP tomorrow [...] for follow up Please contact pt at [phone] documented in this encounter Plan of Treatment Upcoming Encounters Date Type Department Care Team (Late st Contact Info) Description 04/15/2025 1:30 PM EST Telemedicine [facility] MED & PEDS [address] [place] [address] Victor Hugo Lopez MD [address] [place] [address] documented as of this encounter Visit Diagnoses Not on filedocumented in this encounter Additional Health Concerns Assessment Noted Time PHQ-9 Depression Total Score: 0 06/05/19 23 11:43 AM EST documented as of this encounter Care Teams Board Certified Orthodontist Relationship Specialty Start Date End Date Victor Hugo Lopez MD [address] [place] [address] PCP - General Internal Medicine 09/25/19 documented as of this encounter
--- OUTSIDE RECORDS SUMMARY | 2025-04-02 14:55 | XMS_ITS | Encounter Summary ---
Author Organization [employer] Address [address] [facility] 7 [place] [address] Care Team Providers Care Manager Case Name Role Phone Victor Hugo Lopez MD Primary Care Prov ider Reason for Visit * Reason Onset Date Comments Nurse Triage 01/06/2024 Encounter Details Date Type Department Care Team ([facility] st Contact Info) Description 01/06/2024 Telephone [facility] [address] [place] [address] Victor Hugo Lopez MD [address] [place] [address] Nurse Triage Social History Tobacco Use Types [...] Info) Description 04/15/2025 1:30 PM EST Telemedicine [facility] MED & PEDS [address] [place] [address] Victor Hugo Lopez MD [address] [place] [address] documented as of this encounter Visit Diagnoses Not on filedocumented in this encounter Additional Health Concerns Assessment Noted Time PHQ-9 Depression Total Score: 0 06/05/19 23 11:43 AM EST documented as of this encounter Care Teams Manager Case Relationship Specialty Start Date End Date Victor Hugo Lopez MD [address] [place] [address] PCP - General Internal Medicine 09/25/19 documented as of this encounter
== END 2025-04-02 15:08 | disposition home or self-care (01) ==
LOC: HO.HUSH 14:13
PROVIDERS: PCP Internal Medicine; Visit Provider Urology
DX: R31.29 Other microscopic hematuria (principal)
CPT/HCPCS: 52000

== ENCOUNTER → 2025-04-02 14:12 | Outpatient (BNVA) | payer MEDICAID, SELFPAY | PROVIDERS: PCP Internal Medicine; Visit Provider Urology | DX: R31.29 Other microscopic hematuria (principal); R32 Unspecified urinary incontinence | CPT/HCPCS: 52000; 81003; 99212 ==

== ENCOUNTER 2025-04-11 11:05 | Emergency (ER) | payer MEDICAID, SELFPAY ==
--- NOTE | ~2025-04-11 | XR_ITS ---
CLINICAL HISTORY: low back pain 3 views lumbar spine Comparison: None Findings: No fractures or dislocations. Normal vertebral body alignment. There is very minimal lumbar vertebral body spurring L1-L5. Intervertebral disc heights are maintained.. Sacroiliac joints unremarkable. Impression: 1. Mild lumbar degenerative disease. This document has been electronically signed by: Erik Patricia MD on 04/11/2025 13:18:34
[2025-04-11 11:20] VITALS: BP 134/64; PULSE 75; RESP 18; TEMP 36.6; O2SAT 98; BMI 29.3
--- NOTE | 2025-04-11 11:24 | ED.GENADULT ---
HPI - General Adult General Chief complaint: Back Pain/Injury Stated complaint: Lower back sharp pain to side x 3 days Time Seen by Provider: 04/11/25 11:47 Source: patient, RN notes reviewed and old records reviewed Mode of arrival: ambulatory Limitations: no limitations History of Present Illness ED Provider: KOSTAS Carrizales HPI narrative: 45-year-old female with medical history of IBS, GERD presents to the ED due to 2 days of lumbar back pain. Patient states 2 days ago while she was sitting in bed moving positions she experienced a sudden pain in the right side of her lumbar back. Patient states the pain has now expanded to the left side in a bandlike pattern across her lower back and is radiating to the front of her hips, and down bilateral legs. Patient states pain is exacerbated when she is bending down, twisting movements, and has having a hard time wiping herself after using the restroom due to the pain. Patient states she does a lot of physical movement as she has a [employer]PLAY [employer] for her dad and does lots of bending daily. Additionally, patient reports having a cystoscopy for chronic hematuria done on 04/02 and since then has been having some mild pain with urination. Denies saddle paresthesia, bowel/bladder incontinence, chest pain, shortness of breath, nausea, vomiting, abdominal pain, diarrhea, black/tarry stool, fever, chills complaint: Lumbar back pain Related Data Home Medications ?Medication ?Instructions ?Recorded ?Confirmed azelastine 137 mcg (0.1 %) nasal 2 spray intranasal BID 04/07/24 12/15/24 spray hydroxyzine pamoate 25 mg capsule 25 mg PO Q8H PRN itch 04/07/24 12/15/24 magnesium oxide 400 mg (241.3 mg 400 mg PO DAILY 04/07/24 12/15/24 magnesium) tablet riboflavin (vitamin B2) 400 mg 400 mg PO DAILY 04/07/24 12/15/24 tablet triamcinolone acetonide 0.1 % 1 appl topical BID 04/07/24 12/15/24 topical cream cholecalciferol (vitamin D3) 50 25 mcg PO DAILY 07/28/24 12/15/24 mcg (2,000 unit) capsule albuterol sulfate 90 mcg/actuation 2 puff inhalation Q4H PRN 05/13/25 07/15/25 aerosol inhaler (Ventolin HFA) Shortness Of Breath Or Wheezing dicyclomine 10 mg capsule 10 mg PO QID 01/06/25 lidocaine 5 % topical patch 1 patch topical DAILY 01/06/25 Previous Rx's ?Medication ?Instructions ?Recorded fluticasone propionate 50 1 spray intranasal DAILY #16 grams 02/12/21 mcg/actuation nasal spray,suspension (Flonase Allergy Relief) hydrocortisone 1 % topical cream 1 appl topical BID PRN rash #144 ea 02/12/21 packet methylcellulose (laxative) 500 mg 500 mg PO DAILY #90 tabs 11/22/21 tablet (Citrucel) docusate sodium 100 mg capsule 100 mg PO BEDTIME #90 caps 06/26/22 ketorolac 10 mg tablet 10 mg PO Q6H PRN pain #20 tabs 12/08/24 ondansetron HCl 4 mg tablet 4 mg PO Q8H PRN nausea and 12/08/24 vomiting #10 tabs sucralfate 100 mg/mL oral 10 ml PO QID PRN epigastric pain 12/08/24 suspension (Carafate) #400 mL bisacodyl 5 mg tablet,delayed 10 mg (2 x 5 mg) PO BEDTIME #180 01/06/25 release (Dulcolax (bisacodyl)) tabs pantoprazole 20 mg tablet,delayed 20 mg PO QAM #90 tabs 01/06/25 release polyethylene glycol 3350 17 238 g PO ONCE #238 grams 01/06/25 gram/dose oral powder (Miralax) acetaminophen 500 mg tablet 500 mg PO Q6H PRN pain #60 tabs 04/11/25 (Tylenol Extra Strength) cyclobenzaprine 5 mg tablet 5 mg PO TID PRN muscle spasm #15 04/11/25 tabs diazepam 2 mg tablet (Valium) 2 mg PO BID PRN muscle spasm #6 04/11/25 tabs ibuprofen 200 mg tablet 400 mg (2 x 200 mg) PO Q6H PRN 04/11/25 fever or pain #60 tabs Allergies Allergy/AdvReac Type Severity Reaction Status Date / Time No Known Allergies Allergy Verified 04/11/25 11:21 [facility] Past Medical History Attestation statement: The following information was validated with the patient. Source: old records reviewed and nursing notes reviewed Medical History Irritable bowel syndrome Chronic idiopathic constipation Gastroesophageal reflux disease COVID-19 Surgical History H/O: myomectomy (~12/2023) Hx of section Hx of tubal ligation Social History Social History Alcohol intake: former Patient Tobacco Use Status: Former Tobacco user Smoked in Last 30 Days: No Use of substances other than those prescribed or required for medical reasons: No Advance Directives: No Advance Directives Information Provided: Yes Do you have a plan to hurt others: No Plan Patient : No Current occupational status: unemployed Current occupation: rt handed Physical Exam ED Vital Signs: Vital Signs - 24 hr 04/11/25 11:20 04/11/25 12:18 04/11/25 14:28 Temperature 98 F 98.0 F 97.6 F Pulse Rate 75 62 62 Respiratory Rate 18 18 Blood Pressure 134/64 122/63 122/68 Pulse Oximetry 98 96 97 Oxygen Delivery Method Room Air Room Air Room Air 04/11/25 15:21 Temperature 97.6 F Pulse Rate 62 Respiratory Rate 16 Blood Pressure 122/68 Pulse Oximetry 97 Oxygen Delivery Method Room Air BMI result Body Mass Index 29.3 GENERAL APPEARANCE: ?AxOx4, generally well-appearing, no acute distress. HEENT: ?NC, AT. MMM. EOMI, clear conjunctiva, oropharynx clear. NECK: ?Supple without lymphadenopathy.? No stiffness or restricted ROM. HEART:? Normal rate and regular rhythm, normal S1/S1, no m/r/g LUNGS:? CTAB, moving air well. No crackles or wheezes are heard. ABDOMEN: ?Soft, nontender, nondistended with good bowel sounds heard. BACK: No CVAT, no obvious deformity. TTP of bilateral lumbar paraspinal muscles, no midline spinal tenderness or bony step-offs palpated, no overlying skin changes, positive straight leg test bilaterally EXTREMITIES: ?Without cyanosis, clubbing or edema. NEUROLOGICAL: ?Grossly nonfocal. Alert and oriented, moving all 4 extremities. Observed to ambulate with normal gait. Skin: ?Warm and dry without any rash. Course Course Course Narrative: RME: 45-year-old female presents to ED for low back pain that is worse on movement. Patient does heavy lifting due to her taking care of her dad. Patient denies any genitourinary symptoms. X-ray UA ordered. Positive for lumbar spine tenderness Medications Administered Discontinued Medications Generic Name Dose Route Start Last Admin Trade Name Norberto PRN Reason Stop Dose Admin Acetaminophen 975 mg 04/11/25 12:41 04/11/25 13:43 Acetaminophen 325 Mg Tablet PO 04/11/25 12:42 975 mg ONCE ONE Administration Diazepam 5 mg 04/11/25 12:41 04/11/25 13:45 Diazepam 5 Mg Tablet PO 04/11/25 12:42 5 mg ONCE ONE Administration Ketorolac Tromethamine 30 mg 04/11/25 12:41 04/11/25 13:45 Ketorolac Tromethamine 30 Mg/Ml Vial IM 04/11/25 12:42 30 mg ONCE ONE Administration Medical Decision Making Medical Decision Making MDM Narrative: 45-year-old female with medical history of IBS, GERD presents to the ED due to 2 days of lumbar back pain. Patient states 2 days ago while she was sitting in bed moving positions she experienced a sudden pain in the right side of her lumbar back and has now expanded in a bandlike pattern in the left side, radiating to front of hips, and down bilateral legs. Patient had cystoscopy done with [facility] on 04/02/2025 for evaluation of chronic painless hematuria and has been experiencing mild painful urination since the procedure. On chart review, cystoscopy was negative, patient being referred to Nephrology for further evaluation. Denies saddle paresthesias, bowel/bladder incontinence, IVDU VS on initial observation-BP 122/63, pulse rate of 62, respiratory rate of 18, afebrile with oral temp of 98?, O2 saturation 96% on room air. On physical exam TTP of bilateral lumbar paraspinal muscles, no midline spinal tenderness or bony step-offs palpated, no overlying skin changes, positive straight leg test bilaterally, ROM intact, patient able to ambulate without ataxic/antalgic gait. Labs without leukocytosis/leukopenia, no evidence of anemia, no electrolyte abnormalities, U preg negative. UA with 3+ urine blood, >20 RBC's, patient has history of painless hematuria, was seen by Urology and had cystoscopy done on 04/02/2025 without any abnormalities seen on imaging. Patient is being referred to Nephrology and is awaiting her appointment with them to be evaluated. Patient does have mild dysuria after cystoscopy, however no suprapubic pain, dysuria is most likely due to mucosal irritation from cystoscopy. UA negative for leukocyte esterase, nitrites, no indication for antibiotic therapy at this time. Patient will be contacted if culture comes back positive for specific organism inappropriate antibiotic therapy will be initiated. XR was ordered by the provider in triage, was negative for fracture dislocation however does reveal some degenerative changes within the lumbar spine. Patient was medicated with 975 mg of p.o. Tylenol, 30 mg IM Toradol, 5 mg p.o. Valium with significant improvement of her symptoms. Patient afebrile, no saddle paresthesias or bowel/bladder incontinence, no history of IVDU, ROM intact-less likely cauda equina, discitis or SEA. Her symptoms are most likely musculoskeletal related with the lumbar back strain. Patient will be discharged home with a 5 day course of Flexeril, 3 days of Valium, I instructed patient to take 500 mg of Tylenol and 400 mg of ibuprofen every 6 hours, and use heating pad to the affected area. I discussed with the patient that there is no indication to start on antibiotics today, however her urine will be cultured and if comes back with specific growth of bacteria she will be contacted and started on appropriate antibiotics. I counseled patient to follow up with her primary care doctor to ensure resolution of her symptoms. Patient feels well enough to go home for self-care and is in agreement with the plan. Differential Diagnosis Differential Diagnoses: The differential diagnosis associated with the presentation includes Cauda equina Discitis SEA Lumbar back strain Admission/Observation Consideration of admission/observation: Escalation of care including admission/observation considered Lab Data MDM Lab Attestation statement: I reviewed the patient's lab results. Labs: Lab Results 04/11/25 Range/Units 12:14 Urine Color Yellow Urine Appearance Clear Urine pH 5.5 (5.0-9.0) Ur Specific [place] 1.025 (1.005-1.025) Urine Protein Negative (Neg-Trace) mg/dL Urine Glucose (UA) Negative (Negative) mg/dL Urine Ketones Negative (Negative) mg/dL Urine Blood Large (3+) H (Negative) Urine Nitrite Negative (Negative) Ur Leukocyte Esterase Negative (Negative) Urine RBC >20 H (0-2) /HPF Urine WBC 0-5 (0-5) /HPF Ur Squamous Epith Cells 11-20 (0-2) /HPF Urine Bacteria 2+ (None Seen) Hyaline Casts 0-2 (0-2) /LPF Urine Test NEGATIVE (NEGATIVE) Independent Interpretation I performed an independent interpretation of an: Plain X-Ray Interpretation: I personally interpreted the XR R lumbar spine which was negative for fracture, dislocation however does reveal mild degenerative changes, I agree with the radiologist's interpretation Radiology Impression Discussion of test interpretation with radiology: I have reviewed the radiologist's reading. Radiologist Impression: XR lumbar spine Findings: No fractures or dislocations. Normal vertebral body alignment. There is very minimal lumbar vertebral body spurring L1-L5. Intervertebral disc heights are maintained.. Sacroiliac joints unremarkable. Impression: 1. Mild lumbar degenerative disease. This document has been electronically signed by: Erik Patricia MD on 04/11/2025 13:18:34 Dictated By: Erik Patricia MD Signed By: <Electronically signed by Erik Patricia MD in OV> 04/11/25 1319 External Record Review External record reviewed: Inpatient record, Office record and Outpatient record Chronic Conditions Patient?s care impacted by: Other (IBS, GERD) Discharge Plan Discharge Clinical Impression: Lumbar strain Patient Disposition: Home, Self-Care Additional Instructions: You were evaluated in the ED due to pain of your lumbar back. Your labs were negative for increased white blood cell count indicative of infection, no evidence of anemia, no electrolyte abnormalities. Your urine is positive for blood, however this is chronic for you when you were awaiting evaluation with the nephrologists for further evaluation. The x-ray of your lumbar spine was negative for fracture or dislocation however did show very mild degenerative changes indicative of osteoarthritis of the lumbar spine. You are being prescribed a 5 day course of Flexeril which is a muscle relaxer, and 3 days of Valium that you can use for severe spasm and to help you sleep as your symptoms improve. It is important that you take 500 mg of Tylenol, and 400 mg of ibuprofen every 6 hours. You can also use heating pad in the affected area for relief. I encourage you to continue to get movement in, with gentle stretching, and walking around as if you sit and stay idle this can make the pain worse. Please follow up with your primary care doctor to ensure resolution of your symptoms. Please return to the emergency department if you experience fevers over 100.4? that are not controlled by Tylenol/ibuprofen, worsening back pain, numbness and tingling in your inner thighs or near the genital or anal region, loss of bladder or bowel control, chest pain, shortness of breath, or any new/worsening/concerning symptoms. Prescriptions: New cyclobenzaprine 5 mg tablet 5 mg PO TID PRN (Reason: muscle spasm) Qty: 15 0RF diazepam [Valium] 2 mg tablet 2 mg PO BID PRN (Reason: muscle spasm) Qty: 6 0RF acetaminophen [Tylenol Extra Strength] 500 mg tablet 500 mg PO Q6H PRN (Reason: pain) Qty: 60 0RF ibuprofen 200 mg tablet 400 mg PO Q6H PRN (Reason: fever or pain) Qty: 60 0RF No Action fluticasone propionate [Flonase Allergy Relief] 50 mcg/actuation spray,suspension 1 spray intranasal DAILY Qty: 16 0RF Rx Instructions: administer into each nostril hydrocortisone 1 % cream in packet 1 appl topical BID PRN (Reason: rash) Qty: 144 0RF ketorolac 10 mg tablet 10 mg PO Q6H PRN (Reason: pain) Qty: 20 0RF Rx Instructions: maximum total duration of 5 days from all oral, intranasal, or parenteral formulations. Patient received an IV dose of Toradol here in the emergency room ondansetron HCl 4 mg tablet 4 mg PO Q8H PRN (Reason: nausea and vomiting) Qty: 10 0RF sucralfate [Carafate] 100 mg/mL suspension 10 ml PO QID PRN (Reason: epigastric pain) Qty: 400 0RF Rx Instructions: swish in mouth and swallow; use after food/drink docusate sodium 100 mg capsule 100 mg PO BEDTIME Qty: 90 3RF Citrucel 500 mg tablet 500 mg PO DAILY Qty: 90 2RF Rx Instructions: take it with full glass of water cholecalciferol (vitamin D3) 50 mcg (2,000 unit) capsule 25 mcg PO DAILY lidocaine 5 % adhesive patch,medicated 1 patch topical DAILY dicyclomine 10 mg capsule 10 mg PO QID bisacodyl [Dulcolax (bisacodyl)] 5 mg tablet,delayed release (DR/EC) 10 mg PO BEDTIME Qty: 180 4RF pantoprazole 20 mg tablet,delayed release (DR/EC) 20 mg PO QAM Qty: 90 2RF polyethylene glycol 3350 [Miralax] 17 gram/dose powder 238 g PO ONCE Qty: 238 0RF Rx Instructions: As directed by gastroenterology department at [facility] triamcinolone acetonide 0.1 % cream 1 appl topical BID riboflavin (vitamin B2) 400 mg tablet 400 mg PO DAILY hydroxyzine pamoate 25 mg capsule 25 mg PO Q8H PRN (Reason: itch) azelastine 137 mcg (0.1 %) spray,non-aerosol 2 spray intranasal BID magnesium oxide 400 mg (241.3 mg magnesium) tablet 400 mg PO DAILY albuterol sulfate [Ventolin HFA] 90 mcg/actuation HFA aerosol inhaler 2 puff inhalation Q4H PRN (Reason: Shortness Of Breath Or Wheezing) Interventions: ED Discharge Assessment Last Done: 04/11/25 15:21 Discharge Date/Time: 04/11/25 15:23 Print Language: Welsh
--- OUTSIDE RECORDS SUMMARY | 2025-04-11 11:45 | XMS_ITS | Encounter Summary ---
Author Organization [employer] Address [address] [facility] [address] [place] [address] Care Team Providers Care Rounding And Backing Machine Operator Name Role Phone Victor Hugo Lopez MD Primary Care Prov ider Reason for Visit * Reason Onset Date Comments Triage 08/16/2022 Encounter Details Date Type Department Care Team ([facility] st Contact Info) Description 08/16/2022 Telephone [facility] [address] [place] [address] Victor Hugo Lopez MD [address] [place] [address] Triage Social History Tobacco Use Types Packs/Day [...] week. Pt [place] [facility] [place] but, is asking for an excuse for being out of work today. Advised to be seen in [facility] but, not enough time. Advised [...] accepted this outcome Please contact pt at [phone] documented in this encounter Plan of Treatment Upcoming Encounters Date Type Department Care Team (Late st Contact Info) Description 04/15/2025 1:30 PM EST Telemedicine [facility] MED & PEDS [address] [place] [address] Victor Hugo Lopez MD [address] [place] [address] documented as of this encounter Visit Diagnoses Not on filedocumented in this encounter Additional Health Concerns Assessment Noted Time PHQ-9 Depression Total Score: 0 06/05/19 23 11:43 AM EST documented as of this encounter Care Teams Rounding And Backing Machine Operator Relationship Specialty Start Date End Date Victor Hugo Lopez MD [address] [place] [address] PCP - General Internal Medicine 09/25/19 documented as of this encounter
--- OUTSIDE RECORDS SUMMARY | 2025-04-11 11:45 | XMS_ITS | Clinical Summary ---
Author Organization [employer] Address [address] [facility] [address] 7t [place] [address] Care Team Providers Care Clinical Consultant Name Role Phone Victor Hugo Lopez [...] test for guidance of therapy, patient following ob-cryptologic technician operator/analyst for mentrual bleeding Acute left ankle pain 01/03/2023 Assessment & Plan (01/03/2023 2:15 PM EDT): Twisted it about 1 week ago, she has mild presistant pain, will provide ibuprofen, apply ice and rest joint Menorrhagia with irregular cycle 08/21/2022 Assessment & Plan (10/01/2022 5:39 PM EDT): Symptoms improved, reviewed u/s results, has not followed with ob-cryptologic technician operator/analyst, will task MATIAS, refers has not received a notification Assessment & Plan (08/21/2022 5:51 PM EDT): Pateint refers that for the past 2-3 months she has been having profuse episode of vaginal bleeding, with clots, will place ob-cryptologic technician operator/analyst referal Chronic rhinitis 08/21/2022 Assessment & Plan [...] Team Description 03/18/2025 9:45 AM EDT Telemedicine [facility] MED & PEDS [address] [place] [address] Victor Hugo Lopez MD Elevated blood pressure reading (Primary Dx) 03/18/2025 Refill [facility] MED & PEDS [address] [place] [address] Victor Hugo Lopez MD 03/17/2025 Telephone [facility] MED & PEDS [address] [place] [address] Victor Hugo Lopez MD chart prep 03/16/2025 9:15 AM EDT Office Visit [facility] MED & PED[facility] [address] [place] [address] Melanie Barry MD Acute non-recurrent frontal sinusitis (Primary Dx) 03/16/2025 Travel 03/11/2025 Telephone [facility] MED & PEDS [address] [place] [address] Nimo Cosby MD Care Coordination 03/09/2025 Telephone [facility] MED & PEDS [address] [place] [address] Victor Hugo Lopez MD Appointment Request 03/09/2025 Telephone [facility] MEDICINE [address] [place] [address] Victor Hugo Lopez MD Nurse Triage 02/04/2025 Telephone [facility] [address] [place] [address] Victor Hugo Lopez MD Referral 02/02/2025 Orders Only [facility] MED & PEDS [address] [place] [address] Victor Hugo Lopez MD 01/12/2025 11:15 AM EDT Telemedicine [facility] MED & PEDS [address] [place] [address] Victor Hugo Lopez MD Anxiety (Primary Dx) [...] Info) Description 04/15/2025 1:30 PM EST Telemedicine [facility] MED & PEDS [address] [place] [address] Victor Hugo Lopez MD [address] [place] [address] Health Maintenance Due Date Last Done Comments [...] Covid-19 BinaxNOW (03/16/2025 9:32 AM EDT) Pathologist [facility] Rapid COVID Ag Negative QC Media Lot # [id number] Lot# Expiration Date [id number] Swab 03/16/2025 9:32 AM EDT us Melanie Barry MD POINT OF CARE TEST ENTER/EDIT OR DERABLES Final Result * POCT Rapid Strep A OSOM (03/16/2025 9:31 AM EDT) [facility] Rapid Strep A Screen Negative Negative, None Detected QC Media Lot # [id number] Lot# Expiration Date [id number] Swab 03/16/2025 9:31 AM EDT us Melanie Barry MD POINT OF CARE TEST ENTER/EDIT OR DERABLES Edited Result - Final * BI US Breast Limited Right (02/02/2025 1:12 PM EDT) Anatomical Region Laterality Modality Breast Right Ultrasound 02/02/2025 1:12 PM EDT Narrative 02/02/2025 6:19 PM EDT [facility] [address] [place] [address] Ultrasound Report Signed Patient: Jessa Kwon MR#: [id number] 60 : 1980 Acct:[id number] Age/Sex: 44 / F ADM Date: 02/02/25 Loc: HO.MAMMO Attending Dr: Victor Hugo Porter MD Ordering Physician: Victor Hugo Lopez MD Date of Service: 02/02/25 Procedure(s): US breast RT limited mamm only Accession Number(s): [id number] cc: Victor Hugo Lopez MD Reason for [...] 02/02/25 1817 DD/ 1312 TD/TT: 02/02/25 1400 Pipelines Laborer: Procedure Note Donotuseinterpreter, Image - 02/03/20[facility] [address] [place] [address] Ultrasound Report Signed Patient: Jessa Kwon LMR#: [id number] 60 : 1980Acct:[id number] Age/Sex: 44 / FADM Date: 02/02/25 Loc: HO.MAMMO Attending Dr: Victor Hugo Porter MD Ordering Physician: Victor Hugo Lopez MD Date of Service: 02/02/25 Procedure(s): US breast RT limited mamm only Accession Number(s): [id number] cc: Victor Hugo Lopez MD Reason for [...] OV> 02/02/257 DD/ 1312 TD/TT: 02/02/25 1400 Pipelines Laborer: us Victor Hugo Porter MD IMG US PROCEDURES Final Result * BI Mammogram Diagnostic Tomosynthesis added right (02/02/2025 1:10 PM EDT) Anatomical Region Laterality Modality Breast Left Mammography 02/02/2025 1:10 PM EDT Narrative 02/02/2025 6:19 PM EDT [facility]'s [address] [place] [address] Mammography Report Signed Patient: Jessa Kwon MR#: [id number] [birth year] : 1980 Acct:[id number] Age/Sex: 44 / F ADM Date: 02/02/25 Loc: HO.MAMMO Attending Dr: Victor Hugo Porter MD Ordering Physician: Victor Hugo Lopez MD Res ults: 1Negative Date of Service: 02/02/25 Follow Up: 1 Year From Orig ina Mammogram Procedure(s): MM tomosynthesis added views R Accession Number(s): [id number] cc: Victor Hugo Lopez MD EXAMINATION (S): [...] Abraham MD 02/02/2025 06:17 PM EDT Workstation: [employer] Dictated By: Nehal Abraham MD Signed By: <Electronically signed by Nehal Abraham MD in OV> 02/02/25 1817 DD/ 1310 TD/TT: 02/02/25 1340 Pipelines Laborer: Procedure Note Donotuseinterpreter, Image - 02/02/2025 [place] [facility]'s [address] [place] [address] Mammography Report Signed Patient: Jessa Kwon LMR#: [id number] 60 : 1980Acct:[id number] Age/Sex: 44 / FADM Date: 02/02/25 Loc: HO.MAMMO Attending Dr: Victor Hugo Porter MD Ordering Physician: Victor Hugo Lopez ults: 1Negative Date of Service: 02/02/25Follow Up: 1 Year From Orig inal Mammogram Procedure(s): MM tomosynthesis added views R Accession Number(s): [id number] cc: Victor Hugo Lopez MD EXAMINATION (S): [...] 02/02/25 1817 DD/ 1310 TD/TT: 02/02/25 1340 Pipelines Laborer: Victor Hugo Porter MD IM BI PROCEDURES Final Result * (ABNORMAL) Lipid Panel, Standard (11/11/2024 11:02 AM EDT) Triglycerides 278(H) <150 mg/dL [facility] Comment:Desirable Triglyceri de: less than 150 mg/dLBorderline High Triglyceride 150-199 mg/dLHigh Triglyceride: 200-499 mg/dLVery High Triglyceride: greater than or equal to 5OO mg/dL Cholesterol 194 <200 mg/dL [facility] Comment:Desirable Cholestero l: less than 200 mg/dLBorderline High Cholesterol: 200-239 mg/dLHigh Cholesterol: greater than 239 mg/dL LDL Cholesterol Calculated 109(H) <100 mg/dL [facility] Comment:Desirable LDL: less than 100 mg/dLNear Optimal/Above Optimal LDL: 110- 129 mg/dLBorderline High LDL: 130-159 mg/dLHigh LDL: 160-189 mg/dLVery High LDL: greater than or equal to 190 mg/dL HDL Cholesterol 30(L) >40 mg/dL [facility] Comment:Desirable HDL: great er than 40 mg/dL Note: This HDL assay may give artificially low results in patients with liver disease. Blood Venous blood specimen / Unknown 11/11/2024 11:02 AM EDT 11/11/2024 2:20 PM EDT us Victor Hugo Porter MD LAB BLOOD ORDERABL ES Final Result [facility] [address] [place] [phone] * Pap Smear (01/10/2023 12:17 PM EDT) 01/10/2023 12:1 7 PM EDT 01/11/2023 9:30 AM EDT Narrative [facility] - 01/29/2023 9:53 AM EDT ----- ------- Name: Jessa Kwon Age/Sex: 42/F : 1980 Unit#: [id number] Attend Dr: Carey Torres CNM Re01/10/23 Status: DEP REF Location: [facility] Disch: ----- ------- SPEC : [id number] RECD: 01/11/23 STATUS: CAROLINA ALEXANDRE NUM: [id number] KAMLESH: 01/10/23-7 [facility] ENTERED: 01/11/23 SP TYPE: Pap Smr [...] 59, 66, 68) HPV testing performed by [facility], [place], [place]. See reference laboratory portion of the EMR for entire report. Clinical Information LMP:12/31/22 Previous PAP test:04/30/17, Unknown findings Material Received ThinPrep-Cervical Copies To: Victor Hugo Lopez MD [address] [place] [id number] Solorzano [address] [place] [phone] ----- ------- Signed (signature on file) Griselda Justice MD 01/29/23 0953 ----- ------- END OF REPORT [facility] External Provider LAB CYT OLOGY ORDERABLES Final Result [facility] [address] [place] [phone] * THINPREP TIS PAP AND HPV mRNA E6/E7 REFLEX HPV 16,18/45 (05/01/2021 9:30 AM EST) Clinical Information: None given [facility] COMMENT SEE COMMENT [facility] [...] was manually screened according to routine procedures. Electrophysiology Technologist: SEE COMMENT [facility] Comment: [facility] CT screening location: [place] [address] HPV nRNA E6/E7 Not Detected Not Detected [facility] Comment: Methodology: Absorption Plant Operator-Mediated Amplification This assay detects E6/E7 viral messenger RNA (mRNA) from 14 high-risk HPV types (16,18,31,33,35,39,45,51,52,56,58,59,66,68). The analytical performance characteristics of this assay have been determined by [facility]. The modifications have not been cleared or approved by the FDA. This assay has been validated pursuant to the CLIA regulations and is used for clinical purposes. For additional information, please refer to http://education.[employer]Log[employer].Reddit/faq/FDR310d4 (This link if provided for information/ educational purposes only.) Interpretation/Re sult: Negative for intraepithelial lesion or malignancy. [facility] LMP: 112,[id number] [facility] Prev. BX: NONE GIVEN [facility] N LAB SYSTEM Prev. PAP: NONE GIVEN [facility] LAB SYSTEM SOURCE: None given [facility] Statement Of Adequacy: SEE COMMENT [facility] Comment: Satisfactory for evaluation. Endocervical/transformation zone component present. 05/01/2021 9:30 AM EST [facility] PATHOLOGY ORDERABLES Final Result Performing Organization Address [facility] de Phone Number [facility] [address] [place] [address], * HEPATITIS C AB W/REFL TO HCV RNA, QN, PCR (03/08/2021 9:23 AM EDT) HEPATITIS C ANTIBODY NON-REACT VANDA NON-REACT VANDA [facility] INDEX 0.01 <1.00 [facility] Comment: HCV antibody was non-reactive. There is no laboratory evidence of HCV infection. In most cases, no further action is required. However, if recent HCV exposure is suspected, a test for HCV RNA (test code 11952) is suggested. For additional information please refer to http://education.[employer]/faq/LCF13h5 (This link is being provided for informational/ educational purposes only.) 03/08/2021 9:23 AM EDT Celine Gorman MD HISTORICAL/NON ORDERABLE LABS Final Result Performing Organization Address [facility] Co de Phone Number [facility] [address] [place] [address], * HIV 1/2 ANTIGEN/ANTIBODY,FOURTH GENERATION W/RFL (03/08/2021 9:23 AM EDT) HIV-1/2 ANTIGEN AND ANTIBODIES, 4TH GENERATION W/ REFLEX NON-REACT VANDA NON-REACT VANDA [facility] Comment: HIV-1 antigen and HIV-1/HIV-2 [...] purpose. For additional information please refer to http://[employer]/faq/BMS427 (This link is being provided for informational/ educational purposes only.) The performance of this assay has not been clinically validated in patients less than 2 years old. 03/08/2021 9:23 AM EDT us Celine Gorman MD LAB BLOOD ORDERABLES Final Re sult [facility] Formerly [facility] [address] from Last 3 Months or Most Recently Relevant to Health Maintenance Insurance [facility] C3 Care Teams Clinical Consultant Relationship Specialty Start Date End Date Victor Hugo Lopez MD [address] [place] [address] PCP - General Internal Medicine 09/25/19
--- OUTSIDE RECORDS SUMMARY | 2025-04-11 11:45 | XMS_ITS | Encounter Summary ---
Author Organization [employer] Address [address] [facility] 7 [place] [address] Care Team Providers Care Ad Compositor Name Role Phone Victor Hugo Lopez MD Primary Care Prov ider Reason for Visit * Reason Onset Date Comments Nurse Triage 01/06/2024 Encounter Details Date Type Department Care Team ([facility] st Contact Info) Description 01/06/2024 Telephone [facility] MEDICINE [address] [place] [address] Victor Hugo Lopez MD [address] [place] [address] Nurse Triage Social History Tobacco Use Types [...] Info) Description 04/15/2025 1:30 PM EST Telemedicine [facility] MED & PEDS [address] [place] [address] Victor Hugo Lopez MD [address] [place] [address] documented as of this encounter Visit Diagnoses Not on filedocumented in this encounter Additional Health Concerns Assessment Noted Time PHQ-9 Depression Total Score: 0 06/05/19 23 11:43 AM EST documented as of this encounter Care Teams Ad Compositor Relationship Specialty Start Date End Date Victor Hugo Lopez MD [address] [place] [address] PCP - General Internal Medicine 09/25/19 documented as of this encounter
--- OUTSIDE RECORDS SUMMARY | 2025-04-11 11:45 | XMS_ITS | Encounter Summary ---
Author Organization [employer] Address [address] [facility] [address], [place] [address] Care Team Providers Care Business Information Manager Name Role Phone Victor Hugo Lopez MD Primary Care Prov ider Reason for Visit * Reason Comments Med Refill Encounter Details Date Type Department Care Team ([facility] Contact Info) Description 01/14/2023 Refill [facility] MED & PEDS [address] [place] [address] Victor Hugo Lopez MD [address] [place] [address] Social History Tobacco Use Types Packs/Day Years [...] Upcoming Encounters Date Type Department Care Team ([facility] Contact Info) Description 04/15/2025 1:30 PM EST Telemedicine [facility]EDS [address] [place] [address] Victor Hugo Lopez MD [address] [place] [address] documented as of this encounter Visit Diagnoses Not on filedocumented in this encounter Additional Health Concerns Assessment Noted Time PHQ-9 Depression Total Score: 0 06/05/19 23 11:43 AM EST documented as of this encounter Care Teams Business Information Manager Relationship Specialty Start Date End Date Victor Hugo Lopez MD [address] [place] [address] PCP - General Internal Medicine 09/25/19 documented as of this encounter
--- OUTSIDE RECORDS SUMMARY | 2025-04-11 11:45 | XMS_ITS | Encounter Summary ---
Author Organization [employer] Address [address] [facility] [address] 7[address] [place] [address] Care Team Providers Care Yard Cleaner Name Role Phone Victor Hugo Lopez MD Primary Care Prov ider Encounter Details Date Type Department Care Team ([facility] st Contact Info) Description 03/28/2023 Orders Only [facility] MED & PEDS [address] [place], [place] [phone] Nimo Cosby MD [address] [place] [address] Pruritus (Primary Dx) Social History Tobacco Use [...] Info) Description 04/15/2025 1:30 PM EST Telemedicine [facility] MED & PEDS [address] [place] [address] Victor Hugo Lopez MD [address] [place] [address] documented as of this encounter Visit Diagnoses Diagnosis Pruritus- Primary Unspecified pruritic disorder documented in this encounter Additional Health Concerns Assessment Noted Time PHQ-9 Depression Total Score: 0 06/05/19 23 11:43 AM EST documented as of this encounter Care Teams Yard Cleaner Relationship Specialty Start Date End Date Victor Hugo Lopez MD [address] [place] [address] PCP - General Internal Medicine 09/25/19 documented as of this encounter
--- OUTSIDE RECORDS SUMMARY | 2025-04-11 11:45 | XMS_ITS | Encounter Summary ---
Author Organization [employer] Address 75 [facility] 7 [place] [address] Care Team Providers Care Fire Control Technician Name Role Phone Victor Hugo Lopez MD Primary Care Prov ider Reason for Visit * Reason Onset Date Comments Nurse Triage 01/03/2024 Encounter Details Date Type Department Care Team ([facility] st Contact Info) Description 01/03/2024 Telephone [facility] MEDICINE [address] [place] [address] Victor Hugo Lopez MD [address] [place] [address] Nurse Triage Social History Tobacco Use Types [...] Info) Description 04/15/2025 1:30 PM EST Telemedicine [facility] MED & PEDS [address] [place] [address] Victor Hugo Lopez MD [address] [place] [address] documented as of this encounter Visit Diagnoses Not on filedocumented in this encounter Additional Health Concerns Assessment Noted Time PHQ-9 Depression Total Score: 0 06/05/19 23 11:43 AM EST documented as of this encounter Care Teams Fire Control Technician Relationship Specialty Start Date End Date Victor Hugo Lopez MD [address] [place] [address] PCP - General Internal Medicine 09/25/19 documented as of this encounter
--- OUTSIDE RECORDS SUMMARY | 2025-04-11 11:45 | XMS_ITS | Encounter Summary ---
Author Organization [employer] Address [address] [facility] [address] [place] [address] Care Team Providers Care Crew Scheduler Name Role Phone Victor Hugo Lopez MD Primary Care Prov ider Reason for Visit * Reason Onset Date Comments ER Follow-up 05/24/2023 Encounter Details Date Type Department Care Team ([facility] st Contact Info) Description 05/24/2023 Telephone [facility] MED & PEDS [address] [place], [place] [phone] Victor Hugo Lopez MD [address] [place], [place] [phone] ER Follow-up Social History Tobacco Use Types [...] to follow up on ED visit to [facility] on 05/23/23. Patient reports that meds were prescribed to stop vaginal bleeding, and they have been working. Patient reports that she is not currently experiencing continuing symptoms of vaginal bleeding or abdominal pain and is still taking tranexemic acid as prescribed in ED. Offered same day care appointment in [facility] tomorrow 05/29/23 or televisit with PCP tomorrow 05/29/23 or f/u with Salina Gutierrez next 06/04/22. Patient opted for f/u with Salina Gutierrez next Saturday06/04/22. Advised to be in touch with us, go to walk-in, or go to EDif symptoms recur or new symptoms develop. Notes from [facility] ED visit in chart. Routing to PCP, so he is aware. * Telephone Encounter - Latasha Carlton - 05/24/2023 1:51 PM EST Patient calling to report ED visit on : Date: 05/23 Hospital: [facility] Seen for: vaginal bleeding Patient advised will forward to team nurse for follow up Please contact pt at [phone] documented in this encounter Plan of Treatment Upcoming Encounters Date Type Department Care Team (Late st Contact Info) Description 04/15/2025 1:30 PM EST Telemedicine [facility] MED & PEDS [address] [place] [address] Victor Hugo Lopez MD [address] [place] [address] documented as of this encounter Visit Diagnoses Not on filedocumented in this encounter Additional Health Concerns Assessment Noted Time PHQ-9 Depression Total Score: 0 06/05/19 23 11:43 AM EST documented as of this encounter Care Teams Crew Scheduler Relationship Specialty Start Date End Date Victor Hugo Lopez MD [address] [place] [address] PCP - General Internal Medicine 09/25/19 documented as of this encounter
--- OUTSIDE RECORDS SUMMARY | 2025-04-11 11:45 | XMS_ITS | Encounter Summary ---
Author Organization [employer] Address 75 [facility] 7 [place] [address] Care Team Providers Care Greaser Helper Name Role Phone Victor Hugo Lopez MD Primary Care Prov ider Reason for Visit * Reason Onset Date Comments Durable Medical Equipment 12/17/2024 Encounter Details Date Type Department Care Team ([facility] st Contact Info) Description 12/17/2024 Telephone [facility] MEDICINE [address] [place] [address] Victor Hugo Lopez MD [address] [place] [address] Durable Medical Equipment Social History Tobacco Use [...] pain does not qualify ) TC from [facility] with [facility] requesting : Rolator Bed Rails Script to be faxed to [employer] [phone] * Telephone Encounter - Austen Lilly - 12/17/2024 10:05 AM EDT TC from [facility] with [facility] requesting : Rolator Bed Rails Script to be faxed to [employer] [phone] documented in this encounter Plan of Treatment Upcoming Encounters Date Type Department Care Team (Late st Contact Info) Description 04/15/2025 1:30 PM EST Telemedicine [facility] MED & PEDS [address] [place], [place] [phone] Victor Hugo Lopez MD [address] [place] [address] documented as of this encounter Visit Diagnoses Not on filedocumented in this encounter Additional Health Concerns Assessment Noted Time PHQ-9 Depression Total Score: 0 11/12/19 25 10:29 AM EDT documented as of this encounter Care Teams Greaser Helper Relationship Specialty Start Date End Date CortezVictor Hugo Daley MD [address] [place] [address] MATI[place] Mao [address] PCP - General Internal Medicine 09/25/19 documented as of this encounter
--- OUTSIDE RECORDS SUMMARY | 2025-04-11 11:45 | XMS_ITS | Encounter Summary ---
Author Organization [employer] Address [address] [facility] [address] [place] [address] Care Team Providers Care Monitor Technician Name Role Phone Victor Hugo Lopez MD Primary Care Prov ider Encounter Details Date Type Department Care Team ([facility] st Contact Info) Description 03/18/2023 Telephone [facility] MED & PEDS [address] [place], [place] [phone] Victor Hugo Lopez MD [address] [place] [address] Social History Tobacco Use Types Packs/Day Years [...] location. Pt stated PT1 is approved for [facility] on [address] instead of [facility] on [address] Pt is requesting PT1 to be corrected. documented in this encounter Plan of Treatment Upcoming Encounters Date Type Department Care Team (Late st Contact Info) Description 04/15/2025 1:30 PM EST Telemedicine [facility] [address] [place] [address] Victor Hugo Lopez MD [address] [place] [address] documented as of this encounter Visit Diagnoses Not on filedocumented in this encounter Additional Health Concerns Assessment Noted Time PHQ-9 Depression Total Score: 0 06/05/19 23 11:43 AM EST documented as of this encounter Care Teams Monitor Technician Relationship Specialty Start Date End Date Victor Hugo Lopez MD [address] [place] [address] PCP - General Internal Medicine 09/25/19 documented as of this encounter
[2025-04-11 12:18] VITALS: BP 122/63; PULSE 62; RESP 18; TEMP 36.7; O2SAT 96
[2025-04-11 12:30] LABS: Appearance Urine Clear; Glucose Urine UA Negative (Negative); PH 5.5 (5.0-9.0); Specific Gravity - Urine 1.025 (1.005-1.025); UMIC TRIGGER UACC YES
[2025-04-11 12:31] LABS: UPreg QC Valid YES
[2025-04-11 14:28] VITALS: BP 122/68; PULSE 62; TEMP 36.4; O2SAT 97
[2025-04-11 15:21] VITALS: BP 122/68; PULSE 62; RESP 16; TEMP 36.4; O2SAT 97
== END 2025-04-11 15:23 | disposition home or self-care (01) ==
PROVIDERS: Physician Assistant; Emergency Provider Emergency Medicine Emergency Medical Services; PCP Internal Medicine
DX: S39.012A Strain of muscle, fascia and tendon of lower back, initial encounter (principal); M79.605 Pain in left leg; M79.604 Pain in right leg; R30.0 Dysuria; X58.XXXA Exposure to other specified factors, initial encounter; Y93.9 Activity, unspecified; Y92.9 Unspecified place or not applicable; Y99.8 Other external cause status; Z87.891 Personal history of nicotine dependence; Z79.899 Other long term (current) drug therapy
CPT/HCPCS: 72100; 81001; 81025; 96372; 99284; J1885

== ENCOUNTER → 2025-04-11 11:23 | Outpatient (BNV) | payer MEDICAID, SELFPAY | PROVIDERS: Emergency Provider Emergency Medicine Emergency Medical Services; PCP Internal Medicine; Visit Provider Radiology Diagnostic Radiology | DX: M54.50 Low back pain, unspecified (principal) | CPT/HCPCS: 72100 ==